=== PATIENT | male | born 1960 | race Caucasian/White ===

== ENCOUNTER 2021-02-22 15:31 | Inpatient (IN) | payer MEDICARE, OTHER ==
[2021-02-22] MEDS ORDERED: ACETAMINOPHEN TAB 500 MG TAB PO STA (16:14)
[2021-02-22] MEDS ORDERED: IBUPROFEN 600 MG TAB PO STA (16:15)
[2021-02-22] MEDS ORDERED: SODIUM CHLORIDE 0.9% 1,000 ML IV STA ×3 (16:15→21:12)
--- NOTE | 2021-02-22 16:49 | ED ---
Fever HPI - General Source: police, EMS Mode of arrival: EMS <Chen Pham - Last Filed: 02/22/21 17:58> <Mauricio Vyas - Last Filed: 02/22/21 21:52> - General Chief Complaint: Fever Stated Complaint: Covid symptoms Time Seen by Provider: 02/22/21 16:03 - History of Present Illness Initial Comments: Patient is a 60-year-old male with history of cirrhosis, HTN, presenting to the emergency department via EMS from [facility] for complaint of fever, body aches, and elevated heart rate. Patient is complaining of some nausea, some mild abdominal discomfort. He states his symptoms started about 3 days ago. He has not been eating or drinking very much. No known covid his is fci cell. He denies any chest pain, no shortness of breath, just feels like his heart is racing. Patient did have a recent ultrasound, performed on 02/19/21 which shows some liver disease, cirrhosis, dilated main portal vein, distended gallbladder with mild gallbladder wall thickening and sludge. He also has some ascites. Patient states his abdominal pain is minimal. He does admit to some mild diarrhea. He has no further complaints at this time. Upon arrival to the ER, patient is febrile to 101.7, pulse is 160, respiratory rate 26, BP is 90/57, 93% on room air. (Chen Pham) - Related Data Allergies Allergy/AdvReac Type Severity Reaction Status Date / Time No Known Allergies Allergy Verified 02/22/21 16:45 Review of Systems ROS Other: All systems not noted in ROS Statement are negative. <Chen Pham - Last Filed: 02/22/21 17:58> ROS Other: All systems not noted in ROS Statement are negative. <Mauricio Vyas - Last Filed: 02/22/21 21:52> ROS Statement: Those systems with pertinent positive or pertinent negative responses have been documented in the HPI. Past Medical History Past Medical History: Liver Disease Additional Past Medical History / Comment(s): ETOH History of Any Multi-Drug Resistant Organisms: None Reported Smoking Status: Never smoker Past Alcohol Use History: Abuse Past Drug Use History: None Reported <Chen Pham - Last Filed: 02/22/21 17:58> General Exam <Chen Pham - Last Filed: 02/22/21 17:58> - General Exam Comments Initial Comments: GENERAL: Patient is well-developed and well-nourished. Patient is disheveled, in moderate distress. HEAD: Atraumatic, normocephalic. EYES: Pupils equal round and reactive to light, extraocular movements intact, sclera anicteric, conjunctiva are normal. Eyelids were unremarkable. ENT: TMs normal, nares patent, oropharynx clear without exudates. Moist mucous membranes. NECK: Normal range of motion, supple without lymphadenopathy or JVD. LUNGS: Mildly labored respirations. Breath sounds clear to auscultation bilaterally and equal. No wheezes rales or rhonchi. HEART: Tachycardia rate and rhythm without murmurs, rubs or gallops. ABDOMEN: Mildly distended abdomen, normoactive bowel sounds. No guarding, no rebound. No masses appreciated. : Deferred MUSCULOSKELETAL: Normal extremities with adequate strength and normal range of motion, no pitting or edema. No clubbing or cyanosis. NEUROLOGICAL: Patient is alert and oriented x 3. Motor and sensory are also intact. Cranial nerves II through XII grossly intact. Symmetrical smile. Normal speech, normal gait. PSYCH: Normal mood, normal affect. SKIN: Warm, Dry, normal turgor, no rashes or lesions noted. (Chen Pham) Course <Mauricio Vyas - Last Filed: 02/22/21 21:52> Vital Signs 02/22/21 02/22/21 02/22/21 16:05 17:46 18:42 Temperature 101.7 F H 100.7 F H Pulse Rate 160 H 125 H 121 H Respiratory 26 H 22 22 Rate Blood Pressure 90/57 157/98 101/65 O2 Sat by Pulse 93 L 93 L 93 L Oximetry 02/22/21 02/22/21 02/22/21 19:41 20:51 21:09 Temperature 101.2 F H Pulse Rate 117 H 115 H 116 H Respiratory 22 22 20 Rate Blood Pressure 92/60 81/61 93/65 O2 Sat by Pulse 93 L 94 L 93 L Oximetry - Reevaluation(s) Reevaluation #1: 02/22/21 21:45 Patient does meet criteria for septic shock diagnosed at 2100. Blood culture and lactic acid and fluid bolus 3 L has been ordered. 02/22/21 21:52 Dr. Olmstead was notified. (Mauricio Vyas) Procedures - Sepsis Sepsis Focused Exam #1 Time Sepsis Criteria Met: 21:00 Sepsis Focused Exam Date: 02/22/21 Sepsis Focused Exam Time: 21:46 Sepsis Focused Exam Complete: Yes Vital Signs & RN Notes Reviewed: Yes Capillary Refill: < 2 Seconds: Fingers Peripheral Pulses: Normal: Radial (R), Radial (L) Skin Color: Normal for Patient Respiratory Exam: normal lung sounds Cardiovascular Exam: regular rate, normal rhythm <Mauricio Vyas - Last Filed: 02/22/21 21:52> Medical Decision Making - Lab Data Result diagrams: 02/22/21 16:44 <Chen Pham - Last Filed: 02/22/21 17:58> - Lab Data Result diagrams: 02/22/21 16:44 02/22/21 16:44 - Radiology Data Radiology results: report reviewed (Gallbladder ultrasound does show stones with wall thickening. Common bile duct [address] angios chest Limited but no large pulmonary embolism. Suspected mild groundglass opacity right base. Sequela of cirrhotic liver disease with ascites, prominent spleen and questionable very sees.), image reviewed (Chest x-ray shows mild patchy density right base.) <Mauricio Vyas - Last Filed: 02/22/21 21:52> - Medical Decision Making Patient is a 60-year-old male with history of hypertension, presenting via EMS with complaints of fever, chills, high heart rate for the last 3 days. He did arrive and sepsis, febrile, tachycardia and slightly hypotensive. (Chen Pham) Patient reevaluated and resting comfortably in bed. Patient states he is not feeling well, generally weak and fatigued. Patient states only mild abdominal discomfort. Case was discussed in detail with Dr. Layton, who will admit For hospital call. Case also discussed with surgical call, Dr. Jamil who will consult and recommends keeping patient nothing by mouth. He agrees with Zosyn. She also agrees with GI consult and ICU. Dr. Olmstead has been paged. (Mauricio Vyas) - Lab Data Lab Results 02/22/21 02/22/21 02/22/21 Range/Units 16:44 16:44 16:44 WBC 0.6 L* (3.8-10.6) k/uL RBC 3.84 L (4.30-5.90) m/uL Hgb 14.4 (13.0-17.5) gm/dL Hct 42.4 (39.0-53.0) % MCV 110.4 H (80.0-100.0) fL MCH 37.4 H (25.0-35.0) pg MCHC 33.9 (31.0-37.0) g/dL RDW 12.9 (11.5-15.5) % Plt Count 83 L (150-450) k/uL MPV 9.7 Differential Comment Manual Slide Review Performed Macrocytosis Marked A PT 19.6 H (9.0-12.0) sec INR 2.0 H (<1.2) APTT 32.4 H (22.0-30.0) sec D-Dimer >34.10 H (<0.60) mg/L FEU Sodium 132 L (137-145) mmol/L Potassium 3.1 L (3.5-5.1) mmol/L Chloride 96 L (98-107) mmol/L Carbon Dioxide 16 L (22-30) mmol/L Anion Gap 20 mmol/L BUN 15 (9-20) mg/dL Creatinine 1.49 H (0.66-1.25) mg/dL Est GFR (CKD-EPI)AfAm 59 (>60 ml/min/1.73 sqM) Est GFR (CKD-EPI)NonAf 51 (>60 ml/min/1.73 sqM) Glucose 26 L* (74-99) mg/dL POC Glucose (mg/dL) (75-99) mg/dL POC Glu Quill Reamer ID Lactic Ac Sepsis Rflx Plasma Lactic Acid Tristan (0.7-2.0) mmol/L Calcium 8.5 (8.4-10.2) mg/dL Magnesium 1.4 L (1.6-2.3) mg/dL Total Bilirubin 3.7 H (0.2-1.3) mg/dL AST 93 H (17-59) U/L ALT 34 (4-49) U/L Alkaline Phosphatase 130 H (38-126) U/L Lactate Dehydrogenase 467 (313-618) U/L C-Reactive Protein 3.8 H (<1.0) mg/dL Total Protein 7.3 (6.3-8.2) g/dL Albumin 2.8 L (3.5-5.0) g/dL Amylase 111 H (30-110) U/L Lipase 238 (23-300) U/L Coronavirus (PCR) (Not Detectd) 02/22/21 02/22/21 02/22/21 Range/Units 16:44 16:44 18:01 WBC (3.8-10.6) k/uL RBC (4.30-5.90) m/uL Hgb (13.0-17.5) gm/dL Hct (39.0-53.0) % MCV (80.0-100.0) fL MCH (25.0-35.0) pg MCHC (31.0-37.0) g/dL RDW (11.5-15.5) % Plt Count (150-450) k/uL MPV Differential Comment Manual Slide Review Macrocytosis PT (9.0-12.0) sec INR (<1.2) APTT (22.0-30.0) sec D-Dimer (<0.60) mg/L FEU Sodium (137-145) mmol/L Potassium (3.5-5.1) mmol/L Chloride (98-107) mmol/L Carbon Dioxide (22-30) mmol/L Anion Gap mmol/L BUN (9-20) mg/dL Creatinine (0.66-1.25) mg/dL Est GFR (CKD-EPI)AfAm (>60 ml/min/1.73 sqM) Est GFR (CKD-EPI)NonAf (>60 ml/min/1.73 sqM) Glucose (74-99) mg/dL POC Glucose (mg/dL) (75-99) mg/dL POC Glu Quill Reamer ID Lactic Ac Sepsis Rflx Y Plasma Lactic Acid Tristan 13.5 H* (0.7-2.0) mmol/L Calcium (8.4-10.2) mg/dL Magnesium (1.6-2.3) mg/dL Total Bilirubin (0.2-1.3) mg/dL AST (17-59) U/L ALT (4-49) U/L Alkaline Phosphatase (38-126) U/L Lactate Dehydrogenase (313-618) U/L C-Reactive Protein (<1.0) mg/dL Total Protein (6.3-8.2) g/dL Albumin (3.5-5.0) g/dL Amylase (30-110) U/L Lipase (23-300) U/L Coronavirus (PCR) Not Detected (Not Detectd) 02/22/21 02/22/21 02/22/21 Range/Units 18:28 20:09 20:48 WBC (3.8-10.6) k/uL RBC (4.30-5.90) m/uL Hgb (13.0-17.5) gm/dL Hct (39.0-53.0) % MCV (80.0-100.0) fL MCH (25.0-35.0) pg MCHC (31.0-37.0) g/dL RDW (11.5-15.5) % Plt Count (150-450) k/uL MPV Differential Comment Manual Slide Review Macrocytosis PT (9.0-12.0) sec INR (<1.2) APTT (22.0-30.0) sec D-Dimer (<0.60) mg/L FEU Sodium (137-145) mmol/L Potassium (3.5-5.1) mmol/L Chloride (98-107) mmol/L Carbon Dioxide (22-30) mmol/L Anion Gap mmol/L BUN (9-20) mg/dL Creatinine (0.66-1.25) mg/dL Est GFR (CKD-EPI)AfAm (>60 ml/min/1.73 sqM) Est GFR (CKD-EPI)NonAf (>60 ml/min/1.73 sqM) Glucose (74-99) mg/dL POC Glucose (mg/dL) 79 45 L (75-99) mg/dL POC Glu Quill Reamer ID Debra Boykin Aaron Lactic Ac Sepsis Rflx Plasma Lactic Acid Tristan 15.5 H* (0.7-2.0) mmol/L Calcium (8.4-10.2) mg/dL Magnesium (1.6-2.3) mg/dL Total Bilirubin (0.2-1.3) mg/dL AST (17-59) U/L ALT (4-49) U/L Alkaline Phosphatase (38-126) U/L Lactate Dehydrogenase (313-618) U/L C-Reactive Protein (<1.0) mg/dL Total Protein (6.3-8.2) g/dL Albumin (3.5-5.0) g/dL Amylase (30-110) U/L Lipase (23-300) U/L Coronavirus (PCR) (Not Detectd) - EKG Data EKG Comments: Sinus tachycardia with fusion complexes, nonspecific T-wave abnormalities, no signs of an acute ischemia. Ventricular rate 129, WA interval 128, QT 312. (Chen Pham) Critical Care Time Critical Care Time: Yes Total Critical Care Time: 35 <Mauricio Vyas - Last Filed: 02/22/21 21:52> Disposition <Chen Pham - Last Filed: 02/22/21 17:58> Is patient prescribed a controlled substance at d/c from ED?: No Decision Time: 21:44 <Mauricio Vyas - Last Filed: 02/22/21 21:52> Clinical Impression: Septic shock, Pneumonia, Hypoglycemia, Cholecystitis Disposition: ADMITTED IP TO THIS HOSP Condition: Critical Referrals: None,Stated [Primary Care Provider] - 1-2 days
--- NOTE | 2021-02-22 17:28 | XR ---
EXAMINATION TYPE: XR chest 1V portable DATE OF EXAM: 02/22/2021 Comparison: None Clinical History: 60-year-old male Suspected COVID-19 pneumonia Findings: Heart normal size. Aorta and pulmonary vasculature within normal limits. Mild patchy density at the r ight base. Impression: There is some mild patchy density at the right base. Early COVID pneumonia not excluded.
[2021-02-22 17:42] LABS: HCT 42.4 % (39.0-53.0); HGB 14.4 gm/dL (13.0-17.5); MCH 37.4 pg (25.0-35.0); MCHC 33.9 g/dL (31.0-37.0); MCV 110.4 fL (80.0-100.0); Macrocytosis Marked; Mean Platelet Volume 9.7; RBC 3.84 m/uL (4.30-5.90); RDW 12.9 % (11.5-15.5)
[2021-02-22 17:51] LABS: Potassium 3.1 mmol/L (3.5-5.1)
[2021-02-22 17:53] LABS: Albumin 2.8 g/dL (3.5-5.0); C Reactive Protein 3.8 mg/dL (<1.0); Calcium 8.5 mg/dL (8.4-10.2); Magnesium 1.4 mg/dL (1.6-2.3); Total Bilirubin 3.7 mg/dL (0.2-1.3); Total Protein 7.3 g/dL (6.3-8.2)
[2021-02-22 18:01] LABS: WBC 0.6 k/uL (3.8-10.6)
[2021-02-22] MEDS ORDERED: DEXTROSE 50% SYRINGE 50 ML IVP STA ×2 (18:06→21:22)
[2021-02-22 18:10] LABS: Partial Thromboplastin Time 32.4 sec (22.0-30.0); Prothrombin Time 19.6 sec (9.0-12.0)
[2021-02-22 18:19] LABS: Platelet Count 83 k/uL (150-450)
[2021-02-22 18:30] LABS: Glucose,Whole Blood 79 mg/dL (75-99)
[2021-02-22 18:39] LABS: D-Dimer >34.10 mg/L FEU (<0.60)
--- NOTE | 2021-02-22 18:43 | US ---
EXAMINATION TYPE: US gallbladder DATE OF EXAM: 02/22/2021 COMPARISON: NONE CLINICAL HISTORY: pain, fever. RUQ pain EXAM MEASUREMENTS: Liver Length: 14.2 cm Gallbladder Wall: 0.6 cm CBD: 0.7 cm Right Kidney: 10.5 x 4.7 x 4.1 cm Technical limitations due to large amount of overlying bowel content and patient's position - patie nt in LLD during entire exam Pancreas: Obscured by bowel gas Liver: Normal size and echogenicity. There is mild coarsening. Gallbladder: Cholelithiasis. Borderline hydropic measuring 10.6cm. Mildly thickened gallbladder wall measuring 5 mm. No significant pericholecystic edema. Wireless Network Engineer reports negative sonographic Purcell sign. CBD: upper limits of normal, measures 7 mm. Right Kidney: no evidence of hydronephrosis Free fluid adjacent to liver IMPRESSION: 1. Prominent gallbladder with cholelithiasis and gallbladder wall thickening. Wireless Network Engineer reports neg ative sonographic Purcell sign. Findings are clinical. There is clinical concern for acute cholecystit is consider nuclear medicine HIDA scan. 2. Common bile duct measures 7 mm, upper limits of normal. 3. Perihepatic ascites.
[2021-02-22 20:50] LABS: Glucose,Whole Blood 45 mg/dL (75-99)
--- NOTE | 2021-02-22 21:11 | CT ---
EXAMINATION TYPE: CT chest angio for PE DATE OF EXAM: 02/22/2021 COMPARISON: Same day chest radiograph HISTORY: Fever, elevated d-dimer, tachy. CT DLP: 354 mGycm Automated exposure control for dose reduction was used. CONTRAST: CT Chest for pulmonary embolism performed with with IV Contrast, patient injected with 80 mL of Isovu e 370. FINDINGS: LUNGS: There is motion artifact through the bilateral lungs. There is no pneumothorax or pleural effu johan. There are suspected groundglass opacities of the right middle and right lower lobe with mild ri ght basilar atelectasis. MEDIASTINUM: The majority of the contrast bolus is within the superior vena cava and brachiocephalic vein. There is motion artifact through the pulmonary arteries. There is contrast opacification of the main pulmonary arteries with no large central pulmonary emboli. The segmental and subsegmental pulmo nary arteries are not well opacified. Cardiomegaly. No pericardial effusion. Thoracic aorta is normal in caliber OTHER: There is upper abdominal ascites. Peripheral nodular contour of the liver. Right hepatic cyst . There is soft tissue thickening around the distal esophagus. There is fullness of the splenic conto ur. There is motion artifact through the osseous structures IMPRESSION: 1. Suboptimal exam due to significant motion artifact and contrast bolus within the superior vena cav a. 2. There is no large central pulmonary embolism within the main pulmonary arteries. Segmental and sub segmental pulmonary arteries are not well opacified. 3. Suspected mild groundglass opacities of the right lung base with mild atelectasis. 4. Sequela of cirrhotic liver disease with nodular liver contour, ascites, prominent spleen, and ques tionable paraesophageal varices.
[2021-02-22] MEDS ORDERED: PIPERACILLIN-TAZOBACTAM 3.375 GM in SODIUM CHLORIDE 0.9% 100 ML IVPB STA (21:17)
--- NOTE | 2021-02-22 21:18 | CT ---
EXAMINATION TYPE: CT abdomen pelvis w con DATE OF EXAM: 02/22/2021 COMPARISON: Same day gallbladder ultrasound and CTA chest HISTORY: Fever, abdominal pain. CT DLP: 1180.9 mGycm Automated exposure control for dose reduction was used. TECHNIQUE: Helical acquisition of images was performed from the lung bases through the pelvis. CONTRAST: Performed without Oral Contrast and with IV Contrast, patient injected with Isovue 370. FINDINGS: LUNG BASES: Bibasilar atelectasis. LIVER: Cirrhotic contour and heterogenous appearance. Right hepatic cyst. BILIARY SYSTEM: The gallbladder is significantly enlarged. There is an ovoid hyperdensity likely repr esenting cholelithiasis. No intrahepatic or extrahepatic biliary ductal dilatation. PANCREAS: Normal. SPLEEN: Enlarged. ADRENALS: Normal. KIDNEYS: No hydronephrosis bilaterally. BOWEL: Bowel loops are partially obscured by large volume ascites. There is no evidence of bowel obs truction. There is colonic diverticulosis. Likely paraesophageal varices. PERITONEUM: No pneumoperitoneum. Large volume ascites. LYMPH NODES: Reactive appearing retroperitoneal lymph nodes. PELVIS: Underdistended urinary bladder. VASCULATURE: Abdominal aorta normal in caliber with moderate calcified atherosclerotic disease. Port al vein is patent measuring up to 16 mm. MUSCULOSKELETAL: No acute osseous abnormality. IMPRESSION: 1. Cirrhotic liver with sequela of portal hypertension including splenomegaly and large volume ascite s. 2. Gallbladder hydrops and cholelithiasis. If there is clinical concern for acute cholecystitis consi rasheed nuclear medicine HIDA scan.
[2021-02-22] MEDS ORDERED: AZITHROMYCIN 500 MG in SODIUM CHLORIDE 0.9% 250 ML IVPB STA (21:46)
[2021-02-22] MEDS ORDERED: NALOXONE 0.4 MG/ML 1 ML VIAL IV PRN (21:46)
[2021-02-22] MEDS ORDERED: PNEUMONIA PROTOCOL UTILIZED 1 EACH MISC PO PRN (21:46)
[2021-02-22 21:54] LABS: Glucose,Whole Blood 121 mg/dL (75-99)
[2021-02-22] MEDS: SODIUM CHLORIDE 0.9% 1,000 ML IV SCH (22:23)
[2021-02-22] MEDS: PANTOPRAZOLE 40 MG/10 ML VIAL IV SCH (22:23)
[2021-02-23 02:35] LABS: Glucose,Whole Blood 73 mg/dL (75-99)
[2021-02-23 04:17] LABS: INR 2.5 (<1.2); Prothrombin Time 23.8 sec (9.0-12.0)
[2021-02-23 04:25] LABS: Calcium 7.4 mg/dL (8.4-10.2); Potassium 3.7 mmol/L (3.5-5.1); Total Bilirubin 3.6 mg/dL (0.2-1.3); Total Protein 5.5 g/dL (6.3-8.2)
[2021-02-23] MEDS: PIPERACILLIN-TAZOBACTAM 3.375 GM in SODIUM CHLORIDE 0.9% 100 ML IVPB SCH ×3 (05:10→23:02)
[2021-02-23 05:13] LABS: HCT 31.3 % (39.0-53.0); Hypochromasia Marked; MCH 37.2 pg (25.0-35.0); MCHC 31.1 g/dL (31.0-37.0); Macrocytosis Marked; Platelet Count 68 k/uL (150-450); RBC 2.62 m/uL (4.30-5.90); RDW 13.8 % (11.5-15.5); WBC 15.7 k/uL (3.8-10.6)
[2021-02-23 05:53] LABS: HGB 9.7 gm/dL (13.0-17.5); MCV 119.6 fL (80.0-100.0)
[2021-02-23 07:32] LABS: Glucose,Whole Blood 52 mg/dL (75-99)
[2021-02-23] MEDS ORDERED: DEXTROSE 50% SYRINGE 50 ML IVP STA (08:01)
--- NOTE | 2021-02-23 08:09 | XR ---
EXAMINATION TYPE: XR chest 1V DATE OF EXAM: 02/23/2021 COMPARISON: 02/22/2021 HISTORY: 60-year-old male pneumonia TECHNIQUE: Single frontal view of the chest is obtained. FINDINGS: Low lung volumes and cardiovascular markings. Heart size is accentuated likely within normal limits. Subtle interstitial changes in the periphery of the right midlung have increased and there is patchy bibasilar opacities, increased now on the left. No pleural effusion. IMPRESSION: Hypoventilatory changes. Subtle interstitial infiltrate at the periphery of the right mid lung and mi ld patchy density at the left base have both increased. Right basilar opacity is similar.
[2021-02-23 08:32] LABS: Band Neutrophils % 16 %; Lymphocytes # (M) 0.47 k/uL (1.0-4.8); Metamyelocytes # (M) 1.26 k/uL (0); Metamyelocytes % 8 %; Myelocytes # (M) 0.47 k/uL (0); Myelocytes % 3 %; Neutrophils % (M) 65 %; Nucleated Red Blood Cells 0 /100 WBC (0-0); Total Cells Counted 200
[2021-02-23 08:33] LABS: Poikilocytosis (M) Present; Toxic Vacuolation Present
[2021-02-23 08:39] LABS: Albumin 1.7 g/dL (3.5-5.0); Calcium 6.8 mg/dL (8.4-10.2); Potassium 4.2 mmol/L (3.5-5.1); Total Bilirubin 3.3 mg/dL (0.2-1.3); Total Protein 4.9 g/dL (6.3-8.2)
[2021-02-23 08:46] LABS: HCT 25.3 % (39.0-53.0); Hypochromasia Marked; MCH 36.9 pg (25.0-35.0); MCHC 30.7 g/dL (31.0-37.0); MCV 120.5 fL (80.0-100.0); Macrocytosis Marked; Mean Platelet Volume 11.3; RDW 13.6 % (11.5-15.5); WBC 17.4 k/uL (3.8-10.6)
[2021-02-23 08:48] LABS: HGB 7.8 gm/dL (13.0-17.5); Platelet Count 74 k/uL (150-450)
--- NOTE | 2021-02-23 09:01 | HP ---
HISTORY AND PHYSICAL This 60-year-old white male with history of hypertension, cirrhosis, came in the ER from the long-term due to fever, body aches, elevated heart rates, some nausea, abdominal discomfort has not been eating or drinking for the last few days. Feels like his heart was racing. He had ultrasound on 02/19/2021 shows some liver disease, cirrhosis with dilated portal vein, distended gallbladder, thickening and sludge, some ascites. When he came to the ER, his temperature 101.7, pulse is 160, blood pressure is 90/57, oxygen level sat is 93 on room air. ALLERGIES: Allergies are negative. PAST MEDICAL HISTORY: Liver disease. Alcohol. Never smoked. Alcohol abuse. PHYSICAL EXAMINATION: He shows mildly labored respirations. HEART: Tachycardiac. Rate and rhythm without murmurs, rubs or gallops. ABDOMEN: Mildly distended abdomen. MUSCULOSKELETAL: Range of motion full. NEUROLOGIC: Cranial nerves intact. PSYCH: Fair mood and affect. Temperature is 101.7, pulse is 120s to 160s, respiratory rate 20 to 26, blood pressure 90s to 157 over 50s to 90s, O2 of 93%. ASSESSMENT: Septic shock, most likely fluid boluses have been ordered, pulmonary traveling repair accountant as ordered. We will get surgical consultation for possible gallbladder issues. Broad- spectrum antibiotics will be needed. Prognosis guarded. MMODL / IJN: [id number] /
[2021-02-23 09:16] LABS: Glucose,Whole Blood 110 mg/dL (75-99)
[2021-02-23] MEDS: KETOROLAC 15 MG/ML 1 ML VIAL IVP SCH ×3 (09:22→21:37)
[2021-02-23] MEDS: PANTOPRAZOLE 40 MG/10 ML VIAL IV SCH (09:22)
[2021-02-23 10:35] LABS: ABG Base Excess -20.4 mmol/L; ABG PCO2 24 mmHg (35-45); ABG PO2 98 mmHg (83-108); ABG TCO2 9 mmol/L (19-24); Allen Test Performed? Yes
[2021-02-23 10:39] LABS: ABG PH 7.15 (7.35-7.45)
[2021-02-23 10:40] LABS: ABG HCO3 9 mmol/L (21-25)
[2021-02-23] MEDS ORDERED: SODIUM BICARB 8.4% 50 ML SYR (1 MEQ/ML) IV STA (10:55)
[2021-02-23 11:34] LABS: HGB 8.4 gm/dL (13.0-17.5); Hypochromasia Marked; MCHC 32.5 g/dL (31.0-37.0); MCV 117.1 fL (80.0-100.0); Macrocytosis Marked; Mean Platelet Volume 11.2; RBC 2.22 m/uL (4.30-5.90); RDW 13.1 % (11.5-15.5); WBC 17.9 k/uL (3.8-10.6)
[2021-02-23 11:35] LABS: Platelet Count 75 k/uL (150-450)
[2021-02-23 11:39] LABS: Appearance,Urine Cloudy (Clear); Bacteria,Urine Occasional /hpf; Bilirubin,Urine 1+ (Negative); Blood,Urine Small (Negative); Color,Urine Dark Yellow; Glucose,Urine (UA) Negative (Negative); Ketones,Urine Negative (Negative); Leukocyte Esterase,Urine Negative (Negative); Mucus,Urine Rare /hpf; Nitrite,Urine Negative (Negative); PH, Urine 5.5 (5.0-8.0); Protein,Urine 1+ (Negative); RBC,Urine 17 /hpf (0-5); Squamous Epithelial Cell,Urine 1 /hpf (0-4); WBC,Urine 25 /hpf (0-5)
[2021-02-23 11:43] LABS: Calcium 6.8 mg/dL (8.4-10.2); Magnesium 1.4 mg/dL (1.6-2.3); Potassium 3.4 mmol/L (3.5-5.1); Total Bilirubin 3.7 mg/dL (0.2-1.3); Total Protein 5.4 g/dL (6.3-8.2)
[2021-02-23] MEDS: DEXTROSE 5% IN WATER 1,000 ML with SODIUM BICARB (1 MEQ/ML) 150 ML IV SCH (11:43)
[2021-02-23 11:45] LABS: Specific Gravity,Urine >1.050 (1.001-1.035)
[2021-02-23] MEDS ORDERED: PHYTONADIONE 5 MG in SODIUM CHLORIDE 0.9% 50 ML IVPB STA (11:47)
[2021-02-23 12:24] LABS: INR 2.6 (<1.2); Partial Thromboplastin Time 48.8 sec (22.0-30.0); Prothrombin Time 24.9 sec (9.0-12.0)
--- NOTE | 2021-02-23 12:53 | P.GSCN ---
History of Present Illness Consult date: 02/23/21 History of present illness: CHIEF COMPLAINT: Fever HISTORY OF PRESENT ILLNESS: Patient is a 60-year-old male with a known history of liver cirrhosis, hypertension and alcohol abuse. Patient had been at the [facility] and had developed complaints of fever, body aches and elevated heart rate. He was brought into the emergency room via EMS. Patient also had been having some nausea and mild abdominal discomfort. His symptoms have been ongoing for about 3 days. He has had no appetite. He reports eating ice chips and that cause discomfort to his stomach. He also has been having diarrhea. Patient had evidence of sepsis on admission. He did have a temp of 101.7 he was tachycardic white count elevated and a lactic acid of 16. Patient also has been hypotensive. Patient seen in the ER. He is ICU overflow. He did have elevation of liver enzymes and total bilirubin. Abdominal ultrasound had shown prominent gallbladder with cholelithiasis and gallbladder wall thickening. Common bile duct measuring 7 mm. Perihepatic ascites. Surgical service was consulted in regards to abnormal gallbladder findings. Patient started on IV antibiotics and IV fluids in the ER. He has also being given sodium bicarb. He was also given vitamin K for his elevated INR. He also had been having hypoglycemia and received amp of D50. Patient seen and examined in the ER with Dr. tineo PAST MEDICAL HISTORY: See list. PAST SURGICAL HISTORY: See list. MEDICATIONS: See list. ALLERGIES: See list. SOCIAL HISTORY: No illicit drug use. REVIEW OF SYSTEMS: CONSTITUTIONAL: Denies fever or chills. HEENT: Denies blurred vision, vision changes, or eye pain. Denies hemoptysis CARDIOVASCULAR: Denies chest pain or pressure. RESPIRATORY: No shortness of breath. GASTROINTESTINAL: See HPI for pertinent findings HEMATOLOGIC: Denies bleeding disorders. GENITOURINARY: Denies any blood in urine or increased urinary frequency. SKIN: Denies pruitis. Denies rash. PHYSICAL EXAM: VITAL SIGNS: Reviewed GENERAL: Well-developed in no acute distress. HEENT: No sclera icterus. Extraocular movements grossly intact. Moist buccal mucosa. Head is atraumatic, normocephalic. No nasal drainage. ABDOMEN: Soft. distended. epigastric tenderness with palpation NEUROLOGIC: Alert and oriented. Cranial nerves II through XII grossly intact. LABORATORY DATA: WBC 17.9 hemoglobin 8.4 platelets 75 INR 2.6 sodium 134 potassium 3.4 CO2 10 creatinine 2.48 Lactic 16.8 magnesium 1.4 total bilirubin 3.7 AST 272 ALT 55 alk phos 40 albumin 2.0 IMAGING: Abdominal ultrasound had shown prominent gallbladder with cholelithiasis and gallbladder wall thickening. Common bile duct measuring 7 mm. Perihepatic ascites. Chest CTA negative for PE. Shows sequelae of cirrhotic liver disease with nodular liver contour, ascites prominent spleen and questionable paraesophageal varices. Computed tomography scan abdomen and pelvis cirrhotic liver with some sequelae of portal hypertension including splenomegaly with large volume ascites. Gallbladder hydrops with cholelithiasis. Chest x-ray hypoventilatory changes. Subtle interstitial infiltrate at the periphery of the right midlung and mild patchy density at the left base both increased. ASSESSMENT: 1. Sepsis present on admission 2. Chronic cholecystitis with ultrasound showing evidence of gallstones and gallbladder wall thickening 3. Possible pneumonia 4. Acute hypoxic respiratory failure 5. History of liver cirrhosis with abdominal ascites 6. Coagulopathy likely due to liver disease PLAN: -Patient is tentatively scheduled for laparoscopic cholecystectomy tomorrow, 02/24/[address] Tineo -Continue supportive care -Continue IV antibiotics -Continue IV fluids Thank you for this consultation Physician Strategic Accounts Manager note has been reviewed by physician. Signing provider agrees with the documented findings, assessment, and plan of care. Past Medical History Past Medical History: Liver Disease Additional Past Medical History / Comment(s): ETOH History of Any Multi-Drug Resistant Organisms: None Reported Smoking Status: Never smoker Past Alcohol Use History: Abuse Past Drug Use History: None Reported Medications and Allergies Home Medications Medication Instructions Recorded Confirmed Type hydroCHLOROthiazide [Hydrodiuril] 25 mg PO DAILY 02/22/21 02/23/21 History Allergies Allergy/AdvReac Type Severity Reaction Status Date / Time No Known Allergies Allergy Verified 02/22/21 21:57 Surgical - Exam Vital Signs Temp Pulse Resp BP Pulse Ox 101.7 F H 160 H 26 H 90/57 93 L 02/22/21 16:05 02/22/21 16:05 02/22/21 16:05 02/22/21 16:05 02/22/21 16:05 Results - Labs 02/23/21 10:31 02/23/21 10:31 Abnormal Lab Results - Last 24 Hours (Table) 04/02/22/21 02/22/21 Range/Units 16:44 16:44 16:44 WBC 0.6 L* (3.8-10.6) k/uL RBC 3.84 L (4.30-5.90) m/uL Hgb (13.0-17.5) gm/dL Hct (39.0-53.0) % MCV 110.4 H (80.0-100.0) fL MCH 37.4 H (25.0-35.0) pg MCHC (31.0-37.0) g/dL Plt Count 83 L (150-450) k/uL Neutrophils # (Manual) (1.3-7.7) k/uL Lymphocytes # (Manual) (1.0-4.8) k/uL Monocytes # (Manual) (0-1.0) k/uL Metamyelocytes # (Man) (0) k/uL Myelocytes # (Manual) (0) k/uL Macrocytosis Marked A PT 19.6 H (9.0-12.0) sec INR 2.0 H (<1.2) APTT 32.4 H (22.0-30.0) sec D-Dimer >34.10 H (<0.60) mg/L FEU ABG pH (7.35-7.45) ABG pCO2 (35-45) mmHg ABG HCO3 (21-25) mmol/L ABG Total CO2 (19-24) mmol/L Sodium 132 L (137-145) mmol/L Potassium 3.1 L (3.5-5.1) mmol/L Chloride 96 L (98-107) mmol/L Carbon Dioxide 16 L (22-30) mmol/L Creatinine 1.49 H (0.66-1.25) mg/dL Glucose 26 L* (74-99) mg/dL POC Glucose (mg/dL) (75-99) mg/dL Plasma Lactic Acid Tristan (0.7-2.0) mmol/L Calcium (8.4-10.2) mg/dL Magnesium 1.4 L (1.6-2.3) mg/dL Total Bilirubin 3.7 H (0.2-1.3) mg/dL AST 93 H (17-59) U/L ALT (4-49) U/L Alkaline Phosphatase 130 H (38-126) U/L C-Reactive Protein 3.8 H (<1.0) mg/dL Total Protein (6.3-8.2) g/dL Albumin 2.8 L (3.5-5.0) g/dL Amylase 111 H (30-110) U/L Ur Specific [place] (1.001-1.035) Urine Protein (Negative) Urine Blood (Negative) Urine Bilirubin (Negative) Urine RBC (0-5) /hpf Urine WBC (0-5) /hpf Urine Bacteria (None) /hpf Urine Mucus (None) /hpf 02/22/21 02/22/21 02/22/21 Range/Units 16:44 20:09 20:48 WBC (3.8-10.6) k/uL RBC (4.30-5.90) m/uL Hgb (13.0-17.5) gm/dL Hct (39.0-53.0) % MCV (80.0-100.0) fL MCH (25.0-35.0) pg MCHC (31.0-37.0) g/dL Plt Count (150-450) k/uL Neutrophils # (Manual) (1.3-7.7) k/uL Lymphocytes # (Manual) (1.0-4.8) k/uL Monocytes # (Manual) (0-1.0) k/uL Metamyelocytes # (Man) (0) k/uL Myelocytes # (Manual) (0) k/uL Macrocytosis PT (9.0-12.0) sec INR (<1.2) APTT (22.0-30.0) sec D-Dimer (<0.60) mg/L FEU ABG pH (7.35-7.45) ABG pCO2 (35-45) mmHg ABG HCO3 (21-25) mmol/L ABG Total CO2 (19-24) mmol/L Sodium (137-145) mmol/L Potassium (3.5-5.1) mmol/L Chloride (98-107) mmol/L Carbon Dioxide (22-30) mmol/L Creatinine (0.66-1.25) mg/dL Glucose (74-99) mg/dL POC Glucose (mg/dL) 45 L (75-99) mg/dL Plasma Lactic Acid Tristan 13.5 H* 15.5 H* (0.7-2.0) mmol/L Calcium (8.4-10.2) mg/dL Magnesium (1.6-2.3) mg/dL Total Bilirubin (0.2-1.3) mg/dL AST (17-59) U/L ALT (4-49) U/L Alkaline Phosphatase (38-126) U/L C-Reactive Protein (<1.0) mg/dL Total Protein (6.3-8.2) g/dL Albumin (3.5-5.0) g/dL Amylase (30-110) U/L Ur Specific [place] (1.001-1.035) Urine Protein (Negative) Urine Blood (Negative) Urine Bilirubin (Negative) Urine RBC (0-5) /hpf Urine WBC (0-5) /hpf Urine Bacteria (None) /hpf Urine Mucus (None) /hpf 02/22/21 02/22/21 02/23/21 Range/Units 21:53 22:55 02:34 WBC (3.8-10.6) k/uL RBC (4.30-5.90) m/uL Hgb (13.0-17.5) gm/dL Hct (39.0-53.0) % MCV (80.0-100.0) fL MCH (25.0-35.0) pg MCHC (31.0-37.0) g/dL Plt Count (150-450) k/uL Neutrophils # (Manual) (1.3-7.7) k/uL Lymphocytes # (Manual) (1.0-4.8) k/uL Monocytes # (Manual) (0-1.0) k/uL Metamyelocytes # (Man) (0) k/uL Myelocytes # (Manual) (0) k/uL Macrocytosis PT (9.0-12.0) sec INR (<1.2) APTT (22.0-30.0) sec D-Dimer (<0.60) mg/L FEU ABG pH (7.35-7.45) ABG pCO2 (35-45) mmHg ABG HCO3 (21-25) mmol/L ABG Total CO2 (19-24) mmol/L Sodium (137-145) mmol/L Potassium (3.5-5.1) mmol/L Chloride (98-107) mmol/L Carbon Dioxide (22-30) mmol/L Creatinine (0.66-1.25) mg/dL Glucose (74-99) mg/dL POC Glucose (mg/dL) 121 H 73 L (75-99) mg/dL Plasma Lactic Acid Tristan 15.1 H* (0.7-2.0) mmol/L Calcium (8.4-10.2) mg/dL Magnesium (1.6-2.3) mg/dL Total Bilirubin (0.2-1.3) mg/dL AST (17-59) U/L ALT (4-49) U/L Alkaline Phosphatase (38-126) U/L C-Reactive Protein (<1.0) mg/dL Total Protein (6.3-8.2) g/dL Albumin (3.5-5.0) g/dL Amylase (30-110) U/L Ur Specific [place] (1.001-1.035) Urine Protein (Negative) Urine Blood (Negative) Urine Bilirubin (Negative) Urine RBC (0-5) /hpf Urine WBC (0-5) /hpf Urine Bacteria (None) /hpf Urine Mucus (None) /hpf 02/23/21 02/23/21 02/23/21 Range/Units 03:15 03:15 03:15 WBC 15.7 H (3.8-10.6) k/uL RBC 2.62 L (4.30-5.90) m/uL Hgb 9.7 L D (13.0-17.5) gm/dL Hct 31.3 L (39.0-53.0) % MCV 119.6 H D (80.0-100.0) fL MCH 37.2 H (25.0-35.0) pg MCHC (31.0-37.0) g/dL Plt Count 68 L (150-450) k/uL Neutrophils # (Manual) 12.70 H (1.3-7.7) k/uL Lymphocytes # (Manual) 0.47 L (1.0-4.8) k/uL Monocytes # (Manual) 1.10 H (0-1.0) k/uL Metamyelocytes # (Man) 1.26 H (0) k/uL Myelocytes # (Manual) 0.47 H (0) k/uL Macrocytosis Marked A PT 23.8 H (9.0-12.0) sec INR 2.5 H (<1.2) APTT (22.0-30.0) sec D-Dimer (<0.60) mg/L FEU ABG pH (7.35-7.45) ABG pCO2 (35-45) mmHg ABG HCO3 (21-25) mmol/L ABG Total CO2 (19-24) mmol/L Sodium 133 L (137-145) mmol/L Potassium (3.5-5.1) mmol/L Chloride (98-107) mmol/L Carbon Dioxide 11 L (22-30) mmol/L Creatinine 2.17 H (0.66-1.25) mg/dL Glucose 61 L (74-99) mg/dL POC Glucose (mg/dL) (75-99) mg/dL Plasma Lactic Acid Tristan (0.7-2.0) mmol/L Calcium 7.4 L (8.4-10.2) mg/dL Magnesium (1.6-2.3) mg/dL Total Bilirubin 3.6 H (0.2-1.3) mg/dL AST 172 H (17-59) U/L ALT (4-49) U/L Alkaline Phosphatase (38-126) U/L C-Reactive Protein (<1.0) mg/dL Total Protein 5.5 L (6.3-8.2) g/dL Albumin 2.0 L (3.5-5.0) g/dL Amylase 176 H (30-110) U/L Ur Specific [place] (1.001-1.035) Urine Protein (Negative) Urine Blood (Negative) Urine Bilirubin (Negative) Urine RBC (0-5) /hpf Urine WBC (0-5) /hpf Urine Bacteria (None) /hpf Urine Mucus (None) /hpf 02/23/21 02/23/21 02/23/21 Range/Units 03:15 07:30 08:03 WBC (3.8-10.6) k/uL RBC (4.30-5.90) m/uL Hgb (13.0-17.5) gm/dL Hct (39.0-53.0) % MCV (80.0-100.0) fL MCH (25.0-35.0) pg MCHC (31.0-37.0) g/dL Plt Count (150-450) k/uL Neutrophils # (Manual) (1.3-7.7) k/uL Lymphocytes # (Manual) (1.0-4.8) k/uL Monocytes # (Manual) (0-1.0) k/uL Metamyelocytes # (Man) (0) k/uL Myelocytes # (Manual) (0) k/uL Macrocytosis PT (9.0-12.0) sec INR (<1.2) APTT (22.0-30.0) sec D-Dimer (<0.60) mg/L FEU ABG pH (7.35-7.45) ABG pCO2 (35-45) mmHg ABG HCO3 (21-25) mmol/L ABG Total CO2 (19-24) mmol/L Sodium (137-145) mmol/L Potassium (3.5-5.1) mmol/L Chloride (98-107) mmol/L Carbon Dioxide (22-30) mmol/L Creatinine (0.66-1.25) mg/dL Glucose (74-99) mg/dL POC Glucose (mg/dL) 52 L (75-99) mg/dL Plasma Lactic Acid Tristan 16.9 H* 16.8 H* (0.7-2.0) mmol/L Calcium (8.4-10.2) mg/dL Magnesium (1.6-2.3) mg/dL Total Bilirubin (0.2-1.3) mg/dL AST (17-59) U/L ALT (4-49) U/L Alkaline Phosphatase (38-126) U/L C-Reactive Protein (<1.0) mg/dL Total Protein (6.3-8.2) g/dL Albumin (3.5-5.0) g/dL Amylase (30-110) U/L Ur Specific [place] (1.001-1.035) Urine Protein (Negative) Urine Blood (Negative) Urine Bilirubin (Negative) Urine RBC (0-5) /hpf Urine WBC (0-5) /hpf Urine Bacteria (None) /hpf Urine Mucus (None) /hpf 02/23/21 02/23/21 02/23/21 Range/Units 08:07 08:07 08:07 WBC 17.4 H (3.8-10.6) k/uL RBC 2.10 L (4.30-5.90) m/uL Hgb 7.8 L D (13.0-17.5) gm/dL Hct 25.3 L (39.0-53.0) % MCV 120.5 H (80.0-100.0) fL MCH 36.9 H (25.0-35.0) pg MCHC 30.7 L (31.0-37.0) g/dL Plt Count 74 L (150-450) k/uL Neutrophils # (Manual) (1.3-7.7) k/uL Lymphocytes # (Manual) (1.0-4.8) k/uL Monocytes # (Manual) (0-1.0) k/uL Metamyelocytes # (Man) (0) k/uL Myelocytes # (Manual) (0) k/uL Macrocytosis Marked A PT (9.0-12.0) sec INR (<1.2) APTT (22.0-30.0) sec D-Dimer (<0.60) mg/L FEU ABG pH (7.35-7.45) ABG pCO2 (35-45) mmHg ABG HCO3 (21-25) mmol/L ABG Total CO2 (19-24) mmol/L Sodium 130 L (137-145) mmol/L Potassium (3.5-5.1) mmol/L Chloride (98-107) mmol/L Carbon Dioxide 7 L* (22-30) mmol/L Creatinine 2.41 H (0.66-1.25) mg/dL Glucose 196 H (74-99) mg/dL POC Glucose (mg/dL) (75-99) mg/dL Plasma Lactic Acid Tristan (0.7-2.0) mmol/L Calcium 6.8 L (8.4-10.2) mg/dL Magnesium 1.4 L (1.6-2.3) mg/dL Total Bilirubin 3.3 H (0.2-1.3) mg/dL AST 202 H (17-59) U/L ALT (4-49) U/L Alkaline Phosphatase 36 L (38-126) U/L C-Reactive Protein (<1.0) mg/dL Total Protein 4.9 L (6.3-8.2) g/dL Albumin 1.7 L (3.5-5.0) g/dL Amylase (30-110) U/L Ur Specific [place] (1.001-1.035) Urine Protein (Negative) Urine Blood (Negative) Urine Bilirubin (Negative) Urine RBC (0-5) /hpf Urine WBC (0-5) /hpf Urine Bacteria (None) /hpf Urine Mucus (None) /hpf 02/23/21 02/23/21 02/23/21 Range/Units 09:14 10:29 10:31 WBC (3.8-10.6) k/uL RBC (4.30-5.90) m/uL Hgb (13.0-17.5) gm/dL Hct (39.0-53.0) % MCV (80.0-100.0) fL MCH (25.0-35.0) pg MCHC (31.0-37.0) g/dL Plt Count (150-450) k/uL Neutrophils # (Manual) (1.3-7.7) k/uL Lymphocytes # (Manual) (1.0-4.8) k/uL Monocytes # (Manual) (0-1.0) k/uL Metamyelocytes # (Man) (0) k/uL Myelocytes # (Manual) (0) k/uL Macrocytosis PT 24.9 H (9.0-12.0) sec INR 2.6 H (<1.2) APTT 48.8 H (22.0-30.0) sec D-Dimer (<0.60) mg/L FEU ABG pH (7.35-7.45) ABG pCO2 (35-45) mmHg ABG HCO3 (21-25) mmol/L ABG Total CO2 (19-24) mmol/L Sodium (137-145) mmol/L Potassium (3.5-5.1) mmol/L Chloride (98-107) mmol/L Carbon Dioxide (22-30) mmol/L Creatinine (0.66-1.25) mg/dL Glucose (74-99) mg/dL POC Glucose (mg/dL) 110 H (75-99) mg/dL Plasma Lactic Acid Tristan (0.7-2.0) mmol/L Calcium (8.4-10.2) mg/dL Magnesium (1.6-2.3) mg/dL Total Bilirubin (0.2-1.3) mg/dL AST (17-59) U/L ALT (4-49) U/L Alkaline Phosphatase (38-126) U/L C-Reactive Protein (<1.0) mg/dL Total Protein (6.3-8.2) g/dL Albumin (3.5-5.0) g/dL Amylase (30-110) U/L Ur Specific [place] >1.050 H (1.001-1.035) Urine Protein 1+ H (Negative) Urine Blood Small H (Negative) Urine Bilirubin 1+ H (Negative) Urine RBC 17 H (0-5) /hpf Urine WBC 25 H (0-5) /hpf Urine Bacteria Occasional H (None) /hpf Urine Mucus Rare H (None) /hpf 02/23/21 02/23/21 02/23/21 Range/Units 10:31 10:31 10:32 WBC 17.9 H (3.8-10.6) k/uL RBC 2.22 L (4.30-5.90) m/uL Hgb 8.4 L (13.0-17.5) gm/dL Hct 26.0 L (39.0-53.0) % MCV 117.1 H (80.0-100.0) fL MCH 38.0 H (25.0-35.0) pg MCHC (31.0-37.0) g/dL Plt Count 75 L (150-450) k/uL Neutrophils # (Manual) (1.3-7.7) k/uL Lymphocytes # (Manual) (1.0-4.8) k/uL Monocytes # (Manual) (0-1.0) k/uL Metamyelocytes # (Man) (0) k/uL Myelocytes # (Manual) (0) k/uL Macrocytosis Marked A PT (9.0-12.0) sec INR (<1.2) APTT (22.0-30.0) sec D-Dimer (<0.60) mg/L FEU ABG pH 7.15 L* (7.35-7.45) ABG pCO2 24 L (35-45) mmHg ABG HCO3 9 L* (21-25) mmol/L ABG Total CO2 9 L (19-24) mmol/L Sodium 134 L (137-145) mmol/L Potassium 3.4 L (3.5-5.1) mmol/L Chloride (98-107) mmol/L Carbon Dioxide 10 L (22-30) mmol/L Creatinine 2.48 H (0.66-1.25) mg/dL Glucose (74-99) mg/dL POC Glucose (mg/dL) (75-99) mg/dL Plasma Lactic Acid Tristan (0.7-2.0) mmol/L Calcium 6.8 L (8.4-10.2) mg/dL Magnesium 1.4 L (1.6-2.3) mg/dL Total Bilirubin 3.7 H (0.2-1.3) mg/dL AST 272 H (17-59) U/L ALT 55 H (4-49) U/L Alkaline Phosphatase (38-126) U/L C-Reactive Protein (<1.0) mg/dL Total Protein 5.4 L (6.3-8.2) g/dL Albumin 2.0 L (3.5-5.0) g/dL Amylase (30-110) U/L Ur Specific [place] (1.001-1.035) Urine Protein (Negative) Urine Blood (Negative) Urine Bilirubin (Negative) Urine RBC (0-5) /hpf Urine WBC (0-5) /hpf Urine Bacteria (None) /hpf Urine Mucus (None) /hpf Microbiology - Last 24 Hours (Table) 02/22/21 16:45 Blood Culture Gram Stain - Preliminary Blood 02/22/21 16:45 Blood Culture - Final Blood Diabetes panel 02/22/21 02/23/21 02/23/21 Range/Units 16:44 03:15 08:07 Sodium 132 L 133 L 130 L (137-145) mmol/L Potassium 3.1 L 3.7 4.2 (3.5-5.1) mmol/L Chloride 96 L 100 102 (98-107) mmol/L Carbon Dioxide 16 L 11 L 7 L* (22-30) mmol/L BUN 15 18 19 (9-20) mg/dL Creatinine 1.49 H 2.17 H 2.41 H (0.66-1.25) mg/dL Glucose 26 L* 61 L 196 H (74-99) mg/dL Calcium 8.5 7.4 L 6.8 L (8.4-10.2) mg/dL AST 93 H 172 H 202 H (17-59) U/L ALT 34 44 47 (4-49) U/L Alkaline Phosphatase 130 H 57 36 L (38-126) U/L Total Protein 7.3 5.5 L 4.9 L (6.3-8.2) g/dL Albumin 2.8 L 2.0 L 1.7 L (3.5-5.0) g/dL 02/23/21 02/23/21 Range/Units 10:31 10:31 Sodium 134 L (137-145) mmol/L Potassium 3.4 L (3.5-5.1) mmol/L Chloride 102 (98-107) mmol/L Carbon Dioxide 10 L (22-30) mmol/L BUN 20 (9-20) mg/dL Creatinine 2.48 H (0.66-1.25) mg/dL Glucose 82 (74-99) mg/dL Calcium 6.8 L (8.4-10.2) mg/dL AST 272 H (17-59) U/L ALT 55 H (4-49) U/L Alkaline Phosphatase 41 40 (38-126) U/L Total Protein 5.4 L (6.3-8.2) g/dL Albumin 2.0 L (3.5-5.0) g/dL Calcium panel 02/22/21 02/23/21 02/23/21 Range/Units 16:44 03:15 08:07 Calcium 8.5 7.4 L 6.8 L (8.4-10.2) mg/dL Albumin 2.8 L 2.0 L 1.7 L (3.5-5.0) g/dL 02/23/21 Range/Units 10:31 Calcium 6.8 L (8.4-10.2) mg/dL Albumin 2.0 L (3.5-5.0) g/dL Pituitary panel 02/22/21 02/23/21 02/23/21 Range/Units 16:44 03:15 08:07 Sodium 132 L 133 L 130 L (137-145) mmol/L Potassium 3.1 L 3.7 4.2 (3.5-5.1) mmol/L Chloride 96 L 100 102 (98-107) mmol/L Carbon Dioxide 16 L 11 L 7 L* (22-30) mmol/L BUN 15 18 19 (9-20) mg/dL Creatinine 1.49 H 2.17 H 2.41 H (0.66-1.25) mg/dL Glucose 26 L* 61 L 196 H (74-99) mg/dL Calcium 8.5 7.4 L 6.8 L (8.4-10.2) mg/dL 02/23/21 Range/Units 10:31 Sodium 134 L (137-145) mmol/L Potassium 3.4 L (3.5-5.1) mmol/L Chloride 102 (98-107) mmol/L Carbon Dioxide 10 L (22-30) mmol/L BUN 20 (9-20) mg/dL Creatinine 2.48 H (0.66-1.25) mg/dL Glucose 82 (74-99) mg/dL Calcium 6.8 L (8.4-10.2) mg/dL Adrenal panel 02/22/21 02/23/21 02/23/21 Range/Units 16:44 03:15 08:07 Sodium 132 L 133 L 130 L (137-145) mmol/L Potassium 3.1 L 3.7 4.2 (3.5-5.1) mmol/L Chloride 96 L 100 102 (98-107) mmol/L Carbon Dioxide 16 L 11 L 7 L* (22-30) mmol/L BUN 15 18 19 (9-20) mg/dL Creatinine 1.49 H 2.17 H 2.41 H (0.66-1.25) mg/dL Glucose 26 L* 61 L 196 H (74-99) mg/dL Calcium 8.5 7.4 L 6.8 L (8.4-10.2) mg/dL Total Bilirubin 3.7 H 3.6 H 3.3 H (0.2-1.3) mg/dL AST 93 H 172 H 202 H (17-59) U/L ALT 34 44 47 (4-49) U/L Alkaline Phosphatase 130 H 57 36 L (38-126) U/L Total Protein 7.3 5.5 L 4.9 L (6.3-8.2) g/dL Albumin 2.8 L 2.0 L 1.7 L (3.5-5.0) g/dL 02/23/21 02/23/21 Range/Units 10:31 10:31 Sodium 134 L (137-145) mmol/L Potassium 3.4 L (3.5-5.1) mmol/L Chloride 102 (98-107) mmol/L Carbon Dioxide 10 L (22-30) mmol/L BUN 20 (9-20) mg/dL Creatinine 2.48 H (0.66-1.25) mg/dL Glucose 82 (74-99) mg/dL Calcium 6.8 L (8.4-10.2) mg/dL Total Bilirubin 3.7 H (0.2-1.3) mg/dL AST 272 H (17-59) U/L ALT 55 H (4-49) U/L Alkaline Phosphatase 41 40 (38-126) U/L Total Protein 5.4 L (6.3-8.2) g/dL Albumin 2.0 L (3.5-5.0) g/dL
[2021-02-23 13:01] LABS: Glucose,Whole Blood 77 mg/dL (75-99)
[2021-02-23 14:23] LABS: Band Neutrophils % 9 %; Lymphocytes # (M) 0.35 k/uL (1.0-4.8); Metamyelocytes # (M) 0.35 k/uL (0); Metamyelocytes % 2 %; Monocytes # (M) 1.04 k/uL (0-1.0); Myelocytes # (M) 0.17 k/uL (0); Myelocytes % 1 %; Neutrophils % (M) 81 %; Nucleated Red Blood Cells 0 /100 WBC (0-0); Total Cells Counted 200
[2021-02-23 14:24] LABS: Crenated RBC Present; Polychromasia Present; Toxic Granulation Present; Toxic Vacuolation Present
[2021-02-23 16:16] LABS: Glucose,Whole Blood 69 mg/dL (75-99)
--- NOTE | 2021-02-23 16:22 | P.CNPUL ---
History of Present Illness Consult date: 02/23/21 (Critical care time over 60 minutes) Reason for consult: dyspnea, hypoxemia, pneumonia Chief complaint: Fever, body aches, tachycardia History of present illness: This is a 60-year-old with chronic alcoholism patient presented into the emergency department from [facility] for evaluation of fever or aches and pains, patient has ongoing nausea and abdominal discomfort as well with swelling of the abdomen, symptoms have been progressive for many weeks, about 2 weeks ago patient has a upper GI bleed and had a scope done at [facility] found to have gastric crisis exact details however not available, patient has a significant liver disease due to alcohol is him, workup including ultrasound on February 19 revealed presence of cirrhosis dilated portal vein dilated and distended gallbladder with wall thickening and sludge, on arrival to emergency department patient was febrile with fever of 101 oxygen saturation was 93% hypertensive, blood pressure was 90/50, gradually patient was noted to have drop in hemoglobin, the saturation, continue spiking fever, along with patient has a lower GI bleed GI service has been consulted surgical service also has been consulted, chest x-ray however show right lower lobe infiltrate patchy infiltrate, repeat ultrasound gallstones along with gallbladder thickening, computed tomography scan of the chest performed yesterday negative for pulmonary embolism, presence of esophageal arises prominent spleen and liver findings liver consistent with nodular cirrhosis, chest x-ray earlier revealed normal heart site interstitial edema and some bibasilar infiltrate cannot be excluded patient remains on IV Zosyn today blood cultures positive for gram-negative rods, white cell count up to 17,900 patient oxygen requirement increased to 6 L, hemoglobin however have drop down to 8.4, PT/INR is 24.9 and 2.6 PTT is 48, arterial blood gas revealed pH of 7.15 pCO2 of 24 pO2 of 98 with bicarb of 9, patient was given 2 A of bicarbonate followed by bicarb drip, BUN/creatinine increased to 20 and 2.48, take acid up to 16.8, covid PCR is negative Review of Systems All systems: negative Past Medical History Past Medical History: Liver Disease Additional Past Medical History / Comment(s): ETOH History of Any Multi-Drug Resistant Organisms: None Reported Smoking Status: Never smoker Past Alcohol Use History: Abuse Past Drug Use History: None Reported Medications and Allergies Home Medications Medication Instructions Recorded Confirmed Type hydroCHLOROthiazide [Hydrodiuril] 25 mg PO DAILY 02/22/21 02/23/21 History Allergies Allergy/AdvReac Type Severity Reaction Status Date / Time No Known Allergies Allergy Verified 02/22/21 21:57 Physical Exam Vitals: Vital Signs Temp Pulse Resp BP Pulse Ox 02/23/21 15:20 108 H 18 98/65 98 02/23/21 15:10 97 F L 103 H 18 84/62 98 02/23/21 14:23 97 F L 104 H 18 84/62 99 02/23/21 14:16 97 F L 105 H 18 77/62 100 02/23/21 14:06 102 H 20 80/60 98 02/23/21 12:00 108 H 18 81/52 98 02/23/21 09:25 97 F L 108 H 24 96/53 98 02/23/21 07:37 97 F L 110 H 24 84/57 96 02/23/21 05:29 114 H 24 77/46 93 L 02/23/21 03:55 115 H 24 99/68 97 02/23/21 03:18 104 H 23 94 L 02/23/21 02:41 107 H 23 81/59 94 L 02/23/21 00:00 102 H 24 89/54 95 02/22/21 22:20 111 H 20 89/49 95 02/22/21 21:09 116 H 20 93/65 93 L 02/22/21 20:51 115 H 22 81/61 94 L 02/22/21 19:41 101.2 F H 117 H 22 92/60 93 L 02/22/21 18:42 121 H 22 101/65 93 L 02/22/21 17:46 100.7 F H 125 H 22 157/98 93 L Intake and Output 02/23/21 02/23/21 02/23/21 06:59 14:59 22:59 Intake Total 267 0 Output Total 280 Balance -280 267 0 Intake: Blood Product 267 0 Ffp 24 Cpd Unit 267 [id number] Rc Pheresis As-3 Unit 0 [id number] Output: Urine 280 - Constitutional General appearance: average body habitus, cooperative, mild distress - EENT Eyes: PERRLA Ears: bilateral: normal - Neck Carotids: bilateral: upstroke normal Thyroid: negative: normal size - Respiratory Respiratory: bilateral: diminished - Cardiovascular Rhythm: regular Heart sounds: normal: S1, S2 - Gastrointestinal General gastrointestinal: decreased bowel sounds, distended - Integumentary Integumentary: decreased turgor - Neurologic Neurologic: CNII-XII intact - Musculoskeletal Musculoskeletal: gait normal, generalized weakness, strength equal bilaterally - Psychiatric Psychiatric: A&O x's 3, appropriate affect, intact judgment & insight Results - Laboratory Findings CBC and BMP: 02/23/21 10:31 02/23/21 10:31 ABG ABG pH 7.15 (7.35-7.45) L* 02/23/21 10:32 ABG pCO2 24 mmHg (35-45) L 02/23/21 10:32 ABG pO2 98 mmHg (83-108) 02/23/21 10:32 ABG O2 Saturation 96.0 % (94-97) 02/23/21 10:32 PT/INR, D-dimer PT 24.9 sec (9.0-12.0) H 02/23/21 10:31 INR 2.6 (<1.2) H 02/23/21 10:31 D-Dimer >34.10 mg/L FEU (<0.60) H 02/22/21 16:44 Abnormal lab findings: Abnormal Labs 02/22/21 02/22/21 02/22/21 16:44 16:44 16:44 WBC 0.6 L* RBC 3.84 L Hgb Hct MCV 110.4 H MCH 37.4 H MCHC Plt Count 83 L Neutrophils # (Manual) Lymphocytes # (Manual) Monocytes # (Manual) Metamyelocytes # (Man) Myelocytes # (Manual) Macrocytosis Marked A PT 19.6 H INR 2.0 H APTT 32.4 H D-Dimer >34.10 H ABG pH ABG pCO2 ABG HCO3 ABG Total CO2 Sodium 132 L Potassium 3.1 L Chloride 96 L Carbon Dioxide 16 L Creatinine 1.49 H Glucose 26 L* POC Glucose (mg/dL) Plasma Lactic Acid Tristan Calcium Magnesium 1.4 L Total Bilirubin 3.7 H AST 93 H ALT Alkaline Phosphatase 130 H C-Reactive Protein 3.8 H Total Protein Albumin 2.8 L Amylase 111 H Ur Specific [place] Urine Protein Urine Blood Urine Bilirubin Urine RBC Urine WBC Urine Bacteria Urine Mucus Crossmatch 02/22/21 02/22/21 02/22/21 16:44 20:09 20:48 WBC RBC Hgb Hct MCV MCH MCHC Plt Count Neutrophils # (Manual) Lymphocytes # (Manual) Monocytes # (Manual) Metamyelocytes # (Man) Myelocytes # (Manual) Macrocytosis PT INR APTT D-Dimer ABG pH ABG pCO2 ABG HCO3 ABG Total CO2 Sodium Potassium Chloride Carbon Dioxide Creatinine Glucose POC Glucose (mg/dL) 45 L Plasma Lactic Acid Tristan 13.5 H* 15.5 H* Calcium Magnesium Total Bilirubin AST ALT Alkaline Phosphatase C-Reactive Protein Total Protein Albumin Amylase Ur Specific [place] Urine Protein Urine Blood Urine Bilirubin Urine RBC Urine WBC Urine Bacteria Urine Mucus Crossmatch 02/22/21 02/22/21 02/23/21 21:53 22:55 02:34 WBC RBC Hgb Hct MCV MCH MCHC Plt Count Neutrophils # (Manual) Lymphocytes # (Manual) Monocytes # (Manual) Metamyelocytes # (Man) Myelocytes # (Manual) Macrocytosis PT INR APTT D-Dimer ABG pH ABG pCO2 ABG HCO3 ABG Total CO2 Sodium Potassium Chloride Carbon Dioxide Creatinine Glucose POC Glucose (mg/dL) 121 H 73 L Plasma Lactic Acid Tristan 15.1 H* Calcium Magnesium Total Bilirubin AST ALT Alkaline Phosphatase C-Reactive Protein Total Protein Albumin Amylase Ur Specific [place] Urine Protein Urine Blood Urine Bilirubin Urine RBC Urine WBC Urine Bacteria Urine Mucus Crossmatch 02/23/21 02/23/21 02/23/21 03:15 03:15 03:15 WBC 15.7 H RBC 2.62 L Hgb 9.7 L D Hct 31.3 L MCV 119.6 H D MCH 37.2 H MCHC Plt Count 68 L Neutrophils # (Manual) 12.70 H Lymphocytes # (Manual) 0.47 L Monocytes # (Manual) 1.10 H Metamyelocytes # (Man) 1.26 H Myelocytes # (Manual) 0.47 H Macrocytosis Marked A PT 23.8 H INR 2.5 H APTT D-Dimer ABG pH ABG pCO2 ABG HCO3 ABG Total CO2 Sodium 133 L Potassium Chloride Carbon Dioxide 11 L Creatinine 2.17 H Glucose 61 L POC Glucose (mg/dL) Plasma Lactic Acid Tristan Calcium 7.4 L Magnesium Total Bilirubin 3.6 H AST 172 H ALT Alkaline Phosphatase C-Reactive Protein Total Protein 5.5 L Albumin 2.0 L Amylase 176 H Ur Specific [place] Urine Protein Urine Blood Urine Bilirubin Urine RBC Urine WBC Urine Bacteria Urine Mucus Crossmatch 02/23/21 02/23/21 02/23/21 03:15 07:30 08:03 WBC RBC Hgb Hct MCV MCH MCHC Plt Count Neutrophils # (Manual) Lymphocytes # (Manual) Monocytes # (Manual) Metamyelocytes # (Man) Myelocytes # (Manual) Macrocytosis PT INR APTT D-Dimer ABG pH ABG pCO2 ABG HCO3 ABG Total CO2 Sodium Potassium Chloride Carbon Dioxide Creatinine Glucose POC Glucose (mg/dL) 52 L Plasma Lactic Acid Tristan 16.9 H* 16.8 H* Calcium Magnesium Total Bilirubin AST ALT Alkaline Phosphatase C-Reactive Protein Total Protein Albumin Amylase Ur Specific [place] Urine Protein Urine Blood Urine Bilirubin Urine RBC Urine WBC Urine Bacteria Urine Mucus Crossmatch 02/23/21 02/23/21 02/23/21 08:07 08:07 08:07 WBC 17.4 H RBC 2.10 L Hgb 7.8 L D Hct 25.3 L MCV 120.5 H MCH 36.9 H MCHC 30.7 L Plt Count 74 L Neutrophils # (Manual) 15.60 H Lymphocytes # (Manual) 0.35 L Monocytes # (Manual) 1.04 H Metamyelocytes # (Man) 0.35 H Myelocytes # (Manual) 0.17 H Macrocytosis Marked A PT INR APTT D-Dimer ABG pH ABG pCO2 ABG HCO3 ABG Total CO2 Sodium 130 L Potassium Chloride Carbon Dioxide 7 L* Creatinine 2.41 H Glucose 196 H POC Glucose (mg/dL) Plasma Lactic Acid Tristan Calcium 6.8 L Magnesium 1.4 L Total Bilirubin 3.3 H AST 202 H ALT Alkaline Phosphatase 36 L C-Reactive Protein Total Protein 4.9 L Albumin 1.7 L Amylase Ur Specific [place] Urine Protein Urine Blood Urine Bilirubin Urine RBC Urine WBC Urine Bacteria Urine Mucus Crossmatch 02/23/21 02/23/21 02/23/21 09:14 10:29 10:31 WBC RBC Hgb Hct MCV MCH MCHC Plt Count Neutrophils # (Manual) Lymphocytes # (Manual) Monocytes # (Manual) Metamyelocytes # (Man) Myelocytes # (Manual) Macrocytosis PT 24.9 H INR 2.6 H APTT 48.8 H D-Dimer ABG pH ABG pCO2 ABG HCO3 ABG Total CO2 Sodium Potassium Chloride Carbon Dioxide Creatinine Glucose POC Glucose (mg/dL) 110 H Plasma Lactic Acid Tristan Calcium Magnesium Total Bilirubin AST ALT Alkaline Phosphatase C-Reactive Protein Total Protein Albumin Amylase Ur Specific [place] >1.050 H Urine Protein 1+ H Urine Blood Small H Urine Bilirubin 1+ H Urine RBC 17 H Urine WBC 25 H Urine Bacteria Occasional H Urine Mucus Rare H Crossmatch 02/23/21 02/23/21 02/23/21 10:31 10:31 10:32 WBC 17.9 H RBC 2.22 L Hgb 8.4 L Hct 26.0 L MCV 117.1 H MCH 38.0 H MCHC Plt Count 75 L Neutrophils # (Manual) Lymphocytes # (Manual) Monocytes # (Manual) Metamyelocytes # (Man) Myelocytes # (Manual) Macrocytosis Marked A PT INR APTT D-Dimer ABG pH 7.15 L* ABG pCO2 24 L ABG HCO3 9 L* ABG Total CO2 9 L Sodium 134 L Potassium 3.4 L Chloride Carbon Dioxide 10 L Creatinine 2.48 H Glucose POC Glucose (mg/dL) Plasma Lactic Acid Tristan Calcium 6.8 L Magnesium 1.4 L Total Bilirubin 3.7 H AST 272 H ALT 55 H Alkaline Phosphatase C-Reactive Protein Total Protein 5.4 L Albumin 2.0 L Amylase Ur Specific [place] Urine Protein Urine Blood Urine Bilirubin Urine RBC Urine WBC Urine Bacteria Urine Mucus Crossmatch 02/23/21 02/23/21 11:37 13:14 WBC RBC Hgb Hct MCV MCH MCHC Plt Count Neutrophils # (Manual) Lymphocytes # (Manual) Monocytes # (Manual) Metamyelocytes # (Man) Myelocytes # (Manual) Macrocytosis PT INR APTT D-Dimer ABG pH ABG pCO2 ABG HCO3 ABG Total CO2 Sodium Potassium Chloride Carbon Dioxide Creatinine Glucose POC Glucose (mg/dL) Plasma Lactic Acid Tristan 15.2 H* Calcium Magnesium Total Bilirubin AST ALT Alkaline Phosphatase C-Reactive Protein Total Protein Albumin Amylase Ur Specific [place] Urine Protein Urine Blood Urine Bilirubin Urine RBC Urine WBC Urine Bacteria Urine Mucus Crossmatch See Detail - Diagnostic Findings Chest x-ray: report reviewed, image reviewed CT scan - chest: report reviewed, image reviewed Assessment and Plan Assessment: Acute hypoxic respiratory failure Possible developing aspiration pneumonia Severe sepsis Acute kidney injury defect. 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 surgery consult for evaluation of cholecystectomy Continue broad-spectrum antibiotics GI consult for endoscopy and possible banding of esophageal arises Blood transfusion as needed keep hemoglobin over 7-8 Blood products including 3 bags of FFP to correct coagulopathy Vitamin K Admit to ICU Monitor renal functions closely Further plan of care as per clinical response of the patient overall general condition very guarded with impending multiorgan failure Repeat labs and x-ray and ABG tomorrow Time with Patient: Greater than 30
[2021-02-23 17:44] LABS: Glucose,Whole Blood 62 mg/dL (75-99)
[2021-02-23 18:32] LABS: Glucose,Whole Blood 70 mg/dL (75-99)
[2021-02-23] MEDS: SODIUM CHLORIDE 0.9% 1,000 ML IV SCH ×3 (20:10→23:02)
[2021-02-23] MEDS ORDERED: AZITHROMYCIN 500 MG in SODIUM CHLORIDE 0.9% 250 ML IVPB SCH (22:00)
[2021-02-23] MEDS: ACETAMINOPHEN TAB 325 MG TAB PO PRN (22:52)
[2021-02-24 01:02] LABS: Glucose,Whole Blood 70 mg/dL (75-99)
[2021-02-24 01:38] LABS: Calcium 6.9 mg/dL (8.4-10.2); Potassium 3.6 mmol/L (3.5-5.1); Total Bilirubin 3.6 mg/dL (0.2-1.3); Total Protein 5.1 g/dL (6.3-8.2)
[2021-02-24 02:13] LABS: Anisocytosis Slight; HCT 26.4 % (39.0-53.0); HGB 8.4 gm/dL (13.0-17.5); MCH 34.2 pg (25.0-35.0); MCHC 31.8 g/dL (31.0-37.0); Macrocytosis Marked; Mean Platelet Volume 10.9; RBC 2.46 m/uL (4.30-5.90); RDW 16.1 % (11.5-15.5); WBC 13.2 k/uL (3.8-10.6)
[2021-02-24 02:15] LABS: MCV 107.4 fL (80.0-100.0)
[2021-02-24 02:34] LABS: Band Neutrophils % 30 %; Lymphocytes # (M) 1.06 k/uL (1.0-4.8); Monocytes # (M) 0.79 k/uL (0-1.0); Neutrophils % (M) 56 %; Nucleated Red Blood Cells 0 /100 WBC (0-0); Total Cells Counted 200
[2021-02-24 02:35] LABS: Toxic Granulation Present
[2021-02-24 02:36] LABS: Platelet Count 46 k/uL (150-450)
[2021-02-24] MEDS: KETOROLAC 15 MG/ML 1 ML VIAL IVP SCH ×4 (03:35→21:53)
[2021-02-24 04:09] LABS: Glucose,Whole Blood 67 mg/dL (75-99)
[2021-02-24 04:33] LABS: Glucose,Whole Blood 67 mg/dL (75-99)
[2021-02-24] MEDS ORDERED: DEXTROSE 50% SYRINGE 50 ML IVP STA (04:58)
[2021-02-24] MEDS: PIPERACILLIN-TAZOBACTAM 3.375 GM in SODIUM CHLORIDE 0.9% 100 ML IVPB SCH ×3 (05:15→21:54)
[2021-02-24] MEDS: SODIUM CHLORIDE 0.9% 1,000 ML IV SCH ×3 (05:15→21:55)
[2021-02-24 06:06] LABS: Glucose,Whole Blood 165 mg/dL (75-99)
[2021-02-24 08:13] LABS: Anisocytosis Slight; HCT 28.5 % (39.0-53.0); HGB 9.3 gm/dL (13.0-17.5); MCH 34.7 pg (25.0-35.0); MCHC 32.5 g/dL (31.0-37.0); Macrocytosis Marked; Mean Platelet Volume 10.8; RBC 2.67 m/uL (4.30-5.90); RDW 16.2 % (11.5-15.5); WBC 11.8 k/uL (3.8-10.6)
[2021-02-24 08:22] LABS: Calcium 6.6 mg/dL (8.4-10.2); Potassium 3.4 mmol/L (3.5-5.1); Total Bilirubin 3.7 mg/dL (0.2-1.3); Total Protein 5.2 g/dL (6.3-8.2)
[2021-02-24] MEDS: PANTOPRAZOLE 40 MG/10 ML VIAL IV SCH ×3 (08:22→21:53)
--- NOTE | 2021-02-24 08:28 | P.CONS ---
History of Present Illness - Reason for Consult Consult date: 02/23/21 Cirrhosis, GI bleed Requesting physician: Elmer Layton - Chief Complaint Fever, body aches, weakness - History of Present Illness 60-year-old male with a medical history significant for alcohol abuse, alcoholic liver disease, prior admission for GI bleed who presented to the hospital with 3-4 days of symptoms of body aches, fever and weakness. On presentation patient found to have a temperature of 101.7 with associated tachycardia and lactic acidosis with suspicion for underlying infection plan is for admission to the intensive care unit. Patient has had 3-4 days of symptoms of body aches, feeling tired and weak with associated low-grade fevers at mild abdominal discomfort. The patient does have a prior admission to [facility] at which time he reports nasogastric tube placement and being treated for GI bleed. He is unclear as to whether an upper endoscopy was performed at that time. On his current admission patient had a gallbladder ultrasound showing mild coarsening of the liver with cholelithiasis and a hydropic mildly thickened gallbladder wa ll with no significant pericholecystic edema and with ascites noted. Computed tomography scan of the abdomen also showed a cirrhotic appearing liver with sequela of portal hypertension including splenomegaly and large volume ascites. Currently the patient is on broad-spectrum antibiotic therapy. He has had some dark colored bowel movements in the emergency department. He was also found to have an acute fall in his hemoglobin currently at 9.7 with WBC 15.7, platelet count 60,000, INR 2.5, lipase 86, total bilirubin 3.6, alkaline phosphatase 57, AST 172 and ALT 44. Patient has a long-standing history of alcohol abuse for approximately 12 years drinking beer and up to a pint of liquor daily. He denies significant alcohol while in snf. Review of Systems REVIEW OF SYSTEMS: CONSTITUTIONAL: The patient reports 3-4 days of weakness, fevers, feeling tired and fatigued. CARDIOVASCULAR: Denies any chest pain, palpitations high or low blood pressures RESPIRATORY: Denies any shortness of breath, hemoptysis or cough. GENITOURINARY: No dysuria or hematuria. MUSCULOSKELETAL: No weakness reported. SKIN: Denies any new rashes or lesions, jaundice or pallor. PSYCHIATRIC: Denies any depression or anxiety. NEUROLOGY: Denies headache, denies any new focal deficits. EARS/NOSE/THROAT: No recent hearing change, congestion, nasal discharge or sore throat. EYES: No pain in eyes, discharge or change in vision. GASTROINTESTINAL: As per HPI. Past Medical History Past Medical History: Liver Disease Additional Past Medical History / Comment(s): ETOH History of Any Multi-Drug Resistant Organisms: None Reported Smoking Status: Never smoker Past Alcohol Use History: Abuse Past Drug Use History: None Reported - Past Family History Mother Family Medical History: AICD/Pacemaker, Cancer, Congestive Heart Failure (CHF) Medications and Allergies Home Medications Medication Instructions Recorded Confirmed Type hydroCHLOROthiazide [Hydrodiuril] 25 mg PO DAILY 02/22/21 02/23/21 History Allergies Allergy/AdvReac Type Severity Reaction Status Date / Time No Known Allergies Allergy Verified 02/22/21 21:57 Physical Exam Vitals: Vital Signs Temp Pulse Resp BP Pulse Ox 02/23/21 12:00 108 H 18 81/52 98 02/23/21 09:25 97 F L 108 H 24 96/53 98 02/23/21 07:37 97 F L 110 H 24 84/57 96 02/23/21 05:29 114 H 24 77/46 93 L 02/23/21 03:55 115 H 24 99/68 97 02/23/21 03:18 104 H 23 94 L 02/23/21 02:41 107 H 23 81/59 94 L 02/23/21 00:00 102 H 24 89/54 95 02/22/21 22:20 111 H 20 89/49 95 02/22/21 21:09 116 H 20 93/65 93 L 02/22/21 20:51 115 H 22 81/61 94 L 02/22/21 19:41 101.2 F H 117 H 22 92/60 93 L 02/22/21 18:42 121 H 22 101/65 93 L 02/22/21 17:46 100.7 F H 125 H 22 157/98 93 L 02/22/21 16:05 101.7 F H 160 H 26 H 90/57 93 L Intake and Output 02/22/21 02/23/21 02/23/21 22:59 06:59 14:59 Output Total 150 280 Balance -150 -280 Output: Urine 150 280 Condom 150 Other: Weight 72.575 kg On physical examination, patient appears comfortable in no apparent distress. HEAD: Normocephalic, atraumatic. EYES: Scleral icterus. No conjunctival injection. MOUTH: No lesions, tongue midline. NECK: Trachea midline, no gross abnormalities. CHEST: Clear to auscultation with no wheezing or rhonchi appreciated. HEART: Regular rate and rhythm. ABDOMEN: Soft, moderately distended with positive fluid wave. Bowel sounds are positive. No organomegaly. No guarding or rigidity. EXTREMITIES: +1 bilateral pedal edema. SKIN: No rashes, no jaundice. NEUROLOGIC: Alert and oriented x3. No focal deficits. Results CBC & Chem 7: 02/24/21 01:10 02/24/21 01:10 Labs: Abnormal Lab Results - Last 24 Hours (Table) 02/22/21 02/22/21 02/22/21 Range/Units 16:44 16:44 16:44 WBC 0.6 L* (3.8-10.6) k/uL RBC 3.84 L (4.30-5.90) m/uL Hgb (13.0-17.5) gm/dL Hct (39.0-53.0) % MCV 110.4 H (80.0-100.0) fL MCH 37.4 H (25.0-35.0) pg MCHC (31.0-37.0) g/dL Plt Count 83 L (150-450) k/uL Neutrophils # (Manual) (1.3-7.7) k/uL Lymphocytes # (Manual) (1.0-4.8) k/uL Monocytes # (Manual) (0-1.0) k/uL Metamyelocytes # (Man) (0) k/uL Myelocytes # (Manual) (0) k/uL Macrocytosis Marked A PT 19.6 H (9.0-12.0) sec INR 2.0 H (<1.2) APTT 32.4 H (22.0-30.0) sec D-Dimer >34.10 H (<0.60) mg/L FEU ABG pH (7.35-7.45) ABG pCO2 (35-45) mmHg ABG HCO3 (21-25) mmol/L ABG Total CO2 (19-24) mmol/L Sodium 132 L (137-145) mmol/L Potassium 3.1 L (3.5-5.1) mmol/L Chloride 96 L (98-107) mmol/L Carbon Dioxide 16 L (22-30) mmol/L Creatinine 1.49 H (0.66-1.25) mg/dL Glucose 26 L* (74-99) mg/dL POC Glucose (mg/dL) (75-99) mg/dL Plasma Lactic Acid Tristan (0.7-2.0) mmol/L Calcium (8.4-10.2) mg/dL Magnesium 1.4 L (1.6-2.3) mg/dL Total Bilirubin 3.7 H (0.2-1.3) mg/dL AST 93 H (17-59) U/L ALT (4-49) U/L Alkaline Phosphatase 130 H (38-126) U/L C-Reactive Protein 3.8 H (<1.0) mg/dL Total Protein (6.3-8.2) g/dL Albumin 2.8 L (3.5-5.0) g/dL Amylase 111 H (30-110) U/L Ur Specific Purcell (1.001-1.035) Urine Protein (Negative) Urine Blood (Negative) Urine Bilirubin (Negative) Urine RBC (0-5) /hpf Urine WBC (0-5) /hpf Urine Bacteria (None) /hpf Urine Mucus (None) /hpf 02/22/21 02/22/21 02/22/21 Range/Units 16:44 20:09 20:48 WBC (3.8-10.6) k/uL RBC (4.30-5.90) m/uL Hgb (13.0-17.5) gm/dL Hct (39.0-53.0) % MCV (80.0-100.0) fL MCH (25.0-35.0) pg MCHC (31.0-37.0) g/dL Plt Count (150-450) k/uL Neutrophils # (Manual) (1.3-7.7) k/uL Lymphocytes # (Manual) (1.0-4.8) k/uL Monocytes # (Manual) (0-1.0) k/uL Metamyelocytes # (Man) (0) k/uL Myelocytes # (Manual) (0) k/uL Macrocytosis PT (9.0-12.0) sec INR (<1.2) APTT (22.0-30.0) sec D-Dimer (<0.60) mg/L FEU ABG pH (7.35-7.45) ABG pCO2 (35-45) mmHg ABG HCO3 (21-25) mmol/L ABG Total CO2 (19-24) mmol/L Sodium (137-145) mmol/L Potassium (3.5-5.1) mmol/L Chloride (98-107) mmol/L Carbon Dioxide (22-30) mmol/L Creatinine (0.66-1.25) mg/dL Glucose (74-99) mg/dL POC Glucose (mg/dL) 45 L (75-99) mg/dL Plasma Lactic Acid Tristan 13.5 H* 15.5 H* (0.7-2.0) mmol/L Calcium (8.4-10.2) mg/dL Magnesium (1.6-2.3) mg/dL Total Bilirubin (0.2-1.3) mg/dL AST (17-59) U/L ALT (4-49) U/L Alkaline Phosphatase (38-126) U/L C-Reactive Protein (<1.0) mg/dL Total Protein (6.3-8.2) g/dL Albumin (3.5-5.0) g/dL Amylase (30-110) U/L Ur Specific Purcell (1.001-1.035) Urine Protein (Negative) Urine Blood (Negative) Urine Bilirubin (Negative) Urine RBC (0-5) /hpf Urine WBC (0-5) /hpf Urine Bacteria (None) /hpf Urine Mucus (None) /hpf 02/22/21 02/22/21 02/23/21 Range/Units 21:53 22:55 02:34 WBC (3.8-10.6) k/uL RBC (4.30-5.90) m/uL Hgb (13.0-17.5) gm/dL Hct (39.0-53.0) % MCV (80.0-100.0) fL MCH (25.0-35.0) pg MCHC (31.0-37.0) g/dL Plt Count (150-450) k/uL Neutrophils # (Manual) (1.3-7.7) k/uL Lymphocytes # (Manual) (1.0-4.8) k/uL Monocytes # (Manual) (0-1.0) k/uL Metamyelocytes # (Man) (0) k/uL Myelocytes # (Manual) (0) k/uL Macrocytosis PT (9.0-12.0) sec INR (<1.2) APTT (22.0-30.0) sec D-Dimer (<0.60) mg/L FEU ABG pH (7.35-7.45) ABG pCO2 (35-45) mmHg ABG HCO3 (21-25) mmol/L ABG Total CO2 (19-24) mmol/L Sodium (137-145) mmol/L Potassium (3.5-5.1) mmol/L Chloride (98-107) mmol/L Carbon Dioxide (22-30) mmol/L Creatinine (0.66-1.25) mg/dL Glucose (74-99) mg/dL POC Glucose (mg/dL) 121 H 73 L (75-99) mg/dL Plasma Lactic Acid Tristan 15.1 H* (0.7-2.0) mmol/L Calcium (8.4-10.2) mg/dL Magnesium (1.6-2.3) mg/dL Total Bilirubin (0.2-1.3) mg/dL AST (17-59) U/L ALT (4-49) U/L Alkaline Phosphatase (38-126) U/L C-Reactive Protein (<1.0) mg/dL Total Protein (6.3-8.2) g/dL Albumin (3.5-5.0) g/dL Amylase (30-110) U/L Ur Specific Purcell (1.001-1.035) Urine Protein (Negative) Urine Blood (Negative) Urine Bilirubin (Negative) Urine RBC (0-5) /hpf Urine WBC (0-5) /hpf Urine Bacteria (None) /hpf Urine Mucus (None) /hpf 02/23/21 02/23/21 02/23/21 Range/Units 03:15 03:15 03:15 WBC 15.7 H (3.8-10.6) k/uL RBC 2.62 L (4.30-5.90) m/uL Hgb 9.7 L D (13.0-17.5) gm/dL Hct 31.3 L (39.0-53.0) % MCV 119.6 H D (80.0-100.0) fL MCH 37.2 H (25.0-35.0) pg MCHC (31.0-37.0) g/dL Plt Count 68 L (150-450) k/uL Neutrophils # (Manual) 12.70 H (1.3-7.7) k/uL Lymphocytes # (Manual) 0.47 L (1.0-4.8) k/uL Monocytes # (Manual) 1.10 H (0-1.0) k/uL Metamyelocytes # (Man) 1.26 H (0) k/uL Myelocytes # (Manual) 0.47 H (0) k/uL Macrocytosis Marked A PT 23.8 H (9.0-12.0) sec INR 2.5 H (<1.2) APTT (22.0-30.0) sec D-Dimer (<0.60) mg/L FEU ABG pH (7.35-7.45) ABG pCO2 (35-45) mmHg ABG HCO3 (21-25) mmol/L ABG Total CO2 (19-24) mmol/L Sodium 133 L (137-145) mmol/L Potassium (3.5-5.1) mmol/L Chloride (98-107) mmol/L Carbon Dioxide 11 L (22-30) mmol/L Creatinine 2.17 H (0.66-1.25) mg/dL Glucose 61 L (74-99) mg/dL POC Glucose (mg/dL) (75-99) mg/dL Plasma Lactic Acid Tristan (0.7-2.0) mmol/L Calcium 7.4 L (8.4-10.2) mg/dL Magnesium (1.6-2.3) mg/dL Total Bilirubin 3.6 H (0.2-1.3) mg/dL AST 172 H (17-59) U/L ALT (4-49) U/L Alkaline Phosphatase (38-126) U/L C-Reactive Protein (<1.0) mg/dL Total Protein 5.5 L (6.3-8.2) g/dL Albumin 2.0 L (3.5-5.0) g/dL Amylase 176 H (30-110) U/L Ur Specific Purcell (1.001-1.035) Urine Protein (Negative) Urine Blood (Negative) Urine Bilirubin (Negative) Urine RBC (0-5) /hpf Urine WBC (0-5) /hpf Urine Bacteria (None) /hpf Urine Mucus (None) /hpf 02/23/21 02/23/21 02/23/21 Range/Units 03:15 07:30 08:03 WBC (3.8-10.6) k/uL RBC (4.30-5.90) m/uL Hgb (13.0-17.5) gm/dL Hct (39.0-53.0) % MCV (80.0-100.0) fL MCH (25.0-35.0) pg MCHC (31.0-37.0) g/dL Plt Count (150-450) k/uL Neutrophils # (Manual) (1.3-7.7) k/uL Lymphocytes # (Manual) (1.0-4.8) k/uL Monocytes # (Manual) (0-1.0) k/uL Metamyelocytes # (Man) (0) k/uL Myelocytes # (Manual) (0) k/uL Macrocytosis PT (9.0-12.0) sec INR (<1.2) APTT (22.0-30.0) sec D-Dimer (<0.60) mg/L FEU ABG pH (7.35-7.45) ABG pCO2 (35-45) mmHg ABG HCO3 (21-25) mmol/L ABG Total CO2 (19-24) mmol/L Sodium (137-145) mmol/L Potassium (3.5-5.1) mmol/L Chloride (98-107) mmol/L Carbon Dioxide (22-30) mmol/L Creatinine (0.66-1.25) mg/dL Glucose (74-99) mg/dL POC Glucose (mg/dL) 52 L (75-99) mg/dL Plasma Lactic Acid Tristan 16.9 H* 16.8 H* (0.7-2.0) mmol/L Calcium (8.4-10.2) mg/dL Magnesium (1.6-2.3) mg/dL Total Bilirubin (0.2-1.3) mg/dL AST (17-59) U/L ALT (4-49) U/L Alkaline Phosphatase (38-126) U/L C-Reactive Protein (<1.0) mg/dL Total Protein (6.3-8.2) g/dL Albumin (3.5-5.0) g/dL Amylase (30-110) U/L Ur Specific Purcell (1.001-1.035) Urine Protein (Negative) Urine Blood (Negative) Urine Bilirubin (Negative) Urine RBC (0-5) /hpf Urine WBC (0-5) /hpf Urine Bacteria (None) /hpf Urine Mucus (None) /hpf 02/23/21 02/23/21 02/23/21 Range/Units 08:07 08:07 08:07 WBC 17.4 H (3.8-10.6) k/uL RBC 2.10 L (4.30-5.90) m/uL Hgb 7.8 L D (13.0-17.5) gm/dL Hct 25.3 L (39.0-53.0) % MCV 120.5 H (80.0-100.0) fL MCH 36.9 H (25.0-35.0) pg MCHC 30.7 L (31.0-37.0) g/dL Plt Count 74 L (150-450) k/uL Neutrophils # (Manual) (1.3-7.7) k/uL Lymphocytes # (Manual) (1.0-4.8) k/uL Monocytes # (Manual) (0-1.0) k/uL Metamyelocytes # (Man) (0) k/uL Myelocytes # (Manual) (0) k/uL Macrocytosis Marked A PT (9.0-12.0) sec INR (<1.2) APTT (22.0-30.0) sec D-Dimer (<0.60) mg/L FEU ABG pH (7.35-7.45) ABG pCO2 (35-45) mmHg ABG HCO3 (21-25) mmol/L ABG Total CO2 (19-24) mmol/L Sodium 130 L (137-145) mmol/L Potassium (3.5-5.1) mmol/L Chloride (98-107) mmol/L Carbon Dioxide 7 L* (22-30) mmol/L Creatinine 2.41 H (0.66-1.25) mg/dL Glucose 196 H (74-99) mg/dL POC Glucose (mg/dL) (75-99) mg/dL Plasma Lactic Acid Tristan (0.7-2.0) mmol/L Calcium 6.8 L (8.4-10.2) mg/dL Magnesium 1.4 L (1.6-2.3) mg/dL Total Bilirubin 3.3 H (0.2-1.3) mg/dL AST 202 H (17-59) U/L ALT (4-49) U/L Alkaline Phosphatase 36 L (38-126) U/L C-Reactive Protein (<1.0) mg/dL Total Protein 4.9 L (6.3-8.2) g/dL Albumin 1.7 L (3.5-5.0) g/dL Amylase (30-110) U/L Ur Specific Purcell (1.001-1.035) Urine Protein (Negative) Urine Blood (Negative) Urine Bilirubin (Negative) Urine RBC (0-5) /hpf Urine WBC (0-5) /hpf Urine Bacteria (None) /hpf Urine Mucus (None) /hpf 02/23/21 02/23/21 02/23/21 Range/Units 09:14 10:29 10:31 WBC (3.8-10.6) k/uL RBC (4.30-5.90) m/uL Hgb (13.0-17.5) gm/dL Hct (39.0-53.0) % MCV (80.0-100.0) fL MCH (25.0-35.0) pg MCHC (31.0-37.0) g/dL Plt Count (150-450) k/uL Neutrophils # (Manual) (1.3-7.7) k/uL Lymphocytes # (Manual) (1.0-4.8) k/uL Monocytes # (Manual) (0-1.0) k/uL Metamyelocytes # (Man) (0) k/uL Myelocytes # (Manual) (0) k/uL Macrocytosis PT 24.9 H (9.0-12.0) sec INR 2.6 H (<1.2) APTT 48.8 H (22.0-30.0) sec D-Dimer (<0.60) mg/L FEU ABG pH (7.35-7.45) ABG pCO2 (35-45) mmHg ABG HCO3 (21-25) mmol/L ABG Total CO2 (19-24) mmol/L Sodium (137-145) mmol/L Potassium (3.5-5.1) mmol/L Chloride (98-107) mmol/L Carbon Dioxide (22-30) mmol/L Creatinine (0.66-1.25) mg/dL Glucose (74-99) mg/dL POC Glucose (mg/dL) 110 H (75-99) mg/dL Plasma Lactic Acid Tristan (0.7-2.0) mmol/L Calcium (8.4-10.2) mg/dL Magnesium (1.6-2.3) mg/dL Total Bilirubin (0.2-1.3) mg/dL AST (17-59) U/L ALT (4-49) U/L Alkaline Phosphatase (38-126) U/L C-Reactive Protein (<1.0) mg/dL Total Protein (6.3-8.2) g/dL Albumin (3.5-5.0) g/dL Amylase (30-110) U/L Ur Specific Purcell >1.050 H (1.001-1.035) Urine Protein 1+ H (Negative) Urine Blood Small H (Negative) Urine Bilirubin 1+ H (Negative) Urine RBC 17 H (0-5) /hpf Urine WBC 25 H (0-5) /hpf Urine Bacteria Occasional H (None) /hpf Urine Mucus Rare H (None) /hpf 02/23/21 02/23/21 02/23/21 Range/Units 10:31 10:31 10:32 WBC 17.9 H (3.8-10.6) k/uL RBC 2.22 L (4.30-5.90) m/uL Hgb 8.4 L (13.0-17.5) gm/dL Hct 26.0 L (39.0-53.0) % MCV 117.1 H (80.0-100.0) fL MCH 38.0 H (25.0-35.0) pg MCHC (31.0-37.0) g/dL Plt Count 75 L (150-450) k/uL Neutrophils # (Manual) (1.3-7.7) k/uL Lymphocytes # (Manual) (1.0-4.8) k/uL Monocytes # (Manual) (0-1.0) k/uL Metamyelocytes # (Man) (0) k/uL Myelocytes # (Manual) (0) k/uL Macrocytosis Marked A PT (9.0-12.0) sec INR (<1.2) APTT (22.0-30.0) sec D-Dimer (<0.60) mg/L FEU ABG pH 7.15 L* (7.35-7.45) ABG pCO2 24 L (35-45) mmHg ABG HCO3 9 L* (21-25) mmol/L ABG Total CO2 9 L (19-24) mmol/L Sodium 134 L (137-145) mmol/L Potassium 3.4 L (3.5-5.1) mmol/L Chloride (98-107) mmol/L Carbon Dioxide 10 L (22-30) mmol/L Creatinine 2.48 H (0.66-1.25) mg/dL Glucose (74-99) mg/dL POC Glucose (mg/dL) (75-99) mg/dL Plasma Lactic Acid Tristan (0.7-2.0) mmol/L Calcium 6.8 L (8.4-10.2) mg/dL Magnesium 1.4 L (1.6-2.3) mg/dL Total Bilirubin 3.7 H (0.2-1.3) mg/dL AST 272 H (17-59) U/L ALT 55 H (4-49) U/L Alkaline Phosphatase (38-126) U/L C-Reactive Protein (<1.0) mg/dL Total Protein 5.4 L (6.3-8.2) g/dL Albumin 2.0 L (3.5-5.0) g/dL Amylase (30-110) U/L Ur Specific Purcell (1.001-1.035) Urine Protein (Negative) Urine Blood (Negative) Urine Bilirubin (Negative) Urine RBC (0-5) /hpf Urine WBC (0-5) /hpf Urine Bacteria (None) /hpf Urine Mucus (None) /hpf Microbiology - Last 24 Hours (Table) 02/22/21 16:45 Blood Culture Gram Stain - Preliminary Blood 02/22/21 16:45 Blood Culture - Final Blood CT scan - abdomen: report reviewed (Computed tomography scan of the abdomen with findings of cirrhotic-appearing liver with findings consistent with portal hypertension including splenomegaly and ascites with a hydropic appearing gallbladder and cholelithiasis.) Assessment and Plan (1) Anemia due to acute blood loss Narrative/Plan: 60-year-old male with multiple medical comorbidities including hypertension and alcohol abuse currently abstinent from alcohol consumption who presented with a constellation of symptoms including fevers and weakness. Currently the patient is being treated for sepsis with plans for ICU care. The patient has long- standing history of alcohol abuse but denies any known history of cirrhosis. He previously has been hospitalized for GI bleed and reports nasogastric tube placement at that time and is unsure if EGD was performed. He is unclear of any prior history of cirrhosis of the liver but was found to have a cirrhotic appearing liver with ascites on computed tomography scan of the abdomen. Liver enzymes are consistent with alcoholic liver disease and cirrhosis of the liver. The patient developed some dark colored bowel movements while in the emergency department with a fall in his hemoglobin likely secondary to GI bleed as well as hemodilution after being fluid resuscitated. Unclear etiology with differential including peptic ulcer disease, gastritis, esophagitis, AVM, with esophageal varices not completely excluded however less likely given clinical presentation and only minimal elevation BUN on presentation, or other etiology. Current Visit: Yes Status: Acute Code(s): D62 - ACUTE POSTHEMORRHAGIC ANEMIA SNOMED Code(s): 628340704 (2) Alcoholic cirrhosis of liver with ascites Current Visit: Yes Status: Acute Code(s): K70.31 - ALCOHOLIC CIRRHOSIS OF LIVER WITH ASCITES SNOMED Code(s): 610999742 (3) Melena Current Visit: Yes Status: Acute Code(s): K92.1 - MELENA SNOMED Code(s): 3983030 Plan: Supportive care Continue ICU management Continue monitor hemoglobin and hematocrit and transfuse as needed Plan was for patient to receive vitamin K, fresh frozen plasma and packed red blood cells Continue Protonix therapy, increase to twice a day Continue broad-spectrum antibiotic therapy Plan will be for patients to have EGD when hemodynamically stable Patient would likely benefit from paracentesis with fluid studies prior to discharge, including albumin, protein, cell count with differential Nothing by mouth for now Thank you for allowing us to participate in the care of the patient
[2021-02-24 08:29] LABS: Platelet Count 46 k/uL (150-450)
--- NOTE | 2021-02-24 08:52 | CONS ---
CONSULTATION DATE OF SERVICE: 02/23/2021 REASON FOR CONSULTATION: Gram-negative bacteremia. HISTORY OF PRESENT ILLNESS: The patient is a 60-year-old male with a past medical history significant for liver cirrhosis secondary to alcoholism in this patient currently at [facility]. The patient was brought to [facility] last night for evaluation of fever, body aches, tachycardia and abdominal pain. The patient describes the pain to be more in the upper abdominal area described to be more of a sharp and dull aching about 5 to 6 out of 10 and no radiation. The patient did feel nauseated, but no vomiting and denies having any diarrhea. The patient denies having any URI symptoms. No chest pain, shortness of breath or cough. No nausea. With these symptoms, the patient was evaluated by the ER physician. On arrival to the ER, the patient did have fever of 101.7 degrees Fahrenheit. The patient has been tachycardic. The patient did have a lactic acid of 12.8. Initially he was leukopenic. Repeat white count is up to 17.9. He did have elevated D-dimer. The patient did have elevated liver enzymes. Urine was not significantly positive. COVID test came back negative. The patient did have a CT of abdomen and pelvis that has been suspicious for gallbladder enlarged, ovoid hyperdensity likely representing cholelithiasis. Patient did have blood cultures which came positive gram-negative bacilli which prompted this infectious disease consultation. REVIEW OF SYSTEMS: Positive points have been mentioned in HPI. Rest of systems are negative. PAST MEDICAL HISTORY: Alcoholic liver cirrhosis. PAST SURGICAL HISTORY: No surgeries. SOCIAL HISTORY: Denies smoking. to drinking. No drug use. FAMILY HISTORY: No pertinent findings noticed. ALLERGIES: No known drug allergies. MEDICATIONS: The patient is currently on Tylenol, azithromycin, dextrose, Narcan Protonix, Zosyn, and IV fluid. PHYSICAL EXAMINATION: Blood pressure is 106/85, pulse of 106, temperature 97.3, T-max is 101. He is 95% on room air. General description is a middle-aged male lying in bed in no distress. No tachypnea or accessory muscles of respiration use. HEENT: Examination shows scleral icterus positive. Oral mucous membrane is dry. NECK: Trachea central. No thyromegaly. LUNGS: Unlabored breathing, decreased intensity of breath sounds. No wheeze. HEART: S1, S2. Regular rate and rhythm. ABDOMEN: Soft, mildly tender in right upper quadrant area. No guarding or rigidity. No organomegaly. EXTREMITIES: No edema of the feet. SKIN EXAMINATION: No rash or mass palpable. NEUROLOGIC: The patient is awake, alert, oriented x3. Mood and affect normal. LABS: Hemoglobin is 8.4, white count 17.9, BUN of 20, creatinine is 2.48. Admission creatinine was 1.49. Lactic acid 15.2. Liver enzymes are elevated. CT report mentioned above. DIAGNOSTIC IMPRESSION: Patient presented to hospital with abdominal pain, nausea, fever, now with evidence of Gram-negative bacteremia in this patient did have sepsis on admission. Source is cholecystitis, gallstone related, clinically doubt pneumonia. PLAN: 1. Zosyn to continue while waiting for the final sensitivity of this pathogen. 2. Discontinue Zithromax. 3. We will follow on his clinical condition and culture to further adjust medication if needed. Thank you for this consultation. Will follow this patient along with you. MMODL / IJN: [id number] /
[2021-02-24 10:19] LABS: Band Neutrophils % 13 %; Eosinophils # (M) 0.12 k/uL (0-0.7); Lymphocytes # (M) 0.83 k/uL (1.0-4.8); Metamyelocytes # (M) 0.12 k/uL (0); Metamyelocytes % 1 %; Monocytes # (M) 0.59 k/uL (0-1.0); Neutrophils % (M) 74 %; Nucleated Red Blood Cells 0 /100 WBC (0-0); Total Cells Counted 200
[2021-02-24] MEDS: DEXTROSE 5% IN WATER 1,000 ML with SODIUM BICARB (1 MEQ/ML) 150 ML IV SCH (11:12)
[2021-02-24 12:36] LABS: Glucose,Whole Blood 96 mg/dL (75-99)
--- NOTE | 2021-02-24 12:47 | P.PN ---
Subjective Progress Note Date: 02/24/21 (Critical care time 35 minutes) Principal diagnosis: Acute hypoxic respiratory failure Portal hypertension Esophageal Variaces Possible developing aspiration pneumonia Severe sepsis Acute kidney injury defect. The likely mechanism appeared to be acute tubular necrosis GI bleed likely from esophageal Variaces Gram-negative bacteremia source appears to be acute cholecystitis Alcoholic liver disease with cirrhosis Coagulopathy likely related to chronic alcohol related liver disease 02/24/2021, patient seen eval examined during the rounds in ICU care plan discussed with the staff as well as GI service at length in detail, patient is still have intermittent bleeding going on, computed tomography scan of the chest revealed presence of the esophageal rices, blood pressure running on the marginal side, patient remains on bicarb drip, patient underwent 2 unit of pac ked RBC as well as 3 bags of FFP transfused, white cell count continue to come down, hemoglobin stable 9.3, potassium is 3.4, BUN/creatinine 34 and 2.44, like acid and lactic acid is slowly coming down latest is 5.2, liver functions continued to be high, with total bilirubin of 3.7, patient is being considered for endoscopy and ligation/bending of esophageal varices, patient is running blood pressure on the low side into the 90s, migratory dry and 5 mg twice a day will be started if there is evidence of more bleeding is seen then will consider octreotide This is a 60-year-old with chronic alcoholism patient presented into the emergency department from [facility] for evaluation of fever or aches and pains, patient has ongoing nausea and abdominal discomfort as well with swelling of the abdomen, symptoms have been progressive for many weeks, about 2 weeks ago patient has a upper GI bleed and had a scope done at [facility] found to have gastric crisis exact details however not available, patient has a significant liver disease due to alcohol is him, workup including trasound on February 19 revealed presence of cirrhosis dilated portal vein dilated and distended gallbladder with wall thickening and sludge, on arrival to emergency department patient was febrile with fever of 101 oxygen saturation was 93% hypertensive, blood pressure was 90/50, gradually patient was noted to have drop in hemoglobin, the saturation, continue spiking fever, along with patient has a lower GI bleed GI service has been consulted surgical service also has been consulted, chest x-ray however show right lower lobe infiltrate patchy infiltrate, repeat ultrasound gallstones along with gallbladder thickening, computed tomography scan of the chest performed yesterday negative for pulmonary embolism, presence of esophageal arises prominent spleen and liver findings liver consistent with nodular cirrhosis, chest x-ray earlier revealed normal heart site interstitial edema and some bibasilar infiltrate cannot be excluded patient remains on IV Zosyn today blood cultures positive for gram-negative rods, white cell count up to 17,900 patient oxygen requirement increased to 6 L, hemoglobin however have drop down to 8.4, PT/INR is 24.9 and 2.6 PTT is 48, arterial blood gas revealed pH of 7.15 pCO2 of 24 pO2 of 98 with bicarb of 9, patient was given 2 A of bicarbonate followed by bicarb drip, BUN/creatinine increased to 20 and 2.48, take acid up to 16.8, covid PCR is negative Objective - Vital Signs Vital signs: Vital Signs Temp 97.8 F 02/24/21 08:00 Pulse 98 02/24/21 09:00 Resp 12 02/24/21 09:00 BP 94/65 02/24/21 09:00 Pulse Ox 95 02/24/21 09:00 Intake & Output 02/23/21 02/24/21 02/24/21 18:59 06:59 18:59 Intake Total 1098 670 280 Output Total 65 70 Balance 1098 605 210 Weight 72.9 kg 72.9 kg Intake: Intake, IV Titration 360 280 Amount Dextrose 5% in Water 1, 100 150 000 ml @ 50 mls/hr IV . Q23H ROXANNE with Sodium Bicarb (1 Meq/ml) 150 ml Rx#:[id number] Sodium Chloride 0.9% 1, 260 130 000 ml @ 130 mls/hr IV . Q7H42M ROXANNE Rx#:[id number] Blood Product 1098 310 Ffp 24 Cpd Unit 233 [id number] Ffp 24 Cpd Unit 267 [id number] Ffp 24 Cpd Unit 288 [id number] Rc As-1 Unit 310 [id number] Rc Pheresis As-3 Unit 310 [id number] Output: Urine 65 70 Other: Voiding Method Indwelling Catheter Indwelling Catheter - Exam - Constitutional General appearance: average body habitus, cooperative, mild distress - EENT Eyes: PERRLA Ears: bilateral: normal - Neck Carotids: bilateral: upstroke normal Thyroid: negative: normal size - Respiratory Respiratory: bilateral: diminished - Cardiovascular Rhythm: regular Heart sounds: normal: S1, S2 - Gastrointestinal General gastrointestinal: decreased bowel sounds, distended but softer today compared to yesterday exam - Integumentary Integumentary: decreased turgor - Neurologic Neurologic: CNII-XII intact - Musculoskeletal Musculoskeletal: gait normal, generalized weakness, strength equal bilaterally - Psychiatric Psychiatric: A&O x's 3, appropriate affect, intact judgment & insight - Labs CBC & Chem 7: 02/24/21 07:14 02/24/21 07:14 Labs: Abnormal Lab Results - Last 24 Hours (Table) 02/23/21 02/23/21 02/23/21 Range/Units 08:07 11:37 13:14 WBC (3.8-10.6) k/uL RBC (4.30-5.90) m/uL Hgb (13.0-17.5) gm/dL Hct (39.0-53.0) % MCV (80.0-100.0) fL RDW (11.5-15.5) % Plt Count (150-450) k/uL Neutrophils # (Manual) 15.60 H (1.3-7.7) k/uL Lymphocytes # (Manual) 0.35 L (1.0-4.8) k/uL Monocytes # (Manual) 1.04 H (0-1.0) k/uL Metamyelocytes # (Man) 0.35 H (0) k/uL Myelocytes # (Manual) 0.17 H (0) k/uL Macrocytosis Sodium (137-145) mmol/L Potassium (3.5-5.1) mmol/L Carbon Dioxide (22-30) mmol/L BUN (9-20) mg/dL Creatinine (0.66-1.25) mg/dL Glucose (74-99) mg/dL POC Glucose (mg/dL) (75-99) mg/dL Plasma Lactic Acid Tristan 15.2 H* (0.7-2.0) mmol/L Calcium (8.4-10.2) mg/dL Total Bilirubin (0.2-1.3) mg/dL AST (17-59) U/L ALT (4-49) U/L Alkaline Phosphatase (38-126) U/L Total Protein (6.3-8.2) g/dL Albumin (3.5-5.0) g/dL Crossmatch See Detail 02/23/21 02/23/21 02/23/21 Range/Units 16:15 16:38 17:41 WBC (3.8-10.6) k/uL RBC (4.30-5.90) m/uL Hgb (13.0-17.5) gm/dL Hct (39.0-53.0) % MCV (80.0-100.0) fL RDW (11.5-15.5) % Plt Count (150-450) k/uL Neutrophils # (Manual) (1.3-7.7) k/uL Lymphocytes # (Manual) (1.0-4.8) k/uL Monocytes # (Manual) (0-1.0) k/uL Metamyelocytes # (Man) (0) k/uL Myelocytes # (Manual) (0) k/uL Macrocytosis Sodium (137-145) mmol/L Potassium (3.5-5.1) mmol/L Carbon Dioxide (22-30) mmol/L BUN (9-20) mg/dL Creatinine (0.66-1.25) mg/dL Glucose (74-99) mg/dL POC Glucose (mg/dL) 69 L 62 L (75-99) mg/dL Plasma Lactic Acid Tristan 12.8 H* (0.7-2.0) mmol/L Calcium (8.4-10.2) mg/dL Total Bilirubin (0.2-1.3) mg/dL AST (17-59) U/L ALT (4-49) U/L Alkaline Phosphatase (38-126) U/L Total Protein (6.3-8.2) g/dL Albumin (3.5-5.0) g/dL Crossmatch 02/23/21 02/24/21 02/24/21 Range/Units 18:30 01:00 01:10 WBC 13.2 H (3.8-10.6) k/uL RBC 2.46 L (4.30-5.90) m/uL Hgb 8.4 L (13.0-17.5) gm/dL Hct 26.4 L (39.0-53.0) % MCV 107.4 H D (80.0-100.0) fL RDW 16.1 H (11.5-15.5) % Plt Count 46 L (150-450) k/uL Neutrophils # (Manual) 11.30 H (1.3-7.7) k/uL Lymphocytes # (Manual) (1.0-4.8) k/uL Monocytes # (Manual) (0-1.0) k/uL Metamyelocytes # (Man) (0) k/uL Myelocytes # (Manual) (0) k/uL Macrocytosis Marked A Sodium (137-145) mmol/L Potassium (3.5-5.1) mmol/L Carbon Dioxide (22-30) mmol/L BUN (9-20) mg/dL Creatinine (0.66-1.25) mg/dL Glucose (74-99) mg/dL POC Glucose (mg/dL) 70 L 70 L (75-99) mg/dL Plasma Lactic Acid Tristan (0.7-2.0) mmol/L Calcium (8.4-10.2) mg/dL Total Bilirubin (0.2-1.3) mg/dL AST (17-59) U/L ALT (4-49) U/L Alkaline Phosphatase (38-126) U/L Total Protein (6.3-8.2) g/dL Albumin (3.5-5.0) g/dL Crossmatch 02/24/21 02/24/21 02/24/21 Range/Units 01:10 01:10 04:07 WBC (3.8-10.6) k/uL RBC (4.30-5.90) m/uL Hgb (13.0-17.5) gm/dL Hct (39.0-53.0) % MCV (80.0-100.0) fL RDW (11.5-15.5) % Plt Count (150-450) k/uL Neutrophils # (Manual) (1.3-7.7) k/uL Lymphocytes # (Manual) (1.0-4.8) k/uL Monocytes # (Manual) (0-1.0) k/uL Metamyelocytes # (Man) (0) k/uL Myelocytes # (Manual) (0) k/uL Macrocytosis Sodium 136 L (137-145) mmol/L Potassium (3.5-5.1) mmol/L Carbon Dioxide 19 L (22-30) mmol/L BUN 28 H (9-20) mg/dL Creatinine 2.41 H (0.66-1.25) mg/dL Glucose 62 L (74-99) mg/dL POC Glucose (mg/dL) 67 L (75-99) mg/dL Plasma Lactic Acid Tristan 8.8 H* (0.7-2.0) mmol/L Calcium 6.9 L (8.4-10.2) mg/dL Total Bilirubin 3.6 H (0.2-1.3) mg/dL AST 303 H (17-59) U/L ALT 57 H (4-49) U/L Alkaline Phosphatase 33 L (38-126) U/L Total Protein 5.1 L (6.3-8.2) g/dL Albumin 2.0 L (3.5-5.0) g/dL Crossmatch 02/24/21 02/24/21 02/24/21 Range/Units 04:32 06:05 07:14 WBC 11.8 H (3.8-10.6) k/uL RBC 2.67 L (4.30-5.90) m/uL Hgb 9.3 L (13.0-17.5) gm/dL Hct 28.5 L (39.0-53.0) % MCV 107.0 H (80.0-100.0) fL RDW 16.2 H (11.5-15.5) % Plt Count 46 L (150-450) k/uL Neutrophils # (Manual) 10.20 H (1.3-7.7) k/uL Lymphocytes # (Manual) 0.83 L (1.0-4.8) k/uL Monocytes # (Manual) (0-1.0) k/uL Metamyelocytes # (Man) 0.12 H (0) k/uL Myelocytes # (Manual) (0) k/uL Macrocytosis Marked A Sodium (137-145) mmol/L Potassium (3.5-5.1) mmol/L Carbon Dioxide (22-30) mmol/L BUN (9-20) mg/dL Creatinine (0.66-1.25) mg/dL Glucose (74-99) mg/dL POC Glucose (mg/dL) 67 L 165 H (75-99) mg/dL Plasma Lactic Acid Tristan (0.7-2.0) mmol/L Calcium (8.4-10.2) mg/dL Total Bilirubin (0.2-1.3) mg/dL AST (17-59) U/L ALT (4-49) U/L Alkaline Phosphatase (38-126) U/L Total Protein (6.3-8.2) g/dL Albumin (3.5-5.0) g/dL Crossmatch 02/24/21 02/24/21 02/24/21 Range/Units 07:14 07:14 10:30 WBC (3.8-10.6) k/uL RBC (4.30-5.90) m/uL Hgb (13.0-17.5) gm/dL Hct (39.0-53.0) % MCV (80.0-100.0) fL RDW (11.5-15.5) % Plt Count (150-450) k/uL Neutrophils # (Manual) (1.3-7.7) k/uL Lymphocytes # (Manual) (1.0-4.8) k/uL Monocytes # (Manual) (0-1.0) k/uL Metamyelocytes # (Man) (0) k/uL Myelocytes # (Manual) (0) k/uL Macrocytosis Sodium (137-145) mmol/L Potassium 3.4 L (3.5-5.1) mmol/L Carbon Dioxide (22-30) mmol/L BUN 34 H (9-20) mg/dL Creatinine 2.44 H (0.66-1.25) mg/dL Glucose (74-99) mg/dL POC Glucose (mg/dL) (75-99) mg/dL Plasma Lactic Acid Tristan 6.0 H* 5.2 H* (0.7-2.0) mmol/L Calcium 6.6 L (8.4-10.2) mg/dL Total Bilirubin 3.7 H (0.2-1.3) mg/dL AST 298 H (17-59) U/L ALT 60 H (4-49) U/L Alkaline Phosphatase 30 L (38-126) U/L Total Protein 5.2 L (6.3-8.2) g/dL Albumin 2.0 L (3.5-5.0) g/dL Crossmatch Microbiology - Last 24 Hours (Table) 02/22/21 16:45 Blood Culture Gram Stain - Preliminary Blood Blood Culture - Preliminary Escherichia coli 02/23/21 10:29 Urine Culture - Preliminary Urine,Voided 02/22/21 16:30 Blood Culture - Preliminary Blood No Growth after 24 hours 02/22/21 16:45 Blood Culture - Final Blood Assessment and Plan Assessment: Acute hypoxic respiratory failure Portal hypertension Esophageal Variaces Possible developing aspiration pneumonia Severe sepsis Acute kidney injury defect. The likely mechanism appeared to be acute tubular necrosis GI bleed likely from esophageal Variaces Gram-negative bacteremia source appears to be acute cholecystitis Alcoholic liver disease with cirrhosis Coagulopathy likely related to chronic alcohol related liver disease Plan: Supplemental oxygen Rehydration Midodrine If evidence of continuous bleeding consider octreotide infusion Replace potassium Bicarb drip Keep nothing by mouth Gen. surgery consult for evaluation of cholecystectomy Continue broad-spectrum antibiotics GI consult for endoscopy and possible banding of esophageal arises Blood transfusion as needed keep hemoglobin over 7-8 Blood products including 3 bags of FFP to correct coagulopathy Vitamin K Keep in ICU Monitor renal functions closely Further plan of care as per clinical response of the patient overall general condition very guarded with impending multiorgan failure Repeat labs and x-ray and ABG tomorrow Time with Patient: Greater than 30
[2021-02-24] MEDS ORDERED: Potassium Replacement Protocol 1 EACH MISC MISCELLANE PRN (13:20)
[2021-02-24] MEDS: MIDODRINE 5 MG TAB PO SCH ×2 (13:22→18:40)
[2021-02-24] MEDS: POTASSIUM CHLORIDE 10 MEQ in WATER FOR INJECTION 1 100ML.BAG IVPB SCH ×4 (13:33→18:39)
--- NOTE | 2021-02-24 13:33 | P.PN ---
Subjective Progress Note Date: 02/24/21 Principal diagnosis: Elevated LFTs, melena Objective - Vital Signs Vital signs: Vital Signs Temp 97.5 F L 02/24/21 12:00 Pulse 92 02/24/21 13:00 Resp 23 02/24/21 13:00 BP 67/40 02/24/21 13:00 Pulse Ox 96 02/24/21 13:00 Intake & Output 02/23/21 02/24/21 02/24/21 18:59 06:59 18:59 Intake Total 0344 641 7703 Output Total 65 110 Balance 1098 605 890 Weight 72.9 kg 72.9 kg Intake: Intake, IV Titration 360 1000 Amount Dextrose 5% in Water 1, 100 350 000 ml @ 50 mls/hr IV . Q23H ROXANNE with Sodium Bicarb (1 Meq/ml) 150 ml Rx#:[id number] Sodium Chloride 0.9% 1, 260 650 000 ml @ 130 mls/hr IV . Q7H42M ROXANNE Rx#:[id number] Blood Product 1098 310 Ffp 24 Cpd Unit 233 [id number] Ffp 24 Cpd Unit 267 [id number] Ffp 24 Cpd Unit 288 [id number] Rc As-1 Unit 310 [id number] Rc Pheresis As-3 Unit 310 [id number] Output: Urine 65 110 Other: Voiding Method Indwelling Catheter Indwelling Catheter - Labs CBC & Chem 7: 02/24/21 07:14 02/24/21 07:14 Labs: Abnormal Lab Results - Last 24 Hours (Table) 02/23/21 02/23/21 02/23/21 Range/Units 08:07 11:37 13:14 WBC (3.8-10.6) k/uL RBC (4.30-5.90) m/uL Hgb (13.0-17.5) gm/dL Hct (39.0-53.0) % MCV (80.0-100.0) fL RDW (11.5-15.5) % Plt Count (150-450) k/uL Neutrophils # (Manual) 15.60 H (1.3-7.7) k/uL Lymphocytes # (Manual) 0.35 L (1.0-4.8) k/uL Monocytes # (Manual) 1.04 H (0-1.0) k/uL Metamyelocytes # (Man) 0.35 H (0) k/uL Myelocytes # (Manual) 0.17 H (0) k/uL Macrocytosis Sodium (137-145) mmol/L Potassium (3.5-5.1) mmol/L Carbon Dioxide (22-30) mmol/L BUN (9-20) mg/dL Creatinine (0.66-1.25) mg/dL Glucose (74-99) mg/dL POC Glucose (mg/dL) (75-99) mg/dL Plasma Lactic Acid Tristan 15.2 H* (0.7-2.0) mmol/L Calcium (8.4-10.2) mg/dL Total Bilirubin (0.2-1.3) mg/dL AST (17-59) U/L ALT (4-49) U/L Alkaline Phosphatase (38-126) U/L Total Protein (6.3-8.2) g/dL Albumin (3.5-5.0) g/dL Crossmatch See Detail 02/23/21 02/23/21 02/23/21 Range/Units 16:15 16:38 17:41 WBC (3.8-10.6) k/uL RBC (4.30-5.90) m/uL Hgb (13.0-17.5) gm/dL Hct (39.0-53.0) % MCV (80.0-100.0) fL RDW (11.5-15.5) % Plt Count (150-450) k/uL Neutrophils # (Manual) (1.3-7.7) k/uL Lymphocytes # (Manual) (1.0-4.8) k/uL Monocytes # (Manual) (0-1.0) k/uL Metamyelocytes # (Man) (0) k/uL Myelocytes # (Manual) (0) k/uL Macrocytosis Sodium (137-145) mmol/L Potassium (3.5-5.1) mmol/L Carbon Dioxide (22-30) mmol/L BUN (9-20) mg/dL Creatinine (0.66-1.25) mg/dL Glucose (74-99) mg/dL POC Glucose (mg/dL) 69 L 62 L (75-99) mg/dL Plasma Lactic Acid Tristan 12.8 H* (0.7-2.0) mmol/L Calcium (8.4-10.2) mg/dL Total Bilirubin (0.2-1.3) mg/dL AST (17-59) U/L ALT (4-49) U/L Alkaline Phosphatase (38-126) U/L Total Protein (6.3-8.2) g/dL Albumin (3.5-5.0) g/dL Crossmatch 02/23/21 02/24/21 02/24/21 Range/Units 18:30 01:00 01:10 WBC 13.2 H (3.8-10.6) k/uL RBC 2.46 L (4.30-5.90) m/uL Hgb 8.4 L (13.0-17.5) gm/dL Hct 26.4 L (39.0-53.0) % MCV 107.4 H D (80.0-100.0) fL RDW 16.1 H (11.5-15.5) % Plt Count 46 L (150-450) k/uL Neutrophils # (Manual) 11.30 H (1.3-7.7) k/uL Lymphocytes # (Manual) (1.0-4.8) k/uL Monocytes # (Manual) (0-1.0) k/uL Metamyelocytes # (Man) (0) k/uL Myelocytes # (Manual) (0) k/uL Macrocytosis Marked A Sodium (137-145) mmol/L Potassium (3.5-5.1) mmol/L Carbon Dioxide (22-30) mmol/L BUN (9-20) mg/dL Creatinine (0.66-1.25) mg/dL Glucose (74-99) mg/dL POC Glucose (mg/dL) 70 L 70 L (75-99) mg/dL Plasma Lactic Acid Tristan (0.7-2.0) mmol/L Calcium (8.4-10.2) mg/dL Total Bilirubin (0.2-1.3) mg/dL AST (17-59) U/L ALT (4-49) U/L Alkaline Phosphatase (38-126) U/L Total Protein (6.3-8.2) g/dL Albumin (3.5-5.0) g/dL Crossmatch 02/24/21 02/24/21 02/24/21 Range/Units 01:10 01:10 04:07 WBC (3.8-10.6) k/uL RBC (4.30-5.90) m/uL Hgb (13.0-17.5) gm/dL Hct (39.0-53.0) % MCV (80.0-100.0) fL RDW (11.5-15.5) % Plt Count (150-450) k/uL Neutrophils # (Manual) (1.3-7.7) k/uL Lymphocytes # (Manual) (1.0-4.8) k/uL Monocytes # (Manual) (0-1.0) k/uL Metamyelocytes # (Man) (0) k/uL Myelocytes # (Manual) (0) k/uL Macrocytosis Sodium 136 L (137-145) mmol/L Potassium (3.5-5.1) mmol/L Carbon Dioxide 19 L (22-30) mmol/L BUN 28 H (9-20) mg/dL Creatinine 2.41 H (0.66-1.25) mg/dL Glucose 62 L (74-99) mg/dL POC Glucose (mg/dL) 67 L (75-99) mg/dL Plasma Lactic Acid Tristan 8.8 H* (0.7-2.0) mmol/L Calcium 6.9 L (8.4-10.2) mg/dL Total Bilirubin 3.6 H (0.2-1.3) mg/dL AST 303 H (17-59) U/L ALT 57 H (4-49) U/L Alkaline Phosphatase 33 L (38-126) U/L Total Protein 5.1 L (6.3-8.2) g/dL Albumin 2.0 L (3.5-5.0) g/dL Crossmatch 02/24/21 02/24/21 02/24/21 Range/Units 04:32 06:05 07:14 WBC 11.8 H (3.8-10.6) k/uL RBC 2.67 L (4.30-5.90) m/uL Hgb 9.3 L (13.0-17.5) gm/dL Hct 28.5 L (39.0-53.0) % MCV 107.0 H (80.0-100.0) fL RDW 16.2 H (11.5-15.5) % Plt Count 46 L (150-450) k/uL Neutrophils # (Manual) 10.20 H (1.3-7.7) k/uL Lymphocytes # (Manual) 0.83 L (1.0-4.8) k/uL Monocytes # (Manual) (0-1.0) k/uL Metamyelocytes # (Man) 0.12 H (0) k/uL Myelocytes # (Manual) (0) k/uL Macrocytosis Marked A Sodium (137-145) mmol/L Potassium (3.5-5.1) mmol/L Carbon Dioxide (22-30) mmol/L BUN (9-20) mg/dL Creatinine (0.66-1.25) mg/dL Glucose (74-99) mg/dL POC Glucose (mg/dL) 67 L 165 H (75-99) mg/dL Plasma Lactic Acid Tristan (0.7-2.0) mmol/L Calcium (8.4-10.2) mg/dL Total Bilirubin (0.2-1.3) mg/dL AST (17-59) U/L ALT (4-49) U/L Alkaline Phosphatase (38-126) U/L Total Protein (6.3-8.2) g/dL Albumin (3.5-5.0) g/dL Crossmatch 02/24/21 02/24/21 02/24/21 Range/Units 07:14 07:14 10:30 WBC (3.8-10.6) k/uL RBC (4.30-5.90) m/uL Hgb (13.0-17.5) gm/dL Hct (39.0-53.0) % MCV (80.0-100.0) fL RDW (11.5-15.5) % Plt Count (150-450) k/uL Neutrophils # (Manual) (1.3-7.7) k/uL Lymphocytes # (Manual) (1.0-4.8) k/uL Monocytes # (Manual) (0-1.0) k/uL Metamyelocytes # (Man) (0) k/uL Myelocytes # (Manual) (0) k/uL Macrocytosis Sodium (137-145) mmol/L Potassium 3.4 L (3.5-5.1) mmol/L Carbon Dioxide (22-30) mmol/L BUN 34 H (9-20) mg/dL Creatinine 2.44 H (0.66-1.25) mg/dL Glucose (74-99) mg/dL POC Glucose (mg/dL) (75-99) mg/dL Plasma Lactic Acid Tristan 6.0 H* 5.2 H* (0.7-2.0) mmol/L Calcium 6.6 L (8.4-10.2) mg/dL Total Bilirubin 3.7 H (0.2-1.3) mg/dL AST 298 H (17-59) U/L ALT 60 H (4-49) U/L Alkaline Phosphatase 30 L (38-126) U/L Total Protein 5.2 L (6.3-8.2) g/dL Albumin 2.0 L (3.5-5.0) g/dL Crossmatch Microbiology - Last 24 Hours (Table) 02/22/21 16:45 Blood Culture Gram Stain - Preliminary Blood Blood Culture - Preliminary Escherichia coli 02/23/21 10:29 Urine Culture - Preliminary Urine,Voided 02/22/21 16:30 Blood Culture - Preliminary Blood No Growth after 24 hours 02/22/21 16:45 Blood Culture - Final Blood Assessment and Plan (1) Anemia due to acute blood loss Narrative/Plan: 60-year-old male with multiple medical comorbidities including hypertension and alcohol abuse currently abstinent from alcohol consumption who presented with a constellation of symptoms including fevers and weakness. Currently the patient is being treated for sepsis with plans for ICU care. The patient has long- standing history of alcohol abuse but denies any known history of cirrhosis. He previously has been hospitalized for GI bleed and reports nasogastric tube pl acement at that time and is unsure if EGD was performed. He is unclear of any prior history of cirrhosis of the liver but was found to have a cirrhotic appearing liver with ascites on computed tomography scan of the abdomen. Liver enzymes are consistent with alcoholic liver disease and cirrhosis of the liver. The patient developed some dark colored bowel movements while in the emergency department with a fall in his hemoglobin likely secondary to GI bleed as well as hemodilution after being fluid resuscitated. Unclear etiology with differential including peptic ulcer disease, gastritis, esophagitis, AVM, with esophageal varices not completely excluded however less likely given clinical presentation and only minimal elevation BUN on presentation, or other etiology. Current Visit: Yes Status: Acute Code(s): D62 - ACUTE POSTHEMORRHAGIC ANEMIA SNOMED Code(s): 795975652 (2) Alcoholic cirrhosis of liver with ascites Current Visit: Yes Status: Acute Code(s): K70.31 - ALCOHOLIC CIRRHOSIS OF LIVER WITH ASCITES SNOMED Code(s): 849834380 (3) Melena Current Visit: Yes Status: Acute Code(s): K92.1 - MELENA SNOMED Code(s): 0848287 Plan: Supportive care Continue ICU management Patient is scheduled for cholecystectomy today Continue monitor hemoglobin and hematocrit and transfuse as needed Patient received vitamin K, 3 FFP and 2 PRBC transfusion Continue Protonix therapy, increase to twice a day Continue broad-spectrum antibiotic therapy Will add Midodrine 5 mg 3 times a day Patient is scheduled for upper endoscopy tomorrow Patient would likely benefit from paracentesis with fluid studies prior to discharge, including albumin, protein, cell count with differential Thank you for this consult, we will continue to follow Dr. Ferrer I agree with the dictator's note, documented as a scribe by Fabiana Hull.
--- NOTE | 2021-02-24 15:45 | P.PN ---
Subjective Progress Note Date: 02/24/21 CHIEF COMPLAINT: Fever HISTORY OF PRESENT ILLNESS: Patient is currently in the ICU and for sepsis. He is on 4 L of oxygen satting at 93%. Patient had melanoma on his stools. His computed tomography scan had evidence of esophageal varices. Patient did get 2 units of RBCs as well as 3 bags of FFP transfused. Patient is scheduled for EGD tomorrow with GI service. Patient followed by surgical service in regards to cholecystitis. Initially scheduled today for a laparoscopic cholecystectomy. Surgery canceled due to electrolyte abnormality. Surgery will be rescheduled for Monday. Afebrile patient has been hypotensive. WBC trending down to 11.8 hemoglobin 9.3 platelets 46 sodium 138 potassium 3.4 magnesium 1.4 BUN 34 creatinine 2.4 for lactic trending down to 4.0 total bili 3.7 AST 298 ALT 60 alk phos 30 blood cultures positive for E. coli Patient seen and examined with Dr. Jamil PHYSICAL EXAM: VITAL SIGNS: Reviewed. GENERAL: Well-developed in no acute distress. HEENT: No sclera icterus. Extraocular movements grossly intact. Moist buccal mucosa. Head is atraumatic, normocephalic. ABDOMEN: Soft. Nondistended. Nontender. NEUROLOGIC: Alert and oriented. Cranial nerves II through XII grossly intact. ASSESSMENT: 1. Sepsis present on admission 2. Chronic cholecystitis with ultrasound showing evidence of gallstones and gallbladder wall thickening 3. Possible aspiration pneumonia 4. Acute hypoxic respiratory failure 5. History of liver cirrhosis with abdominal ascites 6. Coagulopathy likely due to liver disease 7. Melanoma stools with anemia and possible esophageal varices. Patient scheduled for EGD tomorrow with GI service 8. E. coli bacteremia possibly due to acute cholecystitis 9. Hypokalemia and hypomagnesemia PLAN: -Patient is scheduled for laparoscopic cholecystectomy on 02/26/[address] Jamil -Continue ICU management -Continue supportive care -correct electrolytes Physician [employer] note has been reviewed by physician. Signing provider agrees with the documented findings, assessment, and plan of care. Objective - Vital Signs Vital signs: Vital Signs Temp 97.5 F L 02/24/21 12:00 Pulse 92 02/24/21 13:00 Resp 23 02/24/21 13:00 BP 67/40 02/24/21 13:00 Pulse Ox 96 02/24/21 13:00 Intake & Output 02/23/21 02/24/21 02/24/21 18:59 06:59 18:59 Intake Total 7042 316 0064 Output Total 65 110 Balance 1098 605 890 Weight 72.9 kg 72.9 kg Intake: Intake, IV Titration 360 1000 Amount Dextrose 5% in Water 1, 100 350 000 ml @ 50 mls/hr IV . Q23H [facility] with Sodium Bicarb (1 Meq/ml) 150 ml Rx#:[id number] Sodium Chloride 0.9% 1, 260 650 000 ml @ 130 mls/hr IV . Q7H42M [facility] Rx#:[id number] Blood Product 1098 310 Ffp 24 Cpd Unit 233 [id number] Ffp 24 Cpd Unit 267 [id number] Ffp 24 Cpd Unit 288 [id number] Rc As-1 Unit 310 [id number] Rc Pheresis As-3 Unit 310 [id number] Output: Urine 65 110 Other: Voiding Method Indwelling Catheter Indwelling Catheter - Labs CBC & Chem 7: 02/24/21 07:14 02/24/21 07:14 Labs: Abnormal Lab Results - Last 24 Hours (Table) 02/23/21 02/23/21 02/23/21 Range/Units 11:37 16:15 16:38 WBC (3.8-10.6) k/uL RBC (4.30-5.90) m/uL Hgb (13.0-17.5) gm/dL Hct (39.0-53.0) % MCV (80.0-100.0) fL RDW (11.5-15.5) % Plt Count (150-450) k/uL Neutrophils # (Manual) (1.3-7.7) k/uL Lymphocytes # (Manual) (1.0-4.8) k/uL Metamyelocytes # (Man) (0) k/uL Macrocytosis Sodium (137-145) mmol/L Potassium (3.5-5.1) mmol/L Carbon Dioxide (22-30) mmol/L BUN (9-20) mg/dL Creatinine (0.66-1.25) mg/dL Glucose (74-99) mg/dL POC Glucose (mg/dL) 69 L (75-99) mg/dL Plasma Lactic Acid Tristan 12.8 H* (0.7-2.0) mmol/L Calcium (8.4-10.2) mg/dL Total Bilirubin (0.2-1.3) mg/dL AST (17-59) U/L ALT (4-49) U/L Alkaline Phosphatase (38-126) U/L Total Protein (6.3-8.2) g/dL Albumin (3.5-5.0) g/dL Crossmatch See Detail 02/23/21 02/23/21 02/24/21 Range/Units 17:41 18:30 01:00 WBC (3.8-10.6) k/uL RBC (4.30-5.90) m/uL Hgb (13.0-17.5) gm/dL Hct (39.0-53.0) % MCV (80.0-100.0) fL RDW (11.5-15.5) % Plt Count (150-450) k/uL Neutrophils # (Manual) (1.3-7.7) k/uL Lymphocytes # (Manual) (1.0-4.8) k/uL Metamyelocytes # (Man) (0) k/uL Macrocytosis Sodium (137-145) mmol/L Potassium (3.5-5.1) mmol/L Carbon Dioxide (22-30) mmol/L BUN (9-20) mg/dL Creatinine (0.66-1.25) mg/dL Glucose (74-99) mg/dL POC Glucose (mg/dL) 62 L 70 L 70 L (75-99) mg/dL Plasma Lactic Acid Tristan (0.7-2.0) mmol/L Calcium (8.4-10.2) mg/dL Total Bilirubin (0.2-1.3) mg/dL AST (17-59) U/L ALT (4-49) U/L Alkaline Phosphatase (38-126) U/L Total Protein (6.3-8.2) g/dL Albumin (3.5-5.0) g/dL Crossmatch 02/24/21 02/24/21 02/24/21 Range/Units 01:10 01:10 01:10 WBC 13.2 H (3.8-10.6) k/uL RBC 2.46 L (4.30-5.90) m/uL Hgb 8.4 L (13.0-17.5) gm/dL Hct 26.4 L (39.0-53.0) % MCV 107.4 H D (80.0-100.0) fL RDW 16.1 H (11.5-15.5) % Plt Count 46 L (150-450) k/uL Neutrophils # (Manual) 11.30 H (1.3-7.7) k/uL Lymphocytes # (Manual) (1.0-4.8) k/uL Metamyelocytes # (Man) (0) k/uL Macrocytosis Marked A Sodium 136 L (137-145) mmol/L Potassium (3.5-5.1) mmol/L Carbon Dioxide 19 L (22-30) mmol/L BUN 28 H (9-20) mg/dL Creatinine 2.41 H (0.66-1.25) mg/dL Glucose 62 L (74-99) mg/dL POC Glucose (mg/dL) (75-99) mg/dL Plasma Lactic Acid [place] 8.8 H* (0.7-2.0) mmol/L Calcium 6.9 L (8.4-10.2) mg/dL Total Bilirubin 3.6 H (0.2-1.3) mg/dL AST 303 H (17-59) U/L ALT 57 H (4-49) U/L Alkaline Phosphatase 33 L (38-126) U/L Total Protein 5.1 L (6.3-8.2) g/dL Albumin 2.0 L (3.5-5.0) g/dL Crossmatch 02/24/21 02/24/21 02/24/21 Range/Units 04:07 04:32 06:05 WBC (3.8-10.6) k/uL RBC (4.30-5.90) m/uL Hgb (13.0-17.5) gm/dL Hct (39.0-53.0) % MCV (80.0-100.0) fL RDW (11.5-15.5) % Plt Count (150-450) k/uL Neutrophils # (Manual) (1.3-7.7) k/uL Lymphocytes # (Manual) (1.0-4.8) k/uL Metamyelocytes # (Man) (0) k/uL Macrocytosis Sodium (137-145) mmol/L Potassium (3.5-5.1) mmol/L Carbon Dioxide (22-30) mmol/L BUN (9-20) mg/dL Creatinine (0.66-1.25) mg/dL Glucose (74-99) mg/dL POC Glucose (mg/dL) 67 L 67 L 165 H (75-99) mg/dL Plasma Lactic Acid Tristan (0.7-2.0) mmol/L Calcium (8.4-10.2) mg/dL Total Bilirubin (0.2-1.3) mg/dL AST (17-59) U/L ALT (4-49) U/L Alkaline Phosphatase (38-126) U/L Total Protein (6.3-8.2) g/dL Albumin (3.5-5.0) g/dL Crossmatch 02/24/21 02/24/21 02/24/21 Range/Units 07:14 07:14 07:14 WBC 11.8 H (3.8-10.6) k/uL RBC 2.67 L (4.30-5.90) m/uL Hgb 9.3 L (13.0-17.5) gm/dL Hct 28.5 L (39.0-53.0) % MCV 107.0 H (80.0-100.0) fL RDW 16.2 H (11.5-15.5) % Plt Count 46 L (150-450) k/uL Neutrophils # (Manual) 10.20 H (1.3-7.7) k/uL Lymphocytes # (Manual) 0.83 L (1.0-4.8) k/uL Metamyelocytes # (Man) 0.12 H (0) k/uL Macrocytosis Marked A Sodium (137-145) mmol/L Potassium 3.4 L (3.5-5.1) mmol/L Carbon Dioxide (22-30) mmol/L BUN 34 H (9-20) mg/dL Creatinine 2.44 H (0.66-1.25) mg/dL Glucose (74-99) mg/dL POC Glucose (mg/dL) (75-99) mg/dL Plasma Lactic Acid Tristan 6.0 H* (0.7-2.0) mmol/L Calcium 6.6 L (8.4-10.2) mg/dL Total Bilirubin 3.7 H (0.2-1.3) mg/dL AST 298 H (17-59) U/L ALT 60 H (4-49) U/L Alkaline Phosphatase 30 L (38-126) U/L Total Protein 5.2 L (6.3-8.2) g/dL Albumin 2.0 L (3.5-5.0) g/dL Crossmatch 02/24/21 02/24/21 Range/Units 10:30 14:54 WBC (3.8-10.6) k/uL RBC (4.30-5.90) m/uL Hgb (13.0-17.5) gm/dL Hct (39.0-53.0) % MCV (80.0-100.0) fL RDW (11.5-15.5) % Plt Count (150-450) k/uL Neutrophils # (Manual) (1.3-7.7) k/uL Lymphocytes # (Manual) (1.0-4.8) k/uL Metamyelocytes # (Man) (0) k/uL Macrocytosis Sodium (137-145) mmol/L Potassium (3.5-5.1) mmol/L Carbon Dioxide (22-30) mmol/L BUN (9-20) mg/dL Creatinine (0.66-1.25) mg/dL Glucose (74-99) mg/dL POC Glucose (mg/dL) (75-99) mg/dL Plasma Lactic Acid Tristan 5.2 H* 4.0 H* (0.7-2.0) mmol/L Calcium (8.4-10.2) mg/dL Total Bilirubin (0.2-1.3) mg/dL AST (17-59) U/L ALT (4-49) U/L Alkaline Phosphatase (38-126) U/L Total Protein (6.3-8.2) g/dL Albumin (3.5-5.0) g/dL Crossmatch Microbiology - Last 24 Hours (Table) 02/22/21 16:45 Blood Culture Gram Stain - Preliminary Blood Blood Culture - Preliminary Escherichia coli 02/23/21 10:29 Urine Culture - Preliminary Urine,Voided 02/22/21 16:30 Blood Culture - Preliminary Blood No Growth after 24 hours 02/22/21 16:45 Blood Culture - Final Blood
[2021-02-24] MEDS ORDERED: Magnesium Replacement Protocol 1 EACH MISC MISCELLANE PRN (19:39)
[2021-02-24 19:42] LABS: Anisocytosis Slight; Basophils % (A) 0 %; Eosinophils % (A) 0 %; HCT 31.5 % (39.0-53.0); HGB 10.2 gm/dL (13.0-17.5); Lymphocytes # (A) 0.6 k/uL (1.0-4.8); Lymphocytes % (A) 6 %; MCH 34.6 pg (25.0-35.0); MCHC 32.5 g/dL (31.0-37.0); MCV 106.4 fL (80.0-100.0); Macrocytosis Marked; Mean Platelet Volume 11.2; Monocytes # (A) 0.7 k/uL (0-1.0); Monocytes % (A) 7 %; Neutrophils # (A) 8.4 k/uL (1.3-7.7); Neutrophils % (A) 85 %; RBC 2.96 m/uL (4.30-5.90); RDW 16.2 % (11.5-15.5); WBC 9.9 k/uL (3.8-10.6)
[2021-02-24 19:45] LABS: Platelet Count 54 k/uL (150-450)
[2021-02-24 19:50] LABS: Glucose,Whole Blood 80 mg/dL (75-99)
[2021-02-24] MEDS: MAGNESIUM SULFATE-D5W PMX 1 GM in DEXTROSE/WATER 1 100ML.BAG IVPB SCH ×2 (21:54→23:13)
[2021-02-24 23:34] LABS: Glucose,Whole Blood 111 mg/dL (75-99)
--- NOTE | 2021-02-24 23:49 | PN ---
PROGRESS NOTE DATE OF SERVICE: 02/24/2021 REASON FOR FOLLOWUP: Gram-negative bacteremia and cholecystitis. INTERVAL HISTORY: Patient is currently afebrile. The patient has been complaining of pain to the right upper quadrant abdominal area. Some nausea. But no vomiting. No chest pain or shortness of breath. No cough. Currently on room air. No diarrhea. PHYSICAL EXAMINATION: Blood pressure 120/80, pulse 93, temperature 98. He is 97% on 4 L nasal cannula. General description is a middle-aged male lying in bed in no distress. HEENT exam is slight pallor. No scleral icterus. Oral mucosal membranes dry. Lungs unlabored breathing, clear to auscultation anteriorly. Heart S1, S2. Regular rate and rhythm. ABDOMEN: Soft, mildly distended. No guarding. No rigidity. LABS: Hemoglobin is 10.8, white count 9.9, lactic acid 4.6. Blood cultures with E coli resistant to Unasyn, sensitive to Zosyn. DIAGNOSTIC IMPRESSION AND PLAN: Patient with sepsis source cholecystitis with E coli bacteremia, covered with Zosyn to continue. Monday and monitor clinical course closely. MMODL / IJN: [id number] /
[2021-02-25] MEDS: KETOROLAC 15 MG/ML 1 ML VIAL IVP SCH ×2 (02:20→11:30)
[2021-02-25] MEDS: SODIUM CHLORIDE 0.9% 1,000 ML IV SCH ×3 (03:22→22:41)
[2021-02-25] MEDS: PIPERACILLIN-TAZOBACTAM 3.375 GM in SODIUM CHLORIDE 0.9% 100 ML IVPB SCH ×3 (05:25→22:35)
[2021-02-25 05:32] LABS: INR 1.7 (<1.2); Prothrombin Time 16.8 sec (9.0-12.0)
[2021-02-25 05:36] LABS: HGB 10.4 gm/dL (13.0-17.5); MCHC 34.6 g/dL (31.0-37.0); Macrocytosis Moderate; Mean Platelet Volume 10.6; RBC 2.89 m/uL (4.30-5.90); RDW 15.4 % (11.5-15.5); WBC 8.3 k/uL (3.8-10.6)
[2021-02-25 05:47] LABS: Albumin 2.1 g/dL (3.5-5.0); Calcium 6.8 mg/dL (8.4-10.2); Total Bilirubin 3.9 mg/dL (0.2-1.3); Total Protein 5.5 g/dL (6.3-8.2)
[2021-02-25 05:50] LABS: Platelet Count 52 k/uL (150-450)
[2021-02-25] MEDS ORDERED: Potassium Replacement Protocol 1 EACH MISC MISCELLANE PRN ×2 (06:01→11:25)
[2021-02-25 06:36] LABS: Band Neutrophils % 4 %; Eosinophils # (M) 0.08 k/uL (0-0.7); Monocytes # (M) 0.66 k/uL (0-1.0); Myelocytes # (M) 0.08 k/uL (0); Myelocytes % 1 %; Neutrophils % (M) 76 %; Nucleated Red Blood Cells 0 /100 WBC (0-0); Total Cells Counted 200
[2021-02-25] MEDS: POTASSIUM CHLORIDE 10 MEQ in WATER FOR INJECTION 1 100ML.BAG IVPB SCH ×8 (06:37→18:53)
[2021-02-25] MEDS: MIDODRINE 5 MG TAB PO SCH ×3 (06:37→18:09)
[2021-02-25] MEDS: PANTOPRAZOLE 40 MG/10 ML VIAL IV SCH ×2 (08:04→22:35)
--- NOTE | 2021-02-25 11:41 | PN ---
PROGRESS NOTE DATE OF SERVICE: 02/24/2021 A 60-year-old white male who has liver failure and severe cholecystitis. He is going to get surgery in 3-4 days from cholecystectomy standpoint when he stabilizes. He is in the ICU at this point. CARDIOVASCULAR: S1, S2. LUNGS: Scattered wheeze. HEMATOLOGY: Negative Homans. MUSCULOSKELETAL: His range of motion is good. GI: Is distended. Tenderness to palpation right upper quadrant. ASSESSMENT: Septic shock secondary to acute cholecystitis. Stabilized with antibiotics, fluids, treated with antibiotics for possible ascending cholangitis. Plan for surgery in 2-3 days. ICU notes and consults are reviewed. MMODL / IJN: [id number] /
[2021-02-25] MEDS ORDERED: PHENYLEPHRINE-0.9% NACL SYG 1,000 MCG/10 ML SYRINGE ONE (13:02)
[2021-02-25] MEDS ORDERED: LIDOCAINE 1% INJ 10MG/ML (20 ML MDV) ONE (13:02)
[2021-02-25] MEDS ORDERED: PROPOFOL 10 MG/ML 20 ML VIAL IV ONE (13:02)
[2021-02-25] MEDS ORDERED: LACTATED RINGERS 1,000 ML IV ONE (13:10)
--- NOTE | 2021-02-25 13:37 | P.PN ---
Subjective Progress Note Date: 02/25/21 CHIEF COMPLAINT: Fever HISTORY OF PRESENT ILLNESS: Patient is currently in the ICU and for sepsis. He is on 4 L of oxygen satting at 93%. Patient had melena stools. His computed tomography scan had evidence of esophageal varices. Patient did get 2 units of RBCs as well as 3 bags of FFP transfused. Patient is scheduled for EGD today with GI service. Patient followed by surgical service in regards to cholecystitis. Patient did have a dark stool today. Afebrile patient has been hypotensive. WBC trending down to 8.3 hemoglobin 10.4 platelets 52 blood cultures positive for E. coli. INR 1.7 sodium 136 potassium 3.5 creatinine 2.23 lactic acid 2.2 magnesium 2.0 total bili 3.9 AST 271 ALT 65 alk phos 34 Patient seen and examined with Dr. Jamil PHYSICAL EXAM: VITAL SIGNS: Reviewed. GENERAL: Well-developed in no acute distress. HEENT: No sclera icterus. Extraocular movements grossly intact. Moist buccal mucosa. Head is atraumatic, normocephalic. ABDOMEN: Soft. Distended. Right upper Quadrant tenderness NEUROLOGIC: Alert and oriented. Cranial nerves II through XII grossly intact. ASSESSMENT: 1. Sepsis present on admission 2. Chronic cholecystitis with ultrasound showing evidence of gallstones and gallbladder wall thickening 3. Possible aspiration pneumonia 4. Acute hypoxic respiratory failure 5. History of liver cirrhosis with abdominal ascites 6. Coagulopathy likely due to liver disease 7. Melena stools with anemia and possible esophageal varices. Patient sc heduled for EGD today with GI service 8. E. coli bacteremia possibly due to acute cholecystitis 9. Hypokalemia and hypomagnesemia 10. Acute kidney injury PLAN: -Patient is scheduled for laparoscopic cholecystectomy on 02/26/[address] Jamil -Keep patient nothing by mouth after midnight -We'll discontinue Toradol due to the acute kidney injury -Continue ICU management -Continue supportive care -correct electrolytes -Give 10 mg IV vitamin K for INR 1.7 to be prepared for surgery for tomorrow Physician [employer] note has been reviewed by physician. Signing provider agrees with the documented findings, assessment, and plan of care. Objective - Vital Signs Vital signs: Vital Signs Temp 97.7 F 02/25/21 12:00 Pulse 92 02/25/21 13:00 Resp 22 02/25/21 13:00 BP 112/85 02/25/21 13:00 Pulse Ox 99 02/25/21 12:00 Intake & Output 02/24/21 02/25/21 02/25/21 18:59 06:59 18:59 Intake Total 2220 2280 1020 Output Total 160 175 165 Balance 0 2105 855 Weight 72.9 kg 74 kg Intake: IV 2280 720 Dextrose 5% in Water 1, 550 200 000 ml @ 50 mls/hr IV . Q23H [facility] with Sodium Bicarb (1 Meq/ml) 150 ml Rx#:[id number] Magnesium Sulfate-D5w Pmx 200 1 gm In Dextrose/Water 1 100ml.bag @ 100 mls/hr IVPB Q1H [facility] Rx#: [id number] Piperacillin-Tazobactam 3 100 .375 gm In Sodium Chloride 0.9% 100 ml @ 25 mls/hr IVPB Q8H [facility] Rx#: [id number] Sodium Chloride 0.9% 1, 1430 520 000 ml @ 130 mls/hr IV . Q7H42M [facility] Rx#:[id number] Intake, IV Titration 2220 300 Amount Dextrose 5% in Water 1, 550 000 ml @ 50 mls/hr IV . Q23H [facility] with Sodium Bicarb (1 Meq/ml) 150 ml Rx#:[id number] Piperacillin-Tazobactam 3 100 .375 gm In Sodium Chloride 0.9% 100 ml @ 25 mls/hr IVPB Q8H [facility] Rx#: [id number] Potassium Chloride 10 meq 400 In Water For Injection 1 100ml.bag @ 100 mls/hr IVPB Q1HR [facility] Rx#: [id number] Potassium Chloride 10 meq 300 In Water For Injection 1 100ml.bag @ 100 mls/hr IVPB Q1HR [facility] Rx#: [id number] Sodium Chloride 0.9% 1, 1170 000 ml @ 130 mls/hr IV . Q7H42M [facility] Rx#:[id number] Output: Urine 160 175 165 Other: Voiding Method Indwelling Catheter Indwelling Catheter Indwelling Catheter # Bowel Movements 1 - Labs CBC & Chem 7: 02/25/21 05:00 02/25/21 10:32 Labs: Abnormal Lab Results - Last 24 Hours (Table) 02/24/21 02/24/21 02/24/21 Range/Units 14:54 18:12 18:12 RBC (4.30-5.90) m/uL Hgb (13.0-17.5) gm/dL Hct (39.0-53.0) % MCV (80.0-100.0) fL MCH (25.0-35.0) pg RDW (11.5-15.5) % Plt Count (150-450) k/uL Neutrophils # (1.3-7.7) k/uL Lymphocytes # (1.0-4.8) k/uL Myelocytes # (Manual) (0) k/uL Macrocytosis PT (9.0-12.0) sec INR (<1.2) Sodium (137-145) mmol/L Potassium (3.5-5.1) mmol/L BUN (9-20) mg/dL Creatinine (0.66-1.25) mg/dL POC Glucose (mg/dL) (75-99) mg/dL Plasma Lactic Acid Tristan 4.0 H* 3.4 H* (0.7-2.0) mmol/L Calcium (8.4-10.2) mg/dL Magnesium 1.5 L (1.6-2.3) mg/dL Total Bilirubin (0.2-1.3) mg/dL AST (17-59) U/L ALT (4-49) U/L Alkaline Phosphatase (38-126) U/L Total Protein (6.3-8.2) g/dL Albumin (3.5-5.0) g/dL 02/24/21 02/24/21 02/24/21 Range/Units 18:12 22:15 23:33 RBC 2.96 L (4.30-5.90) m/uL Hgb 10.2 L (13.0-17.5) gm/dL Hct 31.5 L (39.0-53.0) % MCV 106.4 H (80.0-100.0) fL MCH (25.0-35.0) pg RDW 16.2 H (11.5-15.5) % Plt Count 54 L (150-450) k/uL Neutrophils # 8.4 H (1.3-7.7) k/uL Lymphocytes # 0.6 L (1.0-4.8) k/uL Myelocytes # (Manual) (0) k/uL Macrocytosis Marked A PT (9.0-12.0) sec INR (<1.2) Sodium (137-145) mmol/L Potassium (3.5-5.1) mmol/L BUN (9-20) mg/dL Creatinine (0.66-1.25) mg/dL POC Glucose (mg/dL) 111 H (75-99) mg/dL Plasma Lactic Acid Tristan 4.6 H* (0.7-2.0) mmol/L Calcium (8.4-10.2) mg/dL Magnesium (1.6-2.3) mg/dL Total Bilirubin (0.2-1.3) mg/dL AST (17-59) U/L ALT (4-49) U/L Alkaline Phosphatase (38-126) U/L Total Protein (6.3-8.2) g/dL Albumin (3.5-5.0) g/dL 02/25/21 02/25/21 02/25/21 Range/Units 05:00 05:00 05:00 RBC 2.89 L (4.30-5.90) m/uL Hgb 10.4 L (13.0-17.5) gm/dL Hct 30.0 L (39.0-53.0) % MCV 104.0 H (80.0-100.0) fL MCH 36.0 H (25.0-35.0) pg RDW (11.5-15.5) % Plt Count 52 L (150-450) k/uL Neutrophils # (1.3-7.7) k/uL Lymphocytes # (1.0-4.8) k/uL Myelocytes # (Manual) 0.08 H (0) k/uL Macrocytosis PT 16.8 H (9.0-12.0) sec INR 1.7 H (<1.2) Sodium 136 L (137-145) mmol/L Potassium 3.0 L (3.5-5.1) mmol/L BUN 55 H (9-20) mg/dL Creatinine 2.23 H (0.66-1.25) mg/dL POC Glucose (mg/dL) (75-99) mg/dL Plasma Lactic Acid Tristan (0.7-2.0) mmol/L Calcium 6.8 L (8.4-10.2) mg/dL Magnesium (1.6-2.3) mg/dL Total Bilirubin 3.9 H (0.2-1.3) mg/dL AST 271 H (17-59) U/L ALT 65 H (4-49) U/L Alkaline Phosphatase 34 L (38-126) U/L Total Protein 5.5 L (6.3-8.2) g/dL Albumin 2.1 L (3.5-5.0) g/dL 02/25/21 Range/Units 05:00 RBC (4.30-5.90) m/uL Hgb (13.0-17.5) gm/dL Hct (39.0-53.0) % MCV (80.0-100.0) fL MCH (25.0-35.0) pg RDW (11.5-15.5) % Plt Count (150-450) k/uL Neutrophils # (1.3-7.7) k/uL Lymphocytes # (1.0-4.8) k/uL Myelocytes # (Manual) (0) k/uL Macrocytosis PT (9.0-12.0) sec INR (<1.2) Sodium (137-145) mmol/L Potassium (3.5-5.1) mmol/L BUN (9-20) mg/dL Creatinine (0.66-1.25) mg/dL POC Glucose (mg/dL) (75-99) mg/dL Plasma Lactic Acid Tristan 2.2 H* (0.7-2.0) mmol/L Calcium (8.4-10.2) mg/dL Magnesium (1.6-2.3) mg/dL Total Bilirubin (0.2-1.3) mg/dL AST (17-59) U/L ALT (4-49) U/L Alkaline Phosphatase (38-126) U/L Total Protein (6.3-8.2) g/dL Albumin (3.5-5.0) g/dL Microbiology - Last 24 Hours (Table) 02/22/21 16:45 Blood Culture Gram Stain - Final Blood Blood Culture - Final Escherichia coli 02/22/21 16:30 Blood Culture - Preliminary Blood No Growth after 48 hours 02/23/21 10:29 Urine Culture - Final Urine,Voided
--- NOTE | 2021-02-25 13:47 | P.PCN ---
Date of Procedure: 02/25/21 Description of Procedure: BRIEF HISTORY: 60-year-old male with a medical history significant for alcohol abuse, alcoholic liver disease, prior admission for GI bleed who presented to the hospital with 3-4 days of symptoms of body aches, fever and weakness. On presentation patient found to have a temperature of 101.7 with associated tachycardia and lactic acidosis with suspicion for underlying infection plan is for admission to the intensive care unit. Patient has had 3-4 days of symptoms of body aches, feeling tired and weak with associated low-grade fevers at mild abdominal discomfort. The patient does have a prior admission to [facility] at which time he reports nasogastric tube placement and being treated for GI bleed. He is unclear as to whether an upper endoscopy was performed at that time. On his current admission patient had a gallbladder ultrasound showing mild coarsening of the liver with cholelithiasis and a hydropic mildly thickened gallbladder wall with no significant pericholecystic edema and with ascites noted. Computed tomography scan of the abdomen also showed a cirrhotic appearing liver with sequela of portal hypertension including splenomegaly and large volume ascites. Currently the patient is on broad-spectrum antibiotic therapy. He has had some dark colored bowel movements in the emergency department. He was also found to have an acute fall in his hemoglobin. PROCEDURE PERFORMED: Esophagogastroduodenoscopy with epinephrine injection, Endo Clip placement 3 and esophageal variceal band ligation. PREOPERATIVE DIAGNOSIS: Anemia of acute blood loss, hematochezia, decompensated cirrhosis of the liver. ESTIMATED BLOOD LOSS: Minimal. IV sedation per anesthesia. PROCEDURE: After informed consent was obtained, the patient was brought into the endoscopy unit. IV sedation was administered by Anesthesia under continuous monitoring. Initially the Olympus GIF-190 video endoscope was inserted into the mouth. Esophagus intubated without any difficulty. It was gradually advanced into the stomach and duodenum and carefully examined. The bulb and the second part of the duodenum appeared normal, with no active bleeding or old blood noted. Biopsies were taken. The scope at this time was withdrawn to the stomach, adequately insufflated with air, and upon careful examination, mucosa of the antrum, body, cardia and the fundus appeared normal, with biopsies of the antrum and body taken with some mild erythema suggestive of mild gastritis noted but no active bleeding or old blood noted. The scope was then withdrawn into the esophagus. The GE junction was located at 39 cm from the incisors. The esophagus appeared to some scarring suggestive of prior esophageal variceal band ligation. Just proximal to the GE junction a small Vera-Diego tear was visible with some oozing of blood. Endoclips were placed at this area 3 with injection of 8 mL of epinephrine. However the area continue to bleed and concern was for possible esophageal varices at which time esophageal band ligation 4 was performed with hemostasis achieved. The patient tolerated the procedure well. IMPRESSION: 1. Esophageal varices with esophageal variceal band ligation 4 with hemostasis noted with some oozing from the varices prior to intervention. 2. Mild gastritis. 3. Vera-Diego tear, just proximal to the GE junction treated with Endo Clip placement 3 and injection of 8 mL of epinephrine. 4. Biopsies of the duodenum, antrum and body. RECOMMENDATIONS: The findings of this examination were discussed with the patient.. Patient should remain nothing by mouth except for a small amount of ice chips if hemodynamically stable and no further bleeding tomorrow achy okay to initiate clear liquid diet and advance as tolerated to sodium restricted diet. Would pathology from biopsies. Continue ICU care. Continue midrodrine 3 times a day.
[2021-02-25] MEDS ORDERED: PHYTONADIONE 10 MG in SODIUM CHLORIDE 0.9% 50 ML IVPB STA (14:16)
--- NOTE | 2021-02-25 15:24 | PN ---
PROGRESS NOTE DATE OF SERVICE: 02/25/2021 REASON FOR FOLLOWUP: E coli bacteremia secondary to cholecystitis. INTERVAL HISTORY: The patient is currently afebrile, has been breathing comfortably. Abdominal pain is currently controlled. No nausea, no vomiting. No chest pain, shortness of breath or cough. PHYSICAL EXAMINATION: Blood pressure is 112/85, pulse of 92, temperature 97.7. He is 99% on 4 L nasal cannula. General description is a middle-aged male lying in bed in no distress. RESPIRATORY SYSTEM: Unlabored breathing. Clear to auscultation anteriorly. HEART: S1, S2. Regular rate and rhythm. ABDOMEN: Soft. Mildly distended. No guarding or rigidity. LABS: Hemoglobin is 10.4, white count 8.3, BUN of 55, creatinine 2.23. Lactic acid 2.8. DIAGNOSTIC IMPRESSION AND PLAN: Patient with an Escherichia coli bacteremia. Source is likely cholecystitis. The patient is scheduled for cholecystectomy. Patient is covered with Zosyn; to continue while monitoring his clinical course closely. Continue supportive care. MMODL / IJN: [id number] /
--- NOTE | 2021-02-25 16:00 | P.PN ---
Subjective Progress Note Date: 02/25/21 Principal diagnosis: Acute hypoxic respiratory failure Portal hypertension Esophageal Variaces Possible developing aspiration pneumonia Severe sepsis Acute kidney injury defect. The likely mechanism appeared to be acute tubular necrosis GI bleed likely from esophageal Variaces Gram-negative bacteremia source appears to be acute cholecystitis Alcoholic liver disease with cirrhosis Coagulopathy likely related to chronic alcohol related liver disease 10/27/2021, patient is semi-propped up awake, breathing better now, is status post endoscopy with banding of esophageal rices, denies any chest pain and swelling in the abdomen slightly better, blood pressure improved today, patient remains on broad-spectrum antibiotics, patient remains on midodrine as well, patient is being scheduled for a lap jevon by general surgery, 2 L oxygen saturation 94%, a myoglobin is 10.4, 02/24/2021, patient seen eval examined during the rounds in ICU care plan discussed with the staff as well as GI service at length in detail, patient is still have intermittent bleeding going on, computed tomography scan of the chest revealed presence of the esophageal rices, blood pressure running on the marginal side, patient remains on bicarb drip, patient underwent 2 unit of packed RBC as well as 3 bags of FFP transfused, white cell count continue to come down, hemoglobin stable 9.3, potassium is 3.4, BUN/creatinine 34 and 2.44, like acid and lactic acid is slowly coming down latest is 5.2, liver functions continued to be high, with total bilirubin of 3.7, patient is being considered for endoscopy and ligation/bending of esophageal varices, patient is running blood pressure on the low side into the 90s, migratory dry and 5 mg twice a day will be started if there is evidence of more bleeding is seen then will consider octreotide This is a 60-year-old with chronic alcoholism patient presented into the emergency department from [facility] for evaluation of fever or aches and pains, patient has ongoing nausea and abdominal discomfort as well with swelling of the abdomen, symptoms have been progressive for many weeks, about 2 weeks ago patient has a upper GI bleed and had a scope done at [facility] found to have gastric crisis exact details however not available, patient has a significant liver disease due to alcohol is him, workup including ultrasound on February 19 revealed presence of cirrhosis dilated portal vein dilated and distended gallbladder with wall thickening and sludge, on arrival to emergency department patient was febrile with fever of 101 oxygen saturation was 93% hypertensive, blood pressure was 90/50, gradually patient was noted to have drop in hemoglobin, the saturation, continue spiking fever, along with patient has a lower GI bleed GI service has been consulted surgical service also has been consulted, chest x-ray however show right lower lobe infiltrate patchy infiltrate, repeat ultrasound gallstones along with gallbladder thickening, computed tomography scan of the chest performed yesterday negative for pulmonary embolism, presence of esophageal arises prominent spleen and liver findings liver consistent with nodular cirrhosis, chest x-ray earlier revealed normal heart site interstitial edema and some bibasilar infiltrate cannot be excluded patient remains on IV Zosyn today blood cultures positive for gram-negative rods, white cell count up to 17,900 patient oxygen requirement increased to 6 L, hemoglobin however have drop down to 8.4, PT/INR is 24.9 and 2.6 PTT is 48, arterial blood gas revealed pH of 7.15 pCO2 of 24 pO2 of 98 with bicarb of 9, patient was given 2 A of bicarbonate followed by bicarb drip, BUN/creatinine increased to 20 and 2.48, take acid up to 16.8, covid PCR is negative Objective - Vital Signs Vital signs: Vital Signs Temp 97.7 F 02/25/21 12:00 Pulse 105 H 02/25/21 15:30 Resp 29 H 02/25/21 15:30 BP 120/74 02/25/21 15:30 Pulse Ox 94 L 02/25/21 15:30 Intake & Output 02/24/21 02/25/21 02/25/21 18:59 06:59 18:59 Intake Total 2220 2280 1280 Output Total 160 175 225 Balance 2060 2105 1055 Weight 72.9 kg 74 kg Intake: IV 2280 980 Dextrose 5% in Water 1, 550 200 000 ml @ 50 mls/hr IV . Q23H ROXANNE with Sodium Bicarb (1 Meq/ml) 150 ml Rx#:[id number] Magnesium Sulfate-D5w Pmx 200 1 gm In Dextrose/Water 1 100ml.bag @ 100 mls/hr IVPB Q1H ROXANNE Rx#: [id number] Piperacillin-Tazobactam 3 100 .375 gm In Sodium Chloride 0.9% 100 ml @ 25 mls/hr IVPB Q8H ROXANNE Rx#: [id number] Sodium Chloride 0.9% 1, 1430 780 000 ml @ 130 mls/hr IV . Q7H42M ROXANNE Rx#:[id number] Intake, IV Titration 2220 300 Amount Dextrose 5% in Water 1, 550 000 ml @ 50 mls/hr IV . Q23H ROXANNE with Sodium Bicarb (1 Meq/ml) 150 ml Rx#:[id number] Piperacillin-Tazobactam 3 100 .375 gm In Sodium Chloride 0.9% 100 ml @ 25 mls/hr IVPB Q8H ROXANNE Rx#: [id number] Potassium Chloride 10 meq 400 In Water For Injection 1 100ml.bag @ 100 mls/hr IVPB Q1HR ROXANNE Rx#: [id number] Potassium Chloride 10 meq 300 In Water For Injection 1 100ml.bag @ 100 mls/hr IVPB Q1HR [facility] Rx#: [id number] Sodium Chloride 0.9% 1, 1170 000 ml @ 130 mls/hr IV . Q7H42M [facility] Rx#:[id number] Output: Urine 160 175 225 Other: Voiding Method Indwelling Catheter Indwelling Catheter Indwelling Catheter # Bowel Movements 1 - Exam - Constitutional General appearance: average body habitus, cooperative, mild distress - EENT Eyes: PERRLA Ears: bilateral: normal - Neck Carotids: bilateral: upstroke normal Thyroid: negative: normal size - Respiratory Respiratory: bilateral: diminished - Cardiovascular Rhythm: regular Heart sounds: normal: S1, S2 - Gastrointestinal General gastrointestinal: decreased bowel sounds, distended but softer today compared to yesterday exam - Integumentary Integumentary: decreased turgor - Neurologic Neurologic: CNII-XII intact - Musculoskeletal Musculoskeletal: gait normal, generalized weakness, strength equal bilaterally - Psychiatric Psychiatric: A&O x's 3, appropriate affect, intact judgment & insight - Labs CBC & Chem 7: 02/25/21 05:00 02/25/21 10:32 Labs: Abnormal Lab Results - Last 24 Hours (Table) 02/24/21 02/24/21 02/24/21 Range/Units 18:12 18:12 18:12 RBC 2.96 L (4.30-5.90) m/uL Hgb 10.2 L (13.0-17.5) gm/dL Hct 31.5 L (39.0-53.0) % MCV 106.4 H (80.0-100.0) fL MCH (25.0-35.0) pg RDW 16.2 H (11.5-15.5) % Plt Count 54 L (150-450) k/uL Neutrophils # 8.4 H (1.3-7.7) k/uL Lymphocytes # 0.6 L (1.0-4.8) k/uL Myelocytes # (Manual) (0) k/uL Macrocytosis Marked A PT (9.0-12.0) sec INR (<1.2) Sodium (137-145) mmol/L Potassium (3.5-5.1) mmol/L BUN (9-20) mg/dL Creatinine (0.66-1.25) mg/dL POC Glucose (mg/dL) (75-99) mg/dL Plasma Lactic Acid Tristan 3.4 H* (0.7-2.0) mmol/L Calcium (8.4-10.2) mg/dL Magnesium 1.5 L (1.6-2.3) mg/dL Total Bilirubin (0.2-1.3) mg/dL AST (17-59) U/L ALT (4-49) U/L Alkaline Phosphatase (38-126) U/L Total Protein (6.3-8.2) g/dL Albumin (3.5-5.0) g/dL 02/24/21 02/24/21 02/25/21 Range/Units 22:15 23:33 05:00 RBC (4.30-5.90) m/uL Hgb (13.0-17.5) gm/dL Hct (39.0-53.0) % MCV (80.0-100.0) fL MCH (25.0-35.0) pg RDW (11.5-15.5) % Plt Count (150-450) k/uL Neutrophils # (1.3-7.7) k/uL Lymphocytes # (1.0-4.8) k/uL Myelocytes # (Manual) (0) k/uL Macrocytosis PT 16.8 H (9.0-12.0) sec INR 1.7 H (<1.2) Sodium (137-145) mmol/L Potassium (3.5-5.1) mmol/L BUN (9-20) mg/dL Creatinine (0.66-1.25) mg/dL POC Glucose (mg/dL) 111 H (75-99) mg/dL Plasma Lactic Acid Tristan 4.6 H* (0.7-2.0) mmol/L Calcium (8.4-10.2) mg/dL Magnesium (1.6-2.3) mg/dL Total Bilirubin (0.2-1.3) mg/dL AST (17-59) U/L ALT (4-49) U/L Alkaline Phosphatase (38-126) U/L Total Protein (6.3-8.2) g/dL Albumin (3.5-5.0) g/dL 02/25/21 02/25/21 02/25/21 Range/Units 05:00 05:00 05:00 RBC 2.89 L (4.30-5.90) m/uL Hgb 10.4 L (13.0-17.5) gm/dL Hct 30.0 L (39.0-53.0) % MCV 104.0 H (80.0-100.0) fL MCH 36.0 H (25.0-35.0) pg RDW (11.5-15.5) % Plt Count 52 L (150-450) k/uL Neutrophils # (1.3-7.7) k/uL Lymphocytes # (1.0-4.8) k/uL Myelocytes # (Manual) 0.08 H (0) k/uL Macrocytosis PT (9.0-12.0) sec INR (<1.2) Sodium 136 L (137-145) mmol/L Potassium 3.0 L (3.5-5.1) mmol/L BUN 55 H (9-20) mg/dL Creatinine 2.23 H (0.66-1.25) mg/dL POC Glucose (mg/dL) (75-99) mg/dL Plasma Lactic Acid Tristan 2.2 H* (0.7-2.0) mmol/L Calcium 6.8 L (8.4-10.2) mg/dL Magnesium (1.6-2.3) mg/dL Total Bilirubin 3.9 H (0.2-1.3) mg/dL AST 271 H (17-59) U/L ALT 65 H (4-49) U/L Alkaline Phosphatase 34 L (38-126) U/L Total Protein 5.5 L (6.3-8.2) g/dL Albumin 2.1 L (3.5-5.0) g/dL Microbiology - Last 24 Hours (Table) 02/22/21 16:45 Blood Culture Gram Stain - Final Blood Blood Culture - Final Escherichia coli 02/22/21 16:30 Blood Culture - Preliminary Blood No Growth after 48 hours 02/23/21 10:29 Urine Culture - Final Urine,Voided Assessment and Plan Assessment: Acute hypoxic respiratory failure Portal hypertension Esophageal Variaces aspiration pneumonia Severe sepsis Acute kidney injury defect. The likely mechanism appeared to be acute tubular necrosis GI bleed likely from esophageal Variaces Gram-negative bacteremia due to E. coli source appears to be acute jevon cystitis/ascending cholangitis Alcoholic liver disease with cirrhosis Coagulopathy likely related to chronic alcohol related liver disease Plan: Supplemental oxygen Rehydration Observe off of bicarb drip Midodrine If evidence of continuous bleeding consider octreotide infusion Replace potassium Bicarb drip Vitamin K Keep nothing by mouth Gen. surgery consult for evaluation of cholecystectomy Continue broad-spectrum antibiotics GI consult for endoscopy and possible banding of esophageal arises Blood transfusion as needed keep hemoglobin over 7-8y Keep in ICU Monitor renal functions closely Further plan of care as per clinical response of the patient overall general condition very guarded with impending multiorgan failure Repeat labs and x-ray and ABG tomorrow Time with Patient: Greater than 30
[2021-02-25 19:04] LABS: Anisocytosis Slight; HCT 31.8 % (39.0-53.0); HGB 10.6 gm/dL (13.0-17.5); MCH 35.7 pg (25.0-35.0); MCHC 33.3 g/dL (31.0-37.0); MCV 107.3 fL (80.0-100.0); Macrocytosis Marked; Mean Platelet Volume 10.9; RBC 2.96 m/uL (4.30-5.90); RDW 16.1 % (11.5-15.5); WBC 11.2 k/uL (3.8-10.6)
[2021-02-25 19:06] LABS: Platelet Count 53 k/uL (150-450)
--- NOTE | 2021-02-25 20:15 | P.PN ---
Subjective Patient basically is from senior care with history of cirrhosis. Presents initially because of fever, abdominal pain and suspected GI bleeding. Patient was transferred to the ICU basically because of possible sepsis as lactic acid was significantly high at 16 and blood pressure was borderline. Currently is seen and examined in the ICU at bedside. He is fully awake and oriented to time, place and person, he has in situ his illness and his management plan. Patient states still has some rectal bleeding but no diarrhea, his abdomen is kind of distended slightly. And he is complaining of from mild epigastric pain and tenderness. No vomiting although he has decreased appetite over the last 2-3 days. He denies dyspnea, no coughing, no chest pain. Abdomen exam his chest is clear He has a Downey catheter Patient creatinine is elevated, WBC is 11.2, hemoglobin 10+, platelet count 53 gait. Patient currently is on normal saline at 130 milliliters per hour, Zosyn, Protonix 40 mg IV twice a day, Levaquin 5 mg 3 times a day. Status post 1 dose of 10 mg of IV vitamin K. Patient is planned for EGD today and laparoscopic cholecystectomy tomorrow Fr leon. Review of systems -CONSTITUTIONAL: No fever, he has fatigue and generalized weakness HEENT: No recent visual problems or hearing problems. Denied any sore throat. CARDIOVASCULAR: no palpitations, no syncope. PULMONARY: No chest wall tenderness, no cough, no hemoptysis. GASTROINTESTINAL: No diarrhea,. Normoactive bowel sounds. NEUROLOGICAL: No headaches, no weakness, no numbness. HEMATOLOGICAL: As above GENITOURINARY: Denies any burning micturition, frequency, or urgency. MUSCULOSKELETAL/RHEUMATOLOGICAL: Denies any joint pain, swelling, or any muscle pain. ENDOCRINE: Denies any polyuria or polydipsia. Active Medications Generic Name Dose Route Start Last Admin Trade Name Freq PRN Reason Stop Dose Admin Acetaminophen 650 mg 02/22/21 21:46 02/23/21 22:52 Acetaminophen Tab 325 Mg Tab PO 650 mg Q6HR PRN Administration Mild Pain or Fever > 100.5 Piperacillin Sod/Tazobactam 100 mls @ 25 mls/hr 02/23/21 05:00 02/25/21 14:40 Sod 3.375 gm/ Sodium Chloride IVPB 25 mls/hr Q8H ROXANNE Administration Sodium Chloride 1,000 mls @ 130 mls/hr 02/22/21 22:00 02/25/21 16:17 Saline 0.9% IV 130 mls/hr .Q7H42M ROXANNE Administration Midodrine 5 mg 02/24/21 12:30 02/25/21 18:09 Midodrine 5 Mg Tab PO 5 mg AC-TID ROXANNE Administration Miscellaneous Information 1 each 02/22/21 21:46 Pneumonia Protocol Utilized 1 Each Misc PO ONCE PRN Per Protocol Miscellaneous Information 1 each 02/24/21 19:39 Magnesium Replacement Protocol 1 Each Misc MISCELLANE DAILY PRN Per Protocol Protocol Miscellaneous Information 1 each 02/25/21 11:25 Potassium Replacement Protocol 1 Each Misc MISCELLANE DAILY PRN Per Protocol Protocol Naloxone HCl 0.2 mg 02/22/21 21:46 Naloxone 0.4 Mg/Ml 1 Ml Vial IV Q2M PRN Opioid Reversal Pantoprazole Sodium 40 mg 02/24/21 09:00 02/25/21 08:04 Pantoprazole 40 Mg/10 Ml Vial IV 40 mg BID RXOANNE Administration Objective - Vital Signs Vital signs: Vital Signs Temp 97.9 F 02/25/21 16:00 Pulse 101 H 02/25/21 19:00 Resp 29 H 02/25/21 19:00 BP 120/73 02/25/21 19:00 Pulse Ox 98 02/25/21 19:00 Intake & Output 02/25/21 02/25/21 02/26/21 06:59 18:59 06:59 Intake Total 2280 2020 130 Output Total 175 295 20 Balance 2105 1725 110 Weight 74 kg Intake: IV 2280 1720 130 Dextrose 5% in Water 1, 550 200 000 ml @ 50 mls/hr IV . Q23H ROXANNE with Sodium Bicarb (1 Meq/ml) 150 ml Rx#:[id number] Magnesium Sulfate-D5w Pmx 200 1 gm In Dextrose/Water 1 100ml.bag @ 100 mls/hr IVPB Q1H [facility] Rx#: [id number] Phytonadione 10 mg In 50 Sodium Chloride 0.9% 50 ml @ 100 mls/hr IVPB ONCE STA Rx#:[id number] Piperacillin-Tazobactam 3 100 .375 gm In Sodium Chloride 0.9% 100 ml @ 25 mls/hr IVPB Q8H [facility] Rx#: [id number] Potassium Chloride 10 meq 100 In Water For Injection 1 100ml.bag @ 100 mls/hr IVPB Q1HR [facility] Rx#: [id number] Potassium Chloride 10 meq 200 In Water For Injection 1 100ml.bag @ 100 mls/hr IVPB Q1HR [facility] Rx#: [id number] Sodium Chloride 0.9% 1, 1430 1170 130 000 ml @ 130 mls/hr IV . Q7H42M [facility]OX[facility] Rx#:[id number] Intake, IV Titration 300 Amount Potassium Chloride 10 meq 300 In Water For Injection 1 100ml.bag @ 100 mls/hr IVPB Q1HR [facility]OX[facility]NE Rx#: [id number] Output: Urine 175 295 20 Other: Voiding Method Indwelling Catheter Indwelling Catheter # Bowel Movements 1 - Exam -GENERAL: The patient is alert and oriented x3, not in any acute distress. Well developed, well nourished. Generally weak HEENT: Pupils are round and equally reacting to light. EOMI. No scleral icterus. No conjunctival pallor. Normocephalic, atraumatic. No pharyngeal erythema. No thyromegaly. CARDIOVASCULAR: S1 and S2 present. No murmurs, rubs, or gallops. PULMONARY: Chest is clear to auscultation, no wheezing or crackles. -ABDOMEN: Soft, mild epigastric tenderness, no rebound tenderness, mild abdominal distention, normoactive bowel sounds. No palpable organomegaly. MUSCULOSKELETAL: No joint swelling or deformity. -EXTREMITIES: No cyanosis, clubbing. Bilateral leg edema NEUROLOGICAL: Gross neurological examination did not reveal any focal deficits. SKIN: No rashes. No petechiae - Labs CBC & Chem 7: 02/25/21 18:48 02/25/21 10:32 Labs: Abnormal Lab Results - Last 24 Hours (Table) 02/24/21 02/24/21 02/25/21 Range/Units 22:15 23:33 05:00 WBC (3.8-10.6) k/uL RBC (4.30-5.90) m/uL Hgb (13.0-17.5) gm/dL Hct (39.0-53.0) % MCV (80.0-100.0) fL MCH (25.0-35.0) pg RDW (11.5-15.5) % Plt Count (150-450) k/uL Myelocytes # (Manual) (0) k/uL Macrocytosis PT 16.8 H (9.0-12.0) sec INR 1.7 H (<1.2) Sodium (137-145) mmol/L Potassium (3.5-5.1) mmol/L BUN (9-20) mg/dL Creatinine (0.66-1.25) mg/dL POC Glucose (mg/dL) 111 H (75-99) mg/dL Plasma Lactic Acid Tristan 4.6 H* (0.7-2.0) mmol/L Calcium (8.4-10.2) mg/dL Total Bilirubin (0.2-1.3) mg/dL AST (17-59) U/L ALT (4-49) U/L Alkaline Phosphatase (38-126) U/L Total Protein (6.3-8.2) g/dL Albumin (3.5-5.0) g/dL 02/25/21 02/25/21 02/25/21 Range/Units 05:00 05:00 05:00 WBC (3.8-10.6) k/uL RBC 2.89 L (4.30-5.90) m/uL Hgb 10.4 L (13.0-17.5) gm/dL Hct 30.0 L (39.0-53.0) % MCV 104.0 H (80.0-100.0) fL MCH 36.0 H (25.0-35.0) pg RDW (11.5-15.5) % Plt Count 52 L (150-450) k/uL Myelocytes # (Manual) 0.08 H (0) k/uL Macrocytosis PT (9.0-12.0) sec INR (<1.2) Sodium 136 L (137-145) mmol/L Potassium 3.0 L (3.5-5.1) mmol/L BUN 55 H (9-20) mg/dL Creatinine 2.23 H (0.66-1.25) mg/dL POC Glucose (mg/dL) (75-99) mg/dL Plasma Lactic Acid Tristan 2.2 H* (0.7-2.0) mmol/L Calcium 6.8 L (8.4-10.2) mg/dL Total Bilirubin 3.9 H (0.2-1.3) mg/dL AST 271 H (17-59) U/L ALT 65 H (4-49) U/L Alkaline Phosphatase 34 L (38-126) U/L Total Protein 5.5 L (6.3-8.2) g/dL Albumin 2.1 L (3.5-5.0) g/dL 02/25/21 Range/Units 18:48 WBC 11.2 H (3.8-10.6) k/uL RBC 2.96 L (4.30-5.90) m/uL Hgb 10.6 L (13.0-17.5) gm/dL Hct 31.8 L (39.0-53.0) % MCV 107.3 H (80.0-100.0) fL MCH 35.7 H (25.0-35.0) pg RDW 16.1 H (11.5-15.5) % Plt Count 53 L (150-450) k/uL Myelocytes # (Manual) (0) k/uL Macrocytosis Marked A PT (9.0-12.0) sec INR (<1.2) Sodium (137-145) mmol/L Potassium (3.5-5.1) mmol/L BUN (9-20) mg/dL Creatinine (0.66-1.25) mg/dL POC Glucose (mg/dL) (75-99) mg/dL Plasma Lactic Acid Tristan (0.7-2.0) mmol/L Calcium (8.4-10.2) mg/dL Total Bilirubin (0.2-1.3) mg/dL AST (17-59) U/L ALT (4-49) U/L Alkaline Phosphatase (38-126) U/L Total Protein (6.3-8.2) g/dL Albumin (3.5-5.0) g/dL Microbiology - Last 24 Hours (Table) 02/22/21 16:30 Blood Culture - Preliminary Blood No Growth after 72 hours 02/22/21 16:45 Blood Culture Gram Stain - Final Blood Blood Culture - Final Escherichia coli 02/23/21 10:29 Urine Culture - Final Urine,Voided Assessment and Plan Assessment: Decompensated alcoholic liver cirrhosis Acute GI bleed secondary to esophageal varices and Vera-Diego tear status post EGD and banding of ligation. Septicemia secondary to E. coli from acute cholecystitis Acute cholecystitis, need laparoscopic cholecystectomy Coagulopathy secondary to his liver disease Acute kidney injury Vera-Diego tear, just proximal to the GE junction treated with Endo Clip placement Plan: This is a pleasant 60 years old male from senior care who presents with alcoholic liver cirrhosis and complication with GI bleed, acute cholecystitis and septicemia secondary to E. coli. He is status post EGD and banding. Monitor hemoglobin, continue with Protonix. Continue with antibiotics and currently on Zosyn per ID team recommendation. Surgical team will plan for laparoscopic cholecystectomy. Pulmonary/critical care team will follow the coronary status and critical condition of the patient We'll consult nephrology for his acute kidney injury Labs and medication were reviewed.. Continue same treatment. Continue with symptomatic treatment. Resume home medication. Monitor lytes and vitals. DVT and GI prophylaxis. Further recommendations depends on the clinical course of the patient DVT prophylaxis: Not indicated physician due to GI bleed and cardiopathy GI Prophylaxis: ppi Prognosis is guarded
[2021-02-26] MEDS: PIPERACILLIN-TAZOBACTAM 3.375 GM in SODIUM CHLORIDE 0.9% 100 ML IVPB SCH ×3 (05:19→20:24)
[2021-02-26] MEDS: SODIUM CHLORIDE 0.9% 1,000 ML IV SCH ×3 (05:22→17:36)
[2021-02-26 05:34] LABS: INR 1.4 (<1.2); Prothrombin Time 14.5 sec (9.0-12.0)
[2021-02-26 05:45] LABS: Albumin 2.3 g/dL (3.5-5.0); Calcium 7.3 mg/dL (8.4-10.2); Potassium 3.7 mmol/L (3.5-5.1); Total Bilirubin 4.6 mg/dL (0.2-1.3)
[2021-02-26 05:55] LABS: Basophils % (A) 0 %; Eosinophils # (A) 0.1 k/uL (0-0.7); Eosinophils % (A) 1 %; HCT 33.2 % (39.0-53.0); HGB 10.8 gm/dL (13.0-17.5); Lymphocytes % (A) 12 %; MCH 34.6 pg (25.0-35.0); MCHC 32.6 g/dL (31.0-37.0); MCV 105.8 fL (80.0-100.0); Macrocytosis Moderate; Mean Platelet Volume 11.8; Monocytes # (A) 0.6 k/uL (0-1.0); Monocytes % (A) 8 %; Neutrophils # (A) 6.4 k/uL (1.3-7.7); Neutrophils % (A) 77 %; RBC 3.13 m/uL (4.30-5.90); RDW 15.9 % (11.5-15.5); WBC 8.4 k/uL (3.8-10.6)
[2021-02-26 05:58] LABS: Platelet Count 63 k/uL (150-450)
[2021-02-26 06:33] LABS: Anisocytosis (M) Present; Poikilocytosis (M) Present
[2021-02-26 06:37] LABS: Glucose,Whole Blood 79 mg/dL (75-99)
[2021-02-26] MEDS ORDERED: POTASSIUM CHLORIDE ER 20 MEQ TAB.ER PO SCH (08:00)
[2021-02-26] MEDS: MIDODRINE 5 MG TAB PO SCH ×3 (08:21→17:17)
[2021-02-26] MEDS: PANTOPRAZOLE 40 MG/10 ML VIAL IV SCH ×2 (08:26→20:24)
--- NOTE | 2021-02-26 11:46 | P.PN ---
Subjective Progress Note Date: 02/26/21 Principal diagnosis: Acute hypoxic respiratory failure Portal hypertension Esophageal Variaces Possible developing aspiration pneumonia Severe sepsis Acute kidney injury defect. The likely mechanism appeared to be acute tubular necrosis GI bleed likely from esophageal Variaces Gram-negative bacteremia source appears to be acute cholecystitis Alcoholic liver disease with cirrhosis Coagulopathy likely related to chronic alcohol related liver disease 02/26/2021, patient seen eval examined during the rounds labs reviewed medications reviewed patient is sitting upright in the bed breathing comfortably denies any chest pain blood pressure significantly improved dose of midodrine dryness health this morning, INR improved to 1.4, status post endoscopy and banding of esophageal rices by GI postop day #1 some old blood has been noted in the stools, hemoglobin however remains stable, patient is scheduled for laparoscopic cholecystectomy later on this afternoon, will keep in ICU because of multiple comorbidities is postoperatively, patient remains on broad-spectrum antibiotics for gram-negative bacteremia related to E. coli which appears to be not ESBL patient is on IV Zosyn ID has been following the patient as well, hemoglobin improved and stable at 10.8, AST/ALT to 259 and 71, total bilirubin is 4.6, 02/25/2021, patient is semi-propped up awake, breathing better now, is status post endoscopy with banding of esophageal rices, denies any chest pain and swel ling in the abdomen slightly better, blood pressure improved today, patient remains on broad-spectrum antibiotics, patient remains on midodrine as well, patient is being scheduled for a lap jevon by general surgery, 2 L oxygen saturation 94%, a myoglobin is 10.4, 02/24/2021, patient seen eval examined during the rounds in ICU care plan discussed with the staff as well as GI service at length in detail, patient is still have intermittent bleeding going on, computed tomography scan of the chest revealed presence of the esophageal rices, blood pressure running on the marginal side, patient remains on bicarb drip, patient underwent 2 unit of packed RBC as well as 3 bags of FFP transfused, white cell count continue to come down, hemoglobin stable 9.3, potassium is 3.4, BUN/creatinine 34 and 2.44, like acid and lactic acid is slowly coming down latest is 5.2, liver functions continued to be high, with total bilirubin of 3.7, patient is being considered for endoscopy and ligation/bending of esophageal varices, patient is running blood pressure on the low side into the 90s, migratory dry and 5 mg twice a day will be started if there is evidence of more bleeding is seen then will consider octreotide This is a 60-year-old with chronic alcoholism patient presented into the emergency department from [facility] for evaluation of fever or aches and pains, patient has ongoing nausea and abdominal discomfort as well with swelling of the abdomen, symptoms have been progressive for many weeks, about 2 weeks ago patient has a upper GI bleed and had a scope done at [facility] found to have gastric crisis exact details however not available, patient has a significant liver disease due to alcohol is him, workup including ultrasound on February 19 revealed presence of cirrhosis dilated portal vein dilated and distended gallbladder with wall thickening and sludge, on arrival to emergency department patient was febrile with fever of 101 oxygen saturation was 93% hypertensive, blood pressure was 90/50, gradually patient was noted to have drop in hemoglobin, the saturation, continue spiking fever, along with patient has a lower GI bleed GI service has been consulted surgical service also has been consulted, chest x-ray however show right lower lobe infiltrate patchy infi ltrate, repeat ultrasound gallstones along with gallbladder thickening, computed tomography scan of the chest performed yesterday negative for pulmonary embolism, presence of esophageal arises prominent spleen and liver findings liver consistent with nodular cirrhosis, chest x-ray earlier revealed normal heart site interstitial edema and some bibasilar infiltrate cannot be excluded patient remains on IV Zosyn today blood cultures positive for gram-negative rods, white cell count up to 17,900 patient oxygen requirement increased to 6 L, hemoglobin however have drop down to 8.4, PT/INR is 24.9 and 2.6 PTT is 48, arterial blood gas revealed pH of 7.15 pCO2 of 24 pO2 of 98 with bicarb of 9, patient was given 2 A of bicarbonate followed by bicarb drip, BUN/creatinine increased to 20 and 2.48, take acid up to 16.8, covid PCR is negative Objective - Vital Signs Vital signs: Vital Signs Temp 98.3 F 02/26/21 08:00 Pulse 103 H 02/26/21 10:00 Resp 18 02/26/21 10:00 BP 127/88 02/26/21 10:00 Pulse Ox 94 L 02/26/21 10:00 Intake & Output 02/25/21 02/26/21 02/26/21 18:59 06:59 18:59 Intake Total 2019 1720 390 Output Total 295 400 180 Balance 1725 1320 210 Weight 77.7 kg 77.7 kg Intake: IV 1720 1660 390 Dextrose 5% in Water 1, 200 000 ml @ 50 mls/hr IV . Q23H ROX[facility]NE with Sodium Bicarb (1 Meq/ml) 150 ml Rx#:[id number] Phytonadione 10 mg In 50 Sodium Chloride 0.9% 50 ml @ 100 mls/hr IVPB ONCE STA Rx#:[id number] Piperacillin-Tazobactam 3 100 .375 gm In Sodium Chloride 0.9% 100 ml @ 25 mls/hr IVPB Q8H [facility] Rx#: [id number] Potassium Chloride 10 meq 100 In Water For Injection 1 100ml.bag @ 100 mls/hr IVPB Q1HR [facility] Rx#: [id number] Potassium Chloride 10 meq 200 In Water For Injection 1 100ml.bag @ 100 mls/hr IVPB Q1HR [facility] Rx#: [id number] Sodium Chloride 0.9% 1, 1170 1560 390 000 ml @ 130 mls/hr IV . Q7H42M [facility] Rx#:[id number] Intake, IV Titration 300 Amount Potassium Chloride 10 meq 300 In Water For Injection 1 100ml.bag @ 100 mls/hr IVPB Q1HR [facility] Rx#: [id number] Oral 60 Output: Urine 295 400 180 Other: Voiding Method Indwelling Catheter Indwelling Catheter Indwelling Catheter - Exam - Constitutional General appearance: average body habitus, cooperative, mild distress - EENT Eyes: PERRLA Ears: bilateral: normal - Neck Carotids: bilateral: upstroke normal Thyroid: negative: normal size - Respiratory Respiratory: bilateral: diminished - Cardiovascular Rhythm: regular Heart sounds: normal: S1, S2 - Gastrointestinal General gastrointestinal: decreased bowel sounds, distended but softer today compared to yesterday exam - Integumentary Integumentary: decreased turgor - Neurologic Neurologic: CNII-XII intact - Musculoskeletal Musculoskeletal: gait normal, generalized weakness, strength equal bilaterally - Psychiatric Psychiatric: A&O x's 3, appropriate affect, intact judgment & insight - Labs CBC & Chem 7: 02/26/21 03:49 02/26/21 03:49 Labs: Abnormal Lab Results - Last 24 Hours (Table) 02/25/21 02/26/21 02/26/21 Range/Units 18:48 03:49 03:49 WBC 11.2 H (3.8-10.6) k/uL RBC 2.96 L (4.30-5.90) m/uL Hgb 10.6 L (13.0-17.5) gm/dL Hct 31.8 L (39.0-53.0) % MCV 107.3 H (80.0-100.0) fL MCH 35.7 H (25.0-35.0) pg RDW 16.1 H (11.5-15.5) % Plt Count 53 L (150-450) k/uL Macrocytosis Marked A PT 14.5 H (9.0-12.0) sec INR 1.4 H (<1.2) Chloride 108 H (98-107) mmol/L BUN 61 H (9-20) mg/dL Creatinine 1.71 H (0.66-1.25) mg/dL Glucose 65 L (74-99) mg/dL Calcium 7.3 L (8.4-10.2) mg/dL Total Bilirubin 4.6 H (0.2-1.3) mg/dL AST 259 H (17-59) U/L ALT 71 H (4-49) U/L Total Protein 6.0 L (6.3-8.2) g/dL Albumin 2.3 L (3.5-5.0) g/dL 02/26/21 Range/Units 03:49 WBC (3.8-10.6) k/uL RBC 3.13 L (4.30-5.90) m/uL Hgb 10.8 L (13.0-17.5) gm/dL Hct 33.2 L (39.0-53.0) % MCV 105.8 H (80.0-100.0) fL MCH (25.0-35.0) pg RDW 15.9 H (11.5-15.5) % Plt Count 63 L (150-450) k/uL Macrocytosis PT (9.0-12.0) sec INR (<1.2) Chloride (98-107) mmol/L BUN (9-20) mg/dL Creatinine (0.66-1.25) mg/dL Glucose (74-99) mg/dL Calcium (8.4-10.2) mg/dL Total Bilirubin (0.2-1.3) mg/dL AST (17-59) U/L ALT (4-49) U/L Total Protein (6.3-8.2) g/dL Albumin (3.5-5.0) g/dL Microbiology - Last 24 Hours (Table) 02/22/21 16:30 Blood Culture - Preliminary Blood No Growth after 72 hours Assessment and Plan Assessment: Severe sepsis Gram-negative bacteremia due to E. coli source appears to be acute cholecystitis/ascending cholangitis acute cholecystitis/ascending cholangitis GI bleed likely from esophageal Variaces and as well as exacerbated by coagulopathy due to alcoholic liver disease Acute hypoxic respiratory failure Portal hypertension Esophageal Variaces aspiration pneumonia Acute kidney injury defect. The likely mechanism appeared to be acute tubular necrosis Alcoholic liver disease with cirrhosis Coagulopathy likely related to chronic alcohol related liver disease Plan: Agree with laparoscopy cholecystectomy later on today INR improved Continue Zosyn, E. coli is sensitive Keep patient in ICU Supplemental oxygen Rehydration Observe off of bicarb drip Midodrine hold if the systolic blood pressure over 110 If evidence of continuous bleeding consider octreotide infusion Replace potassium Bicarb drip Vitamin K Keep nothing by mouth Gen. surgery consult for evaluation of cholecystectomy Continue broad-spectrum antibiotics GI consult for endoscopy and possible banding of esophageal arises Blood transfusion as needed keep hemoglobin over 7-8y Monitor renal functions closely Further plan of care as per clinical response of the patient overall general condition very guarded with impending multiorgan failure Time with Patient: Greater than 30
--- NOTE | 2021-02-26 12:20 | P.PN ---
Subjective Progress Note Date: 02/26/21 Principal diagnosis: Elevated LFTs, melena She was seen and examined lying in the ICU. He is status post upper endoscopy yesterday and findings of esophageal varices with esophageal variceal band ligation 4 with hemostasis noted. Mild gastritis, Vera-Diego tear with Endo Clip placement 3 and injection of epinephrine. Patient denies any nausea or vomiting, abdominal pain, or black stools. His hemoglobin is stable at 10.8. He is scheduled for cholecystectomy today with general surgery. Objective - Vital Signs Vital signs: Vital Signs Temp 98.3 F 02/26/21 08:00 Pulse 103 H 02/26/21 10:00 Resp 18 02/26/21 10:00 BP 127/88 02/26/21 10:00 Pulse Ox 94 L 02/26/21 10:00 Intake & Output 02/25/21 02/26/21 02/26/21 18:59 06:59 18:59 Intake Total 2020 1720 390 Output Total 295 400 180 Balance 1725 1320 210 Weight 77.7 kg 77.7 kg Intake: IV 1720 1660 390 Dextrose 5% in Water 1, 200 000 ml @ 50 mls/hr IV . Q23H ROXANNE with Sodium Bicarb (1 Meq/ml) 150 ml Rx#:[id number] Phytonadione 10 mg In 50 Sodium Chloride 0.9% 50 ml @ 100 mls/hr IVPB ONCE STA Rx#:[id number] Piperacillin-Tazobactam 3 100 .375 gm In Sodium Chloride 0.9% 100 ml @ 25 mls/hr IVPB Q8H [facility] Rx#: [id number] Potassium Chloride 10 meq 100 In Water For Injection 1 100ml.bag @ 100 mls/hr IVPB Q1HR [facility] Rx#: [id number] Potassium Chloride 10 meq 200 In Water For Injection 1 100ml.bag @ 100 mls/hr IVPB Q1HR [facility] Rx#: [id number] Sodium Chloride 0.9% 1, 1170 1560 390 000 ml @ 130 mls/hr IV . Q7H42M [facility] Rx#:[id number] Intake, IV Titration 300 Amount Potassium Chloride 10 meq 300 In Water For Injection 1 100ml.bag @ 100 mls/hr IVPB Q1HR R[facility] Rx#: [id number] Oral 60 Output: Urine 295 400 180 Other: Voiding Method Indwelling Catheter Indwelling Catheter Indwelling Catheter - Exam General appearance: The patient is alert, oriented, appears in no acute distress. HET: Head is normocephalic and atraumatic. Conjunctiva pink. Sclera icteris. Neck: Supple without lymphadenopathy. Abdomen: Soft, nontender, distedned with bowel sounds. No guarding or rigidity. Extremities: Normal skin color and turgor. Bilateral pedal edema Skin: No rashes, jaundice Neurological: No focal deficits. Alert and oriented 3. - Labs CBC & Chem 7: 02/26/21 03:49 02/26/21 03:49 Labs: Abnormal Lab Results - Last 24 Hours (Table) 02/25/21 02/26/21 02/26/21 Range/Units 18:48 03:49 03:49 WBC 11.2 H (3.8-10.6) k/uL RBC 2.96 L (4.30-5.90) m/uL Hgb 10.6 L (13.0-17.5) gm/dL Hct 31.8 L (39.0-53.0) % MCV 107.3 H (80.0-100.0) fL MCH 35.7 H (25.0-35.0) pg RDW 16.1 H (11.5-15.5) % Plt Count 53 L (150-450) k/uL Macrocytosis Marked A PT 14.5 H (9.0-12.0) sec INR 1.4 H (<1.2) Chloride 108 H (98-107) mmol/L BUN 61 H (9-20) mg/dL Creatinine 1.71 H (0.66-1.25) mg/dL Glucose 65 L (74-99) mg/dL Calcium 7.3 L (8.4-10.2) mg/dL Total Bilirubin 4.6 H (0.2-1.3) mg/dL AST 259 H (17-59) U/L ALT 71 H (4-49) U/L Total Protein 6.0 L (6.3-8.2) g/dL Albumin 2.3 L (3.5-5.0) g/dL 02/26/21 Range/Units 03:49 WBC (3.8-10.6) k/uL RBC 3.13 L (4.30-5.90) m/uL Hgb 10.8 L (13.0-17.5) gm/dL Hct 33.2 L (39.0-53.0) % MCV 105.8 H (80.0-100.0) fL MCH (25.0-35.0) pg RDW 15.9 H (11.5-15.5) % Plt Count 63 L (150-450) k/uL Macrocytosis PT (9.0-12.0) sec INR (<1.2) Chloride (98-107) mmol/L BUN (9-20) mg/dL Creatinine (0.66-1.25) mg/dL Glucose (74-99) mg/dL Calcium (8.4-10.2) mg/dL Total Bilirubin (0.2-1.3) mg/dL AST (17-59) U/L ALT (4-49) U/L Total Protein (6.3-8.2) g/dL Albumin (3.5-5.0) g/dL Microbiology - Last 24 Hours (Table) 02/22/21 16:30 Blood Culture - Preliminary Blood No Growth after 72 hours Assessment and Plan (1) Anemia due to acute blood loss Narrative/Plan: 60-year-old male with multiple medical comorbidities including hypertension and alcohol abuse currently abstinent from alcohol consumption who presented with a constellation of symptoms including fevers and weakness. Currently the patient is being treated for sepsis with plans for ICU care. The patient has long- standing history of alcohol abuse but denies any known history of cirrhosis. He previously has been hospitalized for GI bleed and reports nasogastric tube placement at that time and is unsure if EGD was performed. He is unclear of any prior history of cirrhosis of the liver but was found to have a cirrhotic appearing liver with ascites on computed tomography scan of the abdomen. Liver enzymes are consistent with alcoholic liver disease and cirrhosis of the liver. The patient developed some dark colored bowel movements while in the emergency department with a fall in his hemoglobin likely secondary to GI bleed as well as hemodilution after being fluid resuscitated. Unclear etiology with differential including peptic ulcer disease, gastritis, esophagitis, AVM, with esophageal varices not completely excluded however less likely given clinical presentation and only minimal elevation BUN on presentation, or other etiology. The patient is status post upper endoscopy with findings of esophageal varices with esophageal variceal band ligation 4 with hemostasis, mild gastritis, Vera-Diego tear with Endo Clip placement 3 and injection of epinephrine, biopsies taken. Current Visit: Yes Status: Acute Code(s): D62 - ACUTE POSTHEMORRHAGIC ANEMIA SNOMED Code(s): 378322864 (2) Alcoholic cirrhosis of liver with ascites Current Visit: Yes Status: Acute Code(s): K70.31 - ALCOHOLIC CIRRHOSIS OF LIVER WITH ASCITES SNOMED Code(s): 820699519 (3) Melena Current Visit: Yes Status: Acute Code(s): K92.1 - MELENA SNOMED Code(s): 5381002 Plan: Supportive care Continue ICU management Patient is status post upper endoscopy Patient is scheduled for cholecystectomy today Continue monitor hemoglobin and hematocrit and transfuse as needed Continue Protonix therapy Continue broad-spectrum antibiotic therapy Midodrine 5 mg 3 times a day Patient would likely benefit from paracentesis with fluid studies prior to discharge, including albumin, protein, cell count with differential Thank you for this consult, we will continue to follow Dr. Ferrer I agree with the dictator's note, documented as a scribe by Fabiana Hull.
--- NOTE | 2021-02-26 15:16 | P.PN ---
Subjective Progress Note Date: 02/26/21 CHIEF COMPLAINT: Fever HISTORY OF PRESENT ILLNESS: Patient is currently in the ICU. Patient was initially scheduled for laparoscopic cholecystectomy today. However, surgery was canceled because patient's labs and symptoms are improving. Patient denies any abdominal pain. Patient has large amount of abdominal ascites and this places patient at super high risk for surgery. Patient is lying in bed co mfortably. Afebrile. WBC has normalized to 8.4 hemoglobin 10.8 platelets 63 INR 1.4 sodium 139 potassium 3.7 creatinine 1.71 total bilirubin 4.6 AST 259 ALT 71 alk phos 64 patient has 1 blood culture with E. coli. Patient is status post EGD by GI service which showed esophageal varices with banding ligation 4 with hemostasis noted with some oozing from the varices prior to intervention. Mild gastritis. Vera-Diego tear just proximal to the GE junction treated with Endo Clip placement and injection of epinephrine. Patient seen and examined with Dr. Jamil PHYSICAL EXAM: VITAL SIGNS: Reviewed. GENERAL: Well-developed in no acute distress. HEENT: No sclera icterus. Extraocular movements grossly intact. Moist buccal mucosa. Head is atraumatic, normocephalic. ABDOMEN: Soft. Distended. Nontender NEUROLOGIC: Alert and oriented. Cranial nerves II through XII grossly intact. ASSESSMENT: 1. Sepsis present on admission 2. Acute on Chronic cholecystitis with ultrasound showing evidence of gallstones and gallbladder wall thickening 3. E. coli bacteremia possibly due to acute cholecystitis 4. Possible aspiration pneumonia 5. Acute hypoxic respiratory failure 6. History of liver cirrhosis with abdominal ascites 7. Coagulopathy likely due to liver disease 8. Esophageal varices status post EGD with banding and evidence of Vera- Diego tear status post clip placement and injection of epinephrine 9. Hypokalemia and hypomagnesemia improved 10. Acute kidney injury PLAN: -Surgery has been canceled due to patient's improvement in symptoms and labs. Patient has abdominal ascites and would be this high risk for surgery -Start patient on clear liquid diet -Continue ICU management -Continue supportive care Physician Driver'S License Reviewing Officer note has been reviewed by physician. Signing provider agrees with the documented findings, assessment, and plan of care. Objective - Vital Signs Vital signs: Vital Signs Temp 98.3 F 02/26/21 08:00 Pulse 103 H 02/26/21 10:00 Resp 18 02/26/21 10:00 BP 127/88 02/26/21 10:00 Pulse Ox 94 L 02/26/21 10:00 Intake & Output 02/25/21 02/26/21 02/26/21 18:59 06:59 18:59 Intake Total 2019 1720 390 Output Total 295 400 180 Balance 1725 1320 210 Weight 77.7 kg 77.7 kg Intake: IV 1720 1660 390 Dextrose 5% in Water 1, 200 000 ml @ 50 mls/hr IV . Q23H ROX[facility] with Sodium Bicarb (1 Meq/ml) 150 ml Rx#:[id number] Phytonadione 10 mg In 50 Sodium Chloride 0.9% 50 ml @ 100 mls/hr IVPB ONCE STA Rx#:[id number] Piperacillin-Tazobactam 3 100 .375 gm In Sodium Chloride 0.9% 100 ml @ 25 mls/hr IVPB Q8H [facility] Rx#: [id number] Potassium Chloride 10 meq 100 In Water For Injection 1 100ml.bag @ 100 mls/hr IVPB Q1HR [facility] Rx#: [id number] Potassium Chloride 10 meq 200 In Water For Injection 1 100ml.bag @ 100 mls/hr IVPB Q1HR [facility] Rx#: [id number] Sodium Chloride 0.9% 1, 1170 1560 390 000 ml @ 130 mls/hr IV . Q7H42M [facility] Rx#:[id number] Intake, IV Titration 300 Amount Potassium Chloride 10 meq 300 In Water For Injection 1 100ml.bag @ 100 mls/hr IVPB Q1HR [facility] Rx#: [id number] Oral 60 Output: Urine 295 400 180 Other: Voiding Method Indwelling Catheter Indwelling Catheter Indwelling Catheter - Labs CBC & Chem 7: 02/26/21 03:49 02/26/21 03:49 Labs: Abnormal Lab Results - Last 24 Hours (Table) 02/25/21 02/26/21 02/26/21 Range/Units 18:48 03:49 03:49 WBC 11.2 H (3.8-10.6) k/uL RBC 2.96 L (4.30-5.90) m/uL Hgb 10.6 L (13.0-17.5) gm/dL Hct 31.8 L (39.0-53.0) % MCV 107.3 H (80.0-100.0) fL MCH 35.7 H (25.0-35.0) pg RDW 16.1 H (11.5-15.5) % Plt Count 53 L (150-450) k/uL Macrocytosis Marked A PT 14.5 H (9.0-12.0) sec INR 1.4 H (<1.2) Chloride 108 H (98-107) mmol/L BUN 61 H (9-20) mg/dL Creatinine 1.71 H (0.66-1.25) mg/dL Glucose 65 L (74-99) mg/dL Calcium 7.3 L (8.4-10.2) mg/dL Total Bilirubin 4.6 H (0.2-1.3) mg/dL AST 259 H (17-59) U/L ALT 71 H (4-49) U/L Total Protein 6.0 L (6.3-8.2) g/dL Albumin 2.3 L (3.5-5.0) g/dL 02/26/21 Range/Units 03:49 WBC (3.8-10.6) k/uL RBC 3.13 L (4.30-5.90) m/uL Hgb 10.8 L (13.0-17.5) gm/dL Hct 33.2 L (39.0-53.0) % MCV 105.8 H (80.0-100.0) fL MCH (25.0-35.0) pg RDW 15.9 H (11.5-15.5) % Plt Count 63 L (150-450) k/uL Macrocytosis PT (9.0-12.0) sec INR (<1.2) Chloride (98-107) mmol/L BUN (9-20) mg/dL Creatinine (0.66-1.25) mg/dL Glucose (74-99) mg/dL Calcium (8.4-10.2) mg/dL Total Bilirubin (0.2-1.3) mg/dL AST (17-59) U/L ALT (4-49) U/L Total Protein (6.3-8.2) g/dL Albumin (3.5-5.0) g/dL Microbiology - Last 24 Hours (Table) 02/22/21 16:30 Blood Culture - Preliminary Blood No Growth after 72 hours
--- NOTE | 2021-02-26 15:23 | PN ---
PROGRESS NOTE DATE OF SERVICE: 02/26/2021 REASON FOR FOLLOWUP: E coli bacteremia secondary to cholecystitis. INTERVAL HISTORY: The patient is currently afebrile, has some abdominal pain but no worsening. No chest pain, shortness of breath or cough or diarrhea. PHYSICAL EXAMINATION: Blood pressure 127/88 with pulse of 103, temperature 98.3. He is 94% on room air. General description is a middle-aged male lying in bed in no distress. RESPIRATORY SYSTEM: Unlabored breathing. Clear to auscultation anteriorly. HEART: S1, S2. Regular rate and rhythm. ABDOMEN: Soft. No tenderness. LABS: Hemoglobin is 10.8, white count 8.4, BUN of 61, creatinine 1.71. DIAGNOSTIC IMPRESSION AND PLAN: Patient with Escherichia coli bacteremia secondary to cholecystitis, scheduled for cholecystectomy this afternoon. Patient to continue with Zosyn, and we will monitor his clinical course closely. MMODL / IJN: [id number] /
[2021-02-26] MEDS: ACETAMINOPHEN TAB 325 MG TAB PO PRN (20:31)
--- NOTE | 2021-02-26 21:11 | CONS ---
CONSULTATION REASON FOR CONSULTATION: Renal failure. HISTORY OF PRESENT ILLNESS: Patient is a 60-year-old male who was admitted to the hospital on 02/22/2021 with fever, body aches, elevated heart rate. Patient was brought in by EMS from the [facility]. He has a history of liver cirrhosis, ETOH abuse previously. Patient was found to have E coli bacteremia, and CT of the abdomen showed evidence of significantly enlarged gallbladder with evidence of cholelithiasis with concern for acute cholecystitis. Patient's serum creatinine was 1.49 on initial admission. It had increased to 2.4 on 02/24 and it is now down to 1.7. Patient did have an episode of hypotension with systolic in the 90s yesterday, and his systolic had been as low as 80 and 72 mmHg on 02/24/2021. Patient currently has an indwelling Downey catheter with urine output at 60 to 80 mL/hour. Patient did receive IV contrast on 02/22 for chest CTA and abdominal and pelvis CT scan. Currently patient is maintained on IV fluids, saline at 130 mL/hour. PAST MEDICAL HISTORY: Significant for alcoholic liver disease. There is history of hypertension, I believe. PAST SURGICAL HISTORY: None. SOCIAL HISTORY: Negative for smoking. Positive for alcohol abuse. No other drug abuse. HOME MEDICATIONS: Home medications included hydrochlorothiazide. ALLERGIES: NONE. REVIEW OF SYSTEMS: As per HPI. Other systems negative. PHYSICAL EXAMINATION: Patient is comfortable, awake. He is not in any acute distress. Blood pressure this morning was 137/86, heart rate 94 per minute. He is afebrile. EXAMINATION OF THE HEART: S1 and S2. EXAMINATION OF LUNGS: Bilateral breath sounds are heard. ABDOMEN: Soft, non-tender. Examination of lower extremities shows no evidence of edema. BRAIN SURGEON exam is grossly intact. LABS: Sodium 139, potassium 3.7, chloride 108, BUN 61, creatinine 1.7, hemoglobin 10.8 g/dL. ASSESSMENT: 1. Acute kidney injury, acute tubular necrosis, nonoliguric, secondary to hypotension, hypoperfusion and underlying sepsis. Renal function is currently improving. Patient is maintained on IV fluids, which I will continue. I will add midodrine, as blood pressure remains low. 2. Sepsis with Escherichia coli bacteremia, source likely abdominal with acute cholecystitis. Check urine culture as well, as UA did have some degree of pyuria. 3. History of chronic liver disease secondary to EtOH abuse. 4. Esophageal varices, status post EGD with Endoclip placement for the esophageal varices and band ligation done yesterday on 02/25/2021. 5. Vera-Diego tear adjacent to the gastroesophageal junction. PLAN: Continue with normal saline. Add midodrine. Avoid any nephrotoxic agents. There is definitely a component of contrast nephropathy along with the ischemic ATN. Repeat labs in a.m. Check urine culture. Thank you for this consultation. Will continue to follow the patient with you during his hospitalization. MMREBECCAL / IJN: [id number] /
[2021-02-27] LABS: Glucose,Whole Blood 138 mg/dL (75-99)
[2021-02-27] MEDS: SODIUM CHLORIDE 0.9% 1,000 ML IV SCH ×3 (04:06→17:11)
[2021-02-27] MEDS: PIPERACILLIN-TAZOBACTAM 3.375 GM in SODIUM CHLORIDE 0.9% 100 ML IVPB SCH ×3 (04:29→21:43)
[2021-02-27 04:34] LABS: Albumin 2.4 g/dL (3.5-5.0); Calcium 7.9 mg/dL (8.4-10.2); Potassium 3.6 mmol/L (3.5-5.1); Total Bilirubin 4.1 mg/dL (0.2-1.3); Total Protein 6.5 g/dL (6.3-8.2)
[2021-02-27 04:47] LABS: HCT 35.2 % (39.0-53.0); HGB 11.3 gm/dL (13.0-17.5); MCH 34.1 pg (25.0-35.0); MCV 106.7 fL (80.0-100.0); Macrocytosis Marked; Mean Platelet Volume 10.8; RDW 15.9 % (11.5-15.5); WBC 6.8 k/uL (3.8-10.6)
[2021-02-27 05:19] LABS: Platelet Count 76 k/uL (150-450)
[2021-02-27 06:24] LABS: Anisocytosis (M) Present; Eosinophils # (M) 0.27 k/uL (0-0.7); Lymphocytes # (M) 0.75 k/uL (1.0-4.8); Monocytes # (M) 1.36 k/uL (0-1.0); Neutrophils # (M) 4.42 k/uL (1.3-7.7); Neutrophils % (M) 65 %; Nucleated Red Blood Cells 0 /100 WBC (0-0); Poikilocytosis (M) Present; Polychromasia Present; Total Cells Counted 100
[2021-02-27] MEDS: MIDODRINE 5 MG TAB PO SCH ×3 (06:44→17:11)
[2021-02-27] MEDS ORDERED: POTASSIUM CHLORIDE ER 20 MEQ TAB.ER PO SCH (07:00)
--- NOTE | 2021-02-27 08:44 | P.PN ---
Subjective Progress Note Date: 02/27/21 Principal diagnosis: Acute hypoxic respiratory failure Portal hypertension Esophageal Variaces Possible developing aspiration pneumonia Severe sepsis Acute kidney injury defect. The likely mechanism appeared to be acute tubular necrosis GI bleed likely from esophageal Variaces Gram-negative bacteremia source appears to be acute cholecystitis Alcoholic liver disease with cirrhosis Coagulopathy likely related to chronic alcohol related liver disease 02/27/2021, patient seen eval examined during the rounds labs reviewed medications reviewed, patient awake and arousable at times intermittently confused, hemodynamic status stable has been on room air, denies any chest pain, last bowel movement was yesterday no active bleeding has been seen in hemoglobin and platelet count remains stable, ever functions are stable, surgical service following this patient closely, will start patient on propranolol for portal hypertension, 02/26/2021, patient seen eval examined during the rounds labs reviewed medications reviewed patient is sitting upright in the bed breathing comfortably denies any chest pain blood pressure significantly improved dose of midodrine dryness health this morning, INR improved to 1.4, status post endoscopy and banding of esophageal rices by GI postop day #1 some old blood has been noted in the stools, hemoglobin however remains stable, patient is scheduled for laparoscopic cholecystectomy later on this afternoon, will keep in ICU because of multiple comorbidities is postoperatively, patient remains on broad-spectrum antibiotics for gram-negative bacteremia related to E. coli which appears to be not ESBL patient is on IV Zosyn ID has been following the patient as well, hemoglobin improved and stable at 10.8, AST/ALT to 259 and 71, total bilirubin is 4.6, 02/25/2021, patient is semi-propped up awake, breathing better now, is status p ost endoscopy with banding of esophageal rices, denies any chest pain and swelling in the abdomen slightly better, blood pressure improved today, patient remains on broad-spectrum antibiotics, patient remains on midodrine as well, patient is being scheduled for a lap jevon by general surgery, 2 L oxygen saturation 94%, a myoglobin is 10.4, 02/24/2021, patient seen eval examined during the rounds in ICU care plan discussed with the staff as well as GI service at length in detail, patient is still have intermittent bleeding going on, computed tomography scan of the chest revealed presence of the esophageal rices, blood pressure running on the marginal side, patient remains on bicarb drip, patient underwent 2 unit of packed RBC as well as 3 bags of FFP transfused, white cell count continue to come down, hemoglobin stable 9.3, potassium is 3.4, BUN/creatinine 34 and 2.44, like acid and lactic acid is slowly coming down latest is 5.2, liver functions continued to be high, with total bilirubin of 3.7, patient is being considered for endoscopy and ligation/bending of esophageal varices, patient is running blood pressure on the low side into the 90s, migratory dry and 5 mg twice a day will be started if there is evidence of more bleeding is seen then will consider octreotide This is a 60-year-old with chronic alcoholism patient presented into the emergency department from [facility] for evaluation of fever or aches and pains, patient has ongoing nausea and abdominal discomfort as well with swelling of the abdomen, symptoms have been progressive for many weeks, about 2 weeks ago patient has a upper GI bleed and had a scope done at [facility] found to have gastric crisis exact details however not available, patient has a significant liver disease due to alcohol is him, workup including ultrasound on February 19 revealed presence of cirrhosis dilated portal vein dilated and distended gallbladder with wall thickening and sludge, on arrival to emergency department patient was febrile with fever of 101 oxygen saturation was 93% hypertensive, blood pressure was 90/50, gradually patient was noted to have drop in hemoglobin, the saturation, continue spiking fever, along with patient has a lower GI bleed GI service has been consulted surgical service also has be en consulted, chest x-ray however show right lower lobe infiltrate patchy infiltrate, repeat ultrasound gallstones along with gallbladder thickening, computed tomography scan of the chest performed yesterday negative for pulmonary embolism, presence of esophageal arises prominent spleen and liver findings liver consistent with nodular cirrhosis, chest x-ray earlier revealed normal heart site interstitial edema and some bibasilar infiltrate cannot be excluded patient remains on IV Zosyn today blood cultures positive for gram-negative rods, white cell count up to 17,900 patient oxygen requirement increased to 6 L, hemoglobin however have drop down to 8.4, PT/INR is 24.9 and 2.6 PTT is 48, courtney rial blood gas revealed pH of 7.15 pCO2 of 24 pO2 of 98 with bicarb of 9, patient was given 2 A of bicarbonate followed by bicarb drip, BUN/creatinine increased to 20 and 2.48, take acid up to 16.8, covid PCR is negative Objective - Vital Signs Vital signs: Vital Signs Temp 98.4 F 02/27/21 04:00 Pulse 71 02/27/21 08:00 Resp 11 L 02/27/21 08:00 BP 157/110 02/27/21 08:00 Pulse Ox 96 02/27/21 08:00 Intake & Output 02/26/21 02/27/21 02/27/21 18:59 06:59 18:59 Intake Total 1530 1560 130 Output Total 570 440 40 Balance 960 1120 90 Weight 77.7 kg 79.2 kg Intake: IV 1530 1560 130 Piperacillin-Tazobactam 3 100 .375 gm In Sodium Chloride 0.9% 100 ml @ 25 mls/hr IVPB Q8H ROXANNE Rx#: [id number] Sodium Chloride 0.9% 1, 1430 1560 130 000 ml @ 130 mls/hr IV . Q7H42M ROXANNE Rx#:[id number] Output: Urine 570 440 40 Other: Voiding Method Indwelling Catheter Indwelling Catheter - Exam - Constitutional General appearance: average body habitus, cooperative, mild distress - EENT Eyes: PERRLA Ears: bilateral: normal - Neck Carotids: bilateral: upstroke normal Thyroid: negative: normal size - Respiratory Respiratory: bilateral: diminished - Cardiovascular Rhythm: regular Heart sounds: normal: S1, S2 - Gastrointestinal General gastrointestinal: decreased bowel sounds, distended but softer today compared to yesterday exam - Integumentary Integumentary: decreased turgor - Neurologic Neurologic: CNII-XII intact - Musculoskeletal Musculoskeletal: gait normal, generalized weakness, strength equal bilaterally - Psychiatric Psychiatric: A&O x's 3, appropriate affect, intact judgment & insight - Labs CBC & Chem 7: 02/27/21 03:55 02/27/21 03:55 Labs: Abnormal Lab Results - Last 24 Hours (Table) 02/26/21 02/27/21 02/27/21 Range/Units 23:57 03:55 03:55 RBC 3.30 L (4.30-5.90) m/uL Hgb 11.3 L (13.0-17.5) gm/dL Hct 35.2 L (39.0-53.0) % MCV 106.7 H (80.0-100.0) fL RDW 15.9 H (11.5-15.5) % Plt Count 76 L (150-450) k/uL Lymphocytes # (Manual) 0.75 L (1.0-4.8) k/uL Monocytes # (Manual) 1.36 H (0-1.0) k/uL Macrocytosis Marked A Chloride 108 H (98-107) mmol/L BUN 53 H (9-20) mg/dL Creatinine 1.34 H (0.66-1.25) mg/dL Glucose 103 H (74-99) mg/dL POC Glucose (mg/dL) 138 H (75-99) mg/dL Calcium 7.9 L (8.4-10.2) mg/dL Total Bilirubin 4.1 H (0.2-1.3) mg/dL AST 208 H (17-59) U/L ALT 64 H (4-49) U/L Albumin 2.4 L (3.5-5.0) g/dL Microbiology - Last 24 Hours (Table) 02/22/21 16:30 Blood Culture - Preliminary Blood No Growth after 96 hours Assessment and Plan Assessment: Intermittent altered mental status, varies between oriented 2-3 Severe anemia and thrombocytopenia due to varical bleeding chronic alcoholism Severe sepsis secondary due to acute cholecystitis Gram-negative bacteremia due to E. coli source appears to be acute cholecystitis/ascending cholangitis acute cholecystitis/ascending cholangitis GI bleed likely from esophageal Variaces and as well as exacerbated by coagulopathy due to alcoholic liver disease Acute hypoxic respiratory failure Portal hypertension Esophageal Variaces aspiration pneumonia Acute kidney injury defect. The likely mechanism appeared to be acute tubular necrosis Alcoholic liver disease with cirrhosis Coagulopathy likely related to chronic alcohol related liver disease Plan: Agree with laparoscopy cholecystectomy surgical services following INR improved Continue Zosyn, E. coli is sensitive Patient can be moved out of the ICU to a surgical floor with remote telemetry Supplemental oxygen as needed Labs tomorrow with ammonia level Gentle Rehydration Observe off of bicarb drip Midodrine hold if the systolic blood pressure over 110 If evidence of continuous bleeding consider octreotide infusion transfer back to the ICU Replace potassium Vitamin K pending INR tomorrow Keep nothing by mouth per surgical services Gen. surgery consult for evaluation of cholecystectomy Status post banding of esophageal varises Blood transfusion as needed keep hemoglobin over 7-8y Monitor renal functions closely Further plan of care as per clinical response of the patient overall general condition very guarded with impending multiorgan failure Time with Patient: Greater than 30
[2021-02-27] MEDS: LACTATED RINGERS 1,000 ML IV SCH (09:53)
[2021-02-27] MEDS: PANTOPRAZOLE 40 MG/10 ML VIAL IV SCH ×2 (09:55→21:43)
[2021-02-27] MEDS: PROPRANOLOL 20 MG TAB PO SCH (09:56)
--- NOTE | 2021-02-27 11:33 | P.PN ---
Subjective Progress Note Date: 02/27/21 Principal diagnosis: Decompensated alcohol cirrhosis, anemia of acute blood loss, melena, upper GI bleed Patient seen lying in bed in no acute complaints. Patient did not undergo cholecystectomy yesterday. Currently nothing by mouth. Objective - Vital Signs Vital signs: Vital Signs Temp 98.4 F 02/27/21 04:00 Pulse 93 02/27/21 09:00 Resp 17 02/27/21 09:00 BP 156/99 02/27/21 09:00 Pulse Ox 96 02/27/21 09:00 Intake & Output 02/26/21 02/27/21 02/27/21 18:59 06:59 18:59 Intake Total 1530 1560 390 Output Total 570 440 140 Balance 960 1120 250 Weight 77.7 kg 79.2 kg Intake: IV 1530 1560 390 Piperacillin-Tazobactam 3 100 .375 gm In Sodium Chloride 0.9% 100 ml @ 25 mls/hr IVPB Q8H ROXANNE Rx#: [id number] Sodium Chloride 0.9% 1, 1430 1560 390 000 ml @ 130 mls/hr IV . Q7H42M ROXANNE Rx#:[id number] Output: Urine 570 440 140 Other: Voiding Method Indwelling Catheter Indwelling Catheter - Exam On physical examination, patient appears comfortable in no apparent distress. HEAD: Normocephalic, atraumatic. EYES: Scleral icterus. No conjunctival injection. MOUTH: No lesions, tongue midline. NECK: Trachea midline, no gross abnormalities. ABDOMEN: Soft, moderately distended. Bowel sounds are positive. No organomegaly. No guarding or rigidity. EXTREMITIES: No pedal edema. SKIN: No rashes, no jaundice. NEUROLOGIC: Alert and oriented, no asterixis. No focal deficits. - Labs CBC & Chem 7: 02/27/21 03:55 02/27/21 03:55 Labs: Abnormal Lab Results - Last 24 Hours (Table) 02/26/21 02/27/21 02/27/21 Range/Units 23:57 03:55 03:55 RBC 3.30 L (4.30-5.90) m/uL Hgb 11.3 L (13.0-17.5) gm/dL Hct 35.2 L (39.0-53.0) % MCV 106.7 H (80.0-100.0) fL RDW 15.9 H (11.5-15.5) % Plt Count 76 L (150-450) k/uL Lymphocytes # (Manual) 0.75 L (1.0-4.8) k/uL Monocytes # (Manual) 1.36 H (0-1.0) k/uL Macrocytosis Marked A Chloride 108 H (98-107) mmol/L BUN 53 H (9-20) mg/dL Creatinine 1.34 H (0.66-1.25) mg/dL Glucose 103 H (74-99) mg/dL POC Glucose (mg/dL) 138 H (75-99) mg/dL Calcium 7.9 L (8.4-10.2) mg/dL Total Bilirubin 4.1 H (0.2-1.3) mg/dL AST 208 H (17-59) U/L ALT 64 H (4-49) U/L Albumin 2.4 L (3.5-5.0) g/dL Microbiology - Last 24 Hours (Table) 02/22/21 16:30 Blood Culture - Preliminary Blood No Growth after 96 hours Assessment and Plan (1) Anemia due to acute blood loss Narrative/Plan: 60-year-old male with multiple medical comorbidities including hypertension and alcohol abuse currently abstinent from alcohol consumption who presented with a constellation of symptoms including fevers and weakness. Currently the patient is being treated for sepsis with plans for ICU care. The patient has long- standing history of alcohol abuse but denies any known history of cirrhosis. He previously has been hospitalized for GI bleed and reports nasogastric tube placement at that time and is unsure if EGD was performed. He is unclear of any prior history of cirrhosis of the liver but was found to have a cirrhotic appearing liver with ascites on computed tomography scan of the abdomen. Liver enzymes are consistent with alcoholic liver disease and cirrhosis of the liver. The patient developed some dark colored bowel movements while in the emergency department with a fall in his hemoglobin likely secondary to GI bleed as well as hemodilution after being fluid resuscitated. The patient is status post upper endoscopy with findings of esophageal varices with esophageal variceal band ligation 4 with hemostasis, mild gastritis, Vera-Diego tear with Endo Clip placement 3 and injection of epinephrine, biopsies taken. Current Visit: Yes Status: Acute Code(s): D62 - ACUTE POSTHEMORRHAGIC ANEMIA SNOMED Code(s): 224899698 (2) Alcoholic cirrhosis of liver with ascites Current Visit: Yes Status: Acute Code(s): K70.31 - ALCOHOLIC CIRRHOSIS OF LIVER WITH ASCITES SNOMED Code(s): 430872193 (3) Melena Current Visit: Yes Status: Acute Code(s): K92.1 - MELENA SNOMED Code(s): 0095578 Plan: Supportive care Continue ICU management Continue monitor hemoglobin and hematocrit and transfuse as needed Continue Protonix therapy Continue broad-spectrum antibiotic therapy Okay for sodium restricted diet if no procedures or surgical intervention is planned Plan for a paracentesis on Monday with interventional radiologist If creatinine continues to trend down can initiate diuretic therapy tomorrow Thank you for allowing us to participate in the care of the patient
--- NOTE | 2021-02-27 12:38 | P.PN ---
Progress Note - Text Progress Note Date: 02/27/21 Patient remained stable. On exam abdomen is tense with ascites. There is no significant rebound tenderness. Chronic alcohol cirrhosis with portal hypertension, esophageal varices. Patient does have a gallstone however he is extremely high risk for surgery. At this point no surgical intervention is planned. He'll be managed medically.
[2021-02-27 17:23] LABS: INR 1.4 (<1.2); Prothrombin Time 13.8 sec (9.0-12.0)
--- NOTE | 2021-02-27 18:54 | PN ---
PROGRESS NOTE DATE OF SERVICE: 02/27/2021 REASON FOR FOLLOWUP: E coli bacteremia secondary to cholecystitis. INTERVAL HISTORY: The patient is currently afebrile, has been breathing comfortably. Has some abdominal pain, no worsening though. No chest pain, shortness of breath or cough. PHYSICAL EXAMINATION: Blood pressure 136/94, pulse of 80, temperature 98.5. He is 99% on room air. General description is a middle-aged male lying in bed in no distress. Respiratory system: Unlabored breathing, clear to auscultation anteriorly. Heart S1, S2. Regular rate and rhythm. Abdomen soft, mildly distended. No guarding or rigidity. LABS: Hemoglobin 9.4, white count 6.8, BUN of 53, creatinine 1.34. DIAGNOSTIC IMPRESSION AND PLAN: Patient with an E coli bacteremia secondary to cholecystitis. The patient is a high risk for any surgery. Currently being treated medically, is currently on Zosyn, finish therapy with oral Cipro and close outpatient followup. MMODL / IJN: [id number] /
--- NOTE | 2021-02-27 21:30 | P.PN ---
Subjective Progress Note Date: 02/27/21 Principal diagnosis: Sepsis Mr. Bangura 60-year-old male with a past medical history of cirrhosis of the liver secondary to alcohol abuse brought in from [facility] for fever abdominal pain and suspected GI bleed. Patient had severe lactic acidosis at the time of admission so he was in the ICU. Patient had CAT scan of the chest which was negative for PE. Patient's blood culture positive for E. coli. Patient is currently on Zosyn. On 02/27/2021-patient has been transferred out of the ICU this afternoon. He is comfortably lying in bed appears to be in no acute distress. Patient denies having any chest pain or palpitations. No abdominal pain nausea vomiting or diarrhea. He denies having any cough or difficulty in breathing. On reviewing his vitals T-max of 96.4, heart rate 67, respiratory rate 18, blood pressure 136 x 94, saturating at 99% on room air. On reviewing the labs white count of 6.8, hemoglobin 9.3, platelets 76. Sodium 138, potassium 3.6, chloride 108, bicarb 24, BUN 53, creatinine 1.34. PT 1.4 albumin 2.4 AST 208, ALT 64, bilirubin 4.1. Active Medications Acetaminophen (Acetaminophen Tab 325 Mg Tab) 650 mg PO Q6HR PRN PRN Reason: Mild Pain or Fever > 100.5 Last Admin: 02/26/21 20:31 Dose: 650 mg Documented by: Piperacillin Sod/Tazobactam (Sod 3.375 gm/ Sodium Chloride) 100 mls @ 25 mls/hr IVPB Q8H [facility] Last Admin: 02/27/21 13:59 Dose: 25 mls/hr Documented by: Sodium Chloride (Saline 0.9%) 1,000 mls @ 130 mls/hr IV .Q7H42M [facility] Last Admin: 02/27/21 17:11 Dose: Not Given Documented by: Lactated Ringer's (Lactated Ringers) 1,000 mls @ 20 mls/hr IV .Q24H [facility] Last Admin: 02/27/21 09:53 Dose: Not Given Documented by: Midodrine (Midodrine 5 Mg Tab) 5 mg PO AC-TID [facility] Last Admin: 02/27/21 17:11 Dose: Not Given Documented by: Miscellaneous Information (Pneumonia Protocol Utilized 1 Each Misc) 1 each PO ONCE PRN PRN Reason: Per Protocol Miscellaneous Information (Magnesium Replacement Protocol 1 Each Mis) 1 each MISCELLANE DAILY PRN; Protocol PRN Reason: Per Protocol Miscellaneous Information (Potassium Replacement Protocol 1 Each Misc) 1 each MISCELLANE DAILY PRN; Protocol PRN Reason: Per Protocol Naloxone HCl (Naloxone 0.4 Mg/Ml 1 Ml Vial) 0.2 mg IV Q2M PRN PRN Reason: Opioid Reversal Pantoprazole Sodium (Pantoprazole 40 Mg/10 Ml Vial) 40 mg IV BID [facility] Last Admin: 02/27/21 09:55 Dose: 40 mg Documented by: Propranolol HCl (Propranolol 20 Mg Tab) 20 mg PO DAILY [facility] Last Admin: 02/27/21 09:56 Dose: 20 mg Documented by: Objective - Vital Signs Vital signs: Vital Signs Temp 97.5 F L 02/27/21 18:59 Pulse 74 02/27/21 18:59 Resp 15 02/27/21 18:59 BP 171/52 02/27/21 18:59 Pulse Ox 98 02/27/21 18:59 Intake & Output 02/27/21 02/27/21 02/28/21 06:59 18:59 06:59 Intake Total 1560 1270 Output Total 440 510 Balance 1120 760 Weight 79.2 kg Intake: IV 1560 910 Sodium Chloride 0.9% 1, 1560 910 000 ml @ 130 mls/hr IV . Q7H42M [facility] Rx#:[id number] Oral 360 Output: Urine 440 510 Condom 100 Other: Voiding Method Indwelling Catheter Incontinent Indwelling Catheter # Voids 2 - Exam -GENERAL: The patient is alert and oriented x3. Thin built HEENT: Pupils are round and equally reacting to light. EOMI. + scleral icterus. No conjunctival pallor. CARDIOVASCULAR: S1 and S2 present. No murmurs, rubs, or gallops. PULMONARY: Chest is clear to auscultation, no wheezing or crackles. -ABDOMEN: Soft, mild epigastric tenderness, no rebound tenderness, mild abdominal distention, normoactive bowel sounds. MUSCULOSKELETAL: No joint swelling or deformity. -EXTREMITIES: No cyanosis, clubbing. Bilateral leg edema NEUROLOGICAL: Gross neurological examination did not reveal any focal deficits. SKIN: No rashes. No petechiae - Labs CBC & Chem 7: 02/27/21 03:55 02/27/21 03:55 Labs: Abnormal Lab Results - Last 24 Hours (Table) 02/26/21 02/27/21 02/27/21 Range/Units 23:57 03:55 03:55 RBC 3.30 L (4.30-5.90) m/uL Hgb 11.3 L (13.0-17.5) gm/dL Hct 35.2 L (39.0-53.0) % MCV 106.7 H (80.0-100.0) fL RDW 15.9 H (11.5-15.5) % Plt Count 76 L (150-450) k/uL Lymphocytes # (Manual) 0.75 L (1.0-4.8) k/uL Monocytes # (Manual) 1.36 H (0-1.0) k/uL Macrocytosis Marked A PT (9.0-12.0) sec INR (<1.2) Chloride 108 H (98-107) mmol/L BUN 53 H (9-20) mg/dL Creatinine 1.34 H (0.66-1.25) mg/dL Glucose 103 H (74-99) mg/dL POC Glucose (mg/dL) 138 H (75-99) mg/dL Calcium 7.9 L (8.4-10.2) mg/dL Total Bilirubin 4.1 H (0.2-1.3) mg/dL AST 208 H (17-59) U/L ALT 64 H (4-49) U/L Albumin 2.4 L (3.5-5.0) g/dL 02/27/21 Range/Units 17:00 RBC (4.30-5.90) m/uL Hgb (13.0-17.5) gm/dL Hct (39.0-53.0) % MCV (80.0-100.0) fL RDW (11.5-15.5) % Plt Count (150-450) k/uL Lymphocytes # (Manual) (1.0-4.8) k/uL Monocytes # (Manual) (0-1.0) k/uL Macrocytosis PT 13.8 H (9.0-12.0) sec INR 1.4 H (<1.2) Chloride (98-107) mmol/L BUN (9-20) mg/dL Creatinine (0.66-1.25) mg/dL Glucose (74-99) mg/dL POC Glucose (mg/dL) (75-99) mg/dL Calcium (8.4-10.2) mg/dL Total Bilirubin (0.2-1.3) mg/dL AST (17-59) U/L ALT (4-49) U/L Albumin (3.5-5.0) g/dL Microbiology - Last 24 Hours (Table) 02/22/21 16:30 Blood Culture - Preliminary Blood No Growth after 120 hours Assessment and Plan Assessment: ASSESSMENT Sepsis secondary to E. coli due to acute cholecystitis Acute GI bleed secondary to esophageal varices and Vera-Diego tear status post Endo clip placement Decompensated alcoholic liver cirrhosis Coagulopathy secondary to liver disease Severe protein calorie malnutrition Macrocytosis Acute kidney injury -prerenal Hypocalcemia PLAN: Patient seems to be responding with IV antibiotics in the form of Zosyn for E. coli sepsis secondary to acute cholecystitis. Surgical team on board and plan for laparoscopic cholecystectomy, but the surgery was canceled as the patient's condition is improving and is a high surgical risk candidate. Patient's hemoglobin has been stable for the past couple of days. Continue with IV Protonix twice daily and he is on propranolol for esophageal varices. His creatinine is slowly trending down. Continue with the current medication regimen. Further recommendations to follow depending on the progress of the patient.
[2021-02-28] MEDS: SODIUM CHLORIDE 0.9% 1,000 ML IV SCH ×3 (02:13→17:54)
[2021-02-28] MEDS: PIPERACILLIN-TAZOBACTAM 3.375 GM in SODIUM CHLORIDE 0.9% 100 ML IVPB SCH ×3 (04:30→20:57)
[2021-02-28 07:57] LABS: ALT 56 U/L (4-49); AST 157 U/L (17-59); African American GFR (CKD) 86 (>60 ml/min/1.73 sqM); Albumin 2.4 g/dL (3.5-5.0); Albumin/Globulin Ratio 0.6; Alkaline Phosphatase 98 U/L (38-126); Anion Gap 8 mmol/L; Blood Urea Nitrogen 42 mg/dL (9-20); Carbon Dioxide 20 mmol/L (22-30); Chloride 113 mmol/L (98-107); Globulin 4.1 g/dL; Glucose 70 mg/dL (74-99); Non-African American GFR(CKD) 75 (>60 ml/min/1.73 sqM); Potassium 3.9 mmol/L (3.5-5.1); Sodium 141 mmol/L (137-145); Total Bilirubin 4.2 mg/dL (0.2-1.3); Total Protein 6.5 g/dL (6.3-8.2)
[2021-02-28] MEDS: LACTATED RINGERS 1,000 ML IV SCH (08:21)
[2021-02-28 08:22] LABS: Anisocytosis Slight; HCT 34.1 % (39.0-53.0); HGB 11.3 gm/dL (13.0-17.5); MCH 35.2 pg (25.0-35.0); MCV 106.7 fL (80.0-100.0); Macrocytosis Marked; Mean Platelet Volume 10.8; Platelet Count 114 k/uL (150-450); RDW 16.3 % (11.5-15.5); WBC 11.4 k/uL (3.8-10.6)
[2021-02-28] MEDS: PANTOPRAZOLE 40 MG/10 ML VIAL IV SCH ×2 (08:22→20:57)
[2021-02-28] MEDS: PROPRANOLOL 20 MG TAB PO SCH (08:23)
--- NOTE | 2021-02-28 09:49 | P.PN ---
Subjective Progress Note Date: 02/28/21 Principal diagnosis: Acute hypoxic respiratory failure Portal hypertension Esophageal Variaces Possible developing aspiration pneumonia Severe sepsis Acute kidney injury defect. The likely mechanism appeared to be acute tubular necrosis GI bleed likely from esophageal Variaces Gram-negative bacteremia source appears to be acute cholecystitis Alcoholic liver disease with cirrhosis Coagulopathy likely related to chronic alcohol related liver disease 02/28/2021, patient seen eval examined during the rounds labs reviewed medications reviewed respiratory status remains stable at room air however more confused today, awake, not appeared to be agitated, slightly anxious, afebrile, hemodynamic status stable, oxygen saturation 95% on room air, cell count is stable at 11,400 BUN/creatinine is 42 and 1.08, sodium is 141, AST and ALT are 1 57/56 total bilirubin is 4.2, ammonia level is less than 9, albumin is only 2.4, patient abdomen appears to be more distended and relatively more formed likely have accumulated fluid consult has been placed for interventional radiology for large volume paracentesis, 02/27/2021, patient seen eval examined during the rounds labs reviewed medications reviewed, patient awake and arousable at times intermittently confused, hemodynamic status stable has been on room air, denies any chest pain, last bowel movement was yesterday no active bleeding has been seen in hemoglobin and platelet count remains stable, ever functions are stable, surgical service following this patient closely, will start patient on propranolol for portal hypertension, 02/26/2021, patient seen eval examined during the rounds labs reviewed medications reviewed patient is sitting upright in the bed breathing comfortably denies any chest pain blood pressure significantly improved dose of midodrine dryness health this morning, INR improved to 1.4, status post endoscopy and banding of esophageal rices by GI postop day #1 some old blood has been noted in the stools, hemoglobin however remains stable, patient is scheduled for laparoscopic cholecystectomy later on this afternoon, will keep in ICU because of multiple comorbidities is postoperatively, patient remains on broad-spectrum antibiotics for gram-negative bacteremia related to E. coli which appears to be not ESBL patient is on IV Zosyn ID has been following the patient as well, hemoglobin improved and stable at 10.8, AST/ALT to 259 and 71, total bilirubin is 4.6, 02/25/2021, patient is semi-propped up awake, breathing better now, is status post endoscopy with banding of esophageal rices, denies any chest pain and swelling in the abdomen slightly better, blood pressure improved today, patient remains on broad-spectrum antibiotics, patient remains on midodrine as well, patient is being scheduled for a lap jevon by general surgery, 2 L oxygen saturation 94%, a myoglobin is 10.4, 02/24/2021, patient seen eval examined during the rounds in ICU care plan discussed with the staff as well as GI service at length in detail, patient is still have intermittent bleeding going on, computed tomography scan of the chest revealed presence of the esophageal rices, blood pressure running on the marginal side, patient remains on bicarb drip, patient underwent 2 unit of packed RBC as well as 3 bags of FFP transfused, white cell count continue to come down, hemoglobin stable 9.3, potassium is 3.4, BUN/creatinine 34 and 2.44, like acid and lactic acid is slowly coming down latest is 5.2, liver functions continued to be high, with total bilirubin of 3.7, patient is being considered for endoscopy and ligation/bending of esophageal varices, patient is running blood pressure on the low side into the 90s, migratory dry and 5 mg twice a day will be started if there is evidence of more bleeding is seen then will consider octreotide This is a 60-year-old with chronic alcoholism patient presented into the emergency department from [facility] for evaluation of fever or aches and pains, patient has ongoing nausea and abdominal discomfort as well with swelling of the abdomen, symptoms have been progressive for many weeks, about 2 weeks ago patient has a upper GI bleed and had a scope done at [facility] found to have gastric crisis exact details however not available, patient has a significant liver disease due to alcohol is him, workup including ultrasound on February 19 revealed presence of cirrhosis dilated portal vein dilated and distended gallbladder with wall thickening and sludge, on arrival to emergency department patient was febrile with fever of 101 oxygen saturation was 93% hypertensive, blood pressure was 90/50, gradually patient was noted to have drop in hemoglobin, the saturation, continue spiking fever, along with patient has a lower GI bleed GI service has been consulted surgical service also has been consulted, chest x-ray however show right lower lobe infiltrate patchy infiltrate, repeat ultrasound gallstones along with gallbladder thickening, computed tomography scan of the chest performed yesterday negative for pulmonary embolism, presence of esophageal arises prominent spleen and liver findings liver consistent with nodular cirrhosis, chest x-ray earlier revealed normal heart site interstitial edema and some bibasilar infiltrate cannot be excluded patient remains on IV Zosyn today blood cultures positive for gram-negative rods, white cell count up to 17,900 patient oxygen requirement increased to 6 L, hemoglobin however have drop down to 8.4, PT/INR is 24.9 and 2.6 PTT is 48, arterial blood gas revealed pH of 7.15 pCO2 of 24 pO2 of 98 with bicarb of 9, patient was given 2 A of bicarbonate followed by bicarb drip, BUN/creatinine increased to 20 and 2.48, take acid up to 16.8, covid PCR is negative Objective - Vital Signs Vital signs: Vital Signs Temp 97.8 F 02/28/21 08:00 Pulse 87 02/28/21 08:00 Resp 19 02/28/21 08:00 BP 129/77 02/28/21 08:00 Pulse Ox 95 02/28/21 08:00 Intake & Output 02/27/21 02/28/21 02/28/21 18:59 06:59 18:59 Intake Total 1270 Output Total 510 600 Balance 760 -600 Intake: IV 910 Sodium Chloride 0.9% 1, 910 000 ml @ 130 mls/hr IV . Q7H42M [facility] Rx#:[id number] Oral 360 Output: Urine 510 600 Condom 100 Other: Voiding Method Incontinent Incontinent Indwelling Catheter Indwelling Catheter # Voids 2 - Exam - Constitutional General appearance: average body habitus, cooperative, mild distress - EENT Eyes: PERRLA Ears: bilateral: normal - Neck Carotids: bilateral: upstroke normal Thyroid: negative: normal size - Respiratory Respiratory: bilateral: diminished - Cardiovascular Rhythm: regular Heart sounds: normal: S1, S2 - Gastrointestinal General gastrointestinal: decreased bowel sounds, more distended today compared to yesterday exam - Integumentary Integumentary: decreased turgor - Neurologic Neurologic: CNII-XII intact - Musculoskeletal Musculoskeletal: gait normal, generalized weakness, strength equal bilaterally - Psychiatric Psychiatric: awake oriented 1-2 confused - Labs CBC & Chem 7: 02/28/21 07:17 02/28/21 07:17 Labs: Abnormal Lab Results - Last 24 Hours (Table) 02/27/21 02/28/21 02/28/21 Range/Units 17:00 07:17 07:17 WBC 11.4 H (3.8-10.6) k/uL RBC 3.20 L (4.30-5.90) m/uL Hgb 11.3 L (13.0-17.5) gm/dL Hct 34.1 L (39.0-53.0) % MCV 106.7 H (80.0-100.0) fL MCH 35.2 H (25.0-35.0) pg RDW 16.3 H (11.5-15.5) % Plt Count 114 L (150-450) k/uL Macrocytosis Marked A PT 13.8 H (9.0-12.0) sec INR 1.4 H (<1.2) Chloride 113 H (98-107) mmol/L Carbon Dioxide 20 L (22-30) mmol/L BUN 42 H (9-20) mg/dL Glucose 70 L (74-99) mg/dL Calcium 8.0 L (8.4-10.2) mg/dL Total Bilirubin 4.2 H (0.2-1.3) mg/dL AST 157 H (17-59) U/L ALT 56 H (4-49) U/L Albumin 2.4 L (3.5-5.0) g/dL Microbiology - Last 24 Hours (Table) 02/22/21 16:30 Blood Culture - Preliminary Blood No Growth after 120 hours Assessment and Plan Assessment: awake but with Intermittent altered mental status, varies between oriented 1-2 progressive increasing ascites Severe anemia and thrombocytopenia due to varical bleeding chronic alcoholism Severe sepsis secondary due to acute cholecystitis Gram-negative bacteremia due to E. coli source appears to be acute chol ecystitis/ascending cholangitis acute cholecystitis/ascending cholangitis GI bleed likely from esophageal Variaces and as well as exacerbated by coagulopathy due to alcoholic liver disease Acute hypoxic respiratory failure Portal hypertension Esophageal Variaces aspiration pneumonia Acute kidney injury defect. The likely mechanism appeared to be acute tubular necrosis Alcoholic liver disease with cirrhosis Coagulopathy likely related to chronic alcohol related liver disease Plan: laparoscopy cholecystectomy on hold per surgical services INR has been consulted for large volume paracentesis INR improved Continue Zosyn, E. coli is sensitive Supplemental oxygen as needed Midodrine hold if the systolic blood pressure over 110 If evidence of continuous bleeding consider octreotide infusion transfer back to the ICU Gen. surgery consult for evaluation of cholecystectomy Status post banding of esophageal varises Blood transfusion as needed keep hemoglobin over 7-8y Monitor renal functions closely Further plan of care as per clinical response of the patient overall general condition very guarded with impending multiorgan failure Time with Patient: Greater than 30
[2021-02-28] MEDS: LORazepam 2 MG/ML INJ IV PRN ×2 (10:03→21:14)
--- NOTE | 2021-02-28 11:11 | P.PN ---
Subjective Progress Note Date: 02/28/21 Principal diagnosis: Decompensated alcohol cirrhosis, anemia of acute blood loss, melena, upper GI bleed Patient seen lying in bed today more confused than yesterday. No acute events reported. Objective - Vital Signs Vital signs: Vital Signs Temp 97.8 F 02/28/21 08:00 Pulse 87 02/28/21 08:00 Resp 19 02/28/21 08:00 BP 129/77 02/28/21 08:00 Pulse Ox 95 02/28/21 08:00 Intake & Output 02/27/21 02/28/21 02/28/21 18:59 06:59 18:59 Intake Total 1270 Output Total 510 600 Balance 760 -600 Intake: IV 910 Sodium Chloride 0.9% 1, 910 000 ml @ 130 mls/hr IV . Q7H42M [facility] Rx#:[id number] Oral 360 Output: Urine 510 600 Condom 100 Other: Voiding Method Incontinent Incontinent Indwelling Catheter Indwelling Catheter # Voids 2 - Exam On physical examination, patient appears comfortable in no apparent distress. HEAD: Normocephalic, atraumatic. EYES: Scleral icterus. No conjunctival injection. MOUTH: No lesions, tongue midline. NECK: Trachea midline, no gross abnormalities. ABDOMEN: Soft, moderately distended. Bowel sounds are positive. No organomegaly. No guarding or rigidity. EXTREMITIES: No pedal edema. SKIN: No rashes, no jaundice. NEUROLOGIC: Alert and oriented to person, no asterixis noted. - Labs CBC & Chem 7: 02/28/21 07:17 02/28/21 07:17 Labs: Abnormal Lab Results - Last 24 Hours (Table) 02/27/21 02/28/21 02/28/21 Range/Units 17:00 07:17 07:17 WBC 11.4 H (3.8-10.6) k/uL RBC 3.20 L (4.30-5.90) m/uL Hgb 11.3 L (13.0-17.5) gm/dL Hct 34.1 L (39.0-53.0) % MCV 106.7 H (80.0-100.0) fL MCH 35.2 H (25.0-35.0) pg RDW 16.3 H (11.5-15.5) % Plt Count 114 L (150-450) k/uL Macrocytosis Marked A PT 13.8 H (9.0-12.0) sec INR 1.4 H (<1.2) Chloride 113 H (98-107) mmol/L Carbon Dioxide 20 L (22-30) mmol/L BUN 42 H (9-20) mg/dL Glucose 70 L (74-99) mg/dL Calcium 8.0 L (8.4-10.2) mg/dL Total Bilirubin 4.2 H (0.2-1.3) mg/dL AST 157 H (17-59) U/L ALT 56 H (4-49) U/L Albumin 2.4 L (3.5-5.0) g/dL Microbiology - Last 24 Hours (Table) 02/22/21 16:30 Blood Culture - Preliminary Blood No Growth after 120 hours Assessment and Plan (1) Anemia due to acute blood loss Narrative/Plan: 60-year-old male with multiple medical comorbidities including hypertension and alcohol abuse currently abstinent from alcohol consumption who presented with a constellation of symptoms including fevers and weakness. Currently the patient is being treated for sepsis with plans for ICU care. The patient has long- standing history of alcohol abuse but denies any known history of cirrhosis. He previously has been hospitalized for GI bleed and reports nasogastric tube placement at that time and is unsure if EGD was performed. He is unclear of any prior history of cirrhosis of the liver but was found to have a cirrhotic appearing liver with ascites on computed tomography scan of the abdomen. Liver enzymes are consistent with alcoholic liver disease and cirrhosis of the liver. The patient developed some dark colored bowel movements while in the emergency department with a fall in his hemoglobin likely secondary to GI bleed as well as hemodilution after being fluid resuscitated. The patient is status post upper endoscopy with findings of esophageal varices with esophageal variceal band ligation 4 with hemostasis, mild gastritis, Vera-Diego tear with Endo Clip placement 3 and injection of epinephrine, biopsies taken. Current Visit: Yes Status: Acute Code(s): D62 - ACUTE POSTHEMORRHAGIC ANEMIA SNOMED Code(s): 313946579 (2) Alcoholic cirrhosis of liver with ascites Current Visit: Yes Status: Acute Code(s): K70.31 - ALCOHOLIC CIRRHOSIS OF LIVER WITH ASCITES SNOMED Code(s): 862326312 (3) Melena Current Visit: Yes Status: Acute Code(s): K92.1 - MELENA SNOMED Code(s): 5040067 Plan: Supportive care Continue monitor hemoglobin and hematocrit and transfuse as needed Continue Protonix therapy Continue broad-spectrum antibiotic therapy Okay for sodium restricted diet if no procedures or surgical intervention is planned Paracentesis with fluid studies ordered for tomorrow Spironolactone 50 mg daily ordered for diuresis Lactulose twice a day empirically started due to increased confusion, ammonia level was normal if no improvement in mentation with bowel movements can discontinue Thank you for allowing us to participate in the care of the patient
[2021-02-28] MEDS: SPIRONOLACTONE 25 MG TAB PO SCH (13:04)
--- NOTE | 2021-02-28 13:36 | P.PN ---
Subjective Progress Note Date: 02/28/21 Principal diagnosis: This is a 60-year-old male seen in consultation because of acute kidney injury from hypotension and sepsis. He had E. coli bacteremia with acute cholecystitis . He is also known with cirrhosis secondary to alcoholism. Has had esophageal varices and banding done on 02/25/2021 Also known with Vera-Diego tear. He is in and shackles. This morning he is confused and restless. Blood pressure is stable with systolic 120s to 170 Afebrile Heart rate in the 70s to 80s Urine output is 101 0 mL Objective - Vital Signs Vital signs: Vital Signs Temp 97.8 F 02/28/21 08:00 Pulse 87 02/28/21 08:00 Resp 19 02/28/21 08:00 BP 129/77 02/28/21 08:00 Pulse Ox 95 02/28/21 08:00 Intake & Output 02/27/21 02/28/21 02/28/21 18:59 06:59 18:59 Intake Total 1270 Output Total 510 600 Balance 760 -600 Intake: IV 910 Sodium Chloride 0.9% 1, 910 000 ml @ 130 mls/hr IV . Q7H42M [facility] Rx#:[id number] Oral 360 Output: Urine 510 600 Condom 100 Other: Voiding Method Incontinent Incontinent Indwelling Catheter Indwelling Catheter # Voids 2 Exam patient is restless but awake and somewhat combative HEENT exam no JVP neck is supple no facial asymmetry Lungs are clear to auscultation fair air entry bilaterally Heart sounds unremarkable for any murmur rub gallop Abdomen slightly distended with ascites nontender Extremity exam was moderate edema Neurologically restless - Labs CBC & Chem 7: 02/28/21 07:17 02/28/21 07:17 Labs: Abnormal Lab Results - Last 24 Hours (Table) 02/27/21 02/28/21 02/28/21 Range/Units 17:00 07:17 07:17 WBC 11.4 H (3.8-10.6) k/uL RBC 3.20 L (4.30-5.90) m/uL Hgb 11.3 L (13.0-17.5) gm/dL Hct 34.1 L (39.0-53.0) % MCV 106.7 H (80.0-100.0) fL MCH 35.2 H (25.0-35.0) pg RDW 16.3 H (11.5-15.5) % Plt Count 114 L (150-450) k/uL Macrocytosis Marked A PT 13.8 H (9.0-12.0) sec INR 1.4 H (<1.2) Chloride 113 H (98-107) mmol/L Carbon Dioxide 20 L (22-30) mmol/L BUN 42 H (9-20) mg/dL Glucose 70 L (74-99) mg/dL Calcium 8.0 L (8.4-10.2) mg/dL Total Bilirubin 4.2 H (0.2-1.3) mg/dL AST 157 H (17-59) U/L ALT 56 H (4-49) U/L Albumin 2.4 L (3.5-5.0) g/dL Microbiology - Last 24 Hours (Table) 02/22/21 16:30 Blood Culture - Preliminary Blood No Growth after 120 hours Assessment and Plan Assessment: Impression 1. Acute kidney injury, secondary to sepsis resolved creatinine is 1.08 2. Mild degree of non-gap acidosis possibly from GI loss. Bicarb is down from 24-to 20, anion gap is 8. 3. Acute cholecystitis with E. coli bacteremia. 4.. Normal ammonia and bilirubin is 4.2 AST ALT slightly elevated. 5. Encephalopathy, cause not very clear. He was in a present unlikely to be withdrawal but cannot be ruled out completely. 6. Cirrhosis with alcoholism. Recommendation 1. Deferred to the primary regarding Workup for his encephalopathy including possibly a computed tomography scan if necessary 2. Will watch him as Neurologically he is stable
[2021-02-28 13:50] LABS: Glucose,Whole Blood 214 mg/dL (75-99)
--- NOTE | 2021-02-28 15:26 | P.PN ---
Progress Note - Text Progress Note Date: 02/28/21 Patient appears confused. He is developing encephalopathy. Abdomen is firm. There is significant ascites. There is no significant right upper quadrant pain. Alcohol cirrhosis. Patient's encephalopathy is most likely due to his liver failure. No surgical intervention is planned.
--- NOTE | 2021-02-28 16:40 | PN ---
PROGRESS NOTE DATE OF SERVICE: 02/28/2021 REASON FOR FOLLOWUP: E coli bacteremia secondary to cholecystitis. INTERVAL HISTORY: Patient is currently afebrile. The patient did have significant change in his clinical condition. Patient seemed to be agitated and is currently in restraints. No vomiting, diarrhea and no change reported by the nursing staff. PHYSICAL EXAMINATION: Blood pressure 129/77 with a pulse of 86, temperature is 97.8, he is 95% on room air. GENERAL DESCRIPTION: A middle-aged male lying in bed in no distress. RESPIRATORY SYSTEM: Unlabored breathing, clear to auscultation anteriorly. HEART: S1, S2. Regular rate and rhythm. ABDOMEN: Soft, no tenderness. LABS: Hemoglobin 11.2, white count 11.4, BUN of 2, creatinine 1.08. Ammonia level has . IMPRESSION/PLAN: Patient with an E coli bacteremia secondary to cholecystitis. Patient is high risk for any surgical procedure and is currently being treated medically with significant change in his clinical condition, being managed by admitting team. Patient to continue Zosyn for underlying bacteremia and monitor clinical course closely. MMODL / IJN: [id number] /
[2021-02-28] MEDS: LACTULOSE 20 GM/30 ML CUP PO SCH (20:57)
--- NOTE | 2021-03-01 00:46 | P.PN ---
Subjective Progress Note Date: 02/28/21 Principal diagnosis: Sepsis Mr. Bangura 60-year-old male with a past medical history of cirrhosis of the liver secondary to alcohol abuse brought in from [facility] for fever abdominal pain and suspected GI bleed. Patient had severe lactic acidosis at the time of admission so he was in the ICU. Patient had CAT scan of the chest which was negative for PE. Patient's blood culture positive for E. coli. Patient is currently on Zosyn. On 02/27/2021-patient has been transferred out of the ICU this afternoon. He is comfortably lying in bed appears to be in no acute distress. Patient denies having any chest pain or palpitations. No abdominal pain nausea vomiting or diarrhea. He denies having any cough or difficulty in breathing. On reviewing his vitals T-max of 96.4, heart rate 67, respiratory rate 18, blood pressure 136 x 94, saturating at 99% on room air. On reviewing the labs white count of 6.8, hemoglobin 9.3, platelets 76. Sodium 138, potassium 3.6, chloride 108, bicarb 24, BUN 53, creatinine 1.34. PT 1.4 albumin 2.4 AST 208, ALT 64, bilirubin 4.1. On 02/28/2021 -patient is seen and examined at bedside. As per discussion with nursing staff patient became very agitated in the morning. He was also having hallucinations, talking to people in the room that were not there. Review of systems could not be done as the patient is confused. He has a guard at the bedside, as per discussion with him he mentions that the patient waxes and wanes in terms of his mentation. On reviewing the vitals from this morning temperature 97.7, heart rate 99, respiratory rate 18, blood pressure 126 x 81 saturating at 91% on room air. On reviewing the labs white count of 11.4, hemoglobin 11.3, platelets 114. Marked macrocytosis. Sodium 141, potassium 3.9, chloride 113, bicarb 20, BUN 42, creatinine 1.08. AST ALT elevated. Albumin 2.4. Patient medications have been reviewed. Objective - Vital Signs Vital signs: Vital Signs Temp 97.8 F 02/28/21 08:00 Pulse 87 02/28/21 08:00 Resp 19 02/28/21 08:00 BP 129/77 02/28/21 08:00 Pulse Ox 95 02/28/21 08:00 Intake & Output 02/27/21 02/28/21 02/28/21 18:59 06:59 18:59 Intake Total 1270 Output Total 510 600 Balance 760 -600 Intake: IV 910 Sodium Chloride 0.9% 1, 910 000 ml @ 130 mls/hr IV . Q7H42M [facility] Rx#:[id number] Oral 360 Output: Urine 510 600 Condom 100 Other: Voiding Method Incontinent Incontinent Indwelling Catheter Indwelling Catheter # Voids 2 - Exam -GENERAL: confused and agitated. Thin built HEENT: Pupils are round and equally reacting to light. EOMI. + scleral icterus. No conjunctival pallor. CARDIOVASCULAR: S1 and S2 present. No murmurs, rubs, or gallops. PULMONARY: Chest is clear to auscultation, no wheezing or crackles. -ABDOMEN: Soft, mild epigastric tenderness, no rebound tenderness, mild abdominal distention, normoactive bowel sounds. MUSCULOSKELETAL: No joint swelling or deformity. -EXTREMITIES: No cyanosis, clubbing. Bilateral leg edema NEUROLOGICAL: Gross neurological examination did not reveal any focal deficits. SKIN: frail - Labs CBC & Chem 7: 02/28/21 07:17 02/28/21 07:17 Labs: Abnormal Lab Results - Last 24 Hours (Table) 02/27/21 02/28/21 02/28/21 Range/Units 17:00 07:17 07:17 WBC 11.4 H (3.8-10.6) k/uL RBC 3.20 L (4.30-5.90) m/uL Hgb 11.3 L (13.0-17.5) gm/dL Hct 34.1 L (39.0-53.0) % MCV 106.7 H (80.0-100.0) fL MCH 35.2 H (25.0-35.0) pg RDW 16.3 H (11.5-15.5) % Plt Count 114 L (150-450) k/uL Macrocytosis Marked A PT 13.8 H (9.0-12.0) sec INR 1.4 H (<1.2) Chloride 113 H (98-107) mmol/L Carbon Dioxide 20 L (22-30) mmol/L BUN 42 H (9-20) mg/dL Glucose 70 L (74-99) mg/dL Calcium 8.0 L (8.4-10.2) mg/dL Total Bilirubin 4.2 H (0.2-1.3) mg/dL AST 157 H (17-59) U/L ALT 56 H (4-49) U/L Albumin 2.4 L (3.5-5.0) g/dL Microbiology - Last 24 Hours (Table) 02/22/21 16:30 Blood Culture - Preliminary Blood No Growth after 120 hours Assessment and Plan Assessment: ASSESSMENT Sepsis secondary to E. coli due to acute cholecystitis Acute Encephalopathy - multiple etiologies Acute GI bleed secondary to esophageal varices and Vera-Diego tear status post Endo clip placement Decompensated alcoholic liver cirrhosis Coagulopathy secondary to liver disease Severe protein calorie malnutrition Macrocytosis Acute kidney injury -prerenal Hypocalcemia PLAN: Patient seems to be responding with IV antibiotics in the form of Zosyn for E. coli sepsis secondary to acute cholecystitis. Surgical team on board and plan for laparoscopic cholecystectomy, but the surgery was canceled as the patient's condition is improving and is a high surgical risk candidate. Patient's hemoglobin has been stable for the past couple of days. Continue with IV Protonix twice daily and he is on propranolol for esophageal varices. His creatinine is slowly trending down, Nephrology on board and following. IR consult for possible paracentesis tomorrow. Lactulose titrate to have 2-3 bowel movements per day. Continue with the current medication regimen. Further recommendations to follow depending on the progress of the patient.
[2021-03-01] MEDS: PIPERACILLIN-TAZOBACTAM 3.375 GM in SODIUM CHLORIDE 0.9% 100 ML IVPB SCH ×3 (03:54→20:14)
[2021-03-01] MEDS: SODIUM CHLORIDE 0.9% 1,000 ML IV SCH ×2 (03:54→10:54)
[2021-03-01] MEDS: LORazepam 2 MG/ML INJ IV PRN (03:55)
--- NOTE | 2021-03-01 09:09 | US ---
EXAMINATION TYPE: US abdomen limited DATE OF EXAM: 03/01/2021 COMPARISON: NONE CLINICAL HISTORY: assess for fluid pocket please. Ascites EXAM MEASUREMENTS: Fluid visualized. IMPRESSION: As above
[2021-03-01] MEDS: LACTULOSE 20 GM/30 ML CUP PO SCH ×3 (09:24→20:13)
[2021-03-01] MEDS: SPIRONOLACTONE 25 MG TAB PO SCH ×2 (09:24→10:00)
[2021-03-01] MEDS: PANTOPRAZOLE 40 MG/10 ML VIAL IV SCH ×2 (09:24→20:14)
[2021-03-01] MEDS: PROPRANOLOL 20 MG TAB PO SCH ×2 (09:25→09:29)
[2021-03-01] MEDS: LACTATED RINGERS 1,000 ML IV SCH (10:00)
--- NOTE | 2021-03-01 10:51 | P.PN ---
Subjective Progress Note Date: 03/01/21 Principal diagnosis: Elevated LFTs, melena Assessment 60-year-old male patient who presented to the emergency department from [facility] last week with signs of septic shock. He was initially admitted to the ICU, he also had a GI bleed where he was having large amounts of maroon colo red stool. He is status post upper endoscopy with epinephrine injection, endoclipped 3 and esophageal variceal banding. He's had no further episodes of GI bleed. He's been transferred out of the ICU. Today he has much more confused and agitated. Forrester states over the weekend he started becoming more agitated, ammonia levels have been less than 9. A stat ammonia level was ordered for today. He is status post ultrasound for paracentesis today. He has had no nausea, vomiting, or reported abdominal pain other than abdominal discomfort from distention. Objective - Vital Signs Vital signs: Vital Signs Temp 97.3 F L 03/01/21 07:26 Pulse 91 03/01/21 07:26 Resp 18 03/01/21 07:26 BP 123/83 03/01/21 07:26 Pulse Ox 96 03/01/21 07:26 Intake & Output 02/28/21 03/01/21 03/01/21 18:59 06:59 18:59 Intake Total 560 Balance 560 Intake: Oral 360 Other 200 Other: Voiding Method Indwelling Catheter Indwelling Catheter # Bowel Movements 1 - Exam General appearance: The patient is dictated, confused. HET: Head is normocephalic and atraumatic. Conjunctiva pink. Sclera icteris. Neck: Supple without lymphadenopathy. Abdomen: Soft, nontender, distedned with bowel sounds. No guarding or rigidity. Extremities: Normal skin color and turgor. Bilateral pedal edema Skin: No rashes, jaundice Neurological: Agitated. - Labs CBC & Chem 7: 02/28/21 07:17 02/28/21 07:17 Labs: Abnormal Lab Results - Last 24 Hours (Table) 02/28/21 Range/Units 13:46 POC Glucose (mg/dL) 214 H (75-99) mg/dL Microbiology - Last 24 Hours (Table) 02/22/21 16:30 Blood Culture - Final Blood No Growth after 144 hours Assessment and Plan (1) Anemia due to acute blood loss Narrative/Plan: 60-year-old male with multiple medical comorbidities including hypertension and alcohol abuse currently abstinent from alcohol consumption who presented with a constellation of symptoms including fevers and weakness. Currently the patient is being treated for sepsis with plans for ICU care. The patient has long- standing history of alcohol abuse but denies any known history of cirrhosis. He previously has been hospitalized for GI bleed and reports nasogastric tube placement at that time and is unsure if EGD was performed. He is unclear of any prior history of cirrhosis of the liver but was found to have a cirrhotic appearing liver with ascites on computed tomography scan of the abdomen. Liver enzymes are consistent with alcoholic liver disease and cirrhosis of the liver. The patient developed some dark colored bowel movements while in the emergency department with a fall in his hemoglobin likely secondary to GI bleed as well as hemodilution after being fluid resuscitated. Unclear etiology with differential including peptic ulcer disease, gastritis, esophagitis, AVM, with esophageal varices not completely excluded however less likely given clinical presentation and only minimal elevation BUN on presentation, or other etiology. The patient is status post upper endoscopy with findings of esophageal varices with esophageal variceal band ligation 4 with hemostasis, mild gastritis, Vera-Diego tear with Endo Clip placement 3 and injection of epinephrine, biopsies taken. Current Visit: Yes Status: Acute Code(s): D62 - ACUTE POSTHEMORRHAGIC ANEMIA SNOMED Code(s): 171081824 (2) Alcoholic cirrhosis of liver with ascites Current Visit: Yes Status: Acute Code(s): K70.31 - ALCOHOLIC CIRRHOSIS OF LIVER WITH ASCITES SNOMED Code(s): 274519399 (3) Melena Current Visit: Yes Status: Acute Code(s): K92.1 - MELENA SNOMED Code(s): 8649559 Plan: 1. Low sodium diet 2. Continue symptomatic and supportive care 3. Paracentesis ordered for today with fluid studies 4. Continue lactulose and spironolactone 5. Stat ammonia level ordered 6. Continue alcohol abstinence Thank you for this consultation, we will continue to follow Dr. David Powers I agree with the dictator's note, documented as a scribe by Fabiana Hull.
--- NOTE | 2021-03-01 11:23 | P.PN ---
Subjective Progress Note Date: 03/01/21 Principal diagnosis: Acute hypoxic respiratory failure Portal hypertension Esophageal Variaces Possible developing aspiration pneumonia Severe sepsis Acute kidney injury defect. The likely mechanism appeared to be acute tubular necrosis GI bleed likely from esophageal Variaces Gram-negative bacteremia source appears to be acute cholecystitis Alcoholic liver disease with cirrhosis Coagulopathy likely related to chronic alcohol related liver disease 03/01/2021, patient seen eval examined during the rounds labs reviewed medications reviewed care plan discussed with the staff at length, patient has been progressively more lethargic, opens eyes follow to verbal and physical stimuli only, then spontaneously close it, patient has received Ativan for agitation yesterday, patient is scheduled for large volume paracentesis therapeutic purposes and to rule out spontaneous bacterial peritonitis, remains on room air, afebrile oxygen saturation 96%, 02/28/2021, patient seen eval examined during the rounds labs reviewed medications reviewed respiratory status remains stable at room air however more confused today, awake, not appeared to be agitated, slightly anxious, afebrile, hemodynamic status stable, oxygen saturation 95% on room air, cell count is stable at 11,400 BUN/creatinine is 42 and 1.08, sodium is 141, AST and ALT are 1 57/56 total bilirubin is 4.2, ammonia level is less than 9, albumin is only 2.4, patient abdomen appears to be more distended and relatively more formed likely have accumulated fluid consult has been placed for interventional radiology for large volume paracentesis, 02/27/2021, patient seen eval examined during the rounds labs reviewed medications reviewed, patient awake and arousable at times intermittently confused, hemodynamic status stable has been on room air, denies any chest pain, last bowel movement was yesterday no active bleeding has been seen in hemoglobin and platelet count remains stable, ever functions are stable, surgical service following this patient closely, will start patient on propranolol for portal hypertension, 02/26/2021, patient seen eval examined during the rounds labs reviewed medications reviewed patient is sitting upright in the bed breathing comfortably denies any chest pain blood pressure significantly improved dose of midodrine dryness health this morning, INR improved to 1.4, status post endoscopy and banding of esophageal rices by GI postop day #1 some old blood has been noted in the stools, hemoglobin however remains stable, patient is scheduled for laparoscopic cholecystectomy later on this afternoon, will keep in ICU because of multiple comorbidities is postoperatively, patient remains on broad-spectrum antibiotics for gram-negative bacteremia related to E. coli which appears to be not ESBL patient is on IV Zosyn ID has been following the patient as well, hemoglobin improved and stable at 10.8, AST/ALT to 259 and 71, total bilirubin is 4.6, 02/25/2021, patient is semi-propped up awake, breathing better now, is status post endoscopy with banding of esophageal rices, denies any chest pain and swelling in the abdomen slightly better, blood pressure improved today, patient remains on broad-spectrum antibiotics, patient remains on midodrine as well, patient is being scheduled for a lap jevon by general surgery, 2 L oxygen saturation 94%, a myoglobin is 10.4, 02/24/2021, patient seen eval examined during the rounds in ICU care plan discussed with the staff as well as GI service at length in detail, patient is still have intermittent bleeding going on, computed tomography scan of the chest revealed presence of the esophageal rices, blood pressure running on the marginal side, patient remains on bicarb drip, patient underwent 2 unit of packed RBC as well as 3 bags of FFP transfused, white cell count continue to come down, hemoglobin stable 9.3, potassium is 3.4, BUN/creatinine 34 and 2.44, like acid and lactic acid is slowly coming down latest is 5.2, liver functions continued to be high, with total bilirubin of 3.7, patient is being considered for endoscopy and ligation/bending of esophageal varices, patient is running blood pressure on the low side into the 90s, migratory dry and 5 mg twice a day will be started if there is evidence of more bleeding is seen then will consider octreotide This is a 60-year-old with chronic alcoholism patient presented into the emergency department from [facility] for evaluation of fever or aches and pains, patient has ongoing nausea and abdominal discomfort as well with swelling of the abdomen, symptoms have been progressive for many weeks, about 2 weeks ago patient has a upper GI bleed and had a scope done at [facility] found to have gastric crisis exact details however not available, patient has a significant liver disease due to alcohol is him, workup including ultrasound on February 19 revealed presence of cirrhosis dilated portal vein dilated and distended gallbladder with wall thickening and sludge, on arrival to emergency department patient was febrile with fever of 101 oxygen saturation was 93% hypertensive, blood pressure was 90/50, gradually patient was noted to have drop in hemoglobin, the saturation, continue spiking fever, along with patient has a lower GI bleed GI service has been consulted surgical service also has been consulted, chest x-ray however show right lower lobe infiltrate patchy infiltrate, repeat ultrasound gallstones along with gallbladder thickening, computed tomography scan of the chest performed yesterday negative for pulmonary embolism, presence of esophageal arises prominent spleen and liver findings liver consistent with nodular cirrhosis, chest x-ray earlier revealed normal heart site interstitial edema and some bibasilar infiltrate cannot be excluded patient remains on IV Zosyn today blood cultures positive for gram-negative rods, white cell count up to 17,900 patient oxygen requirement increased to 6 L, hemoglobin however have drop down to 8.4, PT/INR is 24.9 and 2.6 PTT is 48, arterial blood gas revealed pH of 7.15 pCO2 of 24 pO2 of 98 with bicarb of 9, patient was given 2 A of bicarbonate followed by bicarb drip, BUN/creatinine increased to 20 and 2.48, take acid up to 16.8, covid PCR is negative Objective - Vital Signs Vital signs: Vital Signs Temp 97.3 F L 03/01/21 07:26 Pulse 91 03/01/21 07:26 Resp 18 03/01/21 07:26 BP 123/83 03/01/21 07:26 Pulse Ox 96 03/01/21 07:26 Intake & Output 02/28/21 03/01/21 03/01/21 18:59 06:59 18:59 Intake Total 560 Balance 560 Intake: Oral 360 Other 200 Other: Voiding Method Indwelling Catheter Indwelling Catheter # Bowel Movements 1 - Exam - Constitutional General appearance: average body habitus, cooperative, mild distress, somnolent - EENT Eyes: PERRLA Ears: bilateral: normal - Neck Carotids: bilateral: upstroke normal Thyroid: negative: normal size - Respiratory Respiratory: bilateral: diminished - Cardiovascular Rhythm: regular Heart sounds: normal: S1, S2 - Gastrointestinal General gastrointestinal: decreased bowel sounds, more distended today compared to yesterday exam - Integumentary Integumentary: decreased turgor - Neurologic Neurologic: CNII-XII intact - Musculoskeletal Musculoskeletal: gait normal, generalized weakness, strength equal bilaterally - Psychiatric Psychiatric: More somnolent - Labs CBC & Chem 7: 02/28/21 07:17 02/28/21 07:17 Labs: Abnormal Lab Results - Last 24 Hours (Table) 02/28/21 Range/Units 13:46 POC Glucose (mg/dL) 214 H (75-99) mg/dL Microbiology - Last 24 Hours (Table) 02/22/21 16:30 Blood Culture - Final Blood No Growth after 144 hours Assessment and Plan Assessment: Altered mental status likely hepatic encephalopathy due to multifactorial process including liver disease, sepsis, large ascites, spontaneous bacterial peritonitis progressive increasing ascites, spontaneous bacterial peritonitis needs to be excluded proceed with large volume /diagnostic thoracentesis by interventional radiology Severe anemia and thrombocytopenia due to varical bleeding chronic alcoholism Severe sepsis secondary due to acute cholecystitis Gram-negative bacteremia due to E. coli source appears to be acute cholecystitis/ascending cholangitis acute cholecystitis/ascending cholangitis GI bleed likely from esophageal Variaces and as well as exacerbated by co agulopathy due to alcoholic liver disease Acute hypoxic respiratory failure Portal hypertension Esophageal Variaces aspiration pneumonia Acute kidney injury defect. The likely mechanism appeared to be acute tubular necrosis Alcoholic liver disease with cirrhosis Coagulopathy likely related to chronic alcohol related liver disease Plan: laparoscopy cholecystectomy on hold per surgical services INR has been consulted for large volume paracentesis INR improved Continue Zosyn, E. coli is sensitive Supplemental oxygen as needed Midodrine hold if the systolic blood pressure over 110 If evidence of continuous bleeding consider octreotide infusion transfer back to the ICU Gen. surgery consult for evaluation of cholecystectomy Status post banding of esophageal varises Blood transfusion as needed keep hemoglobin over 7-8y Monitor renal functions closely Further plan of care as per clinical response of the patient overall general condition very guarded with impending multiorgan failure Time with Patient: Greater than 30
--- NOTE | 2021-03-01 12:52 | P.PN ---
Subjective Progress Note Date: 03/01/21 CHIEF COMPLAINT: Fever HISTORY OF PRESENT ILLNESS: Patient is on regular medical floor. He is scheduled for paracentesis in regards to his ascites from his liver cirrhosis. Patient is lethargic. Per nursing has been having episodes of agitation and had required Ativan. Afebrile. ammonia level less than 9. No surgical intervention planned for cholecystitis due to patient being a high risk surgical candidate. Patient seen and examined with Dr. Jamil PHYSICAL EXAM: VITAL SIGNS: Reviewed. GENERAL: Well-developed in no acute distress. HEENT: No sclera icterus. Extraocular movements grossly intact. Moist buccal mucosa. Head is atraumatic, normocephalic. ABDOMEN: Soft. Distended. Nontender NEUROLOGIC: Lethargic ASSESSMENT: 1. Sepsis present on admission 2. Altered mental status likely due to hepatic encephalopathy 3. Acute on Chronic cholecystitis with ultrasound showing evidence of gallstones and gallbladder wall thickening 4. E. coli bacteremia possibly due to acute cholecystitis 5. Acute hypoxic respiratory failure 6. History of liver cirrhosis with abdominal ascites 7. Coagulopathy likely due to liver disease 8. Esophageal varices status post EGD with banding and evidence of Vera- Diego tear status post clip placement and injection of epinephrine PLAN: -No surgical intervention planned in regards to patient's cholecystitis. Patient is a high risk surgical candidate -Continue antibiotic per ID -Continue supportive care -Patient scheduled for paracentesis today Physician Cyber Legal Advisor note has been reviewed by physician. Signing provider agrees with the documented findings, assessment, and plan of care. Objective - Vital Signs Vital signs: Vital Signs Temp 97.3 F L 03/01/21 07:26 Pulse 91 03/01/21 07:26 Resp 18 03/01/21 07:26 BP 123/83 03/01/21 07:26 Pulse Ox 96 03/01/21 07:26 Intake & Output 02/28/21 03/01/21 03/01/21 18:59 06:59 18:59 Intake Total 560 Balance 560 Intake: Oral 360 Other 200 Other: Voiding Method Indwelling Catheter Indwelling Catheter # Bowel Movements 1 - Labs CBC & Chem 7: 02/28/21 07:17 02/28/21 07:17 Labs: Abnormal Lab Results - Last 24 Hours (Table) 02/28/21 Range/Units 13:46 POC Glucose (mg/dL) 214 H (75-99) mg/dL Microbiology - Last 24 Hours (Table) 02/22/21 16:30 Blood Culture - Final Blood No Growth after 144 hours
[2021-03-01 12:56] VITALS: BMI 24.3
--- NOTE | 2021-03-01 13:48 | P.PN ---
Subjective Patient is seen in follow-up for acute kidney injury. Creatinine 1.08 as of yesterday. Patient is not a reliable historian. Scheduled for paracentesis today. Has a Downey catheter. Nonoliguric. Vital signs are stable. General: The patient appeared well nourished and normally developed. HEENT: Head exam is unremarkable. Neck is without jugular venous distension. LUNGS: Breath sounds decreased. HEART: Rate and Rhythm are regular. ABDOMEN: Distention noted. EXTREMITITES: 1+ edema. Objective - Vital Signs Vital signs: Vital Signs Temp 97.3 F L 03/01/21 07:26 Pulse 91 03/01/21 07:26 Resp 18 03/01/21 07:26 BP 123/83 03/01/21 07:26 Pulse Ox 96 03/01/21 07:26 Intake & Output 02/28/21 03/01/21 03/01/21 18:59 06:59 18:59 Intake Total 560 Balance 560 Weight 79.2 kg Intake: Oral 360 Other 200 Other: Voiding Method Indwelling Catheter Indwelling Catheter # Bowel Movements 1 - Labs CBC & Chem 7: 02/28/21 07:17 02/28/21 07:17 Labs: Abnormal Lab Results - Last 24 Hours (Table) 02/28/21 Range/Units 13:46 POC Glucose (mg/dL) 214 H (75-99) mg/dL Microbiology - Last 24 Hours (Table) 02/22/21 16:30 Blood Culture - Final Blood No Growth after 144 hours Assessment and Plan Plan: Assessment: 1. Acute kidney injury mostly prerenal secondary to sepsis. Also component of hepatorenal syndrome. Creatinine 1.08 as of yesterday. 2. Acute cholecystitis with equal bacteremia maintained on antibiotics. 3. Liver cirrhosis. Alcohol induced. 4. Ascites. Scheduled for paracentesis today. 5. Metabolic acidosis secondary to acute kidney injury. Plan: Remains off IV fluids. Maintain Aldactone. Add Lasix 40 mg once daily. Paracentesis today. 25 g of albumin pre-and post procedure. Continue to monitor renal function and urine output.
[2021-03-01 13:49] LABS: Anisocytosis Slight; Basophils # (A) 0.1 k/uL (0-0.2); Basophils % (A) 0 %; Eosinophils # (A) 0.7 k/uL (0-0.7); Eosinophils % (A) 6 %; HCT 35.7 % (39.0-53.0); HGB 11.3 gm/dL (13.0-17.5); Lymphocytes # (A) 1.2 k/uL (1.0-4.8); Lymphocytes % (A) 9 %; MCH 33.9 pg (25.0-35.0); MCHC 31.7 g/dL (31.0-37.0); Macrocytosis Marked; Mean Platelet Volume 10.9; Monocytes # (A) 0.8 k/uL (0-1.0); Monocytes % (A) 6 %; Neutrophils # (A) 9.7 k/uL (1.3-7.7); Neutrophils % (A) 76 %; Platelet Count 119 k/uL (150-450); RBC 3.33 m/uL (4.30-5.90); RDW 16.6 % (11.5-15.5); WBC 12.7 k/uL (3.8-10.6)
[2021-03-01] MEDS: FUROSEMIDE 40 MG TAB PO SCH (14:16)
[2021-03-01] MEDS: ALBUMIN HUMAN 25% 50 ML in EMPTY BAG 1 BAG IVPB SCH ×2 (14:32→16:11)
--- NOTE | 2021-03-01 14:49 | PN ---
PROGRESS NOTE DATE OF SERVICE: 03/01/2021. REASON FOR FOLLOW UP: E coli bacteremia secondary to cholecystitis. INTERVAL HISTORY: The patient is afebrile. The patient mentation remains to be an issue. Currently lethargic and is a 3 point restraint. No vomiting, diarrhea or any other changes reported. PHYSICAL EXAMINATION: Blood pressure 123/83, pulse of 91, temperature 98.3. He is 96% on room air. General description is a middle-aged male lying in bed in no distress. Respiratory system: Unlabored breathing, clear to auscultation anteriorly. HEART S1, S2. Regular rate and rhythm. ABDOMEN: Soft. Remains to be distended. No guarding. No rigidity. LABS: Ammonia level was less than 9. DIAGNOSTIC IMPRESSION/PLAN: Patient with E coli bacteremia secondary to cholecystitis. Patient remains to be high risk for surgical intervention with worsening of mentation, the patient will benefit from Neurology evaluation. Patient is covered with Zosyn to continue while monitoring clinical course closely. Continue supportive care. MMODL / IJN: [id number] /
[2021-03-01 15:30] LABS: Eosinophils # (M) 0.76 k/uL (0-0.7); Lymphocytes # (M) 0.64 k/uL (1.0-4.8); Monocytes # (M) 0.89 k/uL (0-1.0); Neutrophils # (M) 10.41 k/uL (1.3-7.7); Neutrophils % (M) 82 %; Nucleated Red Blood Cells 0 /100 WBC (0-0); Total Cells Counted 100
[2021-03-01 15:31] LABS: Polychromasia Present
[2021-03-01] MEDS ORDERED: ALBUMIN HUMAN 25% 50 ML in EMPTY BAG 1 BAG IVPB SCH (18:00)
[2021-03-01 19:49] LABS: Albumin 2.3 g/dL (3.80-4.90); Albumin/Globulin Ratio 0.61 (1.60-3.17); Anion Gap 4.6 mmol/L (4.00-12.00); BUN/Creat Ratio 38.89 Ratio (12.00-20.00); Calcium 8.1 mg/dL (8.7-10.3); Carbon Dioxide 21.4 mmol/L (21.6-31.8); Globulin 3.8 g/dL (1.6-3.3); Non-African American GFR(CKD) 93.2 (60.0-200.0); Potassium 4.1 mmol/L (3.5-5.5); Total Bilirubin 4.9 mg/dL (0.3-1.2); Total Protein 6.1 g/dL (6.2-8.2)
[2021-03-01] MEDS: THIAMINE 100 MG in SODIUM CHLORIDE 0.9% 50 ML IVPB SCH (20:22)
[2021-03-02] MEDS: PIPERACILLIN-TAZOBACTAM 3.375 GM in SODIUM CHLORIDE 0.9% 100 ML IVPB SCH ×3 (05:11→23:15)
[2021-03-02] MEDS: ALBUMIN HUMAN 25% 50 ML in EMPTY BAG 1 BAG IVPB SCH ×4 (09:03→14:28)
[2021-03-02] MEDS: PANTOPRAZOLE 40 MG/10 ML VIAL IV SCH ×2 (09:05→20:08)
[2021-03-02] MEDS: LACTATED RINGERS 1,000 ML IV SCH (09:06)
--- NOTE | 2021-03-02 09:46 | P.CNNES ---
History of Present Illness Consult date: 03/02/21 Requesting physician: Elmer Layton Reason for Consult: confusion History of Present Illness: This is a 60-year-old gentleman with medical history of alcohol abuse, alcohol liver failure, prior admission of GI bleed who presented to the hospital on 02/22/2021 with the 34 days of body aches, fever and weakness. History is obtained from medical record since patient is unable to provide that. During the hospital stay seem to the patient has sepsis with gram-negative bacteremia and it is reported. To be acute cholecystitis. He also has possible developing aspiration pneumonia. Has acute hypoxic respiratory failure. His liver enzymes were consistent with alcohol liver disease and cirrhosis of the liver. Patient developed some dark-colored bowel movements it's likely secondary due to GI bleed that reported by the primary team. The patient underwent an endoscopic he with findings of esophageal varices and esophageal the bursae old band ligation 4 with hemostasis. He had a clip placement with injection of epinephrine. Patient has a diabetes. The patient acute kidney injury and has improved. During the hospital stay the. The patient had the tubal episode of fall hypoglycemia initially in the 20s and then he had that in the 60s. Per the patient nurse prior to presentation to the hospital per the son he is alert, oriented X3 and walks without difficulty. She said overnight he was oriented X0 per the nurse. Per the nurse he was in halfway prior to this she was told. Patient the latest vitals: Blood pressure of 126/81 [place] heart rate 100, respiratory of 16, the Temperature of 97.5 Fahrenheit pulse ox of 92% at room air. Patient latest white blood cells 12.7. Hemoglobin most recent is 11.3 to the hospital stay a got as low as 7.8 MCV the most recent is 107. Most recent sodium is 140 which is normal. The BUN most recent is 35 and the creatinine is 0.9. During the hospital stay his creatinine level was as high as 2.48 Most recent AST is 137 to the hospital stay when he presented was 93 and got high as 303. While ALT the most recent is 55 during the hospital stay got high as 71. Ammonia level is less than 9 During the hospital stay is glucose most recent 72 but on presentation was 26 the next day the serum was 61 so he had multiple episodes of hypoglycemia in the 60s during the hospital stay. Vasquez virus PCR was not detected Blood cultures on 02/22/2021 is positive for E.coli. Review of Systems Review of system is limited but the pertitent positive and negative as per HPI. Past Medical History Past Medical History: Liver Disease Additional Past Medical History / Comment(s): ETOH History of Any Multi-Drug Resistant Organisms: None Reported Additional Past Surgical History / Comment(s): Scope in June 2020 Smoking Status: Never smoker Past Alcohol Use History: Abuse Past Drug Use History: None Reported - Past Family History Mother Family Medical History: AICD/Pacemaker, Cancer, Congestive Heart Failure (CHF) Medications and Allergies Home Medications Medication Instructions Recorded Confirmed Type hydroCHLOROthiazide [Hydrodiuril] 25 mg PO DAILY 02/22/21 02/23/21 History Allergies Allergy/AdvReac Type Severity Reaction Status Date / Time No Known Allergies Allergy Verified 02/22/21 21:57 Physical Examination - Vital Signs Vital Signs: Vital Signs Temp Pulse Resp BP Pulse Ox 03/02/21 07:51 97.5 F L 100 16 126/81 92 L 03/02/21 01:22 97.4 F L 100 139/84 95 03/01/21 19:17 97.5 F L 96 17 151/79 96 03/01/21 14:26 97.5 F L 90 18 124/85 96 Intake and Output 03/01/21 03/02/21 03/02/21 22:59 06:59 14:59 Output Total 1000 Balance -1000 Output: Urine 1000 Other: Voiding Method Indwelling Catheter # Bowel Movements 1 1 GENERAL: The patient is lying in bed and is in mild acute distress. CHEST: The heart rate is regular rate rhythm. No murmurs to auscultation. LUNG: Clear to auscultation bilaterally no wheezing noted throughout. Not labored breathing. ABDOMEN/GI: His abdomen is distended and tender to touch throughout. NEUROLOGICAL: Higher mental function: The patient is drowsy but awakeable to voice. Is oriented to self and time. But stated he was in halfway. He is able to name object correctly (pen). Follows some simple commands. No aphasia and no neglect. Cranial nerves: The pupils are round, equal and reactive to light. The facial strength is normal throughout. Hearing is normal bilaterally to hand rub. No dysarthria from limited language. Rest of cranial nerves could not be assessed because of his condition. Motor: The patient is handcuffed throughout all extremities. Is moving bilateral upper extremities and lower extremities above gravity. The proximal upper was limited since was handcuffed. Normal tone and bulk. Cerebellum: Could not assess. Sensation: Could not assess. Reflexes (right/left): 2+ throughout. Plantars are downgoing bilaterally. Results - Laboratory Findings CBC and BMP: 03/02/21 09:13 03/02/21 06:18 Abnormal Lab Findings: Abnormal Labs 02/22/21 02/22/21 02/22/21 16:44 16:44 16:44 WBC 0.6 L* RBC 3.84 L Hgb Hct MCV 110.4 H MCH 37.4 H MCHC RDW Plt Count 83 L Neutrophils # Neutrophils # (Manual) Lymphocytes # Lymphocytes # (Manual) Monocytes # (Manual) Eosinophils # (Manual) Metamyelocytes # (Man) Myelocytes # (Manual) Macrocytosis Marked A PT 19.6 H INR 2.0 H APTT 32.4 H D-Dimer >34.10 H ABG pH ABG pCO2 ABG HCO3 ABG Total CO2 Sodium 132 L Potassium 3.1 L Chloride 96 L Carbon Dioxide 16 L BUN Creatinine 1.49 H BUN/Creatinine Ratio Glucose 26 L* POC Glucose (mg/dL) Plasma Lactic Acid Tristan Calcium Magnesium 1.4 L Total Bilirubin 3.7 H AST 93 H ALT Alkaline Phosphatase 130 H C-Reactive Protein 3.8 H Total Protein Albumin 2.8 L Globulin Albumin/Globulin Ratio Amylase 111 H Ur Specific [place] Urine Protein Urine Blood Urine Bilirubin Urine RBC Urine WBC Urine Bacteria Urine Mucus Crossmatch 02/22/21 02/22/21 02/22/21 16:44 20:09 20:48 WBC RBC Hgb Hct MCV MCH MCHC RDW Plt Count Neutrophils # Neutrophils # (Manual) Lymphocytes # Lymphocytes # (Manual) Monocytes # (Manual) Eosinophils # (Manual) Metamyelocytes # (Man) Myelocytes # (Manual) Macrocytosis PT INR APTT D-Dimer ABG pH ABG pCO2 ABG HCO3 ABG Total CO2 Sodium Potassium Chloride Carbon Dioxide BUN Creatinine BUN/Creatinine Ratio Glucose POC Glucose (mg/dL) 45 L Plasma Lactic Acid Tristan 13.5 H* 15.5 H* Calcium Magnesium Total Bilirubin AST ALT Alkaline Phosphatase C-Reactive Protein Total Protein Albumin Globulin Albumin/Globulin Ratio Amylase Ur Specific [place] Urine Protein Urine Blood Urine Bilirubin Urine RBC Urine WBC Urine Bacteria Urine Mucus Crossmatch 02/22/21 02/22/21 02/23/21 21:53 22:55 02:34 WBC RBC Hgb Hct MCV MCH MCHC RDW Plt Count Neutrophils # Neutrophils # (Manual) Lymphocytes # Lymphocytes # (Manual) Monocytes # (Manual) Eosinophils # (Manual) Metamyelocytes # (Man) Myelocytes # (Manual) Macrocytosis PT INR APTT D-Dimer ABG pH ABG pCO2 ABG HCO3 ABG Total CO2 Sodium Potassium Chloride Carbon Dioxide BUN Creatinine BUN/Creatinine Ratio Glucose POC Glucose (mg/dL) 121 H 73 L Plasma Lactic Acid Tristan 15.1 H* Calcium Magnesium Total Bilirubin AST ALT Alkaline Phosphatase C-Reactive Protein Total Protein Albumin Globulin Albumin/Globulin Ratio Amylase Ur Specific [place] Urine Protein Urine Blood Urine Bilirubin Urine RBC Urine WBC Urine Bacteria Urine Mucus Crossmatch 02/23/21 02/23/21 02/23/21 03:15 03:15 03:15 WBC 15.7 H RBC 2.62 L Hgb 9.7 L D Hct 31.3 L MCV 119.6 H D MCH 37.2 H MCHC RDW Plt Count 68 L Neutrophils # Neutrophils # (Manual) 12.70 H Lymphocytes # Lymphocytes # (Manual) 0.47 L Monocytes # (Manual) 1.10 H Eosinophils # (Manual) Metamyelocytes # (Man) 1.26 H Myelocytes # (Manual) 0.47 H Macrocytosis Marked A PT 23.8 H INR 2.5 H APTT D-Dimer ABG pH ABG pCO2 ABG HCO3 ABG Total CO2 Sodium 133 L Potassium Chloride Carbon Dioxide 11 L BUN Creatinine 2.17 H BUN/Creatinine Ratio Glucose 61 L POC Glucose (mg/dL) Plasma Lactic Acid Tristan Calcium 7.4 L Magnesium Total Bilirubin 3.6 H AST 172 H ALT Alkaline Phosphatase C-Reactive Protein Total Protein 5.5 L Albumin 2.0 L Globulin Albumin/Globulin Ratio Amylase 176 H Ur Specific [place] Urine Protein Urine Blood Urine Bilirubin Urine RBC Urine WBC Urine Bacteria Urine Mucus Crossmatch 02/23/21 02/23/21 02/23/21 03:15 07:30 08:03 WBC RBC Hgb Hct MCV MCH MCHC RDW Plt Count Neutrophils # Neutrophils # (Manual) Lymphocytes # Lymphocytes # (Manual) Monocytes # (Manual) Eosinophils # (Manual) Metamyelocytes # (Man) Myelocytes # (Manual) Macrocytosis PT INR APTT D-Dimer ABG pH ABG pCO2 ABG HCO3 ABG Total CO2 Sodium Potassium Chloride Carbon Dioxide BUN Creatinine BUN/Creatinine Ratio Glucose POC Glucose (mg/dL) 52 L Plasma Lactic Acid Tristan 16.9 H* 16.8 H* Calcium Magnesium Total Bilirubin AST ALT Alkaline Phosphatase C-Reactive Protein Total Protein Albumin Globulin Albumin/Globulin Ratio Amylase Ur Specific [place] Urine Protein Urine Blood Urine Bilirubin Urine RBC Urine WBC Urine Bacteria Urine Mucus Crossmatch 02/23/21 02/23/21 02/23/21 08:07 08:07 08:07 WBC 17.4 H RBC 2.10 L Hgb 7.8 L D Hct 25.3 L MCV 120.5 H MCH 36.9 H MCHC 30.7 L RDW Plt Count 74 L Neutrophils # Neutrophils # (Manual) 15.60 H Lymphocytes # Lymphocytes # (Manual) 0.35 L Monocytes # (Manual) 1.04 H Eosinophils # (Manual) Metamyelocytes # (Man) 0.35 H Myelocytes # (Manual) 0.17 H Macrocytosis Marked A PT INR APTT D-Dimer ABG pH ABG pCO2 ABG HCO3 ABG Total CO2 Sodium 130 L Potassium Chloride Carbon Dioxide 7 L* BUN Creatinine 2.41 H BUN/Creatinine Ratio Glucose 196 H POC Glucose (mg/dL) Plasma Lactic Acid Tristan Calcium 6.8 L Magnesium 1.4 L Total Bilirubin 3.3 H AST 202 H ALT Alkaline Phosphatase 36 L C-Reactive Protein Total Protein 4.9 L Albumin 1.7 L Globulin Albumin/Globulin Ratio Amylase Ur Specific [place] Urine Protein Urine Blood Urine Bilirubin Urine RBC Urine WBC Urine Bacteria Urine Mucus Crossmatch 02/23/21 02/23/21 02/23/21 09:14 10:29 10:31 WBC RBC Hgb Hct MCV MCH MCHC RDW Plt Count Neutrophils # Neutrophils # (Manual) Lymphocytes # Lymphocytes # (Manual) Monocytes # (Manual) Eosinophils # (Manual) Metamyelocytes # (Man) Myelocytes # (Manual) Macrocytosis PT 24.9 H INR 2.6 H APTT 48.8 H D-Dimer ABG pH ABG pCO2 ABG HCO3 ABG Total CO2 Sodium Potassium Chloride Carbon Dioxide BUN Creatinine BUN/Creatinine Ratio Glucose POC Glucose (mg/dL) 110 H Plasma Lactic Acid Tristan Calcium Magnesium Total Bilirubin AST ALT Alkaline Phosphatase C-Reactive Protein Total Protein Albumin Globulin Albumin/Globulin Ratio Amylase Ur Specific [place] >1.050 H Urine Protein 1+ H Urine Blood Small H Urine Bilirubin 1+ H Urine RBC 17 H Urine WBC 25 H Urine Bacteria Occasional H Urine Mucus Rare H Crossmatch 02/23/21 02/23/21 02/23/21 10:31 10:31 10:32 WBC 17.9 H RBC 2.22 L Hgb 8.4 L Hct 26.0 L MCV 117.1 H MCH 38.0 H MCHC RDW Plt Count 75 L Neutrophils # Neutrophils # (Manual) Lymphocytes # Lymphocytes # (Manual) Monocytes # (Manual) Eosinophils # (Manual) Metamyelocytes # (Man) Myelocytes # (Manual) Macrocytosis Marked A PT INR APTT D-Dimer ABG pH 7.15 L* ABG pCO2 24 L ABG HCO3 9 L* ABG Total CO2 9 L Sodium 134 L Potassium 3.4 L Chloride Carbon Dioxide 10 L BUN Creatinine 2.48 H BUN/Creatinine Ratio Glucose POC Glucose (mg/dL) Plasma Lactic Acid Tristan Calcium 6.8 L Magnesium 1.4 L Total Bilirubin 3.7 H AST 272 H ALT 55 H Alkaline Phosphatase C-Reactive Protein Total Protein 5.4 L Albumin 2.0 L Globulin Albumin/Globulin Ratio Amylase Ur Specific [place] Urine Protein Urine Blood Urine Bilirubin Urine RBC Urine WBC Urine Bacteria Urine Mucus Crossmatch 02/23/21 02/23/21 02/23/21 11:37 13:14 16:15 WBC RBC Hgb Hct MCV MCH MCHC RDW Plt Count Neutrophils # Neutrophils # (Manual) Lymphocytes # Lymphocytes # (Manual) Monocytes # (Manual) Eosinophils # (Manual) Metamyelocytes # (Man) Myelocytes # (Manual) Macrocytosis PT INR APTT D-Dimer ABG pH ABG pCO2 ABG HCO3 ABG Total CO2 Sodium Potassium Chloride Carbon Dioxide BUN Creatinine BUN/Creatinine Ratio Glucose POC Glucose (mg/dL) 69 L Plasma Lactic Acid Tristan 15.2 H* Calcium Magnesium Total Bilirubin AST ALT Alkaline Phosphatase C-Reactive Protein Total Protein Albumin Globulin Albumin/Globulin Ratio Amylase Ur Specific [place] Urine Protein Urine Blood Urine Bilirubin Urine RBC Urine WBC Urine Bacteria Urine Mucus Crossmatch See Detail 02/23/21 02/23/21 02/23/21 16:38 17:41 18:30 WBC RBC Hgb Hct MCV MCH MCHC RDW Plt Count Neutrophils # Neutrophils # (Manual) Lymphocytes # Lymphocytes # (Manual) Monocytes # (Manual) Eosinophils # (Manual) Metamyelocytes # (Man) Myelocytes # (Manual) Macrocytosis PT INR APTT D-Dimer ABG pH ABG pCO2 ABG HCO3 ABG Total CO2 Sodium Potassium Chloride Carbon Dioxide BUN Creatinine BUN/Creatinine Ratio Glucose POC Glucose (mg/dL) 62 L 70 L Plasma Lactic Acid Tristan 12.8 H* Calcium Magnesium Total Bilirubin AST ALT Alkaline Phosphatase C-Reactive Protein Total Protein Albumin Globulin Albumin/Globulin Ratio Amylase Ur Specific [place] Urine Protein Urine Blood Urine Bilirubin Urine RBC Urine WBC Urine Bacteria Urine Mucus Crossmatch 02/24/21 02/24/21 02/24/21 01:00 01:10 01:10 WBC 13.2 H RBC 2.46 L Hgb 8.4 L Hct 26.4 L MCV 107.4 H D MCH MCHC RDW 16.1 H Plt Count 46 L Neutrophils # Neutrophils # (Manual) 11.30 H Lymphocytes # Lymphocytes # (Manual) Monocytes # (Manual) Eosinophils # (Manual) Metamyelocytes # (Man) Myelocytes # (Manual) Macrocytosis Marked A PT INR APTT D-Dimer ABG pH ABG pCO2 ABG HCO3 ABG Total CO2 Sodium 136 L Potassium Chloride Carbon Dioxide 19 L BUN 28 H Creatinine 2.41 H BUN/Creatinine Ratio Glucose 62 L POC Glucose (mg/dL) 70 L Plasma Lactic Acid Tristan Calcium 6.9 L Magnesium Total Bilirubin 3.6 H AST 303 H ALT 57 H Alkaline Phosphatase 33 L C-Reactive Protein Total Protein 5.1 L Albumin 2.0 L Globulin Albumin/Globulin Ratio Amylase Ur Specific [place] Urine Protein Urine Blood Urine Bilirubin Urine RBC Urine WBC Urine Bacteria Urine Mucus Crossmatch 02/24/21 02/24/21 02/24/21 01:10 04:07 04:32 WBC RBC Hgb Hct MCV MCH MCHC RDW Plt Count Neutrophils # Neutrophils # (Manual) Lymphocytes # Lymphocytes # (Manual) Monocytes # (Manual) Eosinophils # (Manual) Metamyelocytes # (Man) Myelocytes # (Manual) Macrocytosis PT INR APTT D-Dimer ABG pH ABG pCO2 ABG HCO3 ABG Total CO2 Sodium Potassium Chloride Carbon Dioxide BUN Creatinine BUN/Creatinine Ratio Glucose POC Glucose (mg/dL) 67 L 67 L Plasma Lactic Acid Tristan 8.8 H* Calcium Magnesium Total Bilirubin AST ALT Alkaline Phosphatase C-Reactive Protein Total Protein Albumin Globulin Albumin/Globulin Ratio Amylase Ur Specific [place] Urine Protein Urine Blood Urine Bilirubin Urine RBC Urine WBC Urine Bacteria Urine Mucus Crossmatch 02/24/21 02/24/21 02/24/21 06:05 07:14 07:14 WBC 11.8 H RBC 2.67 L Hgb 9.3 L Hct 28.5 L MCV 107.0 H MCH MCHC RDW 16.2 H Plt Count 46 L Neutrophils # Neutrophils # (Manual) 10.20 H Lymphocytes # Lymphocytes # (Manual) 0.83 L Monocytes # (Manual) Eosinophils # (Manual) Metamyelocytes # (Man) 0.12 H Myelocytes # (Manual) Macrocytosis Marked A PT INR APTT D-Dimer ABG pH ABG pCO2 ABG HCO3 ABG Total CO2 Sodium Potassium 3.4 L Chloride Carbon Dioxide BUN 34 H Creatinine 2.44 H BUN/Creatinine Ratio Glucose POC Glucose (mg/dL) 165 H Plasma Lactic Acid Tristan Calcium 6.6 L Magnesium Total Bilirubin 3.7 H AST 298 H ALT 60 H Alkaline Phosphatase 30 L C-Reactive Protein Total Protein 5.2 L Albumin 2.0 L Globulin Albumin/Globulin Ratio Amylase Ur Specific [place] Urine Protein Urine Blood Urine Bilirubin Urine RBC Urine WBC Urine Bacteria Urine Mucus Crossmatch 02/24/21 02/24/21 02/24/21 07:14 10:30 14:54 WBC RBC Hgb Hct MCV MCH MCHC RDW Plt Count Neutrophils # Neutrophils # (Manual) Lymphocytes # Lymphocytes # (Manual) Monocytes # (Manual) Eosinophils # (Manual) Metamyelocytes # (Man) Myelocytes # (Manual) Macrocytosis PT INR APTT D-Dimer ABG pH ABG pCO2 ABG HCO3 ABG Total CO2 Sodium Potassium Chloride Carbon Dioxide BUN Creatinine BUN/Creatinine Ratio Glucose POC Glucose (mg/dL) Plasma Lactic Acid Tristan 6.0 H* 5.2 H* 4.0 H* Calcium Magnesium Total Bilirubin AST ALT Alkaline Phosphatase C-Reactive Protein Total Protein Albumin Globulin Albumin/Globulin Ratio Amylase Ur Specific [place] Urine Protein Urine Blood Urine Bilirubin Urine RBC Urine WBC Urine Bacteria Urine Mucus Crossmatch 02/24/21 02/24/21 02/24/21 18:12 18:12 18:12 WBC RBC 2.96 L Hgb 10.2 L Hct 31.5 L MCV 106.4 H MCH MCHC RDW 16.2 H Plt Count 54 L Neutrophils # 8.4 H Neutrophils # (Manual) Lymphocytes # 0.6 L Lymphocytes # (Manual) Monocytes # (Manual) Eosinophils # (Manual) Metamyelocytes # (Man) Myelocytes # (Manual) Macrocytosis Marked A PT INR APTT D-Dimer ABG pH ABG pCO2 ABG HCO3 ABG Total CO2 Sodium Potassium Chloride Carbon Dioxide BUN Creatinine BUN/Creatinine Ratio Glucose POC Glucose (mg/dL) Plasma Lactic Acid Tristan 3.4 H* Calcium Magnesium 1.5 L Total Bilirubin AST ALT Alkaline Phosphatase C-Reactive Protein Total Protein Albumin Globulin Albumin/Globulin Ratio Amylase Ur Specific [place] Urine Protein Urine Blood Urine Bilirubin Urine RBC Urine WBC Urine Bacteria Urine Mucus Crossmatch 02/24/21 02/24/21 02/25/21 22:15 23:33 05:00 WBC RBC Hgb Hct MCV MCH MCHC RDW Plt Count Neutrophils # Neutrophils # (Manual) Lymphocytes # Lymphocytes # (Manual) Monocytes # (Manual) Eosinophils # (Manual) Metamyelocytes # (Man) Myelocytes # (Manual) Macrocytosis PT 16.8 H INR 1.7 H APTT D-Dimer ABG pH ABG pCO2 ABG HCO3 ABG Total CO2 Sodium Potassium Chloride Carbon Dioxide BUN Creatinine BUN/Creatinine Ratio Glucose POC Glucose (mg/dL) 111 H Plasma Lactic Acid Tristan 4.6 H* Calcium Magnesium Total Bilirubin AST ALT Alkaline Phosphatase C-Reactive Protein Total Protein Albumin Globulin Albumin/Globulin Ratio Amylase Ur Specific [place] Urine Protein Urine Blood Urine Bilirubin Urine RBC Urine WBC Urine Bacteria Urine Mucus Crossmatch 02/25/21 02/25/21 02/25/21 05:00 05:00 05:00 WBC RBC 2.89 L Hgb 10.4 L Hct 30.0 L MCV 104.0 H MCH 36.0 H MCHC RDW Plt Count 52 L Neutrophils # Neutrophils # (Manual) Lymphocytes # Lymphocytes # (Manual) Monocytes # (Manual) Eosinophils # (Manual) Metamyelocytes # (Man) Myelocytes # (Manual) 0.08 H Macrocytosis PT INR APTT D-Dimer ABG pH ABG pCO2 ABG HCO3 ABG Total CO2 Sodium 136 L Potassium 3.0 L Chloride Carbon Dioxide BUN 55 H Creatinine 2.23 H BUN/Creatinine Ratio Glucose POC Glucose (mg/dL) Plasma Lactic Acid Tristan 2.2 H* Calcium 6.8 L Magnesium Total Bilirubin 3.9 H AST 271 H ALT 65 H Alkaline Phosphatase 34 L C-Reactive Protein Total Protein 5.5 L Albumin 2.1 L Globulin Albumin/Globulin Ratio Amylase Ur Specific [place] Urine Protein Urine Blood Urine Bilirubin Urine RBC Urine WBC Urine Bacteria Urine Mucus Crossmatch 02/25/21 02/26/21 02/26/21 18:48 03:49 03:49 WBC 11.2 H RBC 2.96 L Hgb 10.6 L Hct 31.8 L MCV 107.3 H MCH 35.7 H MCHC RDW 16.1 H Plt Count 53 L Neutrophils # Neutrophils # (Manual) Lymphocytes # Lymphocytes # (Manual) Monocytes # (Manual) Eosinophils # (Manual) Metamyelocytes # (Man) Myelocytes # (Manual) Macrocytosis Marked A PT 14.5 H INR 1.4 H APTT D-Dimer ABG pH ABG pCO2 ABG HCO3 ABG Total CO2 Sodium Potassium Chloride 108 H Carbon Dioxide BUN 61 H Creatinine 1.71 H BUN/Creatinine Ratio Glucose 65 L POC Glucose (mg/dL) Plasma Lactic Acid Tristan Calcium 7.3 L Magnesium Total Bilirubin 4.6 H AST 259 H ALT 71 H Alkaline Phosphatase C-Reactive Protein Total Protein 6.0 L Albumin 2.3 L Globulin Albumin/Globulin Ratio Amylase Ur Specific [place] Urine Protein Urine Blood Urine Bilirubin Urine RBC Urine WBC Urine Bacteria Urine Mucus Crossmatch 02/26/21 02/26/21 02/27/21 03:49 23:57 03:55 WBC RBC 3.13 L Hgb 10.8 L Hct 33.2 L MCV 105.8 H MCH MCHC RDW 15.9 H Plt Count 63 L Neutrophils # Neutrophils # (Manual) Lymphocytes # Lymphocytes # (Manual) Monocytes # (Manual) Eosinophils # (Manual) Metamyelocytes # (Man) Myelocytes # (Manual) Macrocytosis PT INR APTT D-Dimer ABG pH ABG pCO2 ABG HCO3 ABG Total CO2 Sodium Potassium Chloride 108 H Carbon Dioxide BUN 53 H Creatinine 1.34 H BUN/Creatinine Ratio Glucose 103 H POC Glucose (mg/dL) 138 H Plasma Lactic Acid Tristan Calcium 7.9 L Magnesium Total Bilirubin 4.1 H AST 208 H ALT 64 H Alkaline Phosphatase C-Reactive Protein Total Protein Albumin 2.4 L Globulin Albumin/Globulin Ratio Amylase Ur Specific [place] Urine Protein Urine Blood Urine Bilirubin Urine RBC Urine WBC Urine Bacteria Urine Mucus Crossmatch 02/27/21 02/27/21 02/28/21 03:55 17:00 07:17 WBC 11.4 H RBC 3.30 L 3.20 L Hgb 11.3 L 11.3 L Hct 35.2 L 34.1 L MCV 106.7 H 106.7 H MCH 35.2 H MCHC RDW 15.9 H 16.3 H Plt Count 76 L 114 L Neutrophils # Neutrophils # (Manual) Lymphocytes # Lymphocytes # (Manual) 0.75 L Monocytes # (Manual) 1.36 H Eosinophils # (Manual) Metamyelocytes # (Man) Myelocytes # (Manual) Macrocytosis Marked A Marked A PT 13.8 H INR 1.4 H APTT D-Dimer ABG pH ABG pCO2 ABG HCO3 ABG Total CO2 Sodium Potassium Chloride Carbon Dioxide BUN Creatinine BUN/Creatinine Ratio Glucose POC Glucose (mg/dL) Plasma Lactic Acid Tristan Calcium Magnesium Total Bilirubin AST ALT Alkaline Phosphatase C-Reactive Protein Total Protein Albumin Globulin Albumin/Globulin Ratio Amylase Ur Specific [place] Urine Protein Urine Blood Urine Bilirubin Urine RBC Urine WBC Urine Bacteria Urine Mucus Crossmatch 02/28/21 02/28/21 03/01/21 07:17 13:46 12:40 WBC 12.7 H RBC 3.33 L Hgb 11.3 L Hct 35.7 L MCV 107.0 H MCH MCHC RDW 16.6 H Plt Count 119 L Neutrophils # 9.7 H Neutrophils # (Manual) 10.41 H Lymphocytes # Lymphocytes # (Manual) 0.64 L Monocytes # (Manual) Eosinophils # (Manual) 0.76 H Metamyelocytes # (Man) Myelocytes # (Manual) Macrocytosis Marked A PT INR APTT D-Dimer ABG pH ABG pCO2 ABG HCO3 ABG Total CO2 Sodium Potassium Chloride 113 H Carbon Dioxide 20 L BUN 42 H Creatinine BUN/Creatinine Ratio Glucose 70 L POC Glucose (mg/dL) 214 H Plasma Lactic Acid Tristan Calcium 8.0 L Magnesium Total Bilirubin 4.2 H AST 157 H ALT 56 H Alkaline Phosphatase C-Reactive Protein Total Protein Albumin 2.4 L Globulin Albumin/Globulin Ratio Amylase Ur Specific [place] Urine Protein Urine Blood Urine Bilirubin Urine RBC Urine WBC Urine Bacteria Urine Mucus Crossmatch 03/01/21 12:40 WBC RBC Hgb Hct MCV MCH MCHC RDW Plt Count Neutrophils # Neutrophils # (Manual) Lymphocytes # Lymphocytes # (Manual) Monocytes # (Manual) Eosinophils # (Manual) Metamyelocytes # (Man) Myelocytes # (Manual) Macrocytosis PT INR APTT D-Dimer ABG pH ABG pCO2 ABG HCO3 ABG Total CO2 Sodium Potassium Chloride 116 H Carbon Dioxide 21.4 L BUN 35.0 H Creatinine BUN/Creatinine Ratio 38.89 H Glucose POC Glucose (mg/dL) Plasma Lactic Acid Tristan Calcium 8.1 L Magnesium Total Bilirubin 4.9 H AST 137 H ALT 55 H Alkaline Phosphatase C-Reactive Protein Total Protein 6.1 L Albumin 2.30 L Globulin 3.8 H Albumin/Globulin Ratio 0.61 L Amylase Ur Specific [place] Urine Protein Urine Blood Urine Bilirubin Urine RBC Urine WBC Urine Bacteria Urine Mucus Crossmatch Assessment and Plan Assessment: Altered mental status seems to be multifactorial hepatic encephalopathy, septic (seems sponatnoues bacterial peritonitis), componenent of metabolic encephalopathy (episodes of hypoglycemia, Acute kidney injury--resolved), anemia from esophageal--mentation is improving compared to yesterday Severe anemia and thrombocythemia due to variceal bleeding from chronic alcohol Macrocytic anemia due to above Gram-negative bacteria due to E. coli appears due to acute cholecystitis/ascending cholangitis Ascites Possible aspiration pneumonia Alcohol liver disease with cirrhosis Acute kidney injury--resolved Portal hypertension Esophageal varices Coagulopathy likely due to chronic alcohol related liver disease Episodes of hypoglycemia during hospital stay Plan: The primary team ordered a routine EEG and is pending. I will not start the patient on antiepileptic drugs unless there is epileptiform discharges or seizure on the EEG Patient is on thiamine 100 mg every 12 hours and it is to be continued I ordered a CT of the head I ordered vitamin B12 and folate level. Recommend avoiding any further hypoglycemic episodes and we'll defer the management to the primary team. We'll defer the rest of the medical management to the GI and primary team. The plan is discussed with the patient's nurse. Thank you for the consultation. UPDATE: CT of the head is reported as age-related atrophic and chronic small vessel ischemic change without acute intracranial process seen at this time. Routine EEG Preliminary report: It is an abnormal routine EEG. The background slowing is suggestive of severe encephalopathy likely due to toxic metabolic etiology. There are no focal slowing, a pill form discharges or seizure in the EEG. Pending Vitamin B12 and folate levels. If vitamin B12 level is low recommend vitamin B12 supplementation of 1000 g with the first dose intramuscular and then the repeated doses will be by mouth. Folic acid is low then recommend folic acid of 1 mg daily. There is no further work-up needed from neurological standpoint. Please reconsult neurology if needed. Papi Askew MD Neuro-Hospitlaist Time with Patient: Greater than 30
[2021-03-02 09:57] LABS: INR 1.5 (<1.2); Prothrombin Time 14.9 sec (9.0-12.0)
[2021-03-02 10:06] LABS: Anisocytosis Slight; Basophils % (A) 0 %; Eosinophils # (A) 0.3 k/uL (0-0.7); Eosinophils % (A) 3 %; HGB 10.6 gm/dL (13.0-17.5); Lymphocytes # (A) 0.7 k/uL (1.0-4.8); Lymphocytes % (A) 7 %; MCH 36.4 pg (25.0-35.0); MCHC 34.1 g/dL (31.0-37.0); MCV 106.8 fL (80.0-100.0); Macrocytosis Moderate; Monocytes # (A) 1.3 k/uL (0-1.0); Monocytes % (A) 13 %; Neutrophils # (A) 7.3 k/uL (1.3-7.7); Neutrophils % (A) 74 %; Platelet Count 116 k/uL (150-450); RDW 16.5 % (11.5-15.5)
[2021-03-02 10:24] LABS: HCT 30.9 % (39.6-50.0); HGB 9.9 g/dL (13.0-17.0); MCH 35.1 pg (27.0-32.0); MCV 109.6 fL (80.0-97.0); Mean Platelet Volume 12.2 fL (9.5-12.2); Platelet Count 119 X 10*3/uL (140-440); RBC 2.82 X 10*6/uL (4.40-5.60); RDW 17.2 % (11.5-14.5); WBC 11.87 X 10*3/uL (4.50-10.00)
[2021-03-02 10:30] LABS: INR 1.41 (0.90-1.11)
--- NOTE | 2021-03-02 10:33 | P.PN ---
Subjective Progress Note Date: 03/02/21 Principal diagnosis: Acute hypoxic respiratory failure Portal hypertension Esophageal Variaces Possible developing aspiration pneumonia Severe sepsis Acute kidney injury defect. The likely mechanism appeared to be acute tubular necrosis GI bleed likely from esophageal Variaces Gram-negative bacteremia source appears to be acute cholecystitis Alcoholic liver disease with cirrhosis Coagulopathy likely related to chronic alcohol related liver disease 03/02/2021, patient seen eval examined labs reviewed medications reviewed, patient remains confused and somnolent, arousable with verbal stimuli oriented 1-2, patient is being prepared for the large volume paracentesis, neurologist started seeing patient, patient remains on thiamine and folic acid and vitamin B12, CT of the head is pending 03/01/2021, patient seen eval examined during the rounds labs reviewed med ications reviewed care plan discussed with the staff at length, patient has been progressively more lethargic, opens eyes follow to verbal and physical stimuli only, then spontaneously close it, patient has received Ativan for agitation yesterday, patient is scheduled for large volume paracentesis therapeutic purposes and to rule out spontaneous bacterial peritonitis, remains on room air, afebrile oxygen saturation 96%, 02/28/2021, patient seen eval examined during the rounds labs reviewed medi cations reviewed respiratory status remains stable at room air however more confused today, awake, not appeared to be agitated, slightly anxious, afebrile, hemodynamic status stable, oxygen saturation 95% on room air, cell count is stable at 11,400 BUN/creatinine is 42 and 1.08, sodium is 141, AST and ALT are 1 57/56 total bilirubin is 4.2, ammonia level is less than 9, albumin is only 2.4, patient abdomen appears to be more distended and relatively more formed likely have accumulated fluid consult has been placed for interventional radiology for large volume paracentesis, 02/27/2021, patient seen eval examined during the rounds labs reviewed medications reviewed, patient awake and arousable at times intermittently confused, hemodynamic status stable has been on room air, denies any chest pain, last bowel movement was yesterday no active bleeding has been seen in hemoglobin and platelet count remains stable, ever functions are stable, surgical service following this patient closely, will start patient on propranolol for portal hypertension, 02/26/2021, patient seen eval examined during the rounds labs reviewed medications reviewed patient is sitting upright in the bed breathing comfortably denies any chest pain blood pressure significantly improved dose of midodrine dryness health this morning, INR improved to 1.4, status post endoscopy and banding of esophageal rices by GI postop day #1 some old blood has been noted in the stools, hemoglobin however remains stable, patient is scheduled for laparoscopic cholecystectomy later on this afternoon, will keep in ICU because of multiple comorbidities is postoperatively, patient remains on broad-spectrum antibiotics for gram-negative bacteremia related to E. coli which appears to be not ESBL patient is on IV Zosyn ID has been following the patient as well, hemoglobin improved and stable at 10.8, AST/ALT to 259 and 71, total bilirubin is 4.6, 02/25/2021, patient is semi-propped up awake, breathing better now, is status po st endoscopy with banding of esophageal rices, denies any chest pain and swelling in the abdomen slightly better, blood pressure improved today, patient remains on broad-spectrum antibiotics, patient remains on midodrine as well, patient is being scheduled for a lap jevon by general surgery, 2 L oxygen saturation 94%, a myoglobin is 10.4, 02/24/2021, patient seen eval examined during the rounds in ICU care plan discussed with the staff as well as GI service at length in detail, patient is still have intermittent bleeding going on, computed tomography scan of the chest revealed presence of the esophageal rices, blood pressure running on the marginal side, patient remains on bicarb drip, patient underwent 2 unit of packed RBC as well as 3 bags of FFP transfused, white cell count continue to come down, hemoglobin stable 9.3, potassium is 3.4, BUN/creatinine 34 and 2.44, like acid and lactic acid is slowly coming down latest is 5.2, liver functions continued to be high, with total bilirubin of 3.7, patient is being considered for endoscopy and ligation/bending of esophageal varices, patient is running blood pressure on the low side into the 90s, migratory dry and 5 mg twice a day will be started if there is evidence of more bleeding is seen then will consider octreotide This is a 60-year-old with chronic alcoholism patient presented into the emergency department from [facility] for evaluation of fever or aches and pains, patient has ongoing nausea and abdominal discomfort as well with swelling of the abdomen, symptoms have been progressive for many weeks, about 2 weeks ago patient has a upper GI bleed and had a scope done at [facility] found to have gastric crisis exact details however not available, patient has a significant liver disease due to alcohol is him, workup including ultrasound on February 19 revealed presence of cirrhosis dilated portal vein d ilated and distended gallbladder with wall thickening and sludge, on arrival to emergency department patient was febrile with fever of 101 oxygen saturation was 93% hypertensive, blood pressure was 90/50, gradually patient was noted to have drop in hemoglobin, the saturation, continue spiking fever, along with patient has a lower GI bleed GI service has been consulted surgical service also has bee n consulted, chest x-ray however show right lower lobe infiltrate patchy infiltrate, repeat ultrasound gallstones along with gallbladder thickening, computed tomography scan of the chest performed yesterday negative for pulmonary embolism, presence of esophageal arises prominent spleen and liver findings liver consistent with nodular cirrhosis, chest x-ray earlier revealed normal heart site interstitial edema and some bibasilar infiltrate cannot be excluded patient remains on IV Zosyn today blood cultures positive for gram-negative rods, white cell count up to 17,900 patient oxygen requirement increased to 6 L, hemoglobin however have drop down to 8.4, PT/INR is 24.9 and 2.6 PTT is 48, arterial blood gas revealed pH of 7.15 pCO2 of 24 pO2 of 98 with bicarb of 9, patient was given 2 A of bicarbonate followed by bicarb drip, BUN/creatinine increased to 20 and 2.48, take acid up to 16.8, covid PCR is negative Objective - Vital Signs Vital signs: Vital Signs Temp 97.5 F L 03/02/21 07:51 Pulse 90 03/02/21 10:24 Resp 18 03/02/21 10:24 BP 119/68 03/02/21 10:24 Pulse Ox 99 03/02/21 10:24 Intake & Output 03/01/21 03/02/21 03/02/21 18:59 06:59 18:59 Output Total 1000 Balance -1000 Weight 79.2 kg Output: Urine 1000 Other: Voiding Method Indwelling Catheter Indwelling Catheter # Bowel Movements 1 1 - Exam - Constitutional General appearance: average body habitus, cooperative, mild distress, somnolent - EENT Eyes: PERRLA Ears: bilateral: normal - Neck Carotids: bilateral: upstroke normal Thyroid: negative: normal size - Respiratory Respiratory: bilateral: diminished - Cardiovascular Rhythm: regular Heart sounds: normal: S1, S2 - Gastrointestinal General gastrointestinal: decreased bowel sounds, more distended today compared to yesterday exam - Integumentary Integumentary: decreased turgor - Neurologic Neurologic: CNII-XII intact - Musculoskeletal Musculoskeletal: gait normal, generalized weakness, strength equal bilaterally - Psychiatric Psychiatric: More somnolent - Labs CBC & Chem 7: 03/02/21 09:13 03/01/21 12:40 Labs: Abnormal Lab Results - Last 24 Hours (Table) 03/01/21 03/01/21 03/02/21 Range/Units 12:40 12:40 06:18 WBC 12.7 H 11.87 H (3.8-10.6) k/uL RBC 3.33 L 2.82 L (4.30-5.90) m/uL Hgb 11.3 L 9.9 L (13.0-17.5) gm/dL Hct 35.7 L 30.9 L (39.0-53.0) % MCV 107.0 H 109.6 H (80.0-100.0) fL MCH 35.1 H (27.0-32.0) pg RDW 16.6 H 17.2 H (11.5-15.5) % Plt Count 119 L 119 L (150-450) k/uL Absolute Nucleated RBC 0.04 H (0.00-0.00) X 10*3/uL Neutrophils # 9.7 H (1.3-7.7) k/uL Neutrophils # (Manual) 10.41 H (1.3-7.7) k/uL Lymphocytes # (Manual) 0.64 L (1.0-4.8) k/uL Eosinophils # (Manual) 0.76 H (0-0.7) k/uL NRBC/100 WBC Diff 0.3 H (0.0-0.0) /100 WBCS Macrocytosis Marked A PT (9.0-12.0) sec INR (<1.2) Chloride 116 H (96-109) mmol/L Carbon Dioxide 21.4 L (21.6-31.8) mmol/L BUN 35.0 H (9.0-27.0) mg/dL BUN/Creatinine Ratio 38.89 H (12.00-20.00) Ratio Calcium 8.1 L (8.7-10.3) mg/dL Total Bilirubin 4.9 H (0.3-1.2) mg/dL AST 137 H (14-35) U/L ALT 55 H (10-49) U/L Total Protein 6.1 L (6.2-8.2) g/dL Albumin 2.30 L (3.80-4.90) g/dL Globulin 3.8 H (1.6-3.3) g/dL Albumin/Globulin Ratio 0.61 L (1.60-3.17) g/dL 03/02/21 03/02/21 Range/Units 09:13 09:13 WBC (3.8-10.6) k/uL RBC 2.90 L (4.30-5.90) m/uL Hgb 10.6 L (13.0-17.5) gm/dL Hct 31.0 L (39.0-53.0) % MCV 106.8 H (80.0-100.0) fL MCH 36.4 H (27.0-32.0) pg RDW 16.5 H (11.5-15.5) % Plt Count 116 L (150-450) k/uL Absolute Nucleated RBC (0.00-0.00) X 10*3/uL Neutrophils # (1.3-7.7) k/uL Neutrophils # (Manual) (1.3-7.7) k/uL Lymphocytes # (Manual) (1.0-4.8) k/uL Eosinophils # (Manual) (0-0.7) k/uL NRBC/100 WBC Diff (0.0-0.0) /100 WBCS Macrocytosis PT 14.9 H (9.0-12.0) sec INR 1.5 H (<1.2) Chloride (96-109) mmol/L Carbon Dioxide (21.6-31.8) mmol/L BUN (9.0-27.0) mg/dL BUN/Creatinine Ratio (12.00-20.00) Ratio Calcium (8.7-10.3) mg/dL Total Bilirubin (0.3-1.2) mg/dL AST (14-35) U/L ALT (10-49) U/L Total Protein (6.2-8.2) g/dL Albumin (3.80-4.90) g/dL Globulin (1.6-3.3) g/dL Albumin/Globulin Ratio (1.60-3.17) g/dL Assessment and Plan Assessment: Altered mental status likely hepatic encephalopathy due to multifactorial process including liver disease, sepsis, large ascites, spontaneous bacterial peritonitis progressive increasing ascites, spontaneous bacterial peritonitis needs to be excluded proceed with large volume /diagnostic thoracentesis by interventional radiology Severe anemia and thrombocytopenia due to varical bleeding chronic alcoholism Severe sepsis secondary due to acute cholecystitis Gram-negative bacteremia due to E. coli source appears to be acute cholecystitis/ascending cholangitis acute cholecystitis/ascending cholangitis GI bleed likely from esophageal Variaces and as well as exacerbated by coagulopathy due to alcoholic liver disease Acute hypoxic respiratory failure Portal hypertension Esophageal Variaces aspiration pneumonia Acute kidney injury defect. The likely mechanism appeared to be acute tubular necrosis Alcoholic liver disease with cirrhosis Coagulopathy likely related to chronic alcohol related liver disease Plan: laparoscopy cholecystectomy on hold per surgical services INR has been consulted for large volume paracentesis INR improved Continue Zosyn, E. coli is sensitive Supplemental oxygen as needed Midodrine hold if the systolic blood pressure over 110 If evidence of continuous bleeding consider octreotide infusion transfer back to the ICU Gen. surgery consult for evaluation of cholecystectomy Status post banding of esophageal varises Blood transfusion as needed keep hemoglobin over 7-8y Monitor renal functions closely Further plan of care as per clinical response of the patient overall general condition very guarded with impending multiorgan failure Time with Patient: Greater than 30
[2021-03-02 11:18] LABS: African American GFR (CKD) 95.1 (60.0-200.0); Albumin 2.5 g/dL (3.80-4.90); Albumin/Globulin Ratio 0.68 (1.60-3.17); Anion Gap 9.7 mmol/L (4.00-12.00); Calcium 8.3 mg/dL (8.7-10.3); Carbon Dioxide 20.3 mmol/L (21.6-31.8); Globulin 3.7 g/dL (1.6-3.3); Total Bilirubin 5.9 mg/dL (0.2-1.2); Total Protein 6.2 g/dL (6.2-8.2)
[2021-03-02 11:20] LABS: Acanthocytes 2+; Basophils # (A) 0.05 X 10*3/uL (0.00-0.10); Basophils % (A) 0.4 %; Eosinophils # (A) 0.36 X 10*3/uL (0.04-0.35); Lymphocytes # (A) 1.37 X 10*3/uL (0.90-5.00); Lymphocytes % (A) 11.5 %; Macrocytosis (M) 2+; Monocytes % (A) 13.5 %; Neutrophils # (A) 8.29 X 10*3/uL (1.80-7.70); Neutrophils % (A) 69.9 %
[2021-03-02] MEDS: LACTULOSE 20 GM/30 ML CUP PO SCH ×2 (11:55→20:08)
[2021-03-02] MEDS: THIAMINE 100 MG in SODIUM CHLORIDE 0.9% 50 ML IVPB SCH ×2 (11:56→20:08)
[2021-03-02] MEDS: SPIRONOLACTONE 25 MG TAB PO SCH (11:56)
[2021-03-02] MEDS: PROPRANOLOL 20 MG TAB PO SCH (11:56)
[2021-03-02] MEDS: FUROSEMIDE 40 MG TAB PO SCH (11:56)
--- NOTE | 2021-03-02 11:57 | US ---
Ultrasound-guided paracentesis. DATE OF EXAM: 03/02/2021 CLINICAL HISTORY: Ascites The procedure was discussed with the patient. The risks, complications, benefits, and alternatives we re discussed and any questions were answered. Informed consent was obtained. The patient was placed s upine on the ultrasound table and prepped and draped in the usual sterile fashion. All elements of maximal barrier technique were utilized. Under ultrasound guidance, access into the right lower quadrant was obtained, via the paracentesis catheter system and direct ultrasound guidanc e. Approximately 6 liters of straw-colored fluid was removed. The patient was stable throughout the proc edure and remained stable upon discharge from Department of Radiology. IMPRESSION: Successful paracentesis under ultrasound guidance.
--- NOTE | 2021-03-02 12:17 | P.PN ---
Subjective Patient is seen in follow-up for acute kidney injury. Creatinine 1.0 today. Patient is not a reliable historian. Nonoliguric. Paracentesis done this morning for 6 L drained. Vital signs are stable. General: The patient appeared well nourished and normally developed. HEENT: Head exam is unremarkable. Neck is without jugular venous distension. LUNGS: Breath sounds decreased. HEART: Rate and Rhythm are regular. ABDOMEN: Soft, mild distention noted. EXTREMITITES: 1+ edema. Objective - Vital Signs Vital signs: Vital Signs Temp 97.5 F L 03/02/21 07:51 Pulse 96 03/02/21 11:01 Resp 18 03/02/21 11:01 BP 117/66 03/02/21 11:01 Pulse Ox 97 03/02/21 11:01 Intake & Output 03/01/21 03/02/21 03/02/21 18:59 06:59 18:59 Output Total 1000 Balance -1000 Weight 79.2 kg Output: Urine 1000 Other: Voiding Method Indwelling Catheter Indwelling Catheter Indwelling Catheter # Bowel Movements 1 1 - Labs CBC & Chem 7: 03/02/21 09:13 03/02/21 06:18 Labs: Abnormal Lab Results - Last 24 Hours (Table) 03/01/21 03/01/21 03/02/21 Range/Units 12:40 12:40 06:18 WBC 12.7 H (3.8-10.6) k/uL RBC 3.33 L (4.30-5.90) m/uL Hgb 11.3 L (13.0-17.5) gm/dL Hct 35.7 L (39.0-53.0) % MCV 107.0 H (80.0-100.0) fL MCH (27.0-32.0) pg RDW 16.6 H (11.5-15.5) % Plt Count 119 L (150-450) k/uL Plt Count Comment Absolute Nucleated RBC (0.00-0.00) X 10*3/uL Immature Gran # (0.00-0.04) X 10*3/uL Neutrophils # 9.7 H (1.3-7.7) k/uL Neutrophils # (Manual) 10.41 H (1.3-7.7) k/uL Lymphocytes # (Manual) 0.64 L (1.0-4.8) k/uL Monocytes # (0.20-1.00) X 10*3/uL Eosinophils # (0.04-0.35) X 10*3/uL Eosinophils # (Manual) 0.76 H (0-0.7) k/uL NRBC/100 WBC Diff (0.0-0.0) /100 WBCS Macrocytosis Marked A PT (9.9-11.9) sec INR (0.90-1.11) Chloride 116 H 115 H (96-109) mmol/L Carbon Dioxide 21.4 L 20.3 L (21.6-31.8) mmol/L BUN 35.0 H 34.0 H (9.0-27.0) mg/dL BUN/Creatinine Ratio 38.89 H 34.00 H (12.00-20.00) Ratio Calcium 8.1 L 8.3 L (8.7-10.3) mg/dL Total Bilirubin 4.9 H 5.9 H (0.3-1.2) mg/dL AST 137 H 128 H (14-35) U/L ALT 55 H 51 H (10-49) U/L Total Protein 6.1 L (6.2-8.2) g/dL Albumin 2.30 L 2.50 L (3.80-4.90) g/dL Globulin 3.8 H 3.7 H (1.6-3.3) g/dL Albumin/Globulin Ratio 0.61 L 0.68 L (1.60-3.17) g/dL 03/02/21 03/02/21 03/02/21 Range/Units 06:18 06:18 09:13 WBC 11.87 H (3.8-10.6) k/uL RBC 2.82 L (4.30-5.90) m/uL Hgb 9.9 L (13.0-17.5) gm/dL Hct 30.9 L (39.0-53.0) % MCV 109.6 H (80.0-100.0) fL MCH 35.1 H (27.0-32.0) pg RDW 17.2 H (11.5-15.5) % Plt Count 119 L (150-450) k/uL Plt Count Comment DECREASED A Absolute Nucleated RBC 0.04 H (0.00-0.00) X 10*3/uL Immature Gran # 0.20 H (0.00-0.04) X 10*3/uL Neutrophils # 8.29 H (1.3-7.7) k/uL Neutrophils # (Manual) (1.3-7.7) k/uL Lymphocytes # (Manual) (1.0-4.8) k/uL Monocytes # 1.60 H (0.20-1.00) X 10*3/uL Eosinophils # 0.36 H (0.04-0.35) X 10*3/uL Eosinophils # (Manual) (0-0.7) k/uL NRBC/100 WBC Diff 0.3 H (0.0-0.0) /100 WBCS Macrocytosis PT 15.0 H 14.9 H (9.9-11.9) sec INR 1.41 H 1.5 H (0.90-1.11) Chloride (96-109) mmol/L Carbon Dioxide (21.6-31.8) mmol/L BUN (9.0-27.0) mg/dL BUN/Creatinine Ratio (12.00-20.00) Ratio Calcium (8.7-10.3) mg/dL Total Bilirubin (0.3-1.2) mg/dL AST (14-35) U/L ALT (10-49) U/L Total Protein (6.2-8.2) g/dL Albumin (3.80-4.90) g/dL Globulin (1.6-3.3) g/dL Albumin/Globulin Ratio (1.60-3.17) g/dL 03/02/21 Range/Units 09:13 WBC (3.8-10.6) k/uL RBC 2.90 L (4.30-5.90) m/uL Hgb 10.6 L (13.0-17.5) gm/dL Hct 31.0 L (39.0-53.0) % MCV 106.8 H (80.0-100.0) fL MCH 36.4 H (27.0-32.0) pg RDW 16.5 H (11.5-15.5) % Plt Count 116 L (150-450) k/uL Plt Count Comment Absolute Nucleated RBC (0.00-0.00) X 10*3/uL Immature Gran # (0.00-0.04) X 10*3/uL Neutrophils # (1.3-7.7) k/uL Neutrophils # (Manual) (1.3-7.7) k/uL Lymphocytes # (Manual) (1.0-4.8) k/uL Monocytes # (0.20-1.00) X 10*3/uL Eosinophils # (0.04-0.35) X 10*3/uL Eosinophils # (Manual) (0-0.7) k/uL NRBC/100 WBC Diff (0.0-0.0) /100 WBCS Macrocytosis PT (9.9-11.9) sec INR (0.90-1.11) Chloride (96-109) mmol/L Carbon Dioxide (21.6-31.8) mmol/L BUN (9.0-27.0) mg/dL BUN/Creatinine Ratio (12.00-20.00) Ratio Calcium (8.7-10.3) mg/dL Total Bilirubin (0.3-1.2) mg/dL AST (14-35) U/L ALT (10-49) U/L Total Protein (6.2-8.2) g/dL Albumin (3.80-4.90) g/dL Globulin (1.6-3.3) g/dL Albumin/Globulin Ratio (1.60-3.17) g/dL Assessment and Plan Plan: Assessment: 1. Acute kidney injury mostly prerenal secondary to sepsis. Also component of hepatorenal syndrome. Creatinine 1.0 today. 2. Acute cholecystitis with equal bacteremia maintained on antibiotics. 3. Liver cirrhosis. Alcohol induced. 4. Ascites. Status post paracentesis this morning is 6 L drained. 5. Metabolic acidosis secondary to acute kidney injury. Stable. Plan: Remains off IV fluids. Maintain Aldactone. Maintain Lasix. Receiving albumin pre-and post paracentesis. Continue to monitor renal function and urine output.
--- NOTE | 2021-03-02 12:21 | P.PN ---
Subjective Progress Note Date: 03/02/21 Principal diagnosis: Elevated LFTs, melena The patient is a 60-year-old male patient who presented [facility] the emergency department from shelter last week with signs of septic shock. He was initially admitted to the ICU, he also had a GI bleed where he was having large amounts of maroon colored stool. He is status post upper endoscopy with epinephrine injection, endoclipped 3 and esophageal variceal banding. He's had no further episodes of GI bleed. He's been transferred out of the ICU. Today he is seen and evaluated lying in bed. He is less agitated today, sleepy but easily arousable. He is alert and oriented to self and place. He is scheduled to have a bedside paracentesis, for which they removed 6 L of fluid, fluid studies also ordered. His repeat ammonia yesterday was less than 9. Neurology has been consulted for altered mental status changes. Objective - Vital Signs Vital signs: Vital Signs Temp 97.5 F L 03/02/21 07:51 Pulse 100 03/02/21 07:51 Resp 16 03/02/21 07:51 BP 126/81 03/02/21 07:51 Pulse Ox 92 L 03/02/21 07:51 Intake & Output 03/01/21 03/02/21 03/02/21 18:59 06:59 18:59 Output Total 1000 Balance -1000 Weight 79.2 kg Output: Urine 1000 Other: Voiding Method Indwelling Catheter Indwelling Catheter # Bowel Movements 1 1 - Exam General appearance: The patient is dictated, confused. HET: Head is normocephalic and atraumatic. Conjunctiva pink. Sclera icteris. Neck: Supple without lymphadenopathy. Abdomen: Soft, nontender, distedned with bowel sounds. No guarding or rigidity. Extremities: Normal skin color and turgor. Bilateral pedal edema Skin: No rashes, jaundice Neurological: Agitated. - Labs CBC & Chem 7: 03/02/21 09:13 03/02/21 06:18 Labs: Abnormal Lab Results - Last 24 Hours (Table) 03/01/21 03/01/21 03/02/21 Range/Units 12:40 12:40 09:13 WBC 12.7 H (3.8-10.6) k/uL RBC 3.33 L (4.30-5.90) m/uL Hgb 11.3 L (13.0-17.5) gm/dL Hct 35.7 L (39.0-53.0) % MCV 107.0 H (80.0-100.0) fL RDW 16.6 H (11.5-15.5) % Plt Count 119 L (150-450) k/uL Neutrophils # 9.7 H (1.3-7.7) k/uL Neutrophils # (Manual) 10.41 H (1.3-7.7) k/uL Lymphocytes # (Manual) 0.64 L (1.0-4.8) k/uL Eosinophils # (Manual) 0.76 H (0-0.7) k/uL Macrocytosis Marked A PT 14.9 H (9.0-12.0) sec INR 1.5 H (<1.2) Chloride 116 H (96-109) mmol/L Carbon Dioxide 21.4 L (21.6-31.8) mmol/L BUN 35.0 H (9.0-27.0) mg/dL BUN/Creatinine Ratio 38.89 H (12.00-20.00) Ratio Calcium 8.1 L (8.7-10.3) mg/dL Total Bilirubin 4.9 H (0.3-1.2) mg/dL AST 137 H (14-35) U/L ALT 55 H (10-49) U/L Total Protein 6.1 L (6.2-8.2) g/dL Albumin 2.30 L (3.80-4.90) g/dL Globulin 3.8 H (1.6-3.3) g/dL Albumin/Globulin Ratio 0.61 L (1.60-3.17) g/dL Assessment and Plan (1) Anemia due to acute blood loss Narrative/Plan: 60-year-old male with multiple medical comorbidities including hypertension and alcohol abuse currently abstinent from alcohol consumption who presented with a constellation of symptoms including fevers and weakness. Currently the patient is being treated for sepsis with plans for ICU care. The patient has long- standing history of alcohol abuse but denies any known history of cirrhosis. He previously has been hospitalized for GI bleed and reports nasogastric tube placement at that time and is unsure if EGD was performed. He is unclear of any prior history of cirrhosis of the liver but was found to have a cirrhotic appearing liver with ascites on computed tomography scan of the abdomen. Liver enzymes are consistent with alcoholic liver disease and cirrhosis of the liver. The patient developed some dark colored bowel movements while in the emergency department with a fall in his hemoglobin likely secondary to GI bleed as well as hemodilution after being fluid resuscitated. Unclear etiology with differential including peptic ulcer disease, gastritis, esophagitis, AVM, with esophageal varices not completely excluded however less likely given clinical presentation and only minimal elevation BUN on presentation, or other etiology. The patient is status post upper endoscopy with findings of esophageal varices with esophageal variceal band ligation 4 with hemostasis, mild gastritis, Vera-Diego tear with Endo Clip placement 3 and injection of epinephrine, biopsies taken. Current Visit: Yes Status: Acute Code(s): D62 - ACUTE POSTHEMORRHAGIC ANEMIA SNOMED Code(s): 423694443 (2) Alcoholic cirrhosis of liver with ascites Narrative/Plan: Patient is status post paracentesis with fluid studies, 6 L removed Current Visit: Yes Status: Acute Code(s): K70.31 - ALCOHOLIC CIRRHOSIS OF LIVER WITH ASCITES SNOMED Code(s): 339848812 (3) Melena Current Visit: Yes Status: Acute Code(s): K92.1 - MELENA SNOMED Code(s): 6817779 Plan: 1. Low sodium diet 2. Continue symptomatic and supportive care 3. Paracentesis with fluid studies 4. Continue lactulose and spironolactone 5. Continue Lasix 40 QD mg as ordered by nephrology 6. Continue alcohol abstinence Thank you for this consultation, we will continue to follow Dr. David Powers I agree with the dictator's note, documented as a scribe by Fabiana Hull.
[2021-03-02 13:03] LABS: Polychromasia Present
--- NOTE | 2021-03-02 13:44 | P.PN ---
Subjective Progress Note Date: 03/02/21 CHIEF COMPLAINT: Fever HISTORY OF PRESENT ILLNESS: Patient is on regular medical floor. Patient is status post paracentesis with 6 L drained. He did receive albumin pre-and post- paracentesis. Patient is lethargic. Afebrile. WBC 10.0 hemoglobin 10.6 platelets 116 ammonia level less than 9. No surgical intervention planned for cholecystitis due to patient being a high risk surgical candidate. Patient also is being evaluated by neurology in regards to his mentation and they've ordered a computed tomography scan of the brain. Patient seen and examined with Dr. Jamil PHYSICAL EXAM: VITAL SIGNS: Reviewed. GENERAL: Well-developed in no acute distress. HEENT: No sclera icterus. Extraocular movements grossly intact. Moist buccal mucosa. Head is atraumatic, normocephalic. ABDOMEN: Soft. Nontender. Mildly distended NEUROLOGIC: Lethargic ASSESSMENT: 1. Chronic cholecystitis 2. Liver cirrhosis with ascites status post paracentesis 3. Portal hypertension PLAN: -No surgical intervention planned in regards to patient's cholecystitis. Patient is a high risk surgical candidate -Continue antibiotic per ID -Continue supportive care Physician [employer] note has been reviewed by physician. Signing provider agrees with the documented findings, assessment, and plan of care. Objective - Vital Signs Vital signs: Vital Signs Temp 97.5 F L 03/02/21 07:51 Pulse 96 03/02/21 11:01 Resp 18 03/02/21 11:01 BP 117/66 03/02/21 11:01 Pulse Ox 97 03/02/21 11:01 Intake & Output 03/01/21 03/02/21 03/02/21 18:59 06:59 18:59 Output Total 1000 Balance -1000 Weight 79.2 kg Output: Urine 1000 Other: Voiding Method Indwelling Catheter Indwelling Catheter Indwelling Catheter # Bowel Movements 1 1 - Labs CBC & Chem 7: 03/02/21 09:13 03/02/21 06:18 Labs: Abnormal Lab Results - Last 24 Hours (Table) 03/01/21 03/01/21 03/02/21 Range/Units 12:40 12:40 06:18 WBC 12.7 H (3.8-10.6) k/uL RBC 3.33 L (4.30-5.90) m/uL Hgb 11.3 L (13.0-17.5) gm/dL Hct 35.7 L (39.0-53.0) % MCV 107.0 H (80.0-100.0) fL MCH (27.0-32.0) pg RDW 16.6 H (11.5-15.5) % Plt Count 119 L (150-450) k/uL Plt Count Comment Absolute Nucleated RBC (0.00-0.00) X 10*3/uL Immature Gran # (0.00-0.04) X 10*3/uL Neutrophils # 9.7 H (1.3-7.7) k/uL Neutrophils # (Manual) 10.41 H (1.3-7.7) k/uL Lymphocytes # (1.0-4.8) k/uL Lymphocytes # (Manual) 0.64 L (1.0-4.8) k/uL Monocytes # (0.20-1.00) X 10*3/uL Eosinophils # (0.04-0.35) X 10*3/uL Eosinophils # (Manual) 0.76 H (0-0.7) k/uL NRBC/100 WBC Diff (0.0-0.0) /100 WBCS Macrocytosis Marked A PT (9.9-11.9) sec INR (0.90-1.11) Chloride 116 H 115 H (96-109) mmol/L Carbon Dioxide 21.4 L 20.3 L (21.6-31.8) mmol/L BUN 35.0 H 34.0 H (9.0-27.0) mg/dL BUN/Creatinine Ratio 38.89 H 34.00 H (12.00-20.00) Ratio Calcium 8.1 L 8.3 L (8.7-10.3) mg/dL Total Bilirubin 4.9 H 5.9 H (0.3-1.2) mg/dL AST 137 H 128 H (14-35) U/L ALT 55 H 51 H (10-49) U/L Total Protein 6.1 L (6.2-8.2) g/dL Albumin 2.30 L 2.50 L (3.80-4.90) g/dL Globulin 3.8 H 3.7 H (1.6-3.3) g/dL Albumin/Globulin Ratio 0.61 L 0.68 L (1.60-3.17) g/dL 03/02/21 03/02/21 03/02/21 Range/Units 06:18 06:18 09:13 WBC 11.87 H (3.8-10.6) k/uL RBC 2.82 L (4.30-5.90) m/uL Hgb 9.9 L (13.0-17.5) gm/dL Hct 30.9 L (39.0-53.0) % MCV 109.6 H (80.0-100.0) fL MCH 35.1 H (27.0-32.0) pg RDW 17.2 H (11.5-15.5) % Plt Count 119 L (150-450) k/uL Plt Count Comment DECREASED A Absolute Nucleated RBC 0.04 H (0.00-0.00) X 10*3/uL Immature Gran # 0.20 H (0.00-0.04) X 10*3/uL Neutrophils # 8.29 H (1.3-7.7) k/uL Neutrophils # (Manual) (1.3-7.7) k/uL Lymphocytes # (1.0-4.8) k/uL Lymphocytes # (Manual) (1.0-4.8) k/uL Monocytes # 1.60 H (0.20-1.00) X 10*3/uL Eosinophils # 0.36 H (0.04-0.35) X 10*3/uL Eosinophils # (Manual) (0-0.7) k/uL NRBC/100 WBC Diff 0.3 H (0.0-0.0) /100 WBCS Macrocytosis PT 15.0 H 14.9 H (9.9-11.9) sec INR 1.41 H 1.5 H (0.90-1.11) Chloride (96-109) mmol/L Carbon Dioxide (21.6-31.8) mmol/L BUN (9.0-27.0) mg/dL BUN/Creatinine Ratio (12.00-20.00) Ratio Calcium (8.7-10.3) mg/dL Total Bilirubin (0.3-1.2) mg/dL AST (14-35) U/L ALT (10-49) U/L Total Protein (6.2-8.2) g/dL Albumin (3.80-4.90) g/dL Globulin (1.6-3.3) g/dL Albumin/Globulin Ratio (1.60-3.17) g/dL 03/02/21 Range/Units 09:13 WBC (3.8-10.6) k/uL RBC 2.90 L (4.30-5.90) m/uL Hgb 10.6 L (13.0-17.5) gm/dL Hct 31.0 L (39.0-53.0) % MCV 106.8 H (80.0-100.0) fL MCH 36.4 H (27.0-32.0) pg RDW 16.5 H (11.5-15.5) % Plt Count 116 L (150-450) k/uL Plt Count Comment Absolute Nucleated RBC (0.00-0.00) X 10*3/uL Immature Gran # (0.00-0.04) X 10*3/uL Neutrophils # (1.3-7.7) k/uL Neutrophils # (Manual) (1.3-7.7) k/uL Lymphocytes # 0.7 L (1.0-4.8) k/uL Lymphocytes # (Manual) (1.0-4.8) k/uL Monocytes # 1.3 H (0.20-1.00) X 10*3/uL Eosinophils # (0.04-0.35) X 10*3/uL Eosinophils # (Manual) (0-0.7) k/uL NRBC/100 WBC Diff (0.0-0.0) /100 WBCS Macrocytosis PT (9.9-11.9) sec INR (0.90-1.11) Chloride (96-109) mmol/L Carbon Dioxide (21.6-31.8) mmol/L BUN (9.0-27.0) mg/dL BUN/Creatinine Ratio (12.00-20.00) Ratio Calcium (8.7-10.3) mg/dL Total Bilirubin (0.3-1.2) mg/dL AST (14-35) U/L ALT (10-49) U/L Total Protein (6.2-8.2) g/dL Albumin (3.80-4.90) g/dL Globulin (1.6-3.3) g/dL Albumin/Globulin Ratio (1.60-3.17) g/dL
--- NOTE | 2021-03-02 14:04 | PN ---
PROGRESS NOTE DATE OF SERVICE: 03/02/2021 REASON FOR FOLLOWUP: E coli bacteremia secondary to cholecystitis. INTERVAL HISTORY: The patient remains to be afebrile. The patient remains to be lethargic. Undergoing paracentesis. Hemodynamically stable. Unable to provide any history. No vomiting, diarrhea or other changes reported by nursing staff. PHYSICAL EXAMINATION: Blood pressure 117/66, pulse of 96, temperature 97.5. He is 97% room air. General description is a middle-aged male lying in bed in no distress. RESPIRATORY SYSTEM: Unlabored breathing, decreased breath sounds at bases. No wheeze. HEART: S1, S2. Regular rate and rhythm. ABDOMEN: Soft, no tenderness. LABS: Hemoglobin is 10.6, white count 10.0. INR is 1.5. Creatinine is 1.0. DIAGNOSTIC IMPRESSION AND PLAN: Patient with Escherichia coli bacteremia source likely cholecystitis. The patient is a high risk for any surgery now with subsequent worsening of his mentation, status post . Zosyn to continue while waiting for his condition to improve. Will monitor his clinical course closely. MMODL / IJN: [id number] /
[2021-03-02 14:27] LABS: Appearance,BF Hazy; Color,BF Yellow; Nucleated Cells, Body Fluid 140 /uL; RBC, Body Fluid 1570 /uL
--- NOTE | 2021-03-02 14:27 | CT ---
EXAMINATION TYPE: CT brain wo con DATE OF EXAM: 03/02/2021 COMPARISON: None HISTORY: Altered mental status CT DLP: 1099.[address] of the brain was performed. The ventricles, basal cisterns and sulci overlying the cerebral convexities demonstrate mild enlargem ent. There is no evidence for intracranial hemorrhage or sulcal effacement. There is decreased attenuation about the periventricular white matter and deep white matter of both c erebral hemispheres, compatible with chronic small vessel ischemia. Differential diagnosis does inclu de demyelination. No mass effects are seen.No midline shift. Osseous calvarium is intact. If symptoms persist consider MRI. IMPRESSION: 1. Age related atrophic and chronic small vessel ischemic change without acute intracranial process s een at this time.
[2021-03-02 14:32] LABS: Mononuclear WBC,Body Fluid 41 %; Polynuclear WBC,Body Fluid 59 %; Total Cells Counted,Body Fluid 100
--- NOTE | 2021-03-02 15:44 | PN ---
PROGRESS NOTE DATE OF SERVICE: 03/01/2021 This is a 60-year-old white male. Paracentesis is scheduled for tomorrow. He is more obtunded and despite normal ammonia, we are going to have Neurology see him for his increased confusion. Normal ammonia level. HEART: S1, S2. LUNGS: Clear. GI: Distended. White count is 12.7, hemoglobin 9.9. ASSESSMENT: 1. Acute kidney injury secondary to sepsis. 2. Acute cholecystitis. 3. Liver cirrhosis, status post paracentesis. Another paracentesis for tomorrow morning. 4. Metabolic acidosis. Maintain Aldactone, Lasix, albumin. Neurology consult. MMODL / IJN: [id number] /
--- NOTE | 2021-03-02 15:56 | EEG ---
ELECTROENCEPHALOGRAM REPORT DATE OF SERVICE: 03/02/2021. CLINICAL HISTORY: This is a 60-year-old gentleman with altered mental status. This video EEG is obtained to evaluate for seizure and epileptiform activity. RELEVANT MEDICATION: The patient is not on any antiepileptic drugs. DESCRIPTION: Wakefulness and drowsiness are obtained. During the awake state, the background consists of low to moderate voltage nonrhythmic 1.5 to 2.5 hertz delta activity. Also during the awake state there was moderate to significant myogenic artifact. During drowsiness there is slowing and attenuation of background activity. There is no physiological stage II sleep seen. Interictal and ictal: None. ACTIVATION PROCEDURES: Photic stimulation and hyperventilation are not performed. CLINICAL INTERPRETATION: This is an abnormal routine EEG. The background slowing is suggestive of severe encephalopathy, likely of toxic-metabolic etiology. There are no focal slowing, epileptiform discharges or seizure on the EEG. Clinical correlation is recommended. MMJORDAN / MAGON: [id number] / MTDD
--- NOTE | 2021-03-02 18:42 | PN ---
PROGRESS NOTE Kennedy Bangura remains on Zosyn for sepsis. He had some increased confusion, for which an EEG and consult with Neurology have been ordered. He had a brain CT which showed age-related atrophy and chronic small-vessel disease without intracranial process seen. He also had an EEG drawn, read by Dr. Laguna. It showed an abnormal routine EEG suggestive of severe encephalopathy, toxic metabolic encephalopathy. Waiting for neurology recommendations. CARDIOVASCULAR: S1, S2. LUNGS: Clear. PSYCH: He is sleepy and obtunded. ABDOMEN: Distended. Waiting for neurology recommendations. Continue on broad-spectrum antibiotics. Prognosis is extremely guarded. His white count is now in the normal range. Hemoglobin is 10.6, up from 9.9. INR is 1.5. Liver enzymes are improved, 128 and 51. Total bilirubin is elevated at 5.9 but ammonia remains negative. Possibly hepatic encephalopathy. Wait for neurology recommendations. MMODL / IJN: [id number] /
[2021-03-02 22:14] LABS: Albumin, Fluid Source Ascites; Total Protein, Body Fluid 920 mg/dL
[2021-03-03 07:48] LABS: ALT 35 U/L (4-49); AST 100 U/L (17-59); African American GFR (CKD) >90 (>60 ml/min/1.73 sqM); Albumin 2.2 g/dL (3.5-5.0); Albumin/Globulin Ratio 0.6; Alkaline Phosphatase 80 U/L (38-126); Anion Gap 7 mmol/L; Blood Urea Nitrogen 28 mg/dL (9-20); Calcium 8.3 mg/dL (8.4-10.2); Carbon Dioxide 19 mmol/L (22-30); Chloride 124 mmol/L (98-107); Globulin 3.6 g/dL; Glucose 110 mg/dL (74-99); Magnesium 1.9 mg/dL (1.6-2.3); Non-African American GFR(CKD) 80 (>60 ml/min/1.73 sqM); Potassium 3.7 mmol/L (3.5-5.1); Sodium 150 mmol/L (137-145); Total Protein 5.8 g/dL (6.3-8.2)
[2021-03-03 08:02] LABS: Anisocytosis Slight; Basophils % (A) 0 %; Eosinophils # (A) 0.1 k/uL (0-0.7); Eosinophils % (A) 2 %; HCT 30.9 % (39.0-53.0); HGB 9.7 gm/dL (13.0-17.5); Hypochromasia Slight; Lymphocytes % (A) 13 %; MCH 34.8 pg (25.0-35.0); MCHC 31.6 g/dL (31.0-37.0); MCV 110.3 fL (80.0-100.0); Macrocytosis Marked; Mean Platelet Volume 9.8; Monocytes # (A) 0.9 k/uL (0-1.0); Monocytes % (A) 13 %; Neutrophils # (A) 5.2 k/uL (1.3-7.7); Neutrophils % (A) 70 %; RDW 17.6 % (11.5-15.5); WBC 7.4 k/uL (3.8-10.6)
[2021-03-03 08:04] LABS: Platelet Count 106 k/uL (150-450)
[2021-03-03] MEDS: PANTOPRAZOLE 40 MG/10 ML VIAL IV SCH ×2 (09:29→20:02)
[2021-03-03] MEDS: FUROSEMIDE 40 MG TAB PO SCH (09:29)
[2021-03-03] MEDS: LACTULOSE 20 GM/30 ML CUP PO SCH ×3 (09:29→20:16)
[2021-03-03] MEDS: PROPRANOLOL 20 MG TAB PO SCH (09:29)
[2021-03-03] MEDS: SPIRONOLACTONE 25 MG TAB PO SCH (09:29)
[2021-03-03] MEDS: LACTATED RINGERS 1,000 ML IV SCH ×2 (09:30→23:08)
[2021-03-03] MEDS: THIAMINE 100 MG in SODIUM CHLORIDE 0.9% 50 ML IVPB SCH ×2 (09:30→20:02)
--- NOTE | 2021-03-03 10:34 | P.PN ---
Subjective Progress Note Date: 03/03/21 Principal diagnosis: Acute hypoxic respiratory failure Portal hypertension Esophageal Variaces Possible developing aspiration pneumonia Severe sepsis Acute kidney injury defect. The likely mechanism appeared to be acute tubular necrosis GI bleed likely from esophageal Variaces Gram-negative bacteremia source appears to be acute cholecystitis Alcoholic liver disease with cirrhosis Coagulopathy likely related to chronic alcohol related liver disease 03/03/2021, patient seen eval examined during the rounds labs reviewed medications reviewed care plan discussed, history status continued to stable patient room air, however mental status remains unchanged confused arousable with verbal was physical stimuli, status post large volume paracentesis 6 L of straw-colored fluid has been removed, patient also have a positive blood culture related to E. coli likely source being ascending cholangitis, culture however on the sciatic fluid pending 03/02/2021, patient seen eval examined labs reviewed medications reviewed, patient remains confused and somnolent, arousable with verbal stimuli oriented 1-2, patient is being prepared for the large volume paracentesis, neurologist started seeing patient, patient remains on thiamine and folic acid and vitamin B12, CT of the head is pending 03/01/2021, patient seen eval examined during the rounds labs reviewed medicatio ns reviewed care plan discussed with the staff at length, patient has been progressively more lethargic, opens eyes follow to verbal and physical stimuli only, then spontaneously close it, patient has received Ativan for agitation yesterday, patient is scheduled for large volume paracentesis therapeutic purposes and to rule out spontaneous bacterial peritonitis, remains on room air, afebrile oxygen saturation 96%, 02/28/2021, patient seen eval examined during the rounds labs reviewed medications reviewed respiratory status remains stable at room air however more confused today, awake, not appeared to be agitated, slightly anxious, afebrile, hemodynamic status stable, oxygen saturation 95% on room air, cell count is stable at 11,400 BUN/creatinine is 42 and 1.08, sodium is 141, AST and ALT are 1 57/56 total bilirubin is 4.2, ammonia level is less than 9, albumin is only 2.4, patient abdomen appears to be more distended and relatively more formed likely have accumulated fluid consult has been placed for interventional radiology for large volume paracentesis, 02/27/2021, patient seen eval examined during the rounds labs reviewed medications reviewed, patient awake and arousable at times intermittently confused, hemodynamic status stable has been on room air, denies any chest pain, last bowel movement was yesterday no active bleeding has been seen in hemoglobin and platelet count remains stable, ever functions are stable, surgical service following this patient closely, will start patient on propranolol for portal hypertension, 02/26/2021, patient seen eval examined during the rounds labs reviewed medications reviewed patient is sitting upright in the bed breathing comfortably denies any chest pain blood pressure significantly improved dose of midodrine dryness health this morning, INR improved to 1.4, status post endoscopy and banding of esophageal rices by GI postop day #1 some old blood has been noted in the stools, hemoglobin however remains stable, patient is scheduled for laparoscopic cholecystectomy later on this afternoon, will keep in ICU because of multiple comorbidities is postoperatively, patient remains on broad-spectrum antibiotics for gram-negative bacteremia related to E. coli which appears to be not ESBL patient is on IV Zosyn ID has been following the patient as well, hemoglobin improved and stable at 10.8, AST/ALT to 259 and 71, total bilirubin is 4.6, 02/25/2021, patient is semi-propped up awake, breathing better now, is status post endoscopy with banding of esophageal rices, denies any chest pain and swelling in the abdomen slightly better, blood pressure improved today, patient remains on broad-spectrum antibiotics, patient remains on midodrine as well, patient is being scheduled for a lap jevon by general surgery, 2 L oxygen sa turation 94%, a myoglobin is 10.4, 02/24/2021, patient seen eval examined during the rounds in ICU care plan discussed with the staff as well as GI service at length in detail, patient is still have intermittent bleeding going on, computed tomography scan of the chest revealed presence of the esophageal rices, blood pressure running on the marginal side, patient remains on bicarb drip, patient underwent 2 unit of packed RBC as well as 3 bags of FFP transfused, white cell count continue to come down, hemoglobin stable 9.3, potassium is 3.4, BUN/creatinine 34 and 2.44, like acid and lactic acid is slowly coming down latest is 5.2, liver functions continued to be high, with total bilirubin of 3.7, patient is being considered for endoscopy and ligation/bending of esophageal varices, patient is running blood pressure on the low side into the 90s, migratory dry and 5 mg twice a day will be started if there is evidence of more bleeding is seen then will consider octreotide This is a 60-year-old with chronic alcoholism patient presented into the emergency department from [facility] for evaluation of fever or aches and pains, patient has ongoing nausea and abdominal discomfort as well with swelling of the abdomen, symptoms have been progressive for many weeks, about 2 weeks ago patient has a upper GI bleed and had a scope done at [facility] found to have gastric crisis exact details however not available, patient has a significant liver disease due to alcohol is him, workup including ultrasound on February 19 revealed presence of cirrhosis dilated portal vein dilated and distended gallbladder with wall thickening and sludge, on arrival to emergency department patient was febrile with fever of 101 oxygen saturation was 93% hypertensive, blood pressure was 90/50, gradually patient was noted to have drop in hemoglobin, the saturation, continue spiking fever, along with patient has a lower GI bleed GI service has been consulted surgical service also has been consulted, chest x-ray however show right lower lobe infiltrate patchy infiltrate, repeat ultrasound gallstones along with gallbladder thickening, computed tomography scan of the chest performed yesterday negative for pulmonary embolism, presence of esophageal arises prominent spleen and liver findings liver consistent with nodular cirrhosis, chest x-ray earlier revealed normal heart site interstitial edema and some bibasilar infiltrate cannot be excluded patient remains on IV Zosyn today blood cultures positive for gram-negative rods, white cell count up to 17,900 patient oxygen requirement increased to 6 L, hemoglobin however have drop down to 8.4, PT/INR is 24.9 and 2.6 PTT is 48, arterial blood gas revealed pH of 7.15 pCO2 of 24 pO2 of 98 with bicarb of 9, patient was given 2 A of bicarbonate followed by bicarb drip, BUN/creatinine increased to 20 and 2.48, take acid up to 16.8, covid PCR is negative Objective - Vital Signs Vital signs: Vital Signs Temp 97.4 F L 03/03/21 07:57 Pulse 82 03/03/21 07:57 Resp 18 03/03/21 07:57 BP 121/73 03/03/21 07:57 Pulse Ox 97 03/03/21 07:57 Intake & Output 03/02/21 03/03/21 03/03/21 18:59 06:59 18:59 Intake Total 220 Output Total 500 500 Balance -280 -500 Intake: Oral 220 Output: Urine 500 500 Other: Voiding Method Indwelling Catheter Indwelling Catheter # Bowel Movements 1 - Exam - Constitutional General appearance: average body habitus, cooperative, mild distress, somnolent - EENT Eyes: PERRLA Ears: bilateral: normal - Neck Carotids: bilateral: upstroke normal Thyroid: negative: normal size - Respiratory Respiratory: bilateral: diminished - Cardiovascular Rhythm: regular Heart sounds: normal: S1, S2 - Gastrointestinal General gastrointestinal: decreased bowel sounds, more distended today compared to yesterday exam - Integumentary Integumentary: decreased turgor - Neurologic Neurologic: CNII-XII intact - Musculoskeletal Musculoskeletal: gait normal, generalized weakness, strength equal bilaterally - Psychiatric Psychiatric: More somnolent - Labs CBC & Chem 7: 03/03/21 07:14 03/03/21 07:14 Labs: Abnormal Lab Results - Last 24 Hours (Table) 02/23/21 03/02/21 03/02/21 Range/Units 11:37 06:18 06:18 RBC (4.30-5.90) m/uL Hgb (13.0-17.5) gm/dL Hct (39.0-53.0) % MCV (80.0-100.0) fL RDW (11.5-15.5) % Plt Count (150-450) k/uL Plt Count Comment DECREASED A Immature Gran # 0.20 H (0.00-0.04) X 10*3/uL Neutrophils # 8.29 H (1.80-7.70) X 10*3/uL Lymphocytes # (1.0-4.8) k/uL Monocytes # 1.60 H (0.20-1.00) X 10*3/uL Eosinophils # 0.36 H (0.04-0.35) X 10*3/uL Macrocytosis PT (9.9-11.9) sec INR (0.90-1.11) Sodium (137-145) mmol/L Chloride 115 H (96-109) mmol/L Carbon Dioxide 20.3 L (21.6-31.8) mmol/L BUN 34.0 H (9.0-27.0) mg/dL BUN/Creatinine Ratio 34.00 H (12.00-20.00) Ratio Glucose (74-99) mg/dL Calcium 8.3 L (8.7-10.3) mg/dL Total Bilirubin 5.9 H (0.2-1.2) mg/dL AST 128 H (14-35) U/L ALT 51 H (10-49) U/L Total Protein (6.3-8.2) g/dL Albumin 2.50 L (3.80-4.90) g/dL Globulin 3.7 H (1.6-3.3) g/dL Albumin/Globulin Ratio 0.68 L (1.60-3.17) g/dL Crossmatch See Detail 03/02/21 03/02/21 03/03/21 Range/Units 06:18 09:13 07:14 RBC 2.80 L (4.30-5.90) m/uL Hgb 9.7 L (13.0-17.5) gm/dL Hct 30.9 L (39.0-53.0) % MCV 110.3 H (80.0-100.0) fL RDW 17.6 H (11.5-15.5) % Plt Count 106 L (150-450) k/uL Plt Count Comment Immature Gran # (0.00-0.04) X 10*3/uL Neutrophils # (1.80-7.70) X 10*3/uL Lymphocytes # 0.7 L (1.0-4.8) k/uL Monocytes # 1.3 H (0.20-1.00) X 10*3/uL Eosinophils # (0.04-0.35) X 10*3/uL Macrocytosis Marked A PT 15.0 H (9.9-11.9) sec INR 1.41 H (0.90-1.11) Sodium (137-145) mmol/L Chloride (96-109) mmol/L Carbon Dioxide (21.6-31.8) mmol/L BUN (9.0-27.0) mg/dL BUN/Creatinine Ratio (12.00-20.00) Ratio Glucose (74-99) mg/dL Calcium (8.7-10.3) mg/dL Total Bilirubin (0.2-1.2) mg/dL AST (14-35) U/L ALT (10-49) U/L Total Protein (6.3-8.2) g/dL Albumin (3.80-4.90) g/dL Globulin (1.6-3.3) g/dL Albumin/Globulin Ratio (1.60-3.17) g/dL Crossmatch 03/03/21 Range/Units 07:14 RBC (4.30-5.90) m/uL Hgb (13.0-17.5) gm/dL Hct (39.0-53.0) % MCV (80.0-100.0) fL RDW (11.5-15.5) % Plt Count (150-450) k/uL Plt Count Comment Immature Gran # (0.00-0.04) X 10*3/uL Neutrophils # (1.80-7.70) X 10*3/uL Lymphocytes # (1.0-4.8) k/uL Monocytes # (0.20-1.00) X 10*3/uL Eosinophils # (0.04-0.35) X 10*3/uL Macrocytosis PT (9.9-11.9) sec INR (0.90-1.11) Sodium 150 H (137-145) mmol/L Chloride 124 H (96-109) mmol/L Carbon Dioxide 19 L (21.6-31.8) mmol/L BUN 28 H (9.0-27.0) mg/dL BUN/Creatinine Ratio (12.00-20.00) Ratio Glucose 110 H (74-99) mg/dL Calcium 8.3 L (8.7-10.3) mg/dL Total Bilirubin 4.0 H (0.2-1.2) mg/dL AST 100 H (14-35) U/L ALT (10-49) U/L Total Protein 5.8 L (6.3-8.2) g/dL Albumin 2.2 L (3.80-4.90) g/dL Globulin (1.6-3.3) g/dL Albumin/Globulin Ratio (1.60-3.17) g/dL Crossmatch Microbiology - Last 24 Hours (Table) 03/02/21 10:24 Gram Stain - Preliminary Ascites Fluid Body Fluid Culture - Preliminary 03/02/21 10:24 Anaerobic Culture - Preliminary Ascites Fluid Assessment and Plan Assessment: Altered mental status likely hepatic encephalopathy due to multifactorial process including liver disease, sepsis, large ascites, spontaneous bacterial peritonitis progressive increasing ascites, spontaneous bacterial peritonitis needs to be excluded status post large volume paracentesis 6 L have been removed cultures pending, noted albumin low in ascites fluid Severe anemia and thrombocytopenia due to varical bleeding chronic alcoholism Severe sepsis secondary due to acute cholecystitis Gram-negative bacteremia due to E. coli source appears to be acute cholecystitis/ascending cholangitis acute cholecystitis/ascending cholangitis GI bleed likely from esophageal Variaces and as well as exacerbated by coagulopathy due to alcoholic liver disease Acute hypoxic respiratory failure Portal hypertension Esophageal Variaces aspiration pneumonia Acute kidney injury defect. The likely mechanism appeared to be acute tubular necrosis Alcoholic liver disease with cirrhosis Coagulopathy likely related to chronic alcohol related liver disease Plan: laparoscopy cholecystectomy on hold per surgical services INR has been consulted for large volume paracentesis INR improved Continue Zosyn, E. coli is sensitive Supplemental oxygen as needed Midodrine hold if the systolic blood pressure over 110 If evidence of continuous bleeding consider octreotide infusion transfer back to the ICU Gen. surgery consult for evaluation of cholecystectomy Status post banding of esophageal varises Blood transfusion as needed keep hemoglobin over 7-8y Monitor renal functions closely Further plan of care as per clinical response of the patient overall general condition very guarded with impending multiorgan failure Time with Patient: Greater than 30
[2021-03-03] MEDS: PIPERACILLIN-TAZOBACTAM 3.375 GM in SODIUM CHLORIDE 0.9% 100 ML IVPB SCH ×3 (10:37→23:07)
--- NOTE | 2021-03-03 11:42 | P.PN ---
Subjective Progress Note Date: 03/03/21 CHIEF COMPLAINT: Fever HISTORY OF PRESENT ILLNESS: Patient is on regular medical floor. Patient is status post paracentesis with 6 L drained yesterday. Patient is lethargic and abdomen is becoming more distended. He denies any abdominal pain. He was evaluated by neurology regarding his mentation status. Computed tomography scan of the brain showed age-related atrophic and chronic small vessel ischemic change without acute intracranial process. EEG had shown severe encephalopathy, likely toxic metabolic encephalopathy. Neurology following. Afebrile. WBC 7.4 hemoglobin 9.7 platelets 106 sodium 150 creatinine 1.03 Patient seen and examined with Dr. Jamil PHYSICAL EXAM: VITAL SIGNS: Reviewed. GENERAL: Well-developed in no acute distress. HEENT: No sclera icterus. Extraocular movements grossly intact. Moist buccal mucosa. Head is atraumatic, normocephalic. ABDOMEN: Soft. Nontender. Distended NEUROLOGIC: Lethargic ASSESSMENT: 1. Chronic cholecystitis 2. Liver cirrhosis with ascites status post paracentesis 3. Portal hypertension PLAN: -No surgical intervention planned in regards to patient's cholecystitis. Patient is a high risk surgical candidate -Continue antibiotic per ID -Continue supportive care Physician Switch Coupler note has been reviewed by physician. Signing provider agrees with the documented findings, assessment, and plan of care. Objective - Vital Signs Vital signs: Vital Signs Temp 97.4 F L 03/03/21 07:57 Pulse 82 03/03/21 07:57 Resp 18 03/03/21 07:57 BP 121/73 03/03/21 07:57 Pulse Ox 97 03/03/21 07:57 Intake & Output 03/02/21 03/03/21 03/03/21 18:59 06:59 18:59 Intake Total 220 Output Total 500 500 Balance -280 -500 Intake: Oral 220 Output: Urine 500 500 Other: Voiding Method Indwelling Catheter Indwelling Catheter Indwelling Catheter # Bowel Movements 1 - Labs CBC & Chem 7: 03/03/21 07:14 03/03/21 07:14 Labs: Abnormal Lab Results - Last 24 Hours (Table) 02/23/21 03/02/21 03/03/21 Range/Units 11:37 09:13 07:14 RBC 2.80 L (4.30-5.90) m/uL Hgb 9.7 L (13.0-17.5) gm/dL Hct 30.9 L (39.0-53.0) % MCV 110.3 H (80.0-100.0) fL RDW 17.6 H (11.5-15.5) % Plt Count 106 L (150-450) k/uL Lymphocytes # 0.7 L (1.0-4.8) k/uL Monocytes # 1.3 H (0-1.0) k/uL Macrocytosis Marked A Sodium (137-145) mmol/L Chloride (98-107) mmol/L Carbon Dioxide (22-30) mmol/L BUN (9-20) mg/dL Glucose (74-99) mg/dL Calcium (8.4-10.2) mg/dL Total Bilirubin (0.2-1.3) mg/dL AST (17-59) U/L Total Protein (6.3-8.2) g/dL Albumin (3.5-5.0) g/dL Crossmatch See Detail 03/03/21 Range/Units 07:14 RBC (4.30-5.90) m/uL Hgb (13.0-17.5) gm/dL Hct (39.0-53.0) % MCV (80.0-100.0) fL RDW (11.5-15.5) % Plt Count (150-450) k/uL Lymphocytes # (1.0-4.8) k/uL Monocytes # (0-1.0) k/uL Macrocytosis Sodium 150 H (137-145) mmol/L Chloride 124 H (98-107) mmol/L Carbon Dioxide 19 L (22-30) mmol/L BUN 28 H (9-20) mg/dL Glucose 110 H (74-99) mg/dL Calcium 8.3 L (8.4-10.2) mg/dL Total Bilirubin 4.0 H (0.2-1.3) mg/dL AST 100 H (17-59) U/L Total Protein 5.8 L (6.3-8.2) g/dL Albumin 2.2 L (3.5-5.0) g/dL Crossmatch Microbiology - Last 24 Hours (Table) 03/02/21 10:24 Gram Stain - Preliminary Ascites Fluid Body Fluid Culture - Preliminary 03/02/21 10:24 Anaerobic Culture - Preliminary Ascites Fluid
--- NOTE | 2021-03-03 12:24 | P.PN ---
Subjective Patient is seen in follow-up for acute kidney injury. Renal function stable. Patient is not a reliable historian. Quite lethargic. Nonoliguric. Vital signs are stable. General: The patient appeared well nourished and normally developed. HEENT: Head exam is unremarkable. Neck is without jugular venous distension. LUNGS: Breath sounds decreased. HEART: Rate and Rhythm are regular. ABDOMEN: Distention noted. EXTREMITITES: 1+ edema. Objective - Vital Signs Vital signs: Vital Signs Temp 97.4 F L 03/03/21 07:57 Pulse 82 03/03/21 07:57 Resp 18 03/03/21 07:57 BP 121/73 03/03/21 07:57 Pulse Ox 97 03/03/21 07:57 Intake & Output 03/02/21 03/03/21 03/03/21 18:59 06:59 18:59 Intake Total 220 Output Total 500 500 Balance -280 -500 Intake: Oral 220 Output: Urine 500 500 Other: Voiding Method Indwelling Catheter Indwelling Catheter Indwelling Catheter # Bowel Movements 1 - Labs CBC & Chem 7: 03/03/21 07:14 03/03/21 07:14 Labs: Abnormal Lab Results - Last 24 Hours (Table) 02/23/21 03/02/21 03/03/21 Range/Units 11:37 09:13 07:14 RBC 2.80 L (4.30-5.90) m/uL Hgb 9.7 L (13.0-17.5) gm/dL Hct 30.9 L (39.0-53.0) % MCV 110.3 H (80.0-100.0) fL RDW 17.6 H (11.5-15.5) % Plt Count 106 L (150-450) k/uL Lymphocytes # 0.7 L (1.0-4.8) k/uL Monocytes # 1.3 H (0-1.0) k/uL Macrocytosis Marked A Sodium (137-145) mmol/L Chloride (98-107) mmol/L Carbon Dioxide (22-30) mmol/L BUN (9-20) mg/dL Glucose (74-99) mg/dL Calcium (8.4-10.2) mg/dL Total Bilirubin (0.2-1.3) mg/dL AST (17-59) U/L Total Protein (6.3-8.2) g/dL Albumin (3.5-5.0) g/dL Crossmatch See Detail 03/03/21 Range/Units 07:14 RBC (4.30-5.90) m/uL Hgb (13.0-17.5) gm/dL Hct (39.0-53.0) % MCV (80.0-100.0) fL RDW (11.5-15.5) % Plt Count (150-450) k/uL Lymphocytes # (1.0-4.8) k/uL Monocytes # (0-1.0) k/uL Macrocytosis Sodium 150 H (137-145) mmol/L Chloride 124 H (98-107) mmol/L Carbon Dioxide 19 L (22-30) mmol/L BUN 28 H (9-20) mg/dL Glucose 110 H (74-99) mg/dL Calcium 8.3 L (8.4-10.2) mg/dL Total Bilirubin 4.0 H (0.2-1.3) mg/dL AST 100 H (17-59) U/L Total Protein 5.8 L (6.3-8.2) g/dL Albumin 2.2 L (3.5-5.0) g/dL Crossmatch Microbiology - Last 24 Hours (Table) 03/02/21 10:24 Gram Stain - Preliminary Ascites Fluid Body Fluid Culture - Preliminary 03/02/21 10:24 Anaerobic Culture - Preliminary Ascites Fluid Assessment and Plan Plan: Assessment: 1. Acute kidney injury mostly prerenal secondary to sepsis. Also component of hepatorenal syndrome. Creatinine 1.03 today. 2. Acute cholecystitis with E. coli bacteremia maintained on antibiotics. 3. Liver cirrhosis. Alcohol induced. 4. Ascites. Status post paracentesis on March 02 with 6 L drained. 5. Metabolic acidosis secondary to acute kidney injury. Stable. 6. Hypernatremia from lack of oral water intake. Plan: Start D5W at 75 mL an hour. Maintain Aldactone. Maintain Lasix. I will give him an additional dose of Lasix 20 mg IV this afternoon. Continue to monitor renal function and urine output.
[2021-03-03] MEDS: DEXTROSE 5% IN WATER 1,000 ML IV SCH ×2 (12:58→23:08)
[2021-03-03] MEDS ORDERED: FUROSEMIDE 10 MG/ML 2 ML VIAL IV ONE (15:00)
--- NOTE | 2021-03-03 15:23 | P.PN ---
Subjective Progress Note Date: 03/03/21 Principal diagnosis: Elevated LFTs, melena The patient is a 60-year-old male patient who presented to the emergency department from skilled nursing last week with signs of septic shock. He was initially admitted to the ICU, he also had a GI bleed where he was having large amounts of maroon colored stool. He is status post upper endoscopy with epinephrine injection, endoclipped 3 and esophageal variceal banding. He's had no further episodes of GI bleed. Today he is seen and evaluated lying in bed on my he is a little more alert today. He is oriented to person place and time. He had an EEG done yesterday which was abnormal, read as consistent with metabolic encephalopathy. He is status post paracentesis yesterday of 6 L of fluid removed. He states he does have some abdominal discomfort. He has had no nausea or vomiting, no evidence of black tarry stools. Objective - Vital Signs Vital signs: Vital Signs Temp 97.4 F L 03/03/21 07:57 Pulse 82 03/03/21 07:57 Resp 18 03/03/21 07:57 BP 121/73 03/03/21 07:57 Pulse Ox 97 03/03/21 07:57 Intake & Output 03/02/21 03/03/21 03/03/21 18:59 06:59 18:59 Intake Total 220 Output Total 500 500 Balance -280 -500 Weight 79.2 kg Intake: Oral 220 Output: Urine 500 500 Other: Voiding Method Indwelling Catheter Indwelling Catheter Indwelling Catheter # Bowel Movements 1 - Exam General appearance: The patient is drowsy but easily arousable and oriented 3. Ears no acute distress. HET: Head is normocephalic and atraumatic. Conjunctiva pink. Sclera icteris. Neck: Supple without lymphadenopathy. Abdomen: Soft, nontender, distedned with bowel sounds. No guarding or rigidity. Extremities: Normal skin color and turgor. Bilateral pedal edema Skin: No rashes, jaundice Neurological: Alert and oriented 3 - Labs CBC & Chem 7: 03/03/21 07:14 03/03/21 07:14 Labs: Abnormal Lab Results - Last 24 Hours (Table) 02/23/21 03/03/21 03/03/21 Range/Units 11:37 07:14 07:14 RBC 2.80 L (4.30-5.90) m/uL Hgb 9.7 L (13.0-17.5) gm/dL Hct 30.9 L (39.0-53.0) % MCV 110.3 H (80.0-100.0) fL RDW 17.6 H (11.5-15.5) % Plt Count 106 L (150-450) k/uL Macrocytosis Marked A Sodium 150 H (137-145) mmol/L Chloride 124 H (98-107) mmol/L Carbon Dioxide 19 L (22-30) mmol/L BUN 28 H (9-20) mg/dL Glucose 110 H (74-99) mg/dL Calcium 8.3 L (8.4-10.2) mg/dL Total Bilirubin 4.0 H (0.2-1.3) mg/dL AST 100 H (17-59) U/L Total Protein 5.8 L (6.3-8.2) g/dL Albumin 2.2 L (3.5-5.0) g/dL Crossmatch See Detail Microbiology - Last 24 Hours (Table) 03/02/21 10:24 Gram Stain - Preliminary Ascites Fluid Body Fluid Culture - Preliminary 03/02/21 10:24 Anaerobic Culture - Preliminary Ascites Fluid Assessment and Plan (1) Anemia due to acute blood loss Narrative/Plan: 60-year-old male with multiple medical comorbidities including hypertension and alcohol abuse currently abstinent from alcohol consumption who presented with a constellation of symptoms including fevers and weakness. Currently the patient is being treated for sepsis with plans for ICU care. The patient has long- standing history of alcohol abuse but denies any known history of cirrhosis. He previously has been hospitalized for GI bleed and reports nasogastric tube placement at that time and is unsure if EGD was performed. He is unclear of any prior history of cirrhosis of the liver but was found to have a cirrhotic appearing liver with ascites on computed tomography scan of the abdomen. Liver enzymes are consistent with alcoholic liver disease and cirrhosis of the liver. The patient developed some dark colored bowel movements while in the emergency department with a fall in his hemoglobin likely secondary to GI bleed as well as hemodilution after being fluid resuscitated. Unclear etiology with differential including peptic ulcer disease, gastritis, esophagitis, AVM, with esophageal varices not completely excluded however less likely given clinical presentation and only minimal elevation BUN on presentation, or other etiology. The patient is status post upper endoscopy with findings of esophageal varices with esophageal variceal band ligation 4 with hemostasis, mild gastritis, Vera-Diego tear with Endo Clip placement 3 and injection of epinephrine, biopsies taken. Current Visit: Yes Status: Acute Code(s): D62 - ACUTE POSTHEMORRHAGIC ANEMIA SNOMED Code(s): 952651466 (2) Alcoholic cirrhosis of liver with ascites Narrative/Plan: Patient is status post paracentesis with fluid studies, 6 L removed. Patient will likely need repeat paracentesis before discharge. Current Visit: Yes Status: Acute Code(s): K70.31 - ALCOHOLIC CIRRHOSIS OF LIVER WITH ASCITES SNOMED Code(s): 062577300 (3) Melena Current Visit: Yes Status: Acute Code(s): K92.1 - MELENA SNOMED Code(s): 9640296 Plan: 1. Low sodium diet 2. Continue symptomatic and supportive care 3. It is post paracentesis with fluid studies 4. Continue lactulose and spironolactone 5. Continue diuretics as ordered by nephrology 6. Continue alcohol abstinence 7. Patient may benefit from repeat paracentesis before discharge Thank you for this consultation, we will continue to follow Dr. David Powers I agree with the dictator's note, documented as a scribe by Fabiana Hull.
--- NOTE | 2021-03-03 17:45 | PN ---
PROGRESS NOTE DATE OF SERVICE: 03/03/2021 REASON FOR FOLLOWUP: E coli bacteremia and cholecystitis. INTERVAL HISTORY: The patient is afebrile. The patient is slightly more awake and alert today, though he did mention that he is hurting all over. The patient denies having any chest pain. Still complains of some shortness of breath, though the patient is on room air. No vomiting or diarrhea has been reported. PHYSICAL EXAMINATION: Blood pressure 108/69, pulse of 77, temperature 98. He is 97% on room air. General description is a middle-aged male lying in bed in no distress. RESPIRATORY SYSTEM: Unlabored breathing. Clear to auscultation anteriorly. HEART: S1, S2. Regular rate and rhythm. ABDOMEN: Soft. Mildly distended. No guarding or rigidity. LABS: Hemoglobin is 9.7, white count 7.4, BUN of 28, creatinine 1.03. DIAGNOSTIC IMPRESSION AND PLAN: Patient with Escherichia coli bacteremia secondary to cholecystitis. The patient has a high risk for surgical intervention, has been treated medically. Patient is covered with Zosyn; to continue, following his clinical course closely. Continue with supportive care. MMODL / IJN: [id number] /
[2021-03-03 20:56] LABS: Folate, Serum 14.3 ng/mL; Vitamin B12 >4000.0 pg/mL (211-911)
[2021-03-04 06:47] LABS: ALT 31 U/L (4-49); AST 81 U/L (17-59); African American GFR (CKD) >90 (>60 ml/min/1.73 sqM); Albumin/Globulin Ratio 0.6; Alkaline Phosphatase 75 U/L (38-126); Anion Gap 5 mmol/L; Blood Urea Nitrogen 20 mg/dL (9-20); Calcium 7.7 mg/dL (8.4-10.2); Carbon Dioxide 22 mmol/L (22-30); Chloride 113 mmol/L (98-107); Globulin 3.5 g/dL; Glucose 121 mg/dL (74-99); Magnesium 1.4 mg/dL (1.6-2.3); Non-African American GFR(CKD) 81 (>60 ml/min/1.73 sqM); Potassium 3.1 mmol/L (3.5-5.1); Sodium 140 mmol/L (137-145); Total Bilirubin 4.1 mg/dL (0.2-1.3); Total Protein 5.5 g/dL (6.3-8.2)
[2021-03-04] MEDS ORDERED: POTASSIUM CHLORIDE ER 20 MEQ TAB.ER PO STA (07:38)
[2021-03-04] MEDS: MAGNESIUM SULFATE-D5W PMX 1 GM in DEXTROSE/WATER 1 100ML.BAG IVPB SCH ×2 (08:04→09:04)
[2021-03-04] MEDS: PANTOPRAZOLE 40 MG/10 ML VIAL IV SCH ×2 (08:05→20:03)
[2021-03-04] MEDS: FUROSEMIDE 40 MG TAB PO SCH (08:05)
[2021-03-04] MEDS: SPIRONOLACTONE 25 MG TAB PO SCH (08:05)
[2021-03-04] MEDS: PROPRANOLOL 20 MG TAB PO SCH (08:06)
[2021-03-04] MEDS: LACTULOSE 20 GM/30 ML CUP PO SCH ×2 (08:10→20:03)
[2021-03-04] MEDS: PIPERACILLIN-TAZOBACTAM 3.375 GM in SODIUM CHLORIDE 0.9% 100 ML IVPB SCH ×3 (08:11→23:32)
[2021-03-04] MEDS: THIAMINE 100 MG in SODIUM CHLORIDE 0.9% 50 ML IVPB SCH ×2 (10:13→20:03)
--- NOTE | 2021-03-04 11:12 | P.PN ---
Subjective Progress Note Date: 03/04/21 Principal diagnosis: Acute hypoxic respiratory failure Portal hypertension Esophageal Variaces Possible developing aspiration pneumonia Severe sepsis Acute kidney injury defect. The likely mechanism appeared to be acute tubular necrosis GI bleed likely from esophageal Variaces Gram-negative bacteremia source appears to be acute cholecystitis Alcoholic liver disease with cirrhosis Coagulopathy likely related to chronic alcohol related liver disease 03/04/2021, patient seen eval examined during the rounds labs reviewed medications reviewed care plan discussed, respiratory status remains stable, patient is on room air, mental status improved now more awake and alert sitting question responding appropriately, appear weak and exhausted, acetic fluid cultures are pending, patient remains on the Zosyn along with Aldactone thiamine and folic acid protection being replaced as per protocol, today's labs are significant for hypokalemia potassium is down to 3.1 sodium normalized, 03/03/2021, patient seen eval examined during the rounds labs reviewed medications reviewed care plan discussed, history status continued to stable patient room air, however mental status remains unchanged confused arousable with verbal was physical stimuli, status post large volume paracentesis 6 L of straw-colored fluid has been removed, patient also have a positive blood culture related to E. coli likely source being ascending cholangitis, culture however on the sciatic fluid pending 03/02/2021, patient seen eval examined labs reviewed medications reviewed, patient remains confused and somnolent, arousable with verbal stimuli oriented 1-2, patient is being prepared for the large volume paracentesis, neurologist started seeing patient, patient remains on thiamine and folic acid and vitamin B12, CT of the head is pending 03/01/2021, patient seen eval examined during the rounds labs reviewed medications reviewed care plan discussed with the staff at length, patient has been progressively more lethargic, opens eyes follow to verbal and physical stimuli only, then spontaneously close it, patient has received Ativan for agitation yesterday, patient is scheduled for large volume paracentesis therapeutic purposes and to rule out spontaneous bacterial peritonitis, remains on room air, afebrile oxygen saturation 96%, 02/28/2021, patient seen eval examined during the rounds labs reviewed medications reviewed respiratory status remains stable at room air however more confused today, awake, not appeared to be agitated, slightly anxious, afebrile, hemodynamic status stable, oxygen saturation 95% on room air, cell count is stable at 11,400 BUN/creatinine is 42 and 1.08, sodium is 141, AST and ALT are 1 57/56 total bilirubin is 4.2, ammonia level is less than 9, albumin is only 2.4, patient abdomen appears to be more distended and relatively more formed likely have accumulated fluid consult has been placed for interventional radiology for large volume paracentesis, 02/27/2021, patient seen eval examined during the rounds labs reviewed medications reviewed, patient awake and arousable at times intermittently confused, hemodynamic status stable has been on room air, denies any chest pain, last bowel movement was yesterday no active bleeding has been seen in hemoglobin and platelet count remains stable, ever functions are stable, surgical service following this patient closely, will start patient on propranolol for portal hypertension, 02/26/2021, patient seen eval examined during the rounds labs reviewed medications reviewed patient is sitting upright in the bed breathing comfortably denies any chest pain blood pressure significantly improved dose of midodrine dryness health this morning, INR improved to 1.4, status post endoscopy and banding of esophageal rices by GI postop day #1 some old blood has been noted in the stools, hemoglobin however remains stable, patient is scheduled for laparoscopic cholecystectomy later on this afternoon, will keep in ICU because of multiple comorbidities is postoperatively, patient remains on broad-spectrum antibiotics for gram-negative bacteremia related to E. coli which appears to be not ESBL patient is on IV Zosyn ID has been following the patient as well, hemoglobin improved and stable at 10.8, AST/ALT to 259 and 71, total bilirubin is 4.6, 02/25/2021, patient is semi-propped up awake, breathing better now, is status post endoscopy with banding of esophageal rices, denies any chest pain and sw elling in the abdomen slightly better, blood pressure improved today, patient remains on broad-spectrum antibiotics, patient remains on midodrine as well, patient is being scheduled for a lap jevon by general surgery, 2 L oxygen saturation 94%, a myoglobin is 10.4, 02/24/2021, patient seen eval examined during the rounds in ICU care plan discussed with the staff as well as GI service at length in detail, patient is still have intermittent bleeding going on, computed tomography scan of the chest revealed presence of the esophageal rices, blood pressure running on the marginal side, patient remains on bicarb drip, patient underwent 2 unit of packed RBC as well as 3 bags of FFP transfused, white cell count continue to come down, hemoglobin stable 9.3, potassium is 3.4, BUN/creatinine 34 and 2.44, like acid and lactic acid is slowly coming down latest is 5.2, liver functions continued to be high, with total bilirubin of 3.7, patient is being considered for endoscopy and ligation/bending of esophageal varices, patient is running blood pressure on the low side into the 90s, migratory dry and 5 mg twice a day will be started if there is evidence of more bleeding is seen then will consider octreotide This is a 60-year-old with chronic alcoholism patient presented into the emergency department from [facility] for evaluation of fever or aches and pains, patient has ongoing nausea and abdominal discomfort as well with swelling of the abdomen, symptoms have been progressive for many weeks, about 2 weeks ago patient has a upper GI bleed and had a scope done at [facility] found to have gastric crisis exact details however not available, patient has a significant liver disease due to alcohol is him, workup including ultrasound on February 19 revealed presence of cirrhosis dilated portal vein dilated and distended gallbladder with wall thickening and sludge, on arrival to emergency department patient was febrile with fever of 101 oxygen saturation was 93% hypertensive, blood pressure was 90/50, gradually patient was noted to have drop in hemoglobin, the saturation, continue spiking fever, along with patient has a lower GI bleed GI service has been consulted surgical service also has been consulted, chest x-ray however show right lower lobe infiltrate patchy in filtrate, repeat ultrasound gallstones along with gallbladder thickening, computed tomography scan of the chest performed yesterday negative for pulmonary embolism, presence of esophageal arises prominent spleen and liver findings liver consistent with nodular cirrhosis, chest x-ray earlier revealed normal heart site interstitial edema and some bibasilar infiltrate cannot be excluded patient remains on IV Zosyn today blood cultures positive for gram-negative rods, white cell count up to 17,900 patient oxygen requirement increased to 6 L, hemoglobin however have drop down to 8.4, PT/INR is 24.9 and 2.6 PTT is 48, arterial blood gas revealed pH of 7.15 pCO2 of 24 pO2 of 98 with bicarb of 9, pa aixa was given 2 A of bicarbonate followed by bicarb drip, BUN/creatinine increased to 20 and 2.48, take acid up to 16.8, covid PCR is negative Objective - Vital Signs Vital signs: Vital Signs Temp 98.2 F 03/04/21 08:31 Pulse 78 03/04/21 08:31 Resp 16 03/04/21 08:31 BP 96/60 03/04/21 08:31 Pulse Ox 94 L 03/04/21 08:31 Intake & Output 03/03/21 03/04/21 03/04/21 18:59 06:59 18:59 Intake Total 336 Output Total 1350 1400 Balance -1350 -1400 336 Weight 79.2 kg Intake: Intake, IV Titration 100 Amount Magnesium Sulfate-D5w Pmx 100 1 gm In Dextrose/Water 1 100ml.bag @ 100 mls/hr IVPB Q1H ROXANNE Rx#: [id number] Oral 236 Output: Urine 1350 1400 Other: Voiding Method Indwelling Catheter Indwelling Catheter # Bowel Movements 2 1 - Exam - Constitutional General appearance: average body habitus, cooperative, mild distress, somnolent - EENT Eyes: PERRLA Ears: bilateral: normal - Neck Carotids: bilateral: upstroke normal Thyroid: negative: normal size - Respiratory Respiratory: bilateral: diminished - Cardiovascular Rhythm: regular Heart sounds: normal: S1, S2 - Gastrointestinal General gastrointestinal: decreased bowel sounds, more distended today compared to yesterday exam - Integumentary Integumentary: decreased turgor - Neurologic Neurologic: CNII-XII intact - Musculoskeletal Musculoskeletal: gait normal, generalized weakness, strength equal bilaterally - Psychiatric Psychiatric: More somnolent - Labs CBC & Chem 7: 03/03/21 07:14 03/04/21 05:59 Labs: Abnormal Lab Results - Last 24 Hours (Table) 03/02/21 03/04/21 Range/Units 06:18 05:59 Potassium 3.1 L (3.5-5.1) mmol/L Chloride 113 H (98-107) mmol/L Glucose 121 H (74-99) mg/dL Calcium 7.7 L (8.4-10.2) mg/dL Magnesium 1.4 L (1.6-2.3) mg/dL Total Bilirubin 4.1 H (0.2-1.3) mg/dL AST 81 H (17-59) U/L Total Protein 5.5 L (6.3-8.2) g/dL Albumin 2.0 L (3.5-5.0) g/dL Vitamin B12 >4000.0 H (211-911) pg/mL Microbiology - Last 24 Hours (Table) 03/02/21 10:24 Gram Stain - Preliminary Ascites Fluid Body Fluid Culture - Preliminary Assessment and Plan Assessment: Altered mental status likely hepatic encephalopathy due to multifactorial process including liver disease, sepsis, large ascites, spontaneous bacterial peritonitis, more awake and alert now Severe anemia and thrombocytopenia due to varical bleeding chronic alcoholism, overall stable no evidence of active bleeding seen Severe sepsis secondary due to acute cholecystitis, Gram-negative bacteremia due to E. coli source appears to be acute cholecystitis/ascending cholangitis acute cholecystitis/ascending cholangitis GI bleed likely from esophageal Variaces and as well as exacerbated by coagulopathy due to alcoholic liver disease Acute hypoxic respiratory failure Portal hypertension Esophageal Variaces aspiration pneumonia Acute kidney injury defect. The likely mechanism appeared to be acute tubular necrosis Alcoholic liver disease with cirrhosis Coagulopathy likely related to chronic alcohol related liver disease Plan: laparoscopy cholecystectomy on hold per surgical services INR has been consulted for large volume paracentesis INR improved Continue Zosyn, E. coli is sensitive Supplemental oxygen as needed Midodrine hold if the systolic blood pressure over 110 If evidence of continuous bleeding consider octreotide infusion transfer back to the ICU Gen. surgery consult for evaluation of cholecystectomy Status post banding of esophageal varises Blood transfusion as needed keep hemoglobin over 7-8y Monitor renal functions closely Further plan of care as per clinical response of the patient overall general condition very guarded with impending multiorgan failure Time with Patient: Greater than 30
--- NOTE | 2021-03-04 12:52 | P.PN ---
Subjective Patient is seen in follow-up for acute kidney injury. Renal function stable. Patient is not a reliable historian. Blood pressure stable. Nonoliguric. Vital signs are stable. General: The patient appeared well nourished and normally developed. HEENT: Head exam is unremarkable. Neck is without jugular venous distension. LUNGS: Breath sounds decreased. HEART: Rate and Rhythm are regular. ABDOMEN: Distention noted. EXTREMITITES: 1+ edema. Objective - Vital Signs Vital signs: Vital Signs Temp 98.2 F 03/04/21 08:31 Pulse 78 03/04/21 08:31 Resp 16 03/04/21 08:31 BP 96/60 03/04/21 08:31 Pulse Ox 94 L 03/04/21 08:31 Intake & Output 03/03/21 03/04/21 03/04/21 18:59 06:59 18:59 Intake Total 336 Output Total 1350 1400 Balance -1350 -1400 336 Weight 79.2 kg Intake: Intake, IV Titration 100 Amount Magnesium Sulfate-D5w Pmx 100 1 gm In Dextrose/Water 1 100ml.bag @ 100 mls/hr IVPB Q1H [facility] Rx#: [id number] Oral 236 Output: Urine 1350 1400 Other: Voiding Method Indwelling Catheter Indwelling Catheter # Bowel Movements 2 1 - Labs CBC & Chem 7: 03/03/21 07:14 03/04/21 05:59 Labs: Abnormal Lab Results - Last 24 Hours (Table) 03/02/21 03/04/21 Range/Units 06:18 05:59 Potassium 3.1 L (3.5-5.1) mmol/L Chloride 113 H (98-107) mmol/L Glucose 121 H (74-99) mg/dL Calcium 7.7 L (8.4-10.2) mg/dL Magnesium 1.4 L (1.6-2.3) mg/dL Total Bilirubin 4.1 H (0.2-1.3) mg/dL AST 81 H (17-59) U/L Total Protein 5.5 L (6.3-8.2) g/dL Albumin 2.0 L (3.5-5.0) g/dL Vitamin B12 >4000.0 H (211-911) pg/mL Microbiology - Last 24 Hours (Table) 03/02/21 10:24 Gram Stain - Preliminary Ascites Fluid Body Fluid Culture - Preliminary Assessment and Plan Plan: Assessment: 1. Acute kidney injury mostly prerenal secondary to sepsis. Also component of hepatorenal syndrome. Creatinine 1.01 today. 2. Acute cholecystitis with E. coli bacteremia maintained on antibiotics. 3. Liver cirrhosis. Alcohol induced. 4. Ascites. Status post paracentesis on March 02 with 6 L drained. 5. Metabolic acidosis secondary to acute kidney injury. Improved. 6. Hypernatremia from lack of oral water intake. Improved with D5W infusion. Plan: IV fluids discontinued. Maintain Aldactone. Maintain Lasix. Continue to monitor renal function and urine output. Potassium replacement.
--- NOTE | 2021-03-04 15:26 | P.PN ---
Subjective Progress Note Date: 03/04/21 CHIEF COMPLAINT: Fever HISTORY OF PRESENT ILLNESS: Patient is on regular medical floor. Surgical service following regards to his chronic cholecystitis Patient is more awake today. He's able to answer questions. He reports being able to get up and walk to use the bathroom. Patient is followed by neurology in regards to toxic metabolic encephalopathy. Patient denies any abdominal pain. He is tolerating diet. Afebrile. Sodium 140 potassium 3.1 creatinine 1.01 magnesium 1.4. Magnesium and potassium being replaced Patient seen and examined with Dr. Jamil PHYSICAL EXAM: VITAL SIGNS: Reviewed. GENERAL: Well-developed in no acute distress. HEENT: No sclera icterus. Extraocular movements grossly intact. Moist buccal mucosa. Head is atraumatic, normocephalic. ABDOMEN: Nontender. Distended NEUROLOGIC: Sleepy but able to answer questions ASSESSMENT: 1. Chronic cholecystitis 2. Liver cirrhosis with ascites status post paracentesis 3. Portal hypertension PLAN: -No surgical intervention planned in regards to patient's cholecystitis. Patient is a high risk surgical candidate -Continue antibiotic per ID -Continue supportive care Physician Head Of Geography note has been reviewed by physician. Signing provider agrees with the documented findings, assessment, and plan of care. Objective - Vital Signs Vital signs: Vital Signs Temp 98.2 F 03/04/21 08:31 Pulse 78 03/04/21 08:31 Resp 16 03/04/21 08:31 BP 96/60 03/04/21 08:31 Pulse Ox 94 L 03/04/21 08:31 Intake & Output 03/03/21 03/04/21 03/04/21 18:59 06:59 18:59 Intake Total 336 Output Total 1350 1400 Balance -1350 -1400 336 Weight 79.2 kg Intake: Intake, IV Titration 100 Amount Magnesium Sulfate-D5w Pmx 100 1 gm In Dextrose/Water 1 100ml.bag @ 100 mls/hr IVPB Q1H [facility]AC[facility] Rx#: [id number] Oral 236 Output: Urine 1350 1400 Other: Voiding Method Indwelling Catheter Indwelling Catheter # Bowel Movements 2 1 - Labs CBC & Chem 7: 03/03/21 07:14 03/04/21 05:59 Labs: Abnormal Lab Results - Last 24 Hours (Table) 03/02/21 03/04/21 Range/Units 06:18 05:59 Potassium 3.1 L (3.5-5.1) mmol/L Chloride 113 H (98-107) mmol/L Glucose 121 H (74-99) mg/dL Calcium 7.7 L (8.4-10.2) mg/dL Magnesium 1.4 L (1.6-2.3) mg/dL Total Bilirubin 4.1 H (0.2-1.3) mg/dL AST 81 H (17-59) U/L Total Protein 5.5 L (6.3-8.2) g/dL Albumin 2.0 L (3.5-5.0) g/dL Vitamin B12 >4000.0 H (211-911) pg/mL Microbiology - Last 24 Hours (Table) 03/02/21 10:24 Anaerobic Culture - Preliminary Ascites Fluid 03/02/21 10:24 Gram Stain - Preliminary Ascites Fluid Body Fluid Culture - Preliminary
--- NOTE | 2021-03-04 15:38 | P.PN ---
Subjective Progress Note Date: 03/04/21 Principal diagnosis: Elevated LFTs, melena The patient is a 60-year-old male patient who presented to the emergency department from [facility] last week with signs of septic shock. He was initially admitted to the ICU, he also had a GI bleed where he was having large amounts of maroon colored stool. He is status post upper endoscopy with epinephrine injection, endoclipped 3 and esophageal variceal banding. He's had no further episodes of GI bleed. Today he is seen and evaluated lying in bed, drowsy but arousable. He is oriented to person place and time. He had an EEG done which was abnormal, read as consistent with metabolic encephalopathy. He is status post paracentesis of 6 L of fluid removed. He states he does have some abdominal discomfort. He has had no nausea or vomiting, no evidence of black tarry stools. He states he has decreased appetite, but states he ate a banana and some Jell-O this morning. Objective - Vital Signs Vital signs: Vital Signs Temp 98.5 F 03/04/21 14:00 Pulse 67 03/04/21 14:00 Resp 16 03/04/21 14:00 BP 96/61 03/04/21 14:00 Pulse Ox 95 03/04/21 14:00 Intake & Output 03/03/21 03/04/21 03/04/21 18:59 06:59 18:59 Intake Total 736 Output Total 1350 1400 Balance -1350 -1400 736 Weight 79.2 kg Intake: Intake, IV Titration 100 Amount Magnesium Sulfate-D5w Pmx 100 1 gm In Dextrose/Water 1 100ml.bag @ 100 mls/hr IVPB Q1H [facility] Rx#: [id number] Oral 636 Output: Urine 1350 1400 Other: Voiding Method Indwelling Catheter Indwelling Catheter # Bowel Movements 2 1 - Exam General appearance: The patient is drowsy but easily arousable and oriented 3. Ears no acute distress. HET: Head is normocephalic and atraumatic. Conjunctiva pink. Sclera icteris. Neck: Supple without lymphadenopathy. Abdomen: Soft, nontender, distedned with bowel sounds. No guarding or rigidity. Extremities: Normal skin color and turgor. Bilateral pedal edema Skin: No rashes, jaundice Neurological: Alert and oriented 3 - Labs CBC & Chem 7: 03/03/21 07:14 03/04/21 05:59 Labs: Abnormal Lab Results - Last 24 Hours (Table) 03/02/21 03/04/21 Range/Units 06:18 05:59 Potassium 3.1 L (3.5-5.1) mmol/L Chloride 113 H (98-107) mmol/L Glucose 121 H (74-99) mg/dL Calcium 7.7 L (8.4-10.2) mg/dL Magnesium 1.4 L (1.6-2.3) mg/dL Total Bilirubin 4.1 H (0.2-1.3) mg/dL AST 81 H (17-59) U/L Total Protein 5.5 L (6.3-8.2) g/dL Albumin 2.0 L (3.5-5.0) g/dL Vitamin B12 >4000.0 H (211-911) pg/mL Microbiology - Last 24 Hours (Table) 03/02/21 10:24 Anaerobic Culture - Preliminary Ascites Fluid 03/02/21 10:24 Gram Stain - Preliminary Ascites Fluid Body Fluid Culture - Preliminary Assessment and Plan (1) Anemia due to acute blood loss Narrative/Plan: 60-year-old male with multiple medical comorbidities including hypertension and alcohol abuse currently abstinent from alcohol consumption who presented with a constellation of symptoms including fevers and weakness. Currently the patient is being treated for sepsis with plans for ICU care. The patient has long-yoli ding history of alcohol abuse but denies any known history of cirrhosis. He previously has been hospitalized for GI bleed and reports nasogastric tube placement at that time and is unsure if EGD was performed. He is unclear of any prior history of cirrhosis of the liver but was found to have a cirrhotic appearing liver with ascites on computed tomography scan of the abdomen. Liver enzymes are consistent with alcoholic liver disease and cirrhosis of the liver. The patient developed some dark colored bowel movements while in the emergency department with a fall in his hemoglobin likely secondary to GI bleed as well as hemodilution after being fluid resuscitated. Unclear etiology with differential including peptic ulcer disease, gastritis, esophagitis, AVM, with esophageal varices not completely excluded however less likely given clinical presentation and only minimal elevation BUN on presentation, or other etiology. The patient is status post upper endoscopy with findings of esophageal varices with esophageal variceal band ligation 4 with hemostasis, mild gastritis, Vera-Diego tear with Endo Clip placement 3 and injection of epinephrine, biopsies taken. Current Visit: Yes Status: Acute Code(s): D62 - ACUTE POSTHEMORRHAGIC ANEMIA SNOMED Code(s): 578084554 (2) Alcoholic cirrhosis of liver with ascites Narrative/Plan: Patient is status post paracentesis with fluid studies, 6 L removed. Patient will likely need repeat paracentesis before discharge. Current Visit: Yes Status: Acute Code(s): K70.31 - ALCOHOLIC CIRRHOSIS OF LIVER WITH ASCITES SNOMED Code(s): 808712731 (3) Melena Current Visit: Yes Status: Acute Code(s): K92.1 - MELENA SNOMED Code(s): 2131034 Plan: 1. Low sodium diet 2. Continue symptomatic and supportive care 3. Repeat therapeutic paracentesis ordered for tomorrow 4. Continue lactulose and spironolactone 5. Continue diuretics as ordered by nephrology 6. Continue alcohol abstinence Thank you for this consultation, we will continue to follow Dr. David Powers I agree with the dictator's note, documented as a scribe by Fabiana Hull.
--- NOTE | 2021-03-04 16:32 | US ---
EXAMINATION TYPE: US abdomen limited DATE OF EXAM: 03/04/2021 COMPARISON: CT abdomen and pelvis 10 days ago CLINICAL HISTORY: assess for fluid pocket. known ascites, h/o paracentesis 2 days ago. Known cirrhosi s. Moderate amount of fluid noted within the abdomen IMPRESSION: Moderate amount of recurrent ascites greatest pocket right lower quadrant seen on today' s study.
--- NOTE | 2021-03-04 19:54 | PN ---
PROGRESS NOTE DATE OF SERVICE: 03/04/2021 REASON FOR FOLLOWUP: E coli bacteremia secondary to cholecystitis. INTERVAL HISTORY: The patient is currently afebrile. The patient seems to be slightly more awake, alert, complaining of not feeling well no chest pain. No cough. No worsening abdominal pain. PHYSICAL EXAMINATION: Blood pressure 96/51 with pulse of 57, temperature 98.5. He is 95% on room air. General description is a middle-aged male lying in bed in no distress. RESPIRATORY SYSTEM: Unlabored breathing. Clear to auscultation anteriorly. HEART: S1, S2. Regular rate and rhythm. ABDOMEN: Soft. Slightly distended. No guarding or rigidity. LABS: BUN of 20, creatinine 1.01. The ascitic fluid culture is so far negative. DIAGNOSTIC IMPRESSION AND PLAN: Patient with Escherichia coli bacteremia secondary cholecystitis in this patient with underlying cirrhosis and considered to be high risk for any surgical procedure. Currently being treated medically. Patient to continue with Zosyn and monitor his clinical course closely. MMODL / IJN: [id number] /
[2021-03-05] MEDS: PIPERACILLIN-TAZOBACTAM 3.375 GM in SODIUM CHLORIDE 0.9% 100 ML IVPB SCH ×3 (08:22→23:26)
[2021-03-05] MEDS: SPIRONOLACTONE 25 MG TAB PO SCH ×2 (08:25→20:55)
[2021-03-05] MEDS: PROPRANOLOL 20 MG TAB PO SCH (08:25)
[2021-03-05] MEDS: LACTULOSE 20 GM/30 ML CUP PO SCH ×2 (08:25→20:55)
[2021-03-05] MEDS: FUROSEMIDE 40 MG TAB PO SCH (08:25)
[2021-03-05] MEDS: PANTOPRAZOLE 40 MG/10 ML VIAL IV SCH ×2 (08:25→20:55)
[2021-03-05] MEDS: LACTATED RINGERS 1,000 ML IV SCH (08:25)
[2021-03-05] MEDS: THIAMINE 100 MG in SODIUM CHLORIDE 0.9% 50 ML IVPB SCH ×2 (08:31→22:11)
--- NOTE | 2021-03-05 10:15 | P.PN ---
Subjective Progress Note Date: 03/05/21 Principal diagnosis: Acute hypoxic respiratory failure Portal hypertension Esophageal Variaces Possible developing aspiration pneumonia Severe sepsis Acute kidney injury defect. The likely mechanism appeared to be acute tubular necrosis GI bleed likely from esophageal Variaces Gram-negative bacteremia source appears to be acute cholecystitis Alcoholic liver disease with cirrhosis Coagulopathy likely related to chronic alcohol related liver disease 03/05/2021, patient seen eval examined during the rounds labs reviewed medications reviewed care plan discussed, respiratory status remains stable patient is on room air, undergoing active physical therapy, vitals remained stable, blood pressure is 105/61, saturation is 95%, remains afebrile, patient appeared to have more swelling of the abdomen and lower extremity edema as well as scrotal swelling, likely have accumulated more fluid need another large volume paracentesis we'll reconsult interventional radiology 03/04/2021, patient seen eval examined during the rounds labs reviewed medications reviewed care plan discussed, respiratory status remains stable, patient is on room air, mental status improved now more awake and alert sitting question responding appropriately, appear weak and exhausted, acetic fluid cultures are pending, patient remains on the Zosyn along with Aldactone thiamine and folic acid protection being replaced as per protocol, today's labs are significant for hypokalemia potassium is down to 3.1 sodium normalized, 03/03/2021, patient seen eval examined during the rounds labs reviewed medications reviewed care plan discussed, history status continued to stable patient room air, however mental status remains unchanged confused arousable with verbal was physical stimuli, status post large volume paracentesis 6 L of straw-colored fluid has been removed, patient also have a positive blood culture related to E. coli likely source being ascending cholangitis, culture however on the sciatic fluid pending 03/02/2021, patient seen eval examined labs reviewed medications reviewed, patient remains confused and somnolent, arousable with verbal stimuli oriented 1-2, patient is being prepared for the large volume paracentesis, neurologist started seeing patient, patient remains on thiamine and folic acid and vitamin B12, CT of the head is pending 03/01/2021, patient seen eval examined during the rounds labs reviewed medications reviewed care plan discussed with the staff at length, patient has been progressively more lethargic, opens eyes follow to verbal and physical stim corinne only, then spontaneously close it, patient has received Ativan for agitation yesterday, patient is scheduled for large volume paracentesis therapeutic purposes and to rule out spontaneous bacterial peritonitis, remains on room air, afebrile oxygen saturation 96%, 02/28/2021, patient seen eval examined during the rounds labs reviewed medications reviewed respiratory status remains stable at room air however more confused today, awake, not appeared to be agitated, slightly anxious, afebrile, hemodynamic status stable, oxygen saturation 95% on room air, cell count is stable at 11,400 BUN/creatinine is 42 and 1.08, sodium is 141, AST and ALT are 1 57/56 total bilirubin is 4.2, ammonia level is less than 9, albumin is only 2.4, patient abdomen appears to be more distended and relatively more formed likely have accumulated fluid consult has been placed for interventional radiology for large volume paracentesis, 02/27/2021, patient seen eval examined during the rounds labs reviewed medi cations reviewed, patient awake and arousable at times intermittently confused, hemodynamic status stable has been on room air, denies any chest pain, last bowel movement was yesterday no active bleeding has been seen in hemoglobin and platelet count remains stable, ever functions are stable, surgical service following this patient closely, will start patient on propranolol for portal hypertension, 02/26/2021, patient seen eval examined during the rounds labs reviewed medications reviewed patient is sitting upright in the bed breathing comfortably denies any chest pain blood pressure significantly improved dose of midodrine dryness health this morning, INR improved to 1.4, status post endoscopy and banding of esophageal rices by GI postop day #1 some old blood has been noted in the stools, hemoglobin however remains stable, patient is scheduled for laparoscopic cholecystectomy later on this afternoon, will keep in ICU because of multiple comorbidities is postoperatively, patient remains on broad-spectrum antibiotics for gram-negative bacteremia related to E. coli which appears to be not ESBL patient is on IV Zosyn ID has been following the patient as well, hemoglobin improved and stable at 10.8, AST/ALT to 259 and 71, total bilirubin is 4.6, 02/25/2021, patient is semi-propped up awake, breathing better now, is status post endoscopy with banding of esophageal rices, denies any chest pain and swelling in the abdomen slightly better, blood pressure improved today, patient remains on broad-spectrum antibiotics, patient remains on midodrine as well, patient is being scheduled for a lap jevon by general surgery, 2 L oxygen saturation 94%, a myoglobin is 10.4, 02/24/2021, patient seen eval examined during the rounds in ICU care plan discussed with the staff as well as GI service at length in detail, patient is still have intermittent bleeding going on, computed tomography scan of the chest revealed presence of the esophageal rices, blood pressure running on the margina l side, patient remains on bicarb drip, patient underwent 2 unit of packed RBC as well as 3 bags of FFP transfused, white cell count continue to come down, hemoglobin stable 9.3, potassium is 3.4, BUN/creatinine 34 and 2.44, like acid and lactic acid is slowly coming down latest is 5.2, liver functions continued to be high, with total bilirubin of 3.7, patient is being considered for endoscopy and ligation/bending of esophageal varices, patient is running blood pressure on the low side into the 90s, migratory dry and 5 mg twice a day will be started if there is evidence of more bleeding is seen then will consider octreotide This is a 60-year-old with chronic alcoholism patient presented into the emergency department from [facility] for evaluation of fever or aches and pains, patient has ongoing nausea and abdominal discomfort as well with swelling of the abdomen, symptoms have been progressive for many weeks, about 2 weeks ago patient has a upper GI bleed and had a scope done at [facility] found to have gastric crisis exact details however not available, patient has a significant liver disease due to alcohol is him, workup including ultrasound on February 19 revealed presence of cirrhosis dilated portal vein dilated and distended gallbladder with wall thickening and sludge, on arrival to emergency department patient was febrile with fever of 101 oxygen saturation was 93% hypertensive, blood pressure was 90/50, gradually patient was noted to have drop in hemoglobin, the saturation, continue spiking fever, along with patient has a lower GI bleed GI service has been consulted surgical service also has been consulted, chest x-ray however show right lower lobe infiltrate patchy infiltrate, repeat ultrasound gallstones along with gallbladder thickening, computed tomography scan of the chest performed yesterday negative for pulmonary embolism, presence of esophageal arises prominent spleen and liver findings liver consistent with nodular cirrhosis, chest x-ray earlier revealed normal heart site interstitial edema and some bibasilar infiltrate cannot be excluded patient remains on IV Zosyn today blood cultures positive for gram-negative rods, white cell count up to 17,900 patient oxygen requirement increased to 6 L, hemoglobin however have drop down to 8.4, PT/INR is 24.9 and 2.6 PTT is 48, arterial blood gas revealed pH of 7.15 pCO2 of 24 pO2 of 98 with bicarb of 9, patient was given 2 A of bicarbonate followed by bicarb drip, BUN/creatinine increased to 20 and 2.48, take acid up to 16.8, covid PCR is negative Objective - Vital Signs Vital signs: Vital Signs Temp 98.9 F 03/05/21 08:00 Pulse 77 03/05/21 08:00 Resp 18 03/05/21 08:00 BP 105/61 03/05/21 08:00 Pulse Ox 95 03/05/21 08:00 Intake & Output 03/04/21 03/05/21 03/05/21 18:59 06:59 18:59 Intake Total 736 Output Total 1200 Balance 736 -1200 Intake: Intake, IV Titration 100 Amount Magnesium Sulfate-D5w Pmx 100 1 gm In Dextrose/Water 1 100ml.bag @ 100 mls/hr IVPB Q1H [facility] Rx#: [id number] Oral 636 Output: Urine 1200 Other: Voiding Method Indwelling Catheter # Bowel Movements 1 - Exam - Constitutional General appearance: average body habitus, cooperative, mild distress, somnolent - EENT Eyes: PERRLA Ears: bilateral: normal - Neck Carotids: bilateral: upstroke normal Thyroid: negative: normal size - Respiratory Respiratory: bilateral: diminished - Cardiovascular Rhythm: regular Heart sounds: normal: S1, S2 - Gastrointestinal General gastrointestinal: decreased bowel sounds, more distended today compared to yesterday exam - Integumentary Integumentary: decreased turgor - Neurologic Neurologic: CNII-XII intact - Musculoskeletal Musculoskeletal: gait normal, generalized weakness, strength equal bilaterally - Psychiatric Psychiatric: More somnolent - Labs CBC & Chem 7: 03/03/21 07:14 03/04/21 05:59 Labs: Microbiology - Last 24 Hours (Table) 03/03/21 18:38 Blood Culture - Preliminary Blood No Growth after 24 hours 03/02/21 10:24 Anaerobic Culture - Preliminary Ascites Fluid 04/27/21 10:24 Gram Stain - Preliminary Ascites Fluid Body Fluid Culture - Preliminary Assessment and Plan Assessment: Altered mental status likely hepatic encephalopathy due to multifactorial pr ocess including liver disease, sepsis, large ascites, spontaneous bacterial peritonitis, more awake and alert now Severe anemia and thrombocytopenia due to varical bleeding chronic alcoholism, overall stable no evidence of active bleeding seen Severe sepsis secondary due to acute cholecystitis, Gram-negative bacteremia due to E. coli source appears to be acute cholecystitis/ascending cholangitis acute cholecystitis/ascending cholangitis GI bleed likely from esophageal Variaces and as well as exacerbated by coagulopathy due to alcoholic liver disease Acute hypoxic respiratory failure Portal hypertension Esophageal Variaces aspiration pneumonia Acute kidney injury defect. The likely mechanism appeared to be acute tubular necrosis Alcoholic liver disease with cirrhosis Coagulopathy likely related to chronic alcohol related liver disease Plan: Patient needs another paracentesis IR has been consulted INR improved Continue Zosyn, E. coli is sensitive Supplemental oxygen as needed Midodrine hold if the systolic blood pressure over 110 If evidence of continuous bleeding consider octreotide infusion transfer back to the ICU Gen. surgery consult for evaluation of cholecystectomy Status post banding of esophageal varises Blood transfusion as needed keep hemoglobin over 7-8y Monitor renal functions closely Further plan of care as per clinical response of the patient overall general condition very guarded with impending multiorgan failure Time with Patient: Greater than 30
--- NOTE | 2021-03-05 10:37 | PN ---
PROGRESS NOTE DATE OF SERVICE: 03/04/2021 This 60-year-old white male with metabolic encephalopathy secondary to severe cirrhosis of the liver. He had an ultrasound done which shows moderate amount of recurrent ascites. He will need to be drained again today. He is on broad-spectrum antibiotics for recurrent bacteremia secondary to cholecystitis in this patient with cirrhosis. Continue him on Zosyn. Hopefully he improves and possibly have gallbladder surgery soon. He is sitting up in bed. He apparently walked to the bathroom today. CARDIOVASCULAR: S1, S2. LUNGS: Clear. PSYCH: He appears sleepy and lethargic still. HEMATOLOGY: Negative Homans. ASSESSMENT: 1. Cirrhosis. 2. Cholecystitis. 3. Gram-negative bacteremia. Prognosis is guarded. Will follow up closely with the patient and possibly Surgery will need to be done soon by Dr. Jamil. Try to get another paracentesis done. MMODL / IJN: [id number] /
[2021-03-05] MEDS: ALBUMIN HUMAN 25% 50 ML in EMPTY BAG 1 BAG IVPB SCH ×4 (12:53→17:46)
--- NOTE | 2021-03-05 13:36 | P.PN ---
Subjective Progress Note Date: 03/05/21 CHIEF COMPLAINT: Fever HISTORY OF PRESENT ILLNESS: Patient is on regular medical floor. Surgical service following regards to his chronic cholecystitis. Patient's mentation continues to improve. He is sitting up at bedside chair. He denies any abdominal pain. He is tolerating diet. Denies any nausea or vomiting. His abdomen is becoming more distended due to the ascites and he is scheduled for an other paracentesis today. He has toxic metabolic encephalopathy was seen by neurology during this admission. Afebrile. Repeat labs for today pending. Patient did receive supplement yesterday for her magnesium and potassium Patient seen and examined with Dr. Jamil PHYSICAL EXAM: VITAL SIGNS: Reviewed. GENERAL: Well-developed in no acute distress. HEENT: No sclera icterus. Extraocular movements grossly intact. Moist buccal mucosa. Head is atraumatic, normocephalic. ABDOMEN: Nontender. Distended NEUROLOGIC: Sleepy but able to answer questions ASSESSMENT: 1. Chronic cholecystitis 2. Liver cirrhosis with ascites status post paracentesis 3. Portal hypertension PLAN: -No surgical intervention planned in regards to patient's cholecystitis. Patient is a high risk surgical candidate -Continue antibiotic per ID -Continue supportive care Physician Operating System Programmer note has been reviewed by physician. Signing provider agrees with the documented findings, assessment, and plan of care. Objective - Vital Signs Vital signs: Vital Signs Temp 98.9 F 03/05/21 08:00 Pulse 77 03/05/21 08:00 Resp 18 03/05/21 08:00 BP 105/61 03/05/21 08:00 Pulse Ox 95 03/05/21 08:00 Intake & Output 03/04/21 03/05/21 03/05/21 18:59 06:59 18:59 Intake Total 736 Output Total 1200 Balance 736 -1200 Weight 79.2 kg Intake: Intake, IV Titration 100 Amount Magnesium Sulfate-D5w Pmx 100 1 gm In Dextrose/Water 1 100ml.bag @ 100 mls/hr IVPB Q1H [facility] Rx#: [id number] Oral 636 Output: Urine 1200 Other: Voiding Method Indwelling Catheter Indwelling Catheter # Bowel Movements 1 - Labs CBC & Chem 7: 03/03/21 07:14 03/04/21 05:59 Labs: Microbiology - Last 24 Hours (Table) 04/27/21 10:24 Gram Stain - Preliminary Ascites Fluid Body Fluid Culture - Preliminary 03/03/21 18:38 Blood Culture - Preliminary Blood No Growth after 24 hours 03/02/21 10:24 Anaerobic Culture - Preliminary Ascites Fluid
--- NOTE | 2021-03-05 13:39 | P.PN ---
Subjective Patient is seen in follow-up for acute kidney injury. Renal function stable as of yesterday. He is more awake and alert today. Blood pressure stable. Nonoliguric. Vital signs are stable. General: The patient appeared well nourished and normally developed. HEENT: Head exam is unremarkable. Neck is without jugular venous distension. LUNGS: Breath sounds decreased. HEART: Rate and Rhythm are regular. ABDOMEN: Distention noted. EXTREMITITES: 1+ edema. Objective - Vital Signs Vital signs: Vital Signs Temp 98.9 F 03/05/21 08:00 Pulse 77 03/05/21 08:00 Resp 18 03/05/21 08:00 BP 105/61 03/05/21 08:00 Pulse Ox 95 03/05/21 08:00 Intake & Output 03/04/21 03/05/21 03/05/21 18:59 06:59 18:59 Intake Total 736 Output Total 1200 Balance 736 -1200 Weight 79.2 kg Intake: Intake, IV Titration 100 Amount Magnesium Sulfate-D5w Pmx 100 1 gm In Dextrose/Water 1 100ml.bag @ 100 mls/hr IVPB Q1H [facility] Rx#: [id number] Oral 636 Output: Urine 1200 Other: Voiding Method Indwelling Catheter Indwelling Catheter # Bowel Movements 1 - Labs CBC & Chem 7: 03/03/21 07:14 03/04/21 05:59 Labs: Microbiology - Last 24 Hours (Table) 03/02/21 10:24 Gram Stain - Preliminary Ascites Fluid Body Fluid Culture - Preliminary 03/03/21 18:38 Blood Culture - Preliminary Blood No Growth after 24 hours 03/02/21 10:24 Anaerobic Culture - Preliminary Ascites Fluid Assessment and Plan Plan: Assessment: 1. Acute kidney injury mostly prerenal secondary to sepsis. Also component of hepatorenal syndrome. Creatinine 1.01 as of yesterday. 2. Acute cholecystitis with E. coli bacteremia maintained on antibiotics. 3. Liver cirrhosis. Alcohol induced. 4. Ascites. Status post paracentesis on March 02 with 6 L drained. 5. Metabolic acidosis secondary to acute kidney injury. Improved. 6. Hypernatremia from lack of oral water intake. Improved with D5W infusion. Plan: Maintain Aldactone - increase dose to 50 mg twice daily. Maintain oral Lasix. Additional 40 mg IV Lasix this afternoon. Continue to monitor renal function and urine output. Another paracentesis planned. Receiving IV albumin. Morning labs pending.
[2021-03-05 14:11] LABS: Anion Gap 5.8 mmol/L (4.00-12.00); BUN/Creat Ratio 21.11 Ratio (12.00-20.00); Calcium 7.8 mg/dL (8.7-10.3); Carbon Dioxide 20.2 mmol/L (21.6-31.8); Magnesium 1.4 mg/dL (1.5-2.4); Non-African American GFR(CKD) 93.2 (60.0-200.0); Potassium 3.9 mmol/L (3.5-5.5)
--- NOTE | 2021-03-05 15:41 | P.PN ---
Subjective Progress Note Date: 03/05/21 Principal diagnosis: Elevated LFTs, melena The patient is a 60-year-old male patient who presented to the emergency department from longterm last week with signs of septic shock. He was initially admitted to the ICU, he also had a GI bleed where he was having large amounts of maroon colored stool. He is status post upper endoscopy with epinephrine injection, endoclipped 3 and esophageal variceal banding. He's had no further episodes of GI bleed. Today he has seen and examined without any acute changes through the night. He's more alert and oriented and was up to the bathroom with loose stools. He is scheduled today for a repeat paracentesis. He will get 25 g of albumin pre- and post paracentesis. Nephrology continues to follow. Kidney function and liver function improving. Objective - Vital Signs Vital signs: Vital Signs Temp 98.9 F 03/05/21 08:00 Pulse 77 03/05/21 08:00 Resp 18 03/05/21 08:00 BP 105/61 03/05/21 08:00 Pulse Ox 95 03/05/21 08:00 Intake & Output 03/04/21 03/05/21 03/05/21 18:59 06:59 18:59 Intake Total 736 Output Total 1200 Balance 736 -1200 Intake: Intake, IV Titration 100 Amount Magnesium Sulfate-D5w Pmx 100 1 gm In Dextrose/Water 1 100ml.bag @ 100 mls/hr IVPB Q1H [facility] Rx#: [id number] Oral 636 Output: Urine 1200 Other: Voiding Method Indwelling Catheter Indwelling Catheter # Bowel Movements 1 - Exam General appearance: The patient is drowsy but easily arousable and oriented 3. Ears no acute distress. HET: Head is normocephalic and atraumatic. Conjunctiva pink. Sclera icteris. Neck: Supple without lymphadenopathy. Abdomen: Soft, nontender, distedned with bowel sounds. No guarding or rigidity. Extremities: Normal skin color and turgor. Bilateral pedal edema Skin: No rashes, jaundice Neurological: Alert and oriented 3 - Labs CBC & Chem 7: 03/03/21 07:14 03/05/21 06:15 Labs: Microbiology - Last 24 Hours (Table) 03/03/21 18:38 Blood Culture - Preliminary Blood No Growth after 24 hours 03/02/21 10:24 Anaerobic Culture - Preliminary Ascites Fluid 03/02/21 10:24 Gram Stain - Preliminary Ascites Fluid Body Fluid Culture - Preliminary Assessment and Plan (1) Anemia due to acute blood loss Narrative/Plan: 60-year-old male with multiple medical comorbidities including hypertension and alcohol abuse currently abstinent from alcohol consumption who presented with a constellation of symptoms including fevers and weakness. Currently the patient is being treated for sepsis with plans for ICU care. The patient has long- standing history of alcohol abuse but denies any known history of cirrhosis. He previously has been hospitalized for GI bleed and reports nasogastric tube placement at that time and is unsure if EGD was performed. He is unclear of any prior history of cirrhosis of the liver but was found to have a cirrhotic appearing liver with ascites on computed tomography scan of the abdomen. Liver enzymes are consistent with alcoholic liver disease and cirrhosis of the liver. The patient developed some dark colored bowel movements while in the emergency department with a fall in his hemoglobin likely secondary to GI bleed as well as hemodilution after being fluid resuscitated. Unclear etiology with differential including peptic ulcer disease, gastritis, esophagitis, AVM, with esophageal varices not completely excluded however less likely given clinical presentation and only minimal elevation BUN on presentation, or other etiology. The patient is status post upper endoscopy with findings of esophageal varices with esophageal variceal band ligation 4 with hemostasis, mild gastritis, Vera-Diego tear with Endo Clip placement 3 and injection of epinephrine, biopsies taken. Current Visit: Yes Status: Acute Code(s): D62 - ACUTE POSTHEMORRHAGIC ANEMIA SNOMED Code(s): 290041052 (2) Alcoholic cirrhosis of liver with ascites Narrative/Plan: Patient is status post paracentesis with fluid studies, 6 L removed. Patient will likely need repeat paracentesis before discharge. Patient to get repeat paracentesis today with albumin Current Visit: Yes Status: Acute Code(s): K70.31 - ALCOHOLIC CIRRHOSIS OF LIVER WITH ASCITES SNOMED Code(s): 238550193 (3) Melena Current Visit: Yes Status: Acute Code(s): K92.1 - MELENA SNOMED Code(s): 0880332 Plan: 1. Low sodium diet 2. Continue symptomatic and supportive care 3. Repeat therapeutic paracentesis 4. Continue lactulose and spironolactone 5. Continue diuretics as ordered by nephrology 6. Continue alcohol abstinence 7. Albumin 25 g pre-and post paracentesis Thank you for this consultation, we will continue to follow Dr. David Powers I agree with the dictator's note, documented as a scribe by Fabiana Hull.
[2021-03-05] MEDS ORDERED: FUROSEMIDE 10 MG/ML 4 ML VIAL IV ONE (16:00)
--- NOTE | 2021-03-05 16:03 | US ---
EXAMINATION TYPE: US paracentesis abd w/image DATE OF EXAM: 03/05/2021 COMPARISON: Ultrasound 03/04/2021 HISTORY: Ascites. PROCEDURE: Maximal barrier technique was utilized. The skin overlying a suitable pocket of fluid was localized with ultrasound and the overlying skin was prepped and draped. Ultrasound was utilized with sterile technique. Lidocaine was used for local anesthesia and a skin royal made with a scalpel. Catheter was advanced under direct ultrasound guidance into a suitable pocket of fluid and approximately 6.7 liter s of serous fluid were removed. Catheter was withdrawn and hemostasis achieved. There is no immedia te complication; the patient is discharged in stable condition. IMPRESSION: STATUS POST ULTRASOUND GUIDED PARACENTESIS FOR PALLIATION OF ASCITES. THIS PROCEDURE WA S PERFORMED BY THE UNDERSIGNED.
--- NOTE | 2021-03-05 16:37 | PN ---
PROGRESS NOTE DATE OF SERVICE: 03/05/2021 REASON FOR FOLLOWUP: E coli bacteremia secondary to cholecystitis. INTERVAL HISTORY: The patient is currently afebrile. The patient is breathing comfortably. The patient denies having any chest pain or shortness of breath or cough. Still complaining of abdominal pain. No vomiting or worsening diarrhea. PHYSICAL EXAMINATION: Blood pressure 104/63, pulse of 98, temperature of 98.9. He is 97% on room air. General description is a middle-aged male lying in bed in no distress. RESPIRATORY SYSTEM: Unlabored breathing, clear to auscultation anteriorly. HEART: S1, S2. Regular rate and rhythm. ABDOMEN: Soft, no tenderness. No guarding or rigidity. LABS: Hemoglobin 9.7, white count 7.4, creatinine 0.9. Blood culture repeat has been negative so far. DIAGNOSTIC IMPRESSION AND PLAN: Patient with Escherichia coli bacteremia secondary to cholecystitis has been treated medically because of multiple comorbidities. The patient to continue Zosyn and monitor his clinical course closely. MMODL / IJN: [id number] /
[2021-03-05] MEDS: MAGNESIUM SULFATE-D5W PMX 1 GM in DEXTROSE/WATER 1 100ML.BAG IVPB SCH ×3 (17:46→23:26)
[2021-03-06] MEDS: PIPERACILLIN-TAZOBACTAM 3.375 GM in SODIUM CHLORIDE 0.9% 100 ML IVPB SCH ×2 (09:49→17:56)
[2021-03-06] MEDS: LACTULOSE 20 GM/30 ML CUP PO SCH ×2 (09:51→20:48)
[2021-03-06] MEDS: SPIRONOLACTONE 25 MG TAB PO SCH ×2 (09:52→20:49)
[2021-03-06] MEDS: PANTOPRAZOLE 40 MG/10 ML VIAL IV SCH ×2 (09:52→20:49)
[2021-03-06] MEDS: FUROSEMIDE 40 MG TAB PO SCH (09:52)
[2021-03-06] MEDS: PROPRANOLOL 20 MG TAB PO SCH (09:52)
--- NOTE | 2021-03-06 11:14 | P.PN ---
Subjective Progress Note Date: 03/31/21 Principal diagnosis: Acute hypoxic respiratory failure Portal hypertension Esophageal Variaces Possible developing aspiration pneumonia Severe sepsis Acute kidney injury defect. The likely mechanism appeared to be acute tubular necrosis GI bleed likely from esophageal Variaces Gram-negative bacteremia source appears to be acute cholecystitis Alcoholic liver disease with cirrhosis Coagulopathy likely related to chronic alcohol related liver disease 03/06/2021, patient seen eval examined during the rounds labs reviewed medications reviewed care plan discussed, patient is awake and alert remains on room air breathing comfortably time he is soft now status post removal of 6.7 L by 03/05/2021, patient seen eval examined during the rounds labs reviewed medications reviewed care plan discussed, respiratory status remains stable patient is on room air, undergoing active physical therapy, vitals remained stable, blood pressure is 105/61, saturation is 95%, remains afebrile, patient appeared to have more swelling of the abdomen and lower extremity edema as well as scrotal swelling, likely have accumulated more fluid need another large volume paracentesis we'll reconsult interventional radiology 03/04/2021, patient seen eval examined during the rounds labs reviewed medications reviewed care plan discussed, respiratory status remains stable, patient is on room air, mental status improved now more awake and alert sitting question responding appropriately, appear weak and exhausted, acetic fluid cultures are pending, patient remains on the Zosyn along with Aldactone thiamine and folic acid protection being replaced as per protocol, today's labs are signi ficant for hypokalemia potassium is down to 3.1 sodium normalized, 03/03/2021, patient seen eval examined during the rounds labs reviewed medications reviewed care plan discussed, history status continued to stable patient room air, however mental status remains unchanged confused arousable with verbal was physical stimuli, status post large volume paracentesis 6 L of straw-colored fluid has been removed, patient also have a positive blood culture related to E. coli likely source being ascending cholangitis, culture however on the sciatic fluid pending 03/02/2021, patient seen eval examined labs reviewed medications reviewed, patient remains confused and somnolent, arousable with verbal stimuli oriented 1-2, patient is being prepared for the large volume paracentesis, neurologist started seeing patient, patient remains on thiamine and folic acid and vitamin B12, CT of the head is pending 03/01/2021, patient seen eval examined during the rounds labs reviewed medications reviewed care plan discussed with the staff at length, patient has been progressively more lethargic, opens eyes follow to verbal and physical stimuli only, then spontaneously close it, patient has received Ativan for agitation yesterday, patient is scheduled for large volume paracentesis therapeutic purposes and to rule out spontaneous bacterial peritonitis, remains on room air, afebrile oxygen saturation 96%, 02/28/2021, patient seen eval examined during the rounds labs reviewed medications reviewed respiratory status remains stable at room air however more confused today, awake, not appeared to be agitated, slightly anxious, afebrile, hemodynamic status stable, oxygen saturation 95% on room air, cell count is stable at 11,400 BUN/creatinine is 42 and 1.08, sodium is 141, AST and ALT are 1 57/56 total bilirubin is 4.2, ammonia level is less than 9, albumin is only 2.4, patient abdomen appears to be more distended and relatively more formed likely have accumulated fluid consult has been placed for interventional radiology for large volume paracentesis, 02/27/2021, patient seen eval examined during the rounds labs reviewed medications reviewed, patient awake and arousable at times intermittently confused, hemodynamic status stable has been on room air, denies any chest pain, last bowel movement was yesterday no active bleeding has been seen in hemoglobin and platelet count remains stable, ever functions are stable, surgical service following this patient closely, will start patient on propranolol for portal hypertension, 02/26/2021, patient seen eval examined during the rounds labs reviewed medications reviewed patient is sitting upright in the bed breathing comfortably denies any chest pain blood pressure significantly improved dose of midodrine dryness health this morning, INR improved to 1.4, status post endoscopy and banding of esophageal rices by GI postop day #1 some old blood has been noted in the stools, hemoglobin however remains stable, patient is scheduled for lap aroscopic cholecystectomy later on this afternoon, will keep in ICU because of multiple comorbidities is postoperatively, patient remains on broad-spectrum antibiotics for gram-negative bacteremia related to E. coli which appears to be not ESBL patient is on IV Zosyn ID has been following the patient as well, hemoglobin improved and stable at 10.8, AST/ALT to 259 and 71, total bilirubin is 4.6, 02/25/2021, patient is semi-propped up awake, breathing better now, is status post endoscopy with banding of esophageal rices, denies any chest pain and swelling in the abdomen slightly better, blood pressure improved today, patient remains on broad-spectrum antibiotics, patient remains on midodrine as well, patient is being scheduled for a lap jevon by general surgery, 2 L oxygen saturation 94%, a myoglobin is 10.4, 02/24/2021, patient seen eval examined during the rounds in ICU care plan discu ssed with the staff as well as GI service at length in detail, patient is still have intermittent bleeding going on, computed tomography scan of the chest revealed presence of the esophageal rices, blood pressure running on the marginal side, patient remains on bicarb drip, patient underwent 2 unit of packed RBC as well as 3 bags of FFP transfused, white cell count continue to come down, hemoglobin stable 9.3, potassium is 3.4, BUN/creatinine 34 and 2.44, like acid and lactic acid is slowly coming down latest is 5.2, liver functions continued to be high, with total bilirubin of 3.7, patient is being considered for endoscopy and ligation/bending of esophageal varices, patient is running blood pressure on the low side into the 90s, migratory dry and 5 mg twice a day will be started if there is evidence of more bleeding is seen then will consider octreotide This is a 60-year-old with chronic alcoholism patient presented into the emergency department from [facility] for evaluation of fever or aches and pains, patient has ongoing nausea and abdominal discomfort as well with swelling of the abdomen, symptoms have been progressive for many weeks, about 2 weeks ago patient has a upper GI bleed and had a scope done at [facility] found to have gastric crisis exact details however not available, patient has a significant liver disease due to alcohol is him, workup including ultrasound on February 19 revealed presence of cirrhosis dilated portal vein dilated and distended gallbladder with wall thickening and sludge, on arrival to emergency department patient was febrile with fever of 101 oxygen saturation was 93% hypertensive, blood pressure was 90/50, gradually patient was noted to have drop in hemoglobin, the saturation, continue spiking fever, along with patient h as a lower GI bleed GI service has been consulted surgical service also has been consulted, chest x-ray however show right lower lobe infiltrate patchy infiltrate, repeat ultrasound gallstones along with gallbladder thickening, computed tomography scan of the chest performed yesterday negative for pulmonary embolism, presence of esophageal arises prominent spleen and liver findings liver consistent with nodular cirrhosis, chest x-ray earlier revealed normal heart site interstitial edema and some bibasilar infiltrate cannot be excluded patient remains on IV Zosyn today blood cultures positive for gram-negative rods, white cell count up to 17,900 patient oxygen requirement increased to 6 L, hemoglobin however have drop down to 8.4, PT/INR is 24.9 and 2.6 PTT is 48, arterial blood gas revealed pH of 7.15 pCO2 of 24 pO2 of 98 with bicarb of 9, patient was given 2 A of bicarbonate followed by bicarb drip, BUN/creatinine increased to 20 and 2.48, take acid up to 16.8, covid PCR is negative Objective - Vital Signs Vital signs: Vital Signs Temp 98.7 F 03/06/21 08:00 Pulse 76 03/06/21 08:00 Resp 16 03/06/21 08:00 BP 94/56 03/06/21 08:00 Pulse Ox 95 03/06/21 08:00 Intake & Output 03/05/21 03/06/21 03/06/21 18:59 06:59 18:59 Output Total 4 2600 Balance -4 -2600 Weight 79.2 kg Output: Urine 2600 Stool 4 Other: Voiding Method Indwelling Catheter Indwelling Catheter # Voids 3 - Exam - Constitutional General appearance: average body habitus, cooperative, mild distress, somnolent - EENT Eyes: PERRLA Ears: bilateral: normal - Neck Carotids: bilateral: upstroke normal Thyroid: negative: normal size - Respiratory Respiratory: bilateral: diminished - Cardiovascular Rhythm: regular Heart sounds: normal: S1, S2 - Gastrointestinal General gastrointestinal: decreased bowel sounds, less distended more softer - Integumentary Integumentary: decreased turgor - Neurologic Neurologic: CNII-XII intact - Musculoskeletal Musculoskeletal: gait normal, generalized weakness, strength equal bilaterally - Psychiatric Psychiatric: More somnolent - Labs CBC & Chem 7: 03/03/21 07:14 03/05/21 06:15 Labs: Abnormal Lab Results - Last 24 Hours (Table) 03/05/21 Range/Units 06:15 Chloride 111 H (96-109) mmol/L Carbon Dioxide 20.2 L (21.6-31.8) mmol/L BUN/Creatinine Ratio 21.11 H (12.00-20.00) Ratio Calcium 7.8 L (8.7-10.3) mg/dL Magnesium 1.4 L (1.5-2.4) mg/dL Microbiology - Last 24 Hours (Table) 03/02/21 10:24 Gram Stain - Final Ascites Fluid Body Fluid Culture - Final 03/03/21 18:38 Blood Culture - Preliminary Blood No Growth after 48 hours Assessment and Plan Assessment: Altered mental status likely hepatic encephalopathy due to multifactorial process including liver disease, sepsis, large ascites, spontaneous bacterial peritonitis, more awake and alert now Severe anemia and thrombocytopenia due to varical bleeding chronic alcoholism, overall stable no evidence of active bleeding seen Severe sepsis secondary due to acute cholecystitis, Gram-negative bacteremia due to E. coli source appears to be acute cholecystitis/ascending cholangitis acute cholecystitis/ascending cholangitis GI bleed likely from esophageal Variaces and as well as exacerbated by coagulopathy due to alcoholic liver disease Acute hypoxic respiratory failure Portal hypertension Esophageal Variaces aspiration pneumonia Acute kidney injury defect. The likely mechanism appeared to be acute tubular necrosis Alcoholic liver disease with cirrhosis Coagulopathy likely related to chronic alcohol related liver disease Plan: Patient patient is status post second large volume paracentesis INR improved Continue Zosyn, E. coli is sensitive Supplemental oxygen as needed Midodrine hold if the systolic blood pressure over 110 If evidence of continuous bleeding consider octreotide infusion transfer back to the ICU Gen. surgery consult for evaluation of cholecystectomy Status post banding of esophageal varises Blood transfusion as needed keep hemoglobin over 7-8y Monitor renal functions closely Further plan of care as per clinical response of the patient overall general condition very guarded with impending multiorgan failure Time with Patient: Greater than 30
--- NOTE | 2021-03-06 11:57 | PN ---
PROGRESS NOTE DATE OF SERVICE: 03/06/2021 INTERVAL HISTORY: Patient is a 60-year-old white male with history of alcoholic cirrhosis of the liver with portal hypertension and ascites, admitted to the hospital a week ago. He underwent large-volume paracentesis yesterday and 6 L of fluid was removed he is feeling much better. No abdominal pain. No nausea, vomiting. Appetite has been improving. He reports no new symptoms today. He remains on diuretics. PHYSICAL EXAMINATION: Appears comfortable. VITAL SIGNS: Stable. Blood pressure is 94/56, pulse is 76, temperature 98.7. HEENT: Examination unremarkable. Conjunctivae are pink. Sclerae anicteric. Oral cavity no lesions. NECK: No JVD or lymph node enlargement. CHEST: Clear to auscultation. HEART: Regular rate and rhythm. ABDOMEN: Soft, it was slightly distended. Small amount of free fluid noted. EXTREMITIES: 2+ pedal edema. SKIN: No rashes. NEURO: He is alert and oriented x3. No focal deficits. LABS: WBC 7.4, hemoglobin 9.7, platelets 106. Labs from yesterday, BUN 19, creatinine 0.9. IMPRESSION: 1. Alcoholic cirrhosis of the liver with portal hypertension with stable LFTs. 2. Refractory ascites requiring large-volume paracentesis. He had one yesterday and one 4 days ago and 6 L of fluid was removed each time. BUN and creatinine are normal. Presently on spironolactone 50 mg twice daily and Lasix 40 mg daily. 3. Altered mental status, resolved. 4. Escherichia coli bacteremia, on broad-spectrum antibiotics. RECOMMENDATIONS: 1. Continue with broad-spectrum antibiotics. 2. Continue Lasix 40 daily and Aldactone 50 b.i.d. 3. Low salt diet. 4. Monitor labs closely. 5. We will follow with you. Thank you for this consultation. MMODL / IJN: [id number] /
[2021-03-06 12:03] LABS: African American GFR (CKD) 84.7 (60.0-200.0); Albumin 2.5 g/dL (3.80-4.90); Albumin/Globulin Ratio 0.89 (1.60-3.17); BUN/Creat Ratio 15.45 Ratio (12.00-20.00); Calcium 7.7 mg/dL (8.7-10.3); Globulin 2.8 g/dL (1.6-3.3); Non-African American GFR(CKD) 73.1 (60.0-200.0); Potassium 4.3 mmol/L (3.5-5.5); Total Bilirubin 4.6 mg/dL (0.2-1.2); Total Protein 5.3 g/dL (6.2-8.2)
--- NOTE | 2021-03-06 12:37 | P.PN ---
Subjective Progress Note Date: 03/06/21 Follow-up for acute kidney injury.Had paracentesis yesterday And 6.7 L of fluid was removed. Objective - Vital Signs Vital signs: Vital Signs Temp 98.7 F 03/06/21 08:00 Pulse 76 03/06/21 08:00 Resp 16 03/06/21 08:00 BP 94/56 03/06/21 08:00 Pulse Ox 95 03/06/21 08:00 Intake & Output 03/05/21 03/06/21 03/06/21 18:59 06:59 18:59 Output Total 4 2600 Balance -4 -2600 Weight 79.2 kg Output: Urine 2600 Stool 4 Other: Voiding Method Indwelling Catheter Indwelling Catheter # Voids 3 - Exam No acute distress Lying in bed S1-S2 heard Abdomen distended Edema - Labs CBC & Chem 7: 03/03/21 07:14 03/06/21 07:02 Labs: Abnormal Lab Results - Last 24 Hours (Table) 03/05/21 03/06/21 Range/Units 06:15 07:02 Chloride 111 H (96-109) mmol/L Carbon Dioxide 20.2 L (21.6-31.8) mmol/L BUN/Creatinine Ratio 21.11 H (12.00-20.00) Ratio Glucose 118 H (70-110) mg/dL Calcium 7.8 L 7.7 L (8.7-10.3) mg/dL Magnesium 1.4 L (1.5-2.4) mg/dL Total Bilirubin 4.6 H (0.2-1.2) mg/dL AST 59 H (14-35) U/L Total Protein 5.3 L (6.2-8.2) g/dL Albumin 2.50 L (3.80-4.90) g/dL Albumin/Globulin Ratio 0.89 L (1.60-3.17) g/dL Microbiology - Last 24 Hours (Table) 03/02/21 10:24 Gram Stain - Final Ascites Fluid Body Fluid Culture - Final 03/03/21 18:38 Blood Culture - Preliminary Blood No Growth after 48 hours Assessment and Plan Assessment: #1 acute kidney injury secondary to HRS. Renal function stable. #2 acute decompensated liver disease status post paracentesis. #3 acute cholecystitis with E. coli bacteremia Plan: #1 status post albumin post paracentesis. Renal function stable. #2 continue with Lasix and Aldactone.
[2021-03-06 12:50] LABS: Basophils # (A) 0.04 X 10*3/uL (0.00-0.10); Basophils % (A) 0.5 %; Eosinophils # (A) 0.21 X 10*3/uL (0.04-0.35); Eosinophils % (A) 2.5 %; HCT 27.1 % (39.6-50.0); HGB 8.9 g/dL (13.0-17.0); Lymphocytes # (A) 0.94 X 10*3/uL (0.90-5.00); Lymphocytes % (A) 11.2 %; MCH 36.3 pg (27.0-32.0); MCHC 32.8 g/dL (32.0-37.0); MCV 110.6 fL (80.0-97.0); Mean Platelet Volume 13.1 fL (9.5-12.2); Monocytes # (A) 0.81 X 10*3/uL (0.20-1.00); Monocytes % (A) 9.6 %; Neutrophils # (A) 6.36 X 10*3/uL (1.80-7.70); Neutrophils % (A) 75.7 %; Platelet Count 66 X 10*3/uL (140-440); RBC 2.45 X 10*6/uL (4.40-5.60); RDW 18.2 % (11.5-14.5)
--- NOTE | 2021-03-06 13:00 | PN ---
PROGRESS NOTE A 60-year-old white male. He is on broad-spectrum antibiotics. Discussed case with Surgery who says he is at very high risk for if he had his gallbladder removed, which they are not recommending. He had paracentesis ultrasound which shows some ascites. He had 6 L of fluid removed yesterday, doing much better. No nausea or vomiting. He is more alert. Blood pressure is 190s over 50s. Pulse is 76. Temp 98.7. Lungs are clear. Heart regular rate and rhythm. Abdomen is soft. NEUROLOGIC: Cranial nerves intact. ASSESSMENT: 1. Alcohol cirrhosis. 2. Portal hypertension. 3. Stable liver function tests. 4. Refractory ascites. 5. Large volume paracentesis. 6. E-coli bacteremia. He remains on Lasix and spironolactone. Continue broad-spectrum antibiotics. Continue Lasix and Aldactone. Continue antibiotics. Continue PT, OT. PROGNOSIS: Extremely guarded. MMODL / IJN: [id number] /
[2021-03-06] MEDS: THIAMINE 100 MG in SODIUM CHLORIDE 0.9% 50 ML IVPB SCH ×2 (14:33→22:39)
[2021-03-06] MEDS: LACTATED RINGERS 1,000 ML IV SCH (14:34)
--- NOTE | 2021-03-06 15:25 | P.PN ---
Subjective Progress Note Date: 03/06/21 CHIEF COMPLAINT: Chronic cholecystitis HISTORY OF PRESENT ILLNESS: The patient is a 60 year old male under police custody who came in with abdominal pain. He has tolerated broccoli, beef stroganoff, soup, breakfast with some fullness but no active abdominal pain. He is comfortable. No active nausea. REVIEW OF ORGAN SYSTEMS: No chest pain, no shortness of breath. No fevers or chills. Has liver cirrhosis. PHYSICAL EXAM: VITALS: Reviewed CONSTITUTIONAL: Well developed and in no acute distress. EYES: Conjuctivae without sclera icterus. Extraocular movements grossly intact. HEAD, EARS, NOSE, THROAT: Moist buccal mucosa. Head is atraumatic, normocephalic. Hears conversational speech. RESPIRATORY: Non-labored respirations and equal bilateral excursions. No gross wheezes. CARDIOVASCULAR: Extremities without moderate edema. Palpable 2+ radial pulses. ABDOMEN: No peritonitis. Nontender. NEUROLOGIC: Cranial nerves II through XII grossly intact. No focal or lateralizing signs. PSYCH: Occassional lethargy. Orientated to self. CLINCAL LABS: Reviewed. WBC normal at under 9000. LFTs trending down. Total bilirubin is elevated. ASSESSMENT: 1. Chronic cholecystitis 2. Liver cirrhosis. PLAN: 1. Patient is clinically stable with abdominal pain improved. 2. Overall, patient is high risk for any surgical intervention with severity of liver cirrhosis Objective - Vital Signs Vital signs: Vital Signs Temp 98.7 F 03/06/21 08:00 Pulse 76 03/06/21 08:00 Resp 16 03/06/21 08:00 BP 94/56 03/06/21 08:00 Pulse Ox 95 03/06/21 08:00 Intake & Output 03/05/21 03/06/21 03/06/21 18:59 06:59 18:59 Output Total 4 2600 Balance -4 -2600 Weight 79.2 kg Output: Urine 2600 Stool 4 Other: Voiding Method Indwelling Catheter Indwelling Catheter # Voids 3 - Labs CBC & Chem 7: 03/06/21 07:02 03/06/21 07:02 Labs: Abnormal Lab Results - Last 24 Hours (Table) 03/06/21 03/06/21 Range/Units 07:02 07:02 RBC 2.45 L (4.40-5.60) X 10*6/uL Hgb 8.9 L (13.0-17.0) g/dL Hct 27.1 L (39.6-50.0) % MCV 110.6 H (80.0-97.0) fL MCH 36.3 H (27.0-32.0) pg RDW 18.2 H (11.5-14.5) % Plt Count 66 L (140-440) X 10*3/uL Plt Count Comment DECREASED A MPV 13.1 H (9.5-12.2) fL Immature Plt Fraction 9.1 H (1.1-6.1) % Glucose 118 H (70-110) mg/dL Calcium 7.7 L (8.7-10.3) mg/dL Total Bilirubin 4.6 H (0.2-1.2) mg/dL AST 59 H (14-35) U/L Total Protein 5.3 L (6.2-8.2) g/dL Albumin 2.50 L (3.80-4.90) g/dL Albumin/Globulin Ratio 0.89 L (1.60-3.17) g/dL Microbiology - Last 24 Hours (Table) 03/02/21 10:24 Anaerobic Culture - Final Ascites Fluid 03/02/21 10:24 Gram Stain - Final Ascites Fluid Body Fluid Culture - Final 03/03/21 18:38 Blood Culture - Preliminary Blood No Growth after 48 hours
--- NOTE | 2021-03-06 15:57 | PN ---
PROGRESS NOTE DATE OF SERVICE: 03/06/2021 REASON FOR FOLLOWUP: E coli bacteremia secondary to cholecystitis. INTERVAL HISTORY: The patient is currently afebrile. Patient is breathing comfortably on room air. The patient denies any chest pain or shortness of breath or cough. Complaining of some abdominal distention and flatulence. No vomiting or worsening diarrhea. PHYSICAL EXAMINATION: Blood pressure is 94/56, pulse of 76, temperature 98.7, he is 95% on room air. GENERAL DESCRIPTION: A middle-aged male lying in bed in no distress. RESPIRATORY SYSTEM: Unlabored breathing, clear to auscultation anteriorly. HEART: S1, S2. Regular rate and rhythm. ABDOMEN: Soft, mildly distended. No guarding or rigidity. LAB: Hemoglobin 8.1, white count 8.4. BUN of 17, creatinine 1.1. DIAGNOSTIC IMPRESSION AND PLAN: Patient with E coli bacteremia secondary to cholecystitis. The patient has been treated medically because of his cirrhosis and comorbidities. The patient to continue with Zosyn at this point and monitor clinical course closely. MMODL / IJN: [id number] /
[2021-03-06] MEDS ORDERED: Magnesium Replacement Protocol 1 EACH MISC MISCELLANE PRN (16:56)
[2021-03-06] MEDS: MAGNESIUM SULFATE-D5W PMX 1 GM in DEXTROSE/WATER 1 100ML.BAG IVPB SCH ×2 (17:57→20:49)
[2021-03-06 21:01] LABS: Glucose,Whole Blood 107 mg/dL (75-99)
[2021-03-07] MEDS: PIPERACILLIN-TAZOBACTAM 3.375 GM in SODIUM CHLORIDE 0.9% 100 ML IVPB SCH ×3 (01:33→15:37)
[2021-03-07 07:05] LABS: Glucose,Whole Blood 136 mg/dL (75-99)
[2021-03-07] MEDS: LACTATED RINGERS 1,000 ML IV SCH (07:54)
[2021-03-07] MEDS: THIAMINE 100 MG in SODIUM CHLORIDE 0.9% 50 ML IVPB SCH ×2 (08:04→20:33)
[2021-03-07] MEDS: SPIRONOLACTONE 25 MG TAB PO SCH ×2 (08:05→20:32)
[2021-03-07] MEDS: LACTULOSE 20 GM/30 ML CUP PO SCH ×2 (08:05→20:32)
[2021-03-07] MEDS: PANTOPRAZOLE 40 MG/10 ML VIAL IV SCH ×2 (08:05→20:33)
[2021-03-07] MEDS: FUROSEMIDE 40 MG TAB PO SCH ×2 (08:05→14:55)
[2021-03-07] MEDS: PROPRANOLOL 20 MG TAB PO SCH (08:05)
[2021-03-07 09:48] LABS: African American GFR (CKD) 84.7 (60.0-200.0); Albumin 2.2 g/dL (3.80-4.90); Albumin/Globulin Ratio 0.73 (1.60-3.17); Anion Gap 6.5 mmol/L (4.00-12.00); BUN/Creat Ratio 13.64 Ratio (12.00-20.00); Calcium 7.4 mg/dL (8.7-10.3); Carbon Dioxide 23.5 mmol/L (21.6-31.8); Magnesium 1.6 mg/dL (1.5-2.4); Non-African American GFR(CKD) 73.1 (60.0-200.0); Potassium 4.3 mmol/L (3.5-5.5); Total Bilirubin 3.6 mg/dL (0.2-1.2); Total Protein 5.2 g/dL (6.2-8.2)
[2021-03-07 10:20] LABS: Acanthocytes 2+; Basophils # (A) 0.05 X 10*3/uL (0.00-0.10); Basophils % (A) 0.7 %; Eosinophils # (A) 0.24 X 10*3/uL (0.04-0.35); Eosinophils % (A) 3.5 %; HCT 25.6 % (39.6-50.0); HGB 8.3 g/dL (13.0-17.0); Lymphocytes # (A) 1.09 X 10*3/uL (0.90-5.00); Lymphocytes % (A) 15.9 %; MCH 35.6 pg (27.0-32.0); MCHC 32.4 g/dL (32.0-37.0); MCV 109.9 fL (80.0-97.0); Macrocytosis (M) 2+; Mean Platelet Volume 13.1 fL (9.5-12.2); Monocytes # (A) 0.92 X 10*3/uL (0.20-1.00); Monocytes % (A) 13.4 %; Neutrophils # (A) 4.54 X 10*3/uL (1.80-7.70); Neutrophils % (A) 66.2 %; Platelet Count 74 X 10*3/uL (140-440); RBC 2.33 X 10*6/uL (4.40-5.60); RDW 18.3 % (11.5-14.5); WBC 6.86 X 10*3/uL (4.50-10.00)
--- NOTE | 2021-03-07 10:42 | P.PN ---
Subjective Progress Note Date: 03/07/21 Principal diagnosis: Acute hypoxic respiratory failure Portal hypertension Esophageal Variaces Possible developing aspiration pneumonia Severe sepsis Acute kidney injury defect. The likely mechanism appeared to be acute tubular necrosis GI bleed likely from esophageal Variaces Gram-negative bacteremia source appears to be acute cholecystitis Alcoholic liver disease with cirrhosis Coagulopathy likely related to chronic alcohol related liver disease 03/07/2021, patient seen eval examined during the rounds labs reviewed medications reviewed care plan discussed, respiratory status remains stable, breathing comfortably, on room air mostly, patient has some upset stomach little bit of diarrhea, however abdomen remains softer, passing gas from below, hemoglobin stable 8.3, platelet counts stable 74,000, LFT stable slight improvement however is noted, I determined remains low suggestive of catabolic state, 03/06/2021, patient seen eval examined during the rounds labs reviewed medications reviewed care plan discussed, patient is awake and alert remains on room air breathing comfortably time he is soft now status post removal of 6.7 L by 03/05/2021, patient seen eval examined during the rounds labs reviewed medications reviewed care plan discussed, respiratory status remains stable patient is on room air, undergoing active physical therapy, vitals remained stable, blood pressure is 105/61, saturation is 95%, remains afebrile, patient appeared to have more swelling of the abdomen and lower extremity edema as well as scrotal swelling, likely have accumulated more fluid need another large volume paracentesis we'll reconsult interventional radiology 03/04/2021, patient seen eval examined during the rounds labs reviewed medications reviewed care plan discussed, respiratory status remains stable, patient is on room air, mental status improved now more awake and alert sitting question responding appropriately, appear weak and exhausted, acetic fluid cultures are pending, patient remains on the Zosyn along with Aldactone thiamine and folic acid protection being replaced as per protocol, today's labs are significant for hypokalemia potassium is down to 3.1 sodium normalized, 03/03/2021, patient seen eval examined during the rounds labs reviewed medications reviewed care plan discussed, history status continued to stable patient room air, however mental status remains unchanged confused arousable with verbal was physical stimuli, status post large volume paracentesis 6 L of straw-colored fluid has been removed, patient also have a positive blood culture related to E. coli likely source being ascending cholangitis, culture however on the sciatic fluid pending 03/02/2021, patient seen eval examined labs reviewed medications reviewed, sriram souza remains confused and somnolent, arousable with verbal stimuli oriented 1- 2, patient is being prepared for the large volume paracentesis, neurologist started seeing patient, patient remains on thiamine and folic acid and vitamin B12, CT of the head is pending 03/01/2021, patient seen eval examined during the rounds labs reviewed medications reviewed care plan discussed with the staff at length, patient has been progressively more lethargic, opens eyes follow to verbal and physical stimuli only, then spontaneously close it, patient has received Ativan for agitation yesterday, patient is scheduled for large volume paracentesis therapeutic purposes and to rule out spontaneous bacterial peritonitis, remains on room air, afebrile oxygen saturation 96%, 02/28/2021, patient seen eval examined during the rounds labs reviewed medications reviewed respiratory status remains stable at room air however more confused today, awake, not appeared to be agitated, slightly anxious, afebrile, hemodynamic status stable, oxygen saturation 95% on room air, cell count is stable at 11,400 BUN/creatinine is 42 and 1.08, sodium is 141, AST and ALT are 1 57/56 total bilirubin is 4.2, ammonia level is less than 9, albumin is only 2.4, patient abdomen appears to be more distended and relatively more formed likely have accumulated fluid consult has been placed for interventional radiology for large volume paracentesis, 02/27/2021, patient seen eval examined during the rounds labs reviewed medicati ons reviewed, patient awake and arousable at times intermittently confused, hemodynamic status stable has been on room air, denies any chest pain, last bowel movement was yesterday no active bleeding has been seen in hemoglobin and platelet count remains stable, ever functions are stable, surgical service following this patient closely, will start patient on propranolol for portal hypertension, 02/26/2021, patient seen eval examined during the rounds labs reviewed medications reviewed patient is sitting upright in the bed breathing comfortably denies any chest pain blood pressure significantly improved dose of midodrine dryness health this morning, INR improved to 1.4, status post endoscopy and banding of esophageal rices by GI postop day #1 some old blood has been noted in the stools, hemoglobin however remains stable, patient is scheduled for laparoscopic cholecystectomy later on this afternoon, will keep in ICU because of multiple comorbidities is postoperatively, patient remains on broad-spectrum antibiotics for gram-negative bacteremia related to E. coli which appears to be not ESBL patient is on IV Zosyn ID has been following the patient as well, hemoglobin improved and stable at 10.8, AST/ALT to 259 and 71, total bilirubin is 4.6, 02/25/2021, patient is semi-propped up awake, breathing better now, is status post endoscopy with banding of esophageal rices, denies any chest pain and swelling in the abdomen slightly better, blood pressure improved today, patient remains on broad-spectrum antibiotics, patient remains on midodrine as well, patient is being scheduled for a lap jevon by general surgery, 2 L oxygen saturation 94%, a myoglobin is 10.4, 02/24/2021, patient seen eval examined during the rounds in ICU care plan discussed with the staff as well as GI service at length in detail, patient is still have intermittent bleeding going on, computed tomography scan of the chest revealed presence of the esophageal rices, blood pressure running on the marginal side, patient remains on bicarb drip, patient underwent 2 unit of packed RBC as well as 3 bags of FFP transfused, white cell count continue to come down, hemoglobin stable 9.3, potassium is 3.4, BUN/creatinine 34 and 2.44, like acid and lactic acid is slowly coming down latest is 5.2, liver functions continued to be high, with total bilirubin of 3.7, patient is being considered for endoscopy and ligation/bending of esophageal varices, patient is running blood pressure on the low side into the 90s, migratory dry and 5 mg twice a day will be started if there is evidence of more bleeding is seen then will consider octreotide This is a 60-year-old with chronic alcoholism patient presented into the emergency department from [facility] for evaluation of fever or aches and pains, patient has ongoing nausea and abdominal discomfort as well with swelling of the abdomen, symptoms have been progressive for many weeks, about 2 weeks ago patient has a upper GI bleed and had a scope done at [facility] found to have gastric crisis exact details however not available, patient has a significant liver disease due to alcohol is him, workup including ultrasound on February 19 revealed presence of cirrhosis dilated portal vein dilated and distended gallbladder with wall thickening and sludge, on arrival to emergency department patient was febrile with fever of 101 oxygen saturation was 93% hypertensive, blood pressure was 90/50, gradually patient was noted to have drop in hemoglobin, the saturation, continue spiking fever, along with patient has a lower GI bleed GI service has been consulted surgical service also has been consulted, chest x-ray however show right lower lobe infiltrate patchy infiltrate, repeat ultrasound gallstones along with gallbladder thickening, computed tomography scan of the chest performed yesterday negative for pulmonary embolism, presence of esophageal arises prominent spleen and liver findings liver consistent with nodular cirrhosis, chest x-ray earlier revealed normal heart site interstitial edema and some bibasilar infiltrate cannot be excluded patient remains on IV Zosyn today blood cultures positive for gram-negative rods, white cell count up to 17,900 patient oxygen requirement increased to 6 L, hemoglobin however have drop down to 8.4, PT/INR is 24.9 and 2.6 PTT is 48, arterial blood gas revealed pH of 7.15 pCO2 of 24 pO2 of 98 with bicarb of 9, patient was given 2 A of bicarbonate followed by bicarb drip, BUN/creatinine increased to 20 and 2.48, take acid up to 16.8, covid PCR is negative Objective - Vital Signs Vital signs: Vital Signs Temp 98.9 F 03/07/21 06:56 Pulse 71 03/07/21 06:56 Resp 17 03/07/21 02:30 BP 101/58 03/07/21 06:56 Pulse Ox 96 03/07/21 06:56 Intake & Output 03/06/21 03/07/21 03/07/21 18:59 06:59 18:59 Output Total 1000 Balance -1000 Output: Urine 1000 Other: Voiding Method Indwelling Catheter Indwelling Catheter - Exam - Constitutional General appearance: average body habitus, cooperative, mild distress, somnolent - EENT Eyes: PERRLA Ears: bilateral: normal - Neck Carotids: bilateral: upstroke normal Thyroid: negative: normal size - Respiratory Respiratory: bilateral: diminished - Cardiovascular Rhythm: regular Heart sounds: normal: S1, S2 - Gastrointestinal General gastrointestinal: decreased bowel sounds, less distended more softer - Integumentary Integumentary: decreased turgor - Neurologic Neurologic: CNII-XII intact - Musculoskeletal Musculoskeletal: gait normal, generalized weakness, strength equal bilaterally - Psychiatric Psychiatric: More somnolent - Labs CBC & Chem 7: 03/07/21 05:21 03/07/21 05:21 Labs: Abnormal Lab Results - Last 24 Hours (Table) 03/06/21 03/06/21 03/06/21 Range/Units 07:02 07:02 20:59 RBC 2.45 L (4.40-5.60) X 10*6/uL Hgb 8.9 L (13.0-17.0) g/dL Hct 27.1 L (39.6-50.0) % MCV 110.6 H (80.0-97.0) fL MCH 36.3 H (27.0-32.0) pg RDW 18.2 H (11.5-14.5) % Plt Count 66 L (140-440) X 10*3/uL Plt Count Comment DECREASED A MPV 13.1 H (9.5-12.2) fL Immature Plt Fraction 9.1 H (1.1-6.1) % Glucose 118 H (70-110) mg/dL POC Glucose (mg/dL) 107 H (75-99) mg/dL Calcium 7.7 L (8.7-10.3) mg/dL Total Bilirubin 4.6 H (0.2-1.2) mg/dL AST 59 H (14-35) U/L Total Protein 5.3 L (6.2-8.2) g/dL Albumin 2.50 L (3.80-4.90) g/dL Albumin/Globulin Ratio 0.89 L (1.60-3.17) g/dL 03/07/21 03/07/21 03/07/21 Range/Units 05:21 05:21 06:59 RBC 2.33 L (4.40-5.60) X 10*6/uL Hgb 8.3 L (13.0-17.0) g/dL Hct 25.6 L (39.6-50.0) % MCV 109.9 H (80.0-97.0) fL MCH 35.6 H (27.0-32.0) pg RDW 18.3 H (11.5-14.5) % Plt Count 74 L (140-440) X 10*3/uL Plt Count Comment DECREASED A MPV 13.1 H (9.5-12.2) fL Immature Plt Fraction 10.0 H (1.1-6.1) % Glucose 123 H (70-110) mg/dL POC Glucose (mg/dL) 136 H (75-99) mg/dL Calcium 7.4 L (8.7-10.3) mg/dL Total Bilirubin 3.6 H (0.2-1.2) mg/dL AST 53 H (14-35) U/L Total Protein 5.2 L (6.2-8.2) g/dL Albumin 2.20 L (3.80-4.90) g/dL Albumin/Globulin Ratio 0.73 L (1.60-3.17) g/dL Microbiology - Last 24 Hours (Table) 03/03/21 18:38 Blood Culture - Preliminary Blood No Growth after 72 hours 03/02/21 10:24 Anaerobic Culture - Final Ascites Fluid 03/02/21 10:24 Gram Stain - Final Ascites Fluid Body Fluid Culture - Final Assessment and Plan Assessment: Protein calorie malnutrition of moderate to severe category multifactorial as sociated with sepsis, liver disease, and ongoing chronic illness Altered mental status likely hepatic encephalopathy due to multifactorial process including liver disease, sepsis, large ascites, spontaneous bacterial peritonitis, more awake and alert now Severe anemia and thrombocytopenia due to varical bleeding chronic alcoholism, overall stable no evidence of active bleeding seen Severe sepsis secondary due to acute cholecystitis, Gram-negative bacteremia due to E. coli source appears to be acute cholecystitis/ascending cholangitis acute cholecystitis/ascending cholangitis GI bleed likely from esophageal Variaces and as well as exacerbated by coagulopathy due to alcoholic liver disease Acute hypoxic respiratory failure Portal hypertension Esophageal Variaces aspiration pneumonia Acute kidney injury defect. The likely mechanism appeared to be acute tubular necrosis Alcoholic liver disease with cirrhosis Coagulopathy likely related to chronic alcohol related liver disease Plan: Patient patient is status post second large volume paracentesis INR improved Continue Zosyn, E. coli is sensitive Supplemental oxygen as needed Improve nutrition as tolerated Midodrine hold if the systolic blood pressure over 110 If evidence of continuous bleeding consider octreotide infusion transfer back to the ICU Gen. surgery consult for evaluation of cholecystectomy Status post banding of esophageal varises Blood transfusion as needed keep hemoglobin over 7-8y Monitor renal functions closely Further plan of care as per clinical response of the patient overall general condition very guarded with impending multiorgan failure Time with Patient: Greater than 30
[2021-03-07 11:52] LABS: Glucose,Whole Blood 130 mg/dL (75-99)
--- NOTE | 2021-03-07 11:57 | PN ---
PROGRESS NOTE DATE OF DICTATION: March 07, 2021 Patient is a 60-year-old pleasant white male admitted to hospital with severe ascites and gram-negative bacteremia presently on broad-spectrum antibiotics. The patient underwent large-volume paracentesis on 2 different occasions. The last one was 2 days ago and 6 L of fluid was removed. He is presently on Lasix 40 mg daily and Aldactone 50 mg twice daily. Overall doing better. He is complaining of some abdominal cramping today. PHYSICAL EXAMINATION: Appears comfortable. VITAL SIGNS: Stable. Blood pressure is 101/58, pulse is 71, temperature 98.9 HEENT examination unremarkable. Conjunctivae pink. Sclerae anicteric. Oral cavity no lesions. NECK: No JVD or lymph node enlargement. CHEST was clear to auscultation. HEART: Regular rate and rhythm. ABDOMEN is distended. There was some free fluid noted. EXTREMITIES: No pedal edema. SKIN no rashes. NEUROLOGIC: Alert and oriented x3. No focal deficits. LABS: No labs available from today. IMPRESSION: 1. Gram-negative bacteremia on broad-spectrum antibiotics. 2. Recurrent ascites status post large-volume paracentesis on 2 different occasions. Presently on Lasix 40 daily and Aldactone 50 mg twice daily. 3. History of alcoholic cirrhosis of the liver. 4. Mild anemia and thrombocytopenia secondary to chronic liver disease. RECOMMENDATIONS: 1. Increase Lasix to 40 mg twice daily. 2. Continue Aldactone 50 mg twice daily. 3. Low-fat diet. 4. Since patient is doing well, he can be discharged home today or tomorrow with an outpatient followup in 2 weeks. Thank you for this consultation. MMODL / MAGON: [id number] /
[2021-03-07 17:08] LABS: Glucose,Whole Blood 113 mg/dL (75-99)
--- NOTE | 2021-03-07 17:18 | P.PN ---
Subjective Progress Note Date: 03/07/21 CHIEF COMPLAINT: Chronic cholecystitis HISTORY OF PRESENT ILLNESS: The patient is a 60 year old male under police custody who came in with abdominal pain. He is tolerating diet. REVIEW OF ORGAN SYSTEMS: No chest pain, no shortness of breath. No fevers or chills. Has liver cirrhosis. PHYSICAL EXAM: VITALS: Reviewed CONSTITUTIONAL: Well developed and in no acute distress. EYES: Conjuctivae without sclera icterus. Extraocular movements grossly intact. HEAD, EARS, NOSE, THROAT: Moist buccal mucosa. Head is atraumatic, normocephalic. Hears conversational speech. RESPIRATORY: Non-labored respirations and equal bilateral excursions. No gross wheezes. CARDIOVASCULAR: Extremities without moderate edema. Palpable 2+ radial pulses. ABDOMEN: No peritonitis. Nontender. NEUROLOGIC: Cranial nerves II through XII grossly intact. No focal or lateralizing signs. PSYCH: Occassional lethargy. Orientated to self. CLINCAL LABS: Reviewed. ASSESSMENT: 1. Chronic cholecystitis 2. Liver cirrhosis. PLAN: 1. Conservative management advised Objective - Vital Signs Vital signs: Vital Signs Temp 98.6 F 03/07/21 14:22 Pulse 69 03/07/21 14:22 Resp 18 03/07/21 14:22 BP 96/46 03/07/21 14:22 Pulse Ox 95 03/07/21 14:22 Intake & Output 03/06/21 03/07/21 03/07/21 18:59 06:59 18:59 Intake Total 1450 Output Total 1000 3700 Balance -1000 -2250 Intake: Intake, IV Titration 250 Amount Piperacillin-Tazobactam 3 200 .375 gm In Sodium Chloride 0.9% 100 ml @ 25 mls/hr IVPB Q8HR [facility] Rx# :[id number] Thiamine 100 mg In Sodium 50 Chloride 0.9% 50 ml @ 100 mls/hr IVPB Q12HR [facility] Rx#:[id number] Oral 1200 Output: Urine 1000 3700 Other: Voiding Method Indwelling Catheter Indwelling Catheter Indwelling Catheter # Voids 1 - Labs CBC & Chem 7: 03/07/21 05:21 03/07/21 05:21 Labs: Abnormal Lab Results - Last 24 Hours (Table) 03/06/21 03/07/21 03/07/21 Range/Units 20:59 05:21 05:21 RBC 2.33 L (4.40-5.60) X 10*6/uL Hgb 8.3 L (13.0-17.0) g/dL Hct 25.6 L (39.6-50.0) % MCV 109.9 H (80.0-97.0) fL MCH 35.6 H (27.0-32.0) pg RDW 18.3 H (11.5-14.5) % Plt Count 74 L (140-440) X 10*3/uL Plt Count Comment DECREASED A MPV 13.1 H (9.5-12.2) fL Immature Plt Fraction 10.0 H (1.1-6.1) % Glucose 123 H (70-110) mg/dL POC Glucose (mg/dL) 107 H (75-99) mg/dL Calcium 7.4 L (8.7-10.3) mg/dL Total Bilirubin 3.6 H (0.2-1.2) mg/dL AST 53 H (14-35) U/L Total Protein 5.2 L (6.2-8.2) g/dL Albumin 2.20 L (3.80-4.90) g/dL Albumin/Globulin Ratio 0.73 L (1.60-3.17) g/dL 03/07/21 03/07/21 03/07/21 Range/Units 06:59 11:50 17:06 RBC (4.40-5.60) X 10*6/uL Hgb (13.0-17.0) g/dL Hct (39.6-50.0) % MCV (80.0-97.0) fL MCH (27.0-32.0) pg RDW (11.5-14.5) % Plt Count (140-440) X 10*3/uL Plt Count Comment MPV (9.5-12.2) fL Immature Plt Fraction (1.1-6.1) % Glucose (70-110) mg/dL POC Glucose (mg/dL) 136 H 130 H 113 H (75-99) mg/dL Calcium (8.7-10.3) mg/dL Total Bilirubin (0.2-1.2) mg/dL AST (14-35) U/L Total Protein (6.2-8.2) g/dL Albumin (3.80-4.90) g/dL Albumin/Globulin Ratio (1.60-3.17) g/dL Microbiology - Last 24 Hours (Table) 03/03/21 18:38 Blood Culture - Preliminary Blood No Growth after 72 hours 03/02/21 10:24 Anaerobic Culture - Final Ascites Fluid
[2021-03-07 21:12] LABS: Glucose,Whole Blood 132 mg/dL (75-99)
[2021-03-08] MEDS: PIPERACILLIN-TAZOBACTAM 3.375 GM in SODIUM CHLORIDE 0.9% 100 ML IVPB SCH ×3 (01:51→17:41)
--- NOTE | 2021-03-08 05:04 | PN ---
PROGRESS NOTE DATE OF SERVICE: 03/07/2021. REASON FOR FOLLOW UP: E coli bacteremia and cholecystitis. INTERVAL HISTORY: Patient is currently afebrile. The patient is more awake and alert. The patient is breathing comfortably. Denies any chest pain. No shortness of breath. No cough. Still complaining of abdominal distention and pain. No vomiting or any worsening diarrhea. PHYSICAL EXAMINATION: Blood pressure 102/58 with a pulse of 72, temperature 98.7. He is 98% on room air. General description is a middle-aged male up in the bed in no distress. Respiratory system: Unlabored breathing, decreased intensity of breath sounds. No wheeze. HEART: S1, S2. Regular rate and rhythm. Abdomen soft, mildly distended. No guarding. No rigidity. LABS: Hemoglobin is 8.3 with a white count of 6.86, BUN of 15, creatinine is 1.1. DIAGNOSTIC IMPRESSION AND PLAN: 1. Patient with E coli bacteremia, adequately treated. The patient has received about 2 weeks of antibiotics should be more than enough with no need for antibiotic on discharge. 2. Patient with abdominal ascites from underlying cirrhosis with no evidence of any secondary peritonitis. Peritoneal fluid culture has been negative. MMODL / IJN: [id number] /
[2021-03-08 06:50] LABS: Glucose,Whole Blood 97 mg/dL (75-99)
--- NOTE | 2021-03-08 07:40 | P.PN ---
Subjective Progress Note Date: 03/08/21 Principal diagnosis: Acute hypoxic respiratory failure Portal hypertension Esophageal Variaces Possible developing aspiration pneumonia Severe sepsis Acute kidney injury defect. The likely mechanism appeared to be acute tubular necrosis GI bleed likely from esophageal Variaces Gram-negative bacteremia source appears to be acute cholecystitis Alcoholic liver disease with cirrhosis Coagulopathy likely related to chronic alcohol related liver disease 03/08/2021, patient seen eval examined labs reviewed medications reviewed care plan discussed, diarrhea have improved, patient tolerating solid food, remains on room air, denies any chest pain mild shortness of breath on exertion is present, patient has been recommended to PT OT increase activity as tolerated, abdomen slightly more distended but soft it appears that patient might need another large-volume paracentesis after 24-48 hours, labs aren't done today, remains on the diuretics antibiotics and electrolyte replacement protocol 03/07/2021, patient seen eval examined during the rounds labs reviewed m edications reviewed care plan discussed, respiratory status remains stable, breathing comfortably, on room air mostly, patient has some upset stomach little bit of diarrhea, however abdomen remains softer, passing gas from below, hemoglobin stable 8.3, platelet counts stable 74,000, LFT stable slight improvement however is noted, I determined remains low suggestive of catabolic state, 03/06/2021, patient seen eval examined during the rounds labs reviewed medications reviewed care plan discussed, patient is awake and alert remains on room air breathing comfortably time he is soft now status post removal of 6.7 L by 03/05/2021, patient seen eval examined during the rounds labs reviewed medic ations reviewed care plan discussed, respiratory status remains stable patient is on room air, undergoing active physical therapy, vitals remained stable, blood pressure is 105/61, saturation is 95%, remains afebrile, patient appeared to have more swelling of the abdomen and lower extremity edema as well as scrotal swelling, likely have accumulated more fluid need another large volume paracentesis we'll reconsult interventional radiology 03/04/2021, patient seen eval examined during the rounds labs reviewed medications reviewed care plan discussed, respiratory status remains stable, patient is on room air, mental status improved now more awake and alert sitting question responding appropriately, appear weak and exhausted, acetic fluid cultures are pending, patient remains on the Zosyn along with Aldactone thiamine and folic acid protection being replaced as per protocol, today's labs are significant for hypokalemia potassium is down to 3.1 sodium normalized, 03/03/2021, patient seen eval examined during the rounds labs reviewed medications reviewed care plan discussed, history status continued to stable patient room air, however mental status remains unchanged confused arousable with verbal was physical stimuli, status post large volume paracentesis 6 L of straw-colored fluid has been removed, patient also have a positive blood culture related to E. coli likely source being ascending cholangitis, culture however on the sciatic fluid pending 03/02/2021, patient seen eval examined labs reviewed medications reviewed, patient remains confused and somnolent, arousable with verbal stimuli oriented 1-2, patient is being prepared for the large volume paracentesis, neurologist started seeing patient, patient remains on thiamine and folic acid and vitamin B12, CT of the head is pending 03/01/2021, patient seen eval examined during the rounds labs reviewed medications reviewed care plan discussed with the staff at length, patient has been progressively more lethargic, opens eyes follow to verbal and physical stimuli only, then spontaneously close it, patient has received Ativan for agitation yesterday, patient is scheduled for large volume paracentesis therapeutic purposes and to rule out spontaneous bacterial peritonitis, remains on room air, afebrile oxygen saturation 96%, 02/28/2021, patient seen eval examined during the rounds labs reviewed medications reviewed respiratory status remains stable at room air however more confused today, awake, not appeared to be agitated, slightly anxious, afebrile, hemodynamic status stable, oxygen saturation 95% on room air, cell count is stable at 11,400 BUN/creatinine is 42 and 1.08, sodium is 141, AST and ALT are 1 57/56 total bilirubin is 4.2, ammonia level is less than 9, albumin is only 2.4, patient abdomen appears to be more distended and relatively more formed likely have accumulated fluid consult has been placed for interventional radiology for large volume paracentesis, 02/27/2021, patient seen eval examined during the rounds labs reviewed medications reviewed, patient awake and arousable at times intermittently confused, hemodynamic status stable has been on room air, denies any chest pain, last bowel movement was yesterday no active bleeding has been seen in hemoglobin and platelet count remains stable, ever functions are stable, surgical service following this patient closely, will start patient on propranolol for portal hypertension, 02/26/2021, patient seen eval examined during the rounds labs reviewed medications reviewed patient is sitting upright in the bed breathing comfortably denies any chest pain blood pressure significantly improved dose of midodrine dryness health this morning, INR improved to 1.4, status post endoscopy and banding of esophageal rices by GI postop day #1 some old blood has been noted in the stools, hemoglobin however remains stable, patient is scheduled for laparoscopic cholecystectomy later on this afternoon, will keep in ICU because of multiple comorbidities is postoperatively, patient remains on broad-spectrum antibiotics for gram-negative bacteremia related to E. coli which appears to be not ESBL patient is on IV Zosyn ID has been following the patient as well, hemoglobin improved and stable at 10.8, AST/ALT to 259 and 71, total bilirubin is 4.6, 02/25/2021, patient is semi-propped up awake, breathing better now, is status post endoscopy with banding of esophageal rices, denies any chest pain and swelling in the abdomen slightly better, blood pressure improved today, patient remains on broad-spectrum antibiotics, patient remains on midodrine as well, patient is being scheduled for a lap jevon by general surgery, 2 L oxygen saturation 94%, a myoglobin is 10.4, 02/24/2021, patient seen eval examined during the rounds in ICU care plan discussed with the staff as well as GI service at length in detail, patient is still have intermittent bleeding going on, computed tomography scan of the chest revealed presence of the esophageal rices, blood pressure running on the marginal side, patient remains on bicarb drip, patient underwent 2 unit of packed RBC as well as 3 bags of FFP transfused, white cell count continue to come down, hemoglobin stable 9.3, potassium is 3.4, BUN/creatinine 34 and 2.44, like acid and lactic acid is slowly coming down latest is 5.2, liver functions continued to be high, with total bilirubin of 3.7, patient is being considered for endoscopy and ligation/bending of esophageal varices, patient is running blood pressure on the low side into the 90s, migratory dry and 5 mg twice a day will be started if there is evidence of more bleeding is seen then will consider octreotide This is a 60-year-old with chronic alcoholism patient presented into the emergency department from [facility] for evaluation of fever or aches and pains, patient has ongoing nausea and abdominal discomfort as well with swelling of the abdomen, symptoms have been progressive for many weeks, about 2 weeks ago patient has a upper GI bleed and had a scope done at [facility] found to have gastric crisis exact details however not available, patient has a significant liver disease due to alcohol is him, workup including ultrasound on February 19 revealed presence of cirrhosis dilated portal vein dilated and distended gallbladder with wall thickening and sludge, on arrival to emergency department patient was febrile with fever of 101 oxygen saturation was 93% hypertensive, blood pressure was 90/50, gradually patient was noted to have drop in hemoglobin, the saturation, continue spiking fever, along with patient has a lower GI bleed GI service has been consulted surgical service also has been consulted, chest x-ray however show right lower lobe infiltrate patchy infiltrate, repeat ultrasound gallstones along with gallbladder thickening, computed tomography scan of the chest performed yesterday negative for pulmonary embolism, presence of esophageal arises prominent spleen and liver findings liver consistent with nodular cirrhosis, chest x-ray earlier revealed normal heart site interstitial edema and some bibasilar infiltrate cannot be excluded patient remains on IV Zosyn today blood cultures positive for gram-negative rods, white cell count up to 17,900 patient oxygen requirement increased to 6 L, hemoglobin however have drop down to 8.4, PT/INR is 24.9 and 2.6 PTT is 48, arterial blood gas revealed pH of 7.15 pCO2 of 24 pO2 of 98 with bicarb of 9, patient was given 2 A of bicarbonate followed by bicarb drip, BUN/creatinine increased to 20 and 2.48, take acid up to 16.8, covid PCR is negative Objective - Vital Signs Vital signs: Vital Signs Temp 98.2 F 03/08/21 02:00 Pulse 67 03/08/21 02:00 Resp 16 03/08/21 02:00 BP 117/72 03/08/21 02:00 Pulse Ox 96 03/08/21 02:00 Intake & Output 03/07/21 03/08/21 03/08/21 18:59 06:59 18:59 Intake Total 1450 Output Total 4300 1500 Balance -2850 -1500 Intake: Intake, IV Titration 250 Amount Piperacillin-Tazobactam 3 200 .375 gm In Sodium Chloride 0.9% 100 ml @ 25 mls/hr IVPB Q8HR [facility] Rx# :[id number] Thiamine 100 mg In Sodium 50 Chloride 0.9% 50 ml @ 100 mls/hr IVPB Q12HR [facility] Rx#:[id number] Oral 1200 Output: Urine 4300 1500 Other: Voiding Method Indwelling Catheter Indwelling Catheter # Voids 1 - Exam - Constitutional General appearance: average body habitus, cooperative, mild distress, somnolent - EENT Eyes: PERRLA Ears: bilateral: normal - Neck Carotids: bilateral: upstroke normal Thyroid: negative: normal size - Respiratory Respiratory: bilateral: diminished - Cardiovascular Rhythm: regular Heart sounds: normal: S1, S2 - Gastrointestinal General gastrointestinal: decreased bowel sounds, less distended more softer - Integumentary Integumentary: decreased turgor - Neurologic Neurologic: CNII-XII intact - Musculoskeletal Musculoskeletal: gait normal, generalized weakness, strength equal bilaterally - Psychiatric Psychiatric: More somnolent - Labs CBC & Chem 7: 03/07/21 05:21 03/07/21 05:21 Labs: Abnormal Lab Results - Last 24 Hours (Table) 03/07/21 03/07/21 03/07/21 Range/Units 05:21 05:21 11:50 RBC 2.33 L (4.40-5.60) X 10*6/uL Hgb 8.3 L (13.0-17.0) g/dL Hct 25.6 L (39.6-50.0) % MCV 109.9 H (80.0-97.0) fL MCH 35.6 H (27.0-32.0) pg RDW 18.3 H (11.5-14.5) % Plt Count 74 L (140-440) X 10*3/uL Plt Count Comment DECREASED A MPV 13.1 H (9.5-12.2) fL Immature Plt Fraction 10.0 H (1.1-6.1) % Glucose 123 H (70-110) mg/dL POC Glucose (mg/dL) 130 H (75-99) mg/dL Calcium 7.4 L (8.7-10.3) mg/dL Total Bilirubin 3.6 H (0.2-1.2) mg/dL AST 53 H (14-35) U/L Total Protein 5.2 L (6.2-8.2) g/dL Albumin 2.20 L (3.80-4.90) g/dL Albumin/Globulin Ratio 0.73 L (1.60-3.17) g/dL 03/07/21 03/07/21 Range/Units 17:06 21:04 RBC (4.40-5.60) X 10*6/uL Hgb (13.0-17.0) g/dL Hct (39.6-50.0) % MCV (80.0-97.0) fL MCH (27.0-32.0) pg RDW (11.5-14.5) % Plt Count (140-440) X 10*3/uL Plt Count Comment MPV (9.5-12.2) fL Immature Plt Fraction (1.1-6.1) % Glucose (70-110) mg/dL POC Glucose (mg/dL) 113 H 132 H (75-99) mg/dL Calcium (8.7-10.3) mg/dL Total Bilirubin (0.2-1.2) mg/dL AST (14-35) U/L Total Protein (6.2-8.2) g/dL Albumin (3.80-4.90) g/dL Albumin/Globulin Ratio (1.60-3.17) g/dL Microbiology - Last 24 Hours (Table) 03/03/21 18:38 Blood Culture - Preliminary Blood No Growth after 96 hours Assessment and Plan Assessment: Protein calorie malnutrition of moderate to severe category multifactorial associated with sepsis, liver disease, and ongoing chronic illness Altered mental status likely hepatic encephalopathy due to multifactorial process including liver disease, sepsis, large ascites, spontaneous bacterial peritonitis, more awake and alert now Severe anemia and thrombocytopenia due to varical bleeding chronic alcoholism, overall stable no evidence of active bleeding seen Severe sepsis secondary due to acute cholecystitis, Gram-negative bacteremia due to E. coli source appears to be acute cholecystitis/ascending cholangitis acute cholecystitis/ascending cholangitis GI bleed likely from esophageal Variaces and as well as exacerbated by coagulopathy due to alcoholic liver disease Acute hypoxic respiratory failure Portal hypertension Esophageal Variaces aspiration pneumonia Acute kidney injury defect. The likely mechanism appeared to be acute tubular necrosis Alcoholic liver disease with cirrhosis Coagulopathy likely related to chronic alcohol related liver disease Plan: Patient patient is status post second large volume paracentesis INR improved Continue Zosyn, E. coli is sensitive Supplemental oxygen as needed Improve nutrition as tolerated Midodrine hold if the systolic blood pressure over 110 If evidence of continuous bleeding consider octreotide infusion transfer back to the ICU Gen. surgery consult for evaluation of cholecystectomy Status post banding of esophageal varises Blood transfusion as needed keep hemoglobin over 7-8y Monitor renal functions closely Further plan of care as per clinical response of the patient overall general condition very guarded with impending multiorgan failure Time with Patient: Greater than 30
[2021-03-08] MEDS: PROPRANOLOL 20 MG TAB PO SCH (09:13)
[2021-03-08] MEDS: FUROSEMIDE 40 MG TAB PO SCH ×2 (09:13→17:41)
[2021-03-08] MEDS: SPIRONOLACTONE 25 MG TAB PO SCH ×2 (09:13→20:58)
[2021-03-08] MEDS: PANTOPRAZOLE 40 MG/10 ML VIAL IV SCH ×2 (09:14→20:58)
[2021-03-08] MEDS: LACTULOSE 20 GM/30 ML CUP PO SCH ×2 (09:14→20:58)
[2021-03-08] MEDS: LACTATED RINGERS 1,000 ML IV SCH (09:14)
[2021-03-08 12:21] LABS: Glucose,Whole Blood 102 mg/dL (75-99)
--- NOTE | 2021-03-08 14:24 | PN ---
PROGRESS NOTE The patient is seen for followup for acute kidney injury. His renal function has improved. Serum creatinine down to 1.1 on 03/07/2021. Patient has good urine output. He has an indwelling Downey catheter, 24 hour output at about 5.8 L which is significantly higher. I am not sure if this is accurate. Currently patient is maintained on oral Lasix. He denies any significant complaints today. PHYSICAL EXAMINATION: Blood pressure was 105/61, heart rate 74 per minute. He is afebrile. EXAMINATION OF THE HEART: S1, S2. EXAMINATION OF THE LUNGS: Bilateral breath sounds are heard. Decreased breath sounds at bases. Abdomen is soft, nontender. Examination of lower extremities shows trace edema bilaterally. BULLDOZER OPERATOR exam grossly intact. LABS: Labs show from 03/07/2021, sodium 137, potassium 4.3, BUN 15, serum creatinine 1.1. ASSESSMENT: 1. Acute kidney injury, currently improved, possibly related to hepatorenal syndrome. 2. Acute decompensated liver disease, status post paracentesis. 3. Acute cholecystitis with Escherichia coli bacteremia. PLAN: Continue off of IV fluids, encourage increased oral intake and repeat labs in a.m. MMODL / IJN: [id number] /
--- NOTE | 2021-03-08 14:40 | P.PN ---
Subjective Progress Note Date: 03/08/21 CHIEF COMPLAINT: Fever HISTORY OF PRESENT ILLNESS: Patient is on regular medical floor. Surgical service following regards to his chronic cholecystitis. Patient's mentation continues to improve. He is lying in bed. He denies any abdominal pain. He is tolerating diet. Denies any nausea or vomiting. Patient's last paracentesis was on Monday with 6.7 L removed. Afebrile. No new labs for today Patient seen and examined with Dr. Jamil PHYSICAL EXAM: VITAL SIGNS: Reviewed. GENERAL: Well-developed in no acute distress. HEENT: No sclera icterus. Extraocular movements grossly intact. Moist buccal mucosa. Head is atraumatic, normocephalic. ABDOMEN: Nontender. Distended NEUROLOGIC: Sleepy but able to answer questions ASSESSMENT: 1. Chronic cholecystitis 2. Liver cirrhosis with ascites status post paracentesis 3. Portal hypertension PLAN: -No surgical intervention planned in regards to patient's cholecystitis. Patient is a high risk surgical candidate -Continue antibiotic per ID -Continue supportive care Physician Aviation Maintenance Instructor note has been reviewed by physician. Signing provider agrees with the documented findings, assessment, and plan of care. Objective - Vital Signs Vital signs: Vital Signs Temp 98.7 F 03/08/21 07:09 Pulse 74 03/08/21 08:00 Resp 18 03/08/21 08:00 BP 105/61 03/08/21 07:09 Pulse Ox 96 03/08/21 07:09 Intake & Output 03/07/21 03/08/21 03/08/21 18:59 06:59 18:59 Intake Total 1450 Output Total 4300 1500 1700 Balance -2850 -1500 -1700 Intake: Intake, IV Titration 250 Amount Piperacillin-Tazobactam 3 200 .375 gm In Sodium Chloride 0.9% 100 ml @ 25 mls/hr IVPB Q8HR [facility] Rx# :[id number] Thiamine 100 mg In Sodium 50 Chloride 0.9% 50 ml @ 100 mls/hr IVPB Q12HR [facility] Rx#:[id number] Oral 1200 Output: Urine 4300 1500 1700 Other: Voiding Method Indwelling Catheter Indwelling Catheter Indwelling Catheter # Voids 1 1 - Labs CBC & Chem 7: 03/07/21 05:21 03/07/21 05:21 Labs: Abnormal Lab Results - Last 24 Hours (Table) 03/07/21 03/07/21 03/08/21 Range/Units 17:06 21:04 11:52 POC Glucose (mg/dL) 113 H 132 H 102 H (75-99) mg/dL Microbiology - Last 24 Hours (Table) 03/03/21 18:38 Blood Culture - Preliminary Blood No Growth after 96 hours
[2021-03-08 16:36] LABS: Glucose,Whole Blood 91 mg/dL (75-99)
[2021-03-08] MEDS: THIAMINE 100 MG in SODIUM CHLORIDE 0.9% 50 ML IVPB SCH ×2 (17:41→20:59)
--- NOTE | 2021-03-08 18:18 | PN ---
PROGRESS NOTE This 60-year-old white male is 99% on room air. Blood pressure 100/62, pulse 60s to 70s, respiratory rate 18 to 20, temperature 95. Sugars in the mid 100s. He is slowly improving. His range of motion is improving. He still needs his gallbladder out, but it will have to be done as an outpatient if he gets better. He had acute hypoxemic respiratory failure secondary to portal hypertension, esophageal varices, aspiration pneumonia, severe sepsis, acute kidney injury, GI bleed from esophageal varices, Gram- negative bacteremia, alcoholic liver disease, coagulopathy. Hemoglobin is stable at 8.3, platelet count 74,000. LFTs stable. Slight improvement. CARDIOVASCULAR: S1, S2. LUNGS: Diminished. GI: Soft. White count 6.3, hemoglobin is 8.3, BUN is 15, creatinine 1.1. ASSESSMENT: 1. Protein-calorie malnutrition, moderate to severe category, associated with sepsis, liver disease, altered mental status and likely hepatic encephalopathy. 2. Severe anemia. 3. Thrombocytopenia due to variceal bleeding. 4. Chronic alcoholism. 5. Severe sepsis due to acute cholecystitis. 6. Portal hypertension. 7. Esophageal varices. 8. Aspiration pneumonia. 9. Alcoholic liver disease. 10.Gram-negative bacteremia due to Escherichia coli source due to the acute cholecystitis. 11.Ascending cholangitis. He has been very ill. He is getting midodrine, fluids, Zosyn. INR is improving. Possible outpatient cholecystectomy, although he is at high risk. They do not want to operate on him due to his high risk of . Prognosis extremely guarded. MMODL / IJN: [id number] /
[2021-03-08 21:06] LABS: Glucose,Whole Blood 136 mg/dL (75-99)
[2021-03-08] MEDS: ACETAMINOPHEN TAB 325 MG TAB PO PRN (22:11)
[2021-03-09] MEDS: PIPERACILLIN-TAZOBACTAM 3.375 GM in SODIUM CHLORIDE 0.9% 100 ML IVPB SCH ×2 (00:59→09:57)
[2021-03-09 07:10] LABS: Glucose,Whole Blood 123 mg/dL (75-99)
--- NOTE | 2021-03-09 08:27 | CDI ---
Documentation Clarification Form Date: 03/09/2021 07:32:00 AM From: Astrid Tripp RN CCDS Admit Date: 02/22/2021 09:47:00 PM Patient Name: Kennedy Bangura Visit Number: [id number] Discharge Date: ATTENTION: The Clinical Documentation Specialists (CDI) and [facility] Coding Staff appreciate your assistance in clarifying documentation. Please respond to the clarification below the line at the bottom and electronically sign. The CDI & [facility] Coding staff will review the response and follow-up if needed. Please note: Queries are made part of the Legal Health Record. If you have any questions, please contact the author of this message via ITS. Dr. Elmer Layton, Moderate to Severe Malnutrition is documented 03/08 Medicine progress note. Additional clarification regarding the severity of malnutrition is requested. History/Risk Factors: 60-year-old male presents to ED from senior care due to fever, body aches, elevated heart rates, some nausea, abdominal discomfort hasnt been eating or drinking for the last few days. Medical History: Liver cirrhosis with abdominal ascites, Alcohol abuse and HTN. Clinical Indicators: Diagnosis from 02/23 H&P: Sepsis with septic shock, Chronic cholecystitis, Current BMI: 24.4kg/m Dietary Consult 03/05: Nutrition Intake Fair, 50-75%, low sodium, 60% of meals. Appetite description: Fair. Estimated Nutritional Needs: Energy formula for estimated nutritional needs 25- 30 Kcals/Kg. Energy needs (Kcal): 6613-9263. Estimated Protein Needs: Weight used to estimate protein needs: [place] body weight: Estimated protein range (grams/kg) 1.0. Estimated Protein Needs (grams/day) 78. Estimated fluid needs: Fluid formula 1ml/Kcal; Estimated Fluid needs (mls/day) 1950. Nutritional Diagnosis: Inadequate Energy Intake. Diagnosis Related to: GI bleed and plan for surgery. NPO x 2 days partially met. Patients diet has been advanced to low sodium and is consuming 60% of meals. Patient is consuming 100% of the ensure compacts. Patient had 6L taken off during paracentesis 03/02. Fluid accumulation: Ascites Treatment: Monitor PO; Monitor supplement intake. Dietary Consult: See above and Treatment: Fat modified diet advance diet as medically appropriate. Supplements: 03/03 Ensure Compact TID serving protein 9. Lab monitoring: Chemistry panel. Please clarify the type of malnutrition, if known: [ ] Moderate Protein-Calorie Malnutrition [ ] Severe Protein-Calorie Malnutrition [ ] Other condition, please specify [ ] Unable to Determine (Template Last Revised: January 2021) MTDD
[2021-03-09] MEDS: LACTULOSE 20 GM/30 ML CUP PO SCH (08:32)
[2021-03-09] MEDS: SPIRONOLACTONE 25 MG TAB PO SCH (08:33)
[2021-03-09] MEDS: THIAMINE 100 MG in SODIUM CHLORIDE 0.9% 50 ML IVPB SCH (08:33)
[2021-03-09] MEDS: FUROSEMIDE 40 MG TAB PO SCH ×2 (08:33→17:14)
[2021-03-09] MEDS: PROPRANOLOL 20 MG TAB PO SCH (08:33)
[2021-03-09] MEDS: PANTOPRAZOLE 40 MG/10 ML VIAL IV SCH (08:33)
--- NOTE | 2021-03-09 08:34 | P.PN ---
Subjective Progress Note Date: 03/09/21 Principal diagnosis: Acute hypoxic respiratory failure Portal hypertension Esophageal Variaces Possible developing aspiration pneumonia Severe sepsis Acute kidney injury defect. The likely mechanism appeared to be acute tubular necrosis GI bleed likely from esophageal Variaces Gram-negative bacteremia source appears to be acute cholecystitis Alcoholic liver disease with cirrhosis Coagulopathy likely related to chronic alcohol related liver disease 03/09/2021, patient seen eval examined during the rounds labs reviewed medications reviewed patient remains on room air, shortness of breath on activity is present, chest pain is absent, intermittent cough which is usually dry, abdomen remains distended but soft appears stable like yesterday 03/08/2021, patient seen eval examined labs reviewed medications reviewed care plan discussed, diarrhea have improved, patient tolerating solid food, remains on room air, denies any chest pain mild shortness of breath on exertion is present, patient has been recommended to PT OT increase activity as tolerated, abdomen slightly more distended but soft it appears that patient might need another large-volume paracentesis after 24-48 hours, labs aren't done today, remains on the diuretics antibiotics and electrolyte replacement protocol 03/07/2021, patient seen eval examined during the rounds labs reviewed medicat ions reviewed care plan discussed, respiratory status remains stable, breathing comfortably, on room air mostly, patient has some upset stomach little bit of diarrhea, however abdomen remains softer, passing gas from below, hemoglobin stable 8.3, platelet counts stable 74,000, LFT stable slight improvement however is noted, I determined remains low suggestive of catabolic state, 03/06/2021, patient seen eval examined during the rounds labs reviewed medications reviewed care plan discussed, patient is awake and alert remains on room air breathing comfortably time he is soft now status post removal of 6.7 L by 03/05/2021, patient seen eval examined during the rounds labs reviewed medications reviewed care plan discussed, respiratory status remains stable patient is on room air, undergoing active physical therapy, vitals remained stable, blood pressure is 105/61, saturation is 95%, remains afebrile, patient appeared to have more swelling of the abdomen and lower extremity edema as well as scrotal swelling, likely have accumulated more fluid need another large volume paracentesis we'll reconsult interventional radiology 03/04/2021, patient seen eval examined during the rounds labs reviewed medications reviewed care plan discussed, respiratory status remains stable, patient is on room air, mental status improved now more awake and alert sitting question responding appropriately, appear weak and exhausted, acetic fluid cultures are pending, patient remains on the Zosyn along with Aldactone thiamine and folic acid protection being replaced as per protocol, today's labs are sign ificant for hypokalemia potassium is down to 3.1 sodium normalized, 03/03/2021, patient seen eval examined during the rounds labs reviewed medications reviewed care plan discussed, history status continued to stable patient room air, however mental status remains unchanged confused arousable with verbal was physical stimuli, status post large volume paracentesis 6 L of straw-colored fluid has been removed, patient also have a positive blood culture related to E. coli likely source being ascending cholangitis, culture however on the sciatic fluid pending 03/02/2021, patient seen eval examined labs reviewed medications reviewed, patient remains confused and somnolent, arousable with verbal stimuli oriented 1-2, patient is being prepared for the large volume paracentesis, neurologist started seeing patient, patient remains on thiamine and folic acid and vitamin B12, CT of the head is pending 03/01/2021, patient seen eval examined during the rounds labs reviewed medications reviewed care plan discussed with the staff at length, patient has been progressively more lethargic, opens eyes follow to verbal and physical stimuli only, then spontaneously close it, patient has received Ativan for agitation yesterday, patient is scheduled for large volume paracentesis therapeutic purposes and to rule out spontaneous bacterial peritonitis, remains on room air, afebrile oxygen saturation 96%, 02/28/2021, patient seen eval examined during the rounds labs reviewed medications reviewed respiratory status remains stable at room air however more confused today, awake, not appeared to be agitated, slightly anxious, afebrile, hemodynamic status stable, oxygen saturation 95% on room air, cell count is stable at 11,400 BUN/creatinine is 42 and 1.08, sodium is 141, AST and ALT are 1 57/56 total bilirubin is 4.2, ammonia level is less than 9, albumin is only 2.4, patient abdomen appears to be more distended and relatively more formed likely have accumulated fluid consult has been placed for interventional radiology for large volume paracentesis, 02/27/2021, patient seen eval examined during the rounds labs reviewed medications reviewed, patient awake and arousable at times intermittently confused, hemodynamic status stable has been on room air, denies any chest pain, last bowel movement was yesterday no active bleeding has been seen in hemoglobin and platelet count remains stable, ever functions are stable, surgical service following this patient closely, will start patient on propranolol for portal hypertension, 02/26/2021, patient seen eval examined during the rounds labs reviewed medications reviewed patient is sitting upright in the bed breathing comfortably denies any chest pain blood pressure significantly improved dose of midodrine dryness health this morning, INR improved to 1.4, status post endoscopy and banding of esophageal rices by GI postop day #1 some old blood has been noted in the stools, hemoglobin however remains stable, patient is scheduled for la paroscopic cholecystectomy later on this afternoon, will keep in ICU because of multiple comorbidities is postoperatively, patient remains on broad-spectrum antibiotics for gram-negative bacteremia related to E. coli which appears to be not ESBL patient is on IV Zosyn ID has been following the patient as well, hemoglobin improved and stable at 10.8, AST/ALT to 259 and 71, total bilirubin is 4.6, 02/25/2021, patient is semi-propped up awake, breathing better now, is status post endoscopy with banding of esophageal rices, denies any chest pain and swelling in the abdomen slightly better, blood pressure improved today, patient remains on broad-spectrum antibiotics, patient remains on midodrine as well, patient is being scheduled for a lap jevon by general surgery, 2 L oxygen saturation 94%, a myoglobin is 10.4, 02/24/2021, patient seen eval examined during the rounds in ICU care plan disc ussed with the staff as well as GI service at length in detail, patient is still have intermittent bleeding going on, computed tomography scan of the chest revealed presence of the esophageal rices, blood pressure running on the marginal side, patient remains on bicarb drip, patient underwent 2 unit of packed RBC as well as 3 bags of FFP transfused, white cell count continue to come down, hemoglobin stable 9.3, potassium is 3.4, BUN/creatinine 34 and 2.44, like acid and lactic acid is slowly coming down latest is 5.2, liver functions continued to be high, with total bilirubin of 3.7, patient is being considered for endoscopy and ligation/bending of esophageal varices, patient is running blood pressure on the low side into the 90s, migratory dry and 5 mg twice a day will be started if there is evidence of more bleeding is seen then will consider octreotide This is a 60-year-old with chronic alcoholism patient presented into the emergency department from [facility] for evaluation of fever or aches and pains, patient has ongoing nausea and abdominal discomfort as well with swelling of the abdomen, symptoms have been progressive for many weeks, about 2 weeks ago patient has a upper GI bleed and had a scope done at [facility] found to have gastric crisis exact details however not available, patient has a significant liver disease due to alcohol is him, workup including ultrasound on February 19 revealed presence of cirrhosis dilated portal vein dilated and distended gallbladder with wall thickening and sludge, on arrival to emergency department patient was febrile with fever of 101 oxygen saturation was 93% hypertensive, blood pressure was 90/50, gradually patient was noted to have drop in hemoglobin, the saturation, continue spiking fever, along with patient has a lower GI bleed GI service has been consulted surgical service also has been consulted, chest x-ray however show right lower lobe infiltrate patchy infiltrate, repeat ultrasound gallstones along with gallbladder thickening, computed tomography scan of the chest performed yesterday negative for pulmonary embolism, presence of esophageal arises prominent spleen and liver findings liver consistent with nodular cirrhosis, chest x-ray earlier revealed normal heart site interstitial edema and some bibasilar infiltrate cannot be excluded patient remains on IV Zosyn today blood cultures positive for gram-negative rods, white cell count up to 17,900 patient oxygen requirement increased to 6 L, hemoglobin however have drop down to 8.4, PT/INR is 24.9 and 2.6 PTT is 48, arterial blood gas revealed pH of 7.15 pCO2 of 24 pO2 of 98 with bicarb of 9, patient was given 2 A of bicarbonate followed by bicarb drip, BUN/creatinine increased to 20 and 2.48, take acid up to 16.8, covid PCR is negative Objective - Vital Signs Vital signs: Vital Signs Temp 97.3 F L 03/09/21 03:45 Pulse 57 L 03/09/21 03:45 Resp 20 03/09/21 03:45 BP 158/70 03/09/21 03:45 Pulse Ox 93 L 03/09/21 03:45 Intake & Output 03/08/21 03/09/21 03/09/21 18:59 06:59 18:59 Output Total 2700 2200 Balance -2700 -2200 Output: Urine 2700 2200 Other: Voiding Method Indwelling Catheter Indwelling Catheter # Voids 1 # Bowel Movements 3 2 - Exam - Constitutional General appearance: average body habitus, cooperative, mild distress, somnolent - EENT Eyes: PERRLA Ears: bilateral: normal - Neck Carotids: bilateral: upstroke normal Thyroid: negative: normal size - Respiratory Respiratory: bilateral: diminished - Cardiovascular Rhythm: regular Heart sounds: normal: S1, S2 - Gastrointestinal General gastrointestinal: decreased bowel sounds, more distended however remained softer - Integumentary Integumentary: decreased turgor - Neurologic Neurologic: CNII-XII intact - Musculoskeletal Musculoskeletal: gait normal, generalized weakness, strength equal bilaterally - Psychiatric Psychiatric: More somnolent - Labs CBC & Chem 7: 03/07/21 05:21 03/07/21 05:21 Labs: Abnormal Lab Results - Last 24 Hours (Table) 03/08/21 03/08/21 03/09/21 Range/Units 11:52 21:05 07:08 POC Glucose (mg/dL) 102 H 136 H 123 H (75-99) mg/dL Microbiology - Last 24 Hours (Table) 03/03/21 18:38 Blood Culture - Preliminary Blood No Growth after 120 hours Assessment and Plan Assessment: Protein calorie malnutrition of moderate to severe category multifactorial associated with sepsis, liver disease, and ongoing chronic illness Altered mental status likely hepatic encephalopathy due to multifactorial process including liver disease, sepsis, large ascites, spontaneous bacterial peritonitis, more awake and alert now Severe anemia and thrombocytopenia due to varical bleeding chronic alcoholism, overall stable no evidence of active bleeding seen Severe sepsis secondary due to acute cholecystitis, Gram-negative bacteremia due to E. coli source appears to be acute cholecystitis/ascending cholangitis acute cholecystitis/ascending cholangitis GI bleed likely from esophageal Variaces and as well as exacerbated by coagulopathy due to alcoholic liver disease Acute hypoxic respiratory failure Portal hypertension Esophageal Variaces aspiration pneumonia Acute kidney injury defect. The likely mechanism appeared to be acute tubular necrosis Alcoholic liver disease with cirrhosis Coagulopathy likely related to chronic alcohol related liver disease Plan: Patient patient is status post second large volume paracentesis, continue to monitor closely INR improved Continue Zosyn, E. coli is sensitive Supplemental oxygen as needed Improve nutrition as tolerated Midodrine hold if the systolic blood pressure over 110 If evidence of continuous bleeding consider octreotide infusion transfer back to the ICU Gen. surgery consult for evaluation of cholecystectomy Status post banding of esophageal varises Blood transfusion as needed keep hemoglobin over 7-8y Monitor renal functions closely Further plan of care as per clinical response of the patient overall general condition very guarded with impending multiorgan failure Time with Patient: Greater than 30
[2021-03-09 08:41] VITALS: RESP 16
[2021-03-09] MEDS: LACTATED RINGERS 1,000 ML IV SCH (08:41)
[2021-03-09 09:47] LABS: Basophils % (A) 0.8 %; Eosinophils % (A) 4.9 %; HCT 26.6 % (39.6-50.0); HGB 8.5 g/dL (13.0-17.0); Lymphocytes # (A) 1.02 X 10*3/uL (0.90-5.00); Lymphocytes % (A) 19.8 %; MCH 34.8 pg (27.0-32.0); Mean Platelet Volume 12.9 fL (9.5-12.2); Monocytes % (A) 14.6 %; Neutrophils # (A) 3.07 X 10*3/uL (1.80-7.70); Neutrophils % (A) 59.7 %; Platelet Count 92 X 10*3/uL (140-440); RBC 2.44 X 10*6/uL (4.40-5.60); RDW 18.6 % (11.5-14.5); WBC 5.14 X 10*3/uL (4.50-10.00)
[2021-03-09 09:48] LABS: Basophils # (A) 0.04 X 10*3/uL (0.00-0.10); Eosinophils # (A) 0.25 X 10*3/uL (0.04-0.35); Monocytes # (A) 0.75 X 10*3/uL (0.20-1.00)
[2021-03-09 11:36] LABS: Glucose,Whole Blood 93 mg/dL (75-99)
[2021-03-09 11:37] LABS: African American GFR (CKD) 76.3 (60.0-200.0); Albumin 2.4 g/dL (3.80-4.90); Albumin/Globulin Ratio 0.62 (1.60-3.17); BUN/Creat Ratio 12.5 Ratio (12.00-20.00); Calcium 8.3 mg/dL (8.7-10.3); Globulin 3.9 g/dL (1.6-3.3); Non-African American GFR(CKD) 65.8 (60.0-200.0); Potassium 4.6 mmol/L (3.5-5.5); Total Bilirubin 3.1 mg/dL (0.3-1.2); Total Protein 6.3 g/dL (6.2-8.2)
--- NOTE | 2021-03-09 14:51 | P.PN ---
Subjective Progress Note Date: 03/09/21 CHIEF COMPLAINT: Fever HISTORY OF PRESENT ILLNESS: Patient is on regular medical floor. Surgical service following regards to his chronic cholecystitis. Patient's mentation continues to improve. He is lying in bed. He denies any abdominal pain. He is tolerating diet. Denies any nausea or vomiting. Patient's last paracentesis was on Monday with 6.7 L removed. Afebrile. WBC 5.14 total bili 3.1 AST 59 ALT 29 Patient seen and examined with Dr. Jamil PHYSICAL EXAM: VITAL SIGNS: Reviewed. GENERAL: Well-developed in no acute distress. HEENT: No sclera icterus. Extraocular movements grossly intact. Moist buccal mucosa. Head is atraumatic, normocephalic. ABDOMEN: Nontender. Distended NEUROLOGIC: Sleepy but able to answer questions ASSESSMENT: 1. Chronic cholecystitis 2. Liver cirrhosis with ascites status post paracentesis 3. Portal hypertension PLAN: -No surgical intervention planned in regards to patient's cholecystitis. Patient is a high risk surgical candidate -Continue antibiotic per ID -Continue supportive care -Patient can be discharge from surgical standpoint Physician Motor Assembly Supervisor note has been reviewed by physician. Signing provider agrees with the documented findings, assessment, and plan of care. Objective - Vital Signs Vital signs: Vital Signs Temp 98.2 F 03/09/21 08:00 Pulse 77 03/09/21 08:00 Resp 16 03/09/21 08:00 BP 93/56 03/09/21 08:00 Pulse Ox 93 L 03/09/21 08:00 Intake & Output 03/08/21 03/09/21 03/09/21 18:59 06:59 18:59 Output Total 2700 2200 Balance -2700 -2200 Weight 79.2 kg Output: Urine 2700 2200 Other: Voiding Method Indwelling Catheter Indwelling Catheter Indwelling Catheter # Voids 1 # Bowel Movements 3 2 - Labs CBC & Chem 7: 03/09/21 05:30 03/09/21 05:30 Labs: Abnormal Lab Results - Last 24 Hours (Table) 03/08/21 03/09/21 03/09/21 Range/Units 21:05 05:30 05:30 RBC 2.44 L (4.40-5.60) X 10*6/uL Hgb 8.5 L (13.0-17.0) g/dL Hct 26.6 L (39.6-50.0) % MCV 109.0 H (80.0-97.0) fL MCH 34.8 H (27.0-32.0) pg RDW 18.6 H (11.5-14.5) % Plt Count 92 L (140-440) X 10*3/uL MPV 12.9 H (9.5-12.2) fL Absolute Nucleated RBC 0.02 H (0.00-0.00) X 10*3/uL NRBC/100 WBC Diff 0.4 H (0.0-0.0) /100 WBCS Sodium 134 L (135-145) mmol/L Glucose 144 H (70-110) mg/dL POC Glucose (mg/dL) 136 H (75-99) mg/dL Calcium 8.3 L (8.7-10.3) mg/dL Total Bilirubin 3.1 H (0.3-1.2) mg/dL AST 59 H (14-35) U/L Albumin 2.40 L (3.80-4.90) g/dL Globulin 3.9 H (1.6-3.3) g/dL Albumin/Globulin Ratio 0.62 L (1.60-3.17) g/dL 03/09/21 Range/Units 07:08 RBC (4.40-5.60) X 10*6/uL Hgb (13.0-17.0) g/dL Hct (39.6-50.0) % MCV (80.0-97.0) fL MCH (27.0-32.0) pg RDW (11.5-14.5) % Plt Count (140-440) X 10*3/uL MPV (9.5-12.2) fL Absolute Nucleated RBC (0.00-0.00) X 10*3/uL NRBC/100 WBC Diff (0.0-0.0) /100 WBCS Sodium (135-145) mmol/L Glucose (70-110) mg/dL POC Glucose (mg/dL) 123 H (75-99) mg/dL Calcium (8.7-10.3) mg/dL Total Bilirubin (0.3-1.2) mg/dL AST (14-35) U/L Albumin (3.80-4.90) g/dL Globulin (1.6-3.3) g/dL Albumin/Globulin Ratio (1.60-3.17) g/dL Microbiology - Last 24 Hours (Table) 03/03/21 18:38 Blood Culture - Preliminary Blood No Growth after 120 hours
--- NOTE | 2021-03-09 15:38 | PN ---
PROGRESS NOTE The patient is seen for followup for acute kidney injury. Serum creatinine staying at about 1.1-1.2 mg/dL now. The patient is maintained on Lasix 40 mg b.i.d. He denies any significant complaints. He is tolerating oral intake. PHYSICAL EXAMINATION: Blood pressure is a 93/56, heart rate 77 per minute. He is afebrile. EXAMINATION OF THE HEART: S1, S2. EXAMINATION OF LUNGS: Decreased breath sounds at bases. Abdomen is soft, nontender. Examination of lower extremities shows decreased edema. PANEL FLOW MACHINE OPERATOR exam grossly intact. LABS: Labs show sodium 134, potassium 4.6, chloride 101, BUN 15, creatinine 1.2, hemoglobin 8.5 g/dL. ASSESSMENT: 1. Acute kidney injury currently improved possible hepatorenal syndrome initially versus acute tubular necrosis. 2. Acute decompensated liver disease, status post paracentesis. 3. Acute cholecystitis with Escherichia coli bacteremia. Repeat blood cultures negative. Maintained on antibiotics. 4. Volume overload maintained on Lasix which I will decrease to once a day. PLAN: Decrease Lasix to daily from tomorrow and continue to monitor electrolytes and urine output. MMODL / IJN: [id number] /
[2021-03-09 15:49] VITALS: BP 108/68; PULSE 65; TEMP 98.4
[2021-03-09 16:37] LABS: Glucose,Whole Blood 115 mg/dL (75-99)
--- NOTE | 2021-03-09 16:53 | PN ---
PROGRESS NOTE ADDENDUM TO PROGRESS NOTE: Severe protein-calorie malnutrition. MMODL / IJN: [id number] /
--- NOTE | 2021-03-09 20:24 | DS ---
DISCHARGE SUMMARY DISCHARGE MEDICINE: 1. Lactulose 30 grams b.i.d. 2. Aldactone 50 b.i.d. 3. Cipro 500 b.i.d. for 7 days. 4. Inderal 20 mg daily. 5. Lasix 40 b.i.d. CONDITION: Stable. PROGNOSIS: Guarded. Ambulate as tolerated. Patient came in with possible ascending cholangitis, Gram-negative bacteremia secondary to acute cholecystitis, some GI bleed due to severe liver failure and ascites. Paracentesis x2 or 3 was done. For Gram-negative bacteremia from the gallbladder, he was started on IV antibiotics for 2 weeks' time. He was switched to Cipro on discharge. Cirrhosis was treated with spironolactone, Lasix and lactulose to keep his bilirubin down. His last bilirubin was 3.1 on discharge. He has got to go back to retirement. He may need some paracentesis weekly with the GI physician. Please see further orders on discharge. Condition stable. Prognosis guarded. Ambulate as tolerated. DISCHARGE DIAGNOSES: 1. Cholecystitis. 2. Bacteremia. 3. Hepatic encephalopathy. 4. Alcohol cirrhosis. 5. Anemia. 6. Esophageal varices. 7. Dehydration. 8. Alcohol withdrawal. Prognosis extremely guarded. MMODL / IJN: [id number] /
[2021-03-09] MEDS ORDERED: CIPROFLOXACIN HCL 500 MG TAB PO SCH (21:00)
--- NOTE | 2021-03-09 23:18 | P.PN ---
Progress Note - Text Progress Note Date: 03/08/21 REASON FOR FOLLOW UP: E coli bacteremia and cholecystitis. INTERVAL HISTORY: Patient is afebrile. The patient is breathing comfortably. The pt denies any chest pain. No shortness of breath. No cough. the pt is Still complaining of abdominal distention and pain. No vomiting or any worsening diarrhea. PHYSICAL EXAMINATION: Blood pressure 108/58 with a pulse of 70, temperature 98.7. He is 98% on room air. General description is a middle-aged male up in the bed in no distress. Respiratory system: Unlabored breathing, decreased intensity of breath sounds. No wheeze. HEART: S1, S2. Regular rate and rhythm. Abdomen soft, mildly distended. No guarding. No rigidity. LABS: white count of 6.86, BUN of 15, creatinine is 1.1. DIAGNOSTIC IMPRESSION AND PLAN: 1. Patient with E coli bacteremia, adequately treated. The patient has received about 2 weeks of antibiotics should be more than enough with no need for IV antibiotics on discharge, may consider a short course of oral cipro 2. Patient with abdominal ascites from underlying cirrhosis with no evidence of any secondary peritonitis. Peritoneal fluid culture has been negative.
--- NOTE | 2021-03-09 23:20 | P.PN ---
Progress Note - Text Progress Note Date: 03/09/21 REASON FOR FOLLOW UP: E coli bacteremia and cholecystitis. INTERVAL HISTORY: Patient remains to be afebrile. The patient is breathing comfortably. The pt denies any chest pain. No shortness of breath. No cough. the pt denies any worsening abdominal distention and pain. No vomiting however did have diarrhea. PHYSICAL EXAMINATION: Blood pressure 108/58 with a pulse of 70, temperature 98.7. He is 98% on room air. General description is a middle-aged male up in the bed in no distress. Respiratory system: Unlabored breathing, decreased intensity of breath sounds. No wheeze. HEART: S1, S2. Regular rate and rhythm. Abdomen soft, mildly distended. No guarding. LABS: repeat blood cultures negative DIAGNOSTIC IMPRESSION AND PLAN: 1. Patient with E coli bacteremia secondry to cholecystitis adequately treated. The patient has received about 2 weeks of antibiotics will give a short course of oral cipro on discharge , discussed with the attending physician
[2021-03-10] MEDS ORDERED: FUROSEMIDE 40 MG TAB PO SCH (09:00)
== END 2021-03-09 18:54 | DRG 871 ==
LOC: EC 15:31 → 2SICU 21:47 → 4SSUR 02-27 14:20
PROVIDERS: ADMIT Family Medicine; ATTEND Family Medicine
PROC: 30233N1 Transfusion of Nonautologous Red Blood Cells into Peripheral Vein, Percutaneous Approach (ICD-10-PCS; 2021-02-23)
PROC: 30233K1 Transfusion of Nonautologous Frozen Plasma into Peripheral Vein, Percutaneous Approach (ICD-10-PCS; 2021-02-23)
PROC: 0DB68ZX Excision of Stomach, Via Natural or Artificial Opening Endoscopic, Diagnostic (ICD-10-PCS; principal; 2021-02-25 12:45)
PROC: 0W3P8ZZ Control Bleeding in Gastrointestinal Tract, Via Natural or Artificial Opening Endoscopic (ICD-10-PCS; principal; 2021-02-25 12:45)
PROC: 0DB78ZX Excision of Stomach, Pylorus, Via Natural or Artificial Opening Endoscopic, Diagnostic (ICD-10-PCS; principal; 2021-02-25 12:45)
PROC: 0DB98ZX Excision of Duodenum, Via Natural or Artificial Opening Endoscopic, Diagnostic (ICD-10-PCS; principal; 2021-02-25 12:45)
PROC: 3E0G8GC Introduction of Other Therapeutic Substance into Upper GI, Via Natural or Artificial Opening Endoscopic (ICD-10-PCS; principal; 2021-02-25 12:45)
PROC: 06L38CZ Occlusion of Esophageal Vein with Extraluminal Device, Via Natural or Artificial Opening Endoscopic (ICD-10-PCS; principal; 2021-02-25 12:45)
PROC: 05HC33Z Insertion of Infusion Device into Left Basilic Vein, Percutaneous Approach (ICD-10-PCS; 2021-02-26)
PROC: 0W9G3ZZ Drainage of Peritoneal Cavity, Percutaneous Approach (ICD-10-PCS; 2021-03-02)
PROC: 0W9G3ZZ Drainage of Peritoneal Cavity, Percutaneous Approach (ICD-10-PCS; 2021-03-05)
DX: A41.51 Sepsis due to Escherichia coli [E. coli] (principal); E43 Unspecified severe protein-calorie malnutrition; G92 Toxic encephalopathy; I85.11 Secondary esophageal varices with bleeding; J69.0 Pneumonitis due to inhalation of food and vomit; K65.2 Spontaneous bacterial peritonitis; J96.01 Acute respiratory failure with hypoxia; K22.6 Gastro-esophageal laceration-hemorrhage syndrome; K76.7 Hepatorenal syndrome; N17.0 Acute kidney failure with tubular necrosis; R65.21 Severe sepsis with septic shock; D62 Acute posthemorrhagic anemia; D68.4 Acquired coagulation factor deficiency; E87.0 Hyperosmolality and hypernatremia; E87.2 Acidosis; F10.239 Alcohol dependence with withdrawal, unspecified; K76.6 Portal hypertension; K80.12 Calculus of gallbladder with acute and chronic cholecystitis without obstruction; K83.09 Other cholangitis; D69.59 Other secondary thrombocytopenia; D72.819 Decreased white blood cell count, unspecified; D75.89 Other specified diseases of blood and blood-forming organs; E11.649 Type 2 diabetes mellitus with hypoglycemia without coma; E83.42 Hypomagnesemia; E83.51 Hypocalcemia; E86.0 Dehydration; E87.6 Hypokalemia; E87.70 Fluid overload, unspecified; I10 Essential (primary) hypertension; K70.31 Alcoholic cirrhosis of liver with ascites; K29.70 Gastritis, unspecified, without bleeding; K70.40 Alcoholic hepatic failure without coma; L40.9 Psoriasis, unspecified; Z20.822 Contact with and (suspected) exposure to COVID-19; Z53.9 Procedure and treatment not carried out, unspecified reason; R45.1 Restlessness and agitation; Z78.1 Physical restraint status; Z79.899 Other long term (current) drug therapy; Z82.49 Family history of ischemic heart disease and other diseases of the circulatory system; R19.7 Diarrhea, unspecified; Z65.3 Problems related to other legal circumstances; Z68.24 Body mass index [BMI] 24.0-24.9, adult
CPT/HCPCS: 36410; 36415; 36600; 43239; 43243; 43255; 49083; 70450; 71045; 71275; 74177; 76705; 76937; 80048; 80053; 81001; 82042; 82140; 82150; 82607; 82746; 82805; 83605; 83615; 83690; 83735; 84075; 84132; 84157; 85025; 85027; 85379; 85610; 85730; 86140; 86850; 86900; 86901; 86920; 87040; 87070; 87075; 87077; 87086; 87186; 87205; 87635; 88305; 89050; 93005; 95816; 96361; 96374; 96376; 99285

== ENCOUNTER 2021-05-18 07:29 | Day surgery (SDC) | payer MEDICARE, BC ==
[2021-05-14 16:04] VITALS: BMI 19.2
[~2021-05-18 07:29] MED LIST: LACTATED RINGERS 1,000 ML IV SCH; LIDOCAINE 1% (10MG/ML) FOR IV START INTRADERMA PRN
[2021-05-18 08:02] VITALS: TEMP 98.6
[2021-05-18] MEDS ORDERED: PROPOFOL 10 MG/ML 20 ML VIAL IV ONE (08:28)
--- NOTE | 2021-05-18 08:44 | P.PCN ---
Date of Procedure: 05/18/21 Description of Procedure: BRIEF HISTORY: Patient is a 61-year-old male with a history of decompensated alcoholic cirrhosis is emptying 4 esophagogastroduodenoscopy for varices and cirrhosis. Previously seen in the hospital the patient was taken for EGD on 02/25/21 with distal esophageal varices treated with band ligation as well as Endo Clip placement for treatment of a Vera-Diego tear. Hemostasis was achieved. Currently patient is on Aldactone, Lasix and propranolol. No further GI bleeding. PROCEDURE PERFORMED: Esophagogastroduodenoscopy. PREOPERATIVE DIAGNOSIS: Esophageal varices, alcoholic cirrhosis, last EGD 02/25/21. ESTIMATED BLOOD LOSS: Minimal. IV sedation per anesthesia. PROCEDURE: After informed consent was obtained, the patient was brought into the endoscopy unit. IV sedation was administered by Anesthesia under continuous monitoring. Initially the Olympus GIF-190 video endoscope was inserted into the mouth. Esophagus intubated without any difficulty. It was gradually advanced into the stomach and duodenum and carefully examined. The bulb and the second part of the duodenum appeared normal. The scope at this time was withdrawn to the stomach, adequately insufflated with air, and upon careful examination, mucosa of the antrum, body, cardia and the fundus appeared normal except for some mild punctate erythema of the antrum and body suggestive of mild gastritis. The scope was then withdrawn into the esophagus. The GE junction was located at 39 cm from the incisors, with a small 1 cm hiatal hernia noted. The esophagus was examined with findings consistent with scarring and changes from prior esophageal band ligation. There was one small column of varices without any high risk stigmata. There were no erosions or ulcerations seen. The patient tolerated the procedure well. IMPRESSION: 1. Mild gastritis. 2. Small hiatal hernia. 3. Small column of distal esophageal varices without high risk stigmata. RECOMMENDATIONS: The findings of this examination were discussed with the patient. Okay to resume diet, sodium restricted. Okay to resume diuretic therapy. Continue Inderal therapy. Recommend repeat EGD in 1 year for monitoring of varices.
[2021-05-18 09:07] VITALS: BP 144/90; PULSE 77; RESP 20
== END 2021-05-18 09:19 ==
LOC: ORWHC2ENDO 07:29
PROVIDERS: ATTEND Internal Medicine
DX: K70.31 Alcoholic cirrhosis of liver with ascites (principal); K44.9 Diaphragmatic hernia without obstruction or gangrene; K21.9 Gastro-esophageal reflux disease without esophagitis; I85.10 Secondary esophageal varices without bleeding; K29.70 Gastritis, unspecified, without bleeding; Z79.899 Other long term (current) drug therapy; Z98.890 Other specified postprocedural states
CPT/HCPCS: 43235; J2704